=== PATIENT | female | born 1945 | race Caucasian/White ===

== ENCOUNTER → 2016-09-13 | Outpatient (CLI) | payer OTHER ==
[~2016-09-13] MED LIST: AMLO-114 PO; ASCA500 PO; BENZ100C7 PO; CALC1TAB9 PO; CHOL100027 PO; CLC100 PO; CPR500 PO; GLC5 PO; GLC500 PO; HYDR25TA4 PO; ONDA4TAB46 PO; POLY1DRO2 OP; PTDOPS OPR; SIMV20TA2 PO; SITA1TAB27 PO; TYLOTC500 PO
== END | disposition home or self-care (01) ==
LOC: C.LABSPEC 15:59
PROVIDERS: ATTEND Podiatrist
DX: L60.0 Ingrowing nail (principal); E11.51 Type 2 diabetes mellitus with diabetic peripheral angiopathy without gangrene

== ENCOUNTER → 2017-06-04 | Outpatient (CLI) | payer OTHER ==
--- NOTE | 2017-06-05 13:40 | MAMMOGRAPHY REPORT ---
BILATERAL DIGITAL SCREENING MAMMOGRAM TOMOSYNTHESIS WITH CAD: 06/04/2017 CLINICAL HISTORY: Routine screening. TECHNIQUE: Breast tomosynthesis in addition to standard 2D mammography was performed. Current study was also evaluated with a Computer Aided Detection (CAD) system. COMPARISON: Comparison is made to exams dated: 03/13/2016 mammogram, 05/31/2015 mammogram, 05/28/2014 mammogram, 05/26/2013 mammogram, 05/23/2012 mammogram, and 05/22/2011 mammogram - [facility]. BREAST COMPOSITION: There are scattered areas of fibroglandular density in both breasts. FINDINGS: There are scattered benign calcifications in both breasts. Minimal vascular calcification. No suspicious mass, architectural distortion or cluster of suspicious microcalcifications is seen. IMPRESSION: ACR BI-RADS CATEGORY 1: NEGATIVE There is no mammographic evidence of malignancy. A 1 year screening mammogram is recommended. The pa tient will receive written notification of the results. Approximately 10% of breast cancers are not detected with mammography. A negative mammographic report should not delay biopsy if a clinically suggestive mass is present. Ivory Jamison M.D. ay/:06/04/2017 16:23:20 Lab Animal Technician: Dinah GALVEZ(Hui)(M), [facility] letter sent: Normal 1/2 BI-RADS Code: ACR BI-RADS Category 1: Negative
== END | disposition home or self-care (01) ==
LOC: C.MAMM 12:41
PROVIDERS: ATTEND Family Medicine
DX: Z12.31 Encounter for screening mammogram for malignant neoplasm of breast (principal)

== ENCOUNTER → 2017-09-10 | Day surgery (SDC) | payer OTHER ==
[2017-09-03 13:46] VITALS: Ht 162.6 cm; Wt 81.8 kg
[~2017-09-10] VITALS: Ht 162.6 cm; Wt 81.8 kg
[~2017-09-10] MED LIST changes: +ALBINS/ INH; -ASCA500 PO; +ATROPINE SULFATE 0.1 MG/ML 5ML SYR IV PRN; +BUPIVACAINE 0.5 % 5 MG/1 ML MPF 30ML VIAL ONE; -CPR500 PO; +EpHEDrine SULFATE INJ 50 MG/ML AMP IV PRN; +FENTANYL CITRATE INJ 50 MCG/1 ML 2 ML VIAL IV PRN; +FENTANYL CITRATE INJ 50 MCG/1 ML 2 ML VIAL ONE; +FLUMAZENIL 0.1 MG/1 ML 10 ML VIAL IV PRN; -GLC5 PO; +GLIP10TA10 PO; +HYDR-4313 PO; +HYDROmorphone INJ 2 MG/ML SYR/VIAL IV PRN; +LABETALOL HCL IV 5 MG/ML 20ML IV PRN; +LACTATED RINGER'S 1000ML 1,000 ML IV SCH; +LIDOCAINE HCL 2% 2 ML VIAL (20MG/ML) ONE; +MEPERIDINE HCL 25 MG/ML CARP IV PRN; +MIDAZOLAM HCL 1 MG/ML 2ML VIAL ONE; +MULT1CHW42 PO; +MULT1PAK42 PO; +NALOXONE HCL 0.4 MG/1 ML VIAL/CARP IV PRN; +ONDA8TAB62 SL; +ONDANSETRON INJ 2 MG/ML 2 ML VIAL IV PRN; +ONDANSETRON INJ 2 MG/ML 2 ML VIAL ONE; +OXYCODONE/ACETAMINOPHEN 5-325 TAB PO PRN; +PHENYLEPHRINE 100MCG/ML 5ML SYR IV PRN; +PROPOFOL IV EMULSION 10 MG/ML 20 ML VIAL IV ONE; +SODIUM CHLORIDE 0.9% 1000ML 1,000 ML IV SCH; +[UNRECOGNIZED DRUG - CODE] PO
--- NOTE | 2017-09-10 07:15 | History & Physical Bridge - [place] ---
H&P Re-Evaluation Bridge Note: I have examined the patient, reviewed the History & Physical and in the interval since the performance of the History & Physical I have noted the following changes of clinical significance: No changes noted
--- NOTE | 2017-09-10 08:08 | [facility] Post Operative Brief Note ---
Immediate Operative Summary Operative Date Sep 10, 2017. Pre-Operative Diagnosis Left Foot 4th Digit Ingrown Toenail Post-Operative Diagnosis Same Procedure(s) Performed Left Foot 4th Digit Surgical Suppan Matrixectomy Surgeon Dr. Guillaume Photographic Equipment Technician Surgeon(s) none Estimated Blood Loss 3 ml Findings Consistent with Post-Op Diagnosis Specimens None Anesthesia Type MAC Complication(s) none Disposition Accompanied Pt To Recovery: no
--- NOTE | 2017-09-10 08:13 | Discharge Instructions-SurgCtr ---
Discharge Instructions Date of Service Sep 10, 2017. Visit Reason for Visit: Left Foot 4TH Digit Ingrown Toenail Discharge Discharge Diagnosis / Problem: Matrixectomy Discharge Goals Goal(s): Decrease discomfort, Improve function Medications Stopped Medications Name(s): metforamin last dose 09-07-17 Activity Recommendations Activity Limitations: per Instructions/Follow-up section May Resume Sexual Activity: when tolerated Shower/Bathe: keep incision dry Driving or Machine Use: no limitations May weight bear as tolerated. Anesthesia . Post Anesthesia Instructions: If you have had General Anesthesia or IV Sedation: * Do not drive today. * Resume driving when surgeon permits. * Do not make important decisions or sign legal documents today. * Call surgeon for: 1. Temperature elevations greater than 101 degrees F. 2. Uncontrollable pain. 3. Excessive bleeding. 4. Persistent nausea and vomiting. 5. Medication intolerance (nausea, vomiting or rash). * For nausea and vomiting use only clear liquids such as: tea, soda, bouillon until nausea subsides, then gradually increase diet as tolerated. * If you have any concerns or questions, call your surgeon's office. If physician is unavailable and it is an emergency, call 911 or go to the nearest emergency room. . Diet Recommendations Home Diet: resume previous diet Procedures Procedures Performed: Left Foot 4th Digit Surgical Suppan Matrixectomy Pending Studies Studies pending at discharge: no Medical Emergencies . Who to Call and When: Medical Emergencies: If at any time you feel your situation is an emergency, please call 911 immediately. . Non-Emergent Contact Non-Emergency issues call your: Primary Care Provider, Specialist Call Non-Emergent contact if: you have a fever, your pain is not controlled, wound has increased drainage, wound has increased redness, wound has increased pain . . "Provider Documentation" section prepared by Caterina Guillaume. . [place] Drug Monitoring Program Search Results: no issues identified
[2017-09-10 08:14] VITALS: TEMP 36.5
--- NOTE | 2017-09-10 08:36 | Anesthesia Progress Nt - [facility] ---
Anesthesia Post Op Note Date & Time Sep 10, 2017 at 08:36 Vital Signs Pain Intensity: 0 Vital Signs Past 12 Hours Date Time Temp Pulse Resp B/P (MAP) Pulse Ox O2 Delivery O2 Flow Rate FiO2 09/10/17 08:14 36.5 88 16 150/80 (103) 95 Room Air 09/10/17 07:20 36.4 95 20 153/91 (111) 96 Room Air Notes Mental Status: alert / awake / arousable, participated in evaluation Pt Amnestic to Procedure: Yes Nausea / Vomiting: adequately controlled Pain: adequately controlled Airway Patency, RR, SpO2: stable & adequate BP & HR: stable & adequate Hydration State: stable & adequate Anesthetic Complications: no major complications apparent
[2017-09-10 08:59] VITALS: BP 137/72; PULSE 83; O2SAT 97
--- NOTE | 2017-09-10 09:11 | [facility] Operative Report ---
Operative Report Operative Date Sep 10, 2017. Pre-Operative Diagnosis Left Foot 4th Digit Ingrown Toenail Post-Operative Diagnosis Same Procedure(s) Performed Left Foot 4th Digit Surgical Supan Matrixectomy Surgeon Dr. Guillaume Stringer Machine Tender Surgeon(s) none Estimated Blood Loss 3 ml Specimens None Anesthesia Type MAC Complication(s) none Disposition no Indications This 72 year old female presented to the office with complaint of thickened, ingrown painful 4th toenail left foot. Patient has attempted conservative treatment consisting of debridements, and previous phenol matrixectomy. She is in agreement and wishes to proceed with Supan matrixectomy left 4th toenail. Patient was educated on the details of the procedures as well as medically reasonable risks, benefits, alternatives and prognosis. Patient was also educated on perioperative management including preoperative medical clearance, postoperative care and rehabilitation, anticipated time to full weightbearing, return to shoes and maximum medical improvement. Lastly patient was educated to their apparent understanding on potential complications including but not limited to infection, recurrence, overcorrection or undercorrection, persistent pain, swelling or disability, nerve injury or entrapment, bone and soft tissue healing complications, complications with anesthesia and deep vein thrombosis or pulmonary embolism. All questions were answered to the patients apparent satisfaction. No guarantees were given as to the outcome of the surgery. Medical clearance has been obtained by the patients primary care physician. All consents have been signed and obtained. Description of Procedure Under mild sedation, patient was brought to the operating room and placed on the table in the supine position. Final verification of the patient, surger, and limb designation was performed via the time-out procedure. Mac anesthesia was then initiated by the anesthesia team. The preoperative injection consisting of 5cc of 0.5% marcaine plain were administered to the operative sites. The surgical extremity was then prepped and draped in the usual aseptic manner and surgery began as follows: A [place] drain was use for hemostasis around the 4th digit at this time. Attention was first directed to the left 4th digit, where using a freer elevator , the nail plate was freed of all soft tissue attachments along the proximal, medial and lateral aspects. Next, an [place] anvil was then utilized to split the nail plate from distal to proximal down to the level of the nail matrix. A curved hemostat was then employed and thenail plate was avulsed in a proximal to distal fashion in its entirety. Any remaining extraneous tissue was removed with a curette & tissue nippers. The nail matrix was then identified and was carefully resected free using a #15 blade and a rongeur. No remaining nail matrix was appreciated. The site was then flushed with copious amounts of normal sterile saline. At this time, post-operative dressing consisting of adaptik, 4x4 gauze and coban were applied to the operative site. The [place] draine was removed. Patient tolerated the procedure and anesthesia well. She was transferred to recovery with vital signs stable and vascular status intact to the left foot. I attest to the content of the Intraoperative Record and any orders documented therein. Any exceptions are noted below.
== END | disposition home or self-care (01) ==
LOC: X.SURG 06:59
PROVIDERS: ATTEND Podiatrist Foot & Ankle Surgery
DX: L60.0 Ingrowing nail (principal); R60.9 Edema, unspecified; G60.3 Idiopathic progressive neuropathy; E78.5 Hyperlipidemia, unspecified; I10 Essential (primary) hypertension; E11.51 Type 2 diabetes mellitus with diabetic peripheral angiopathy without gangrene; G51.0 Bell's palsy; Z79.84 Long term (current) use of oral hypoglycemic drugs; Z85.820 Personal history of malignant melanoma of skin; Z98.42 Cataract extraction status, left eye; Z98.41 Cataract extraction status, right eye; Z90.710 Acquired absence of both cervix and uterus; Z88.1 Allergy status to other antibiotic agents; Z91.040 Latex allergy status; Z88.5 Allergy status to narcotic agent; Z88.0 Allergy status to penicillin; Z88.8 Allergy status to other drugs, medicaments and biological substances; Z79.899 Other long term (current) drug therapy

== ENCOUNTER 2018-09-25 21:51 | Inpatient (IN) ==
[2018-09-25] MEDS ORDERED: KETAMINE HCL INJ 50 MG/ML 10 ML VIAL ONE (21:55)
[2018-09-25] MEDS ORDERED: ALBUT/IPRATROP 3MG/0.5MG NEB 3 ML VIAL ONE (22:04)
[2018-09-25] MEDS ORDERED: ALBUT/IPRATROP 3MG/0.5MG NEB 3 ML VIAL NEB ONE (22:05)
[2018-09-25] MEDS ORDERED: FUROSEMIDE 20 MG in SYRINGE 0 ML IV STA (22:11)
[2018-09-25 22:14] LABS: Hematocrit (blood only) 42.9 % (37-47); Hemoglobin 14.4 g/dL (12.0-16.0); Mean Corpuscular Hgb Conc 33.6 g/dL (32-36); Mean Corpuscular Volume 95.3 fL (80-100); Mean Platelet Volume 10.2 fL (7.4-10.4); Platelet Count 294 K/uL (130-400); RDW Coefficient of Variation 14.5 % (11.5-14.5); White Blood Count 16.27 K/uL (4.8-10.8)
[2018-09-25 22:14] LABS: Base Excess VBG -4.5 mEq/L; Oxygen Saturation VBG 84.6 %; pH VBG 7.27 (7.36-7.41)
[2018-09-25 22:19] LABS: iSTAT Ionized Calcium 1.37 mmol/l (1.12-1.32); iSTAT Potassium 4.7 mEq/L (3.3-5.0)
[2018-09-25 22:25] LABS: INR 1.1 (0.9-1.1); Partial Thromboplastin Time 25.9 Seconds (21.0-31.0); Prothrombin Time 11.4 Seconds (9.0-12.0)
[2018-09-25] MEDS ORDERED: FUROSEMIDE 40 MG/4 ML VIAL IV ONE (22:26)
[2018-09-25 22:29] LABS: Appearance Urine Clear (Clear); Bilirubin Urine Negative (Negative); Blood Urine Negative (Negative); Color Urine Yellow; Glucose Urine UA Negative (Negative); Ketones Urine Negative (Negative); Leukocyte Esterase Urine Negative (Negative); Nitrite Urine Negative (Negative); Protein Urine Negative (Negative); Specific Gravity Urine 1.018 (1.000-1.030); Urobilinogen Urine Negative (Negative)
--- NOTE | 2018-09-25 22:29 | XRay Report ---
XR chest 1V portable CLINICAL HISTORY: Atypical chest pain COMPARISON STUDY: 09/21/2018 FINDINGS: The heart is enlarged. There is progressive diffuse elevation of the interstitium. The find ings likely represent progressive pulmonary edema. An interstitial inflammatory process could appear similar. There is persistent hilar prominence. Small effusions are suspected. There is left basilar a telectasis/consolidation.[ IMPRESSION: Worsening pulmonary edema pattern. Electronically signed by: Perfecto Means M.D. 09/25/2018 10:28 PM
[2018-09-25 22:35] LABS: Basophils # (auto) 0.03 K/uL (0-0.2); Basophils % (auto) 0.2 %; Echinocytes 1+; Eosinophils # (auto) 0.32 K/uL (0-0.5); Immature Granulocytes % (auto) 0.6 %; Monocytes # (auto) 0.97 K/uL (0.11-0.59); Neutrophils # (auto) 9.15 K/uL (1.4-6.5); Neutrophils % (auto) 56.2 %
[2018-09-25 22:42] LABS: Albumin Level 3.6 gm/dl (3.4-5.0); BUN Creatinine Ratio 14.9 (10-20); Bilirubin Direct 0.2 mg/dl (0-0.2); Bilirubin,Total 0.6 mg/dl (0.2-1); Calcium 9.9 mg/dl (8.5-10.1); Creatinine Clr Calc Pharmacy 49.2 ml/min; Est GFR (African American) 52.8; Est GFR (Non-African American) 45.6; Globulin 3.5 gm/dl (2.5-4.0); Magnesium 2.4 mg/dl (1.8-2.4); Phosphorus 6.6 mg/dl (2.5-4.9); Total Protein 7.1 gm/dl (6.4-8.2); Troponin I 0.015 ng/ml (0-0.045)
[2018-09-25 22:43] LABS: Potassium 4.7 mmol/L (3.5-5.1)
[2018-09-25 22:52] LABS: Beta-Hydroxybutyrate 2.27 mg/dl (0.2-2.81)
[2018-09-25] MEDS ORDERED: LANTUS PER UNIT CHARGE SQ STA (23:32)
[2018-09-25 23:54] LABS: HCO3 ABG 21 mmol/L (19-24); Oxygen Saturation ABG 99.3 % (90-95); PCO2 ABG 37 mmHg (35-46); PO2 ABG 164 mm/Hg (80-95); pH ABG 7.38 (7.35-7.45)
[2018-09-25 23:55] LABS: Allen Test 50% (Pos)
--- NOTE | 2018-09-26 00:58 | Emergency Department Note ---
Entered by Shun Lew acting as a scribe for Jerel Martínez MD History of Present Illness General Chief complaint: Shortness of Breath/Dyspnea Stated complaint: BREATHING PROBLEMS Source: patient and EMS Limitations: clinical acuity History of Present Illness Provider complaint: SOB Onset (ago): minute(s) 45 Location: chest Severity: severe Quality: + constant Relieved By: + none Associated symptoms: + chest pain and + shortness of breath Treatments prior to arrival: other (NG, morphine) The patient is a 73 year old female who presents to the Emergency Room with complaints of shortness of breath beginning 40 minutes ago. The patient's HPI is limited due to clinical acuity. Per EMS, the patient presents to the ED from home. EMS states she experienced a rapid onset of chest pain and shortness of breath. They add that she is full of fluid and would not tolerate the CPAP for them due t her being so agitated. They state they gave her 5 doses if NG and 4 doses of morphine. EMS adds that the patient was discharged 1 day ago from the hospital and that she underwent cardiac catheterization a couple days ago. The patient states that she has tightness all over her chest and the tightness is making it hard for her to breath. Per the patient's who was bedside, the patient weighed herself this morning and had lost 5 lbs since she left the hospital. He adds that she was taking her prescribed medications and she was fine this morning several hours ago. The also notes that the patient was in the recliner, reclining backwards when the episode of chest pain/shortness of breath prior to EMS arrival. Home Medications Home Medications Medication Instructions Recorded Confirmed Type Centrum Silver 1 tab PO DAILY 06/19/18 09/25/18 History Emergen-C 1 dose PO QPM 06/19/18 09/25/18 History I'Cat 1 cap PO DAILY 06/19/18 09/25/18 History Januvia 100 mg PO QAM 06/19/18 09/25/18 History Systane Gel 1 drp OPB HS 06/19/18 09/25/18 History albuterol sulfate 2.5 mg INHALATION QID PRN 06/19/18 09/25/18 History benzonatate [Tessalon Perles] 100 mg PO TID PRN 06/19/18 09/25/18 History calcium citrate-vitamin D3 2 tab PO QAM 06/19/18 09/25/18 History [Citracal + D Petites] cholecalciferol (vitamin D3) 1,000 unit PO BID 06/19/18 09/25/18 History [Vitamin D3] glipizide 10 mg PO QAM 06/19/18 09/25/18 History metformin 2 tab PO BID 06/19/18 09/25/18 History olopatadine [Pataday] 1 drp OPR QAM 06/19/18 09/25/18 History ondansetron 4 mg PO UNKNOWN PRN 06/19/18 09/25/18 History simvastatin 20 mg PO HS 06/19/18 09/25/18 History amiodarone 200 mg PO Q6 30 Days #120 tab 09/24/18 09/25/18 Rx apixaban [Eliquis] 5 mg PO BID17 30 Days #30 tab 09/24/18 09/25/18 Rx furosemide 20 mg PO QAM 30 Days #30 tab 09/24/18 09/25/18 Rx losartan 25 mg PO QAM 30 Days #30 tab 09/24/18 09/25/18 Rx metoprolol succinate 25 mg PO BID17 30 Days #30 tab 09/24/18 09/25/18 Rx potassium chloride [Klor-Con M20] 20 meq PO QAM 30 Days #30 tab 09/24/18 09/25/18 Rx spironolactone 12.5 mg PO DAILY 30 Days #15 tab 09/24/18 09/25/18 Rx amlodipine 0 mg PO UNKNOWN 09/25/18 09/25/18 History hydrochlorothiazide 0 mg PO UNKNOWN 09/25/18 09/25/18 History Allergies Allergy/AdvReac Type Severity Reaction Status Date / Time propoxyphene Allergy Intermediate Edema Verified 09/25/18 22:54 airway - DARVON salicylates Allergy Mild Hives/nause Verified 09/25/18 22:54 a erythromycin base Allergy Nausea Unverified 09/25/18 23:08 Penicillins AdvReac Intermediate Nausea and Verified 09/25/18 22:54 dizziness amitriptyline AdvReac Mild Dizziness Verified 09/25/18 23:08 azithromycin AdvReac Mild STOMACH Verified 09/25/18 22:54 PAINS/ACHES ALL OVER Bactrim AdvReac Mild GI upset, Verified 09/10/17 07:13 nausea, vomiting Corticosteroids AdvReac Mild Prednisone, Verified 09/25/18 23:08 (Glucocorticoids) rapid weight gain hydrocodone AdvReac Mild Nausea, Verified 09/25/18 22:54 vomiting latex AdvReac Mild Rash Verified 09/25/18 22:54 lisinopril AdvReac Mild COUGH Verified 09/25/18 22:54 mivacurium AdvReac Mild Nausea, Verified 09/19/18 23:55 vomiting and diarrhea morphine AdvReac Mild Nausea Verified 09/25/18 22:54 pseudoephedrine AdvReac Mild Dizziness Verified 09/25/18 22:54 sulfamethoxazole AdvReac Mild GI upset, Verified 08/18/18 10:59 nausea, vomiting thiopental AdvReac Mild Nausea, Verified 09/25/18 22:54 vomiting trimethoprim AdvReac Mild GI upset, Verified 08/18/18 10:59 nausea, vomiting SODIUM PENTHANOL Allergy Intermediate Nausea Uncoded 08/18/18 10:59 Past Med/Surg History Medical History Fibromyalgia (Chronic) Diabetes (Chronic) Dyslipidemia (Chronic) HTN (hypertension) (Chronic) Endometriosis (Chronic) Bronchitis Cancer SKIN CANCER Diabetes mellitus, type 2 Endometriosis Fibromyalgia Hepatitis C A CHILD Hot flashes Hyperlipidemia Hypertension Migraine Sheehan's neuroma Osteoarthritis Sciatica Temporomandibular joint disorder Surgical History H/O: hysterectomy (Chronic) S/P BSO (status post bilateral salpingo-oophorectomy) (Chronic) History of cataract surgery RT/LEFT History of tonsillectomy History of tooth extraction History of total hysterectomy with bilateral salpingo-oophorectomy (BSO) Family History Father Family history of diabetes mellitus Other Breast cancer Hemochromatosis Social History Preferred Language: Guatemalan Communication Ability: Effective Chair Finisher Required: No Beliefs That Will Affect Care: None marital status: Current Living Situation: Spouse current occupation: Homemaker Other Information That Helps Us Care for You: No Feels Safe at Home: Yes Safety Concerns: Feels Safe At This Time Smoking Status: Never smoker Second Hand Exposure: Yes (HX OF EXPOSURE) Hx Alcohol Use: No Hx Substance Use: No Review of Systems See HPI for pertinent positives & negatives. and A total of 10 systems reviewed and were otherwise negative Physical Exam Vital Signs Vital Signs - 24 hr 09/25/18 21:55 09/25/18 21:57 09/25/18 22:00 Temperature Temperature Source Sepsis Recent Fever Within 48 Hours No Sepsis New/Unexplained Change in Mental Status No Sepsis Action Taken by Nursing No Action Required Pulse Rate 102 H 113 H 109 H Pulse Rate [Right Finger] Pulse Rate from SpO2 Sensor 114 H 109 H Pulse Rhythm [Right Finger] Pulse Strength [Right Finger] Respiratory Rate 32 H 28 H 29 H Respiratory Effort / Characteristics Labored Respiratory Depth Shallow Respiratory Pattern Rapid/Shallow Blood Pressure 154/78 H 154/78 H 133/75 Blood Pressure [Right Arm] Blood Pressure Mean 103 103 94 Blood Pressure Mean [Right Arm] Blood Pressure Position Lying Blood Pressure Position [Right Arm] Pulse Oximetry 91 95 97 Oxygen Delivery Method Non-rebreather BiPAP BiPAP Oxygen Flow Rate 15 Fraction of Inspired Oxygen 50 50 09/25/18 22:10 09/25/18 22:18 09/25/18 22:20 Temperature Temperature Source Sepsis Recent Fever Within 48 Hours Sepsis New/Unexplained Change in Mental Status Sepsis Action Taken by Nursing Pulse Rate 105 H 108 H 103 H Pulse Rate [Right Finger] 103 H Pulse Rate from SpO2 Sensor 105 H 103 H Pulse Rhythm [Right Finger] Pulse Strength [Right Finger] Respiratory Rate 28 H 25 H 21 Respiratory Effort / Characteristics Non-Labored Spontaneous Respiratory Depth Normal Respiratory Pattern Regular Blood Pressure 117/73 125/70 Blood Pressure [Right Arm] 117/73 Blood Pressure Mean 87 88 Blood Pressure Mean [Right Arm] 87 Blood Pressure Position Blood Pressure Position [Right Arm] Lying Pulse Oximetry 96 97 93 Oxygen Delivery Method BiPAP BiPAP Oxygen Flow Rate Fraction of Inspired Oxygen 50 50 50 09/25/18 22:22 09/25/18 22:23 09/25/18 22:30 Temperature Temperature Source Sepsis Recent Fever Within 48 Hours Sepsis New/Unexplained Change in Mental Status Sepsis Action Taken by Nursing Pulse Rate 101 H 97 H Pulse Rate [Right Finger] Pulse Rate from SpO2 Sensor 98 H Pulse Rhythm [Right Finger] Pulse Strength [Right Finger] Respiratory Rate 19 30 H Respiratory Effort / Characteristics Respiratory Depth Respiratory Pattern Blood Pressure 119/62 Blood Pressure [Right Arm] Blood Pressure Mean 81 Blood Pressure Mean [Right Arm] Blood Pressure Position Blood Pressure Position [Right Arm] Pulse Oximetry 94 95 Oxygen Delivery Method BiPAP BiPAP BiPAP Oxygen Flow Rate Fraction of Inspired Oxygen 50 09/25/18 22:52 09/25/18 23:08 09/25/18 23:30 Temperature Temperature Source Sepsis Recent Fever Within 48 Hours Sepsis New/Unexplained Change in Mental Status Sepsis Action Taken by Nursing Pulse Rate 89 Pulse Rate [Right Finger] 100 H 91 H Pulse Rate from SpO2 Sensor Pulse Rhythm [Right Finger] Pulse Strength [Right Finger] Respiratory Rate 25 H 27 H 22 Respiratory Effort / Characteristics Spontaneous Non-Labored Spontaneous Respiratory Depth Normal Respiratory Pattern Regular Blood Pressure Blood Pressure [Right Arm] 115/70 Blood Pressure Mean Blood Pressure Mean [Right Arm] 85 Blood Pressure Position Blood Pressure Position [Right Arm] Pulse Oximetry 97 96 96 Oxygen Delivery Method BiPAP BiPAP Oxygen Flow Rate Fraction of Inspired Oxygen 50 50 09/25/18 23:47 09/26/18 00:53 09/26/18 01:35 Temperature Temperature Source Sepsis Recent Fever Within 48 Hours Sepsis New/Unexplained Change in Mental Status Sepsis Action Taken by Nursing Pulse Rate 120 H Pulse Rate [Right Finger] 91 H 112 H Pulse Rate from SpO2 Sensor Pulse Rhythm [Right Finger] Pulse Strength [Right Finger] Respiratory Rate 19 17 19 Respiratory Effort / Characteristics Spontaneous Respiratory Depth Normal Respiratory Pattern Regular Blood Pressure Blood Pressure [Right Arm] 137/61 128/64 Blood Pressure Mean Blood Pressure Mean [Right Arm] 86 85 Blood Pressure Position Blood Pressure Position [Right Arm] Pulse Oximetry 96 96 95 Oxygen Delivery Method BiPAP BiPAP Oxygen Flow Rate Fraction of Inspired Oxygen 50 09/26/18 02:00 09/26/18 03:32 Temperature 36.4 C L Temperature Source Oral Sepsis Recent Fever Within 48 Hours Sepsis New/Unexplained Change in Mental Status Sepsis Action Taken by Nursing Pulse Rate Pulse Rate [Right Finger] 124 H 121 H Pulse Rate from SpO2 Sensor Pulse Rhythm [Right Finger] Irregular Pulse Strength [Right Finger] Normal Respiratory Rate 18 22 Respiratory Effort / Characteristics Non-Labored Spontaneous Respiratory Depth Normal Respiratory Pattern Regular Blood Pressure Blood Pressure [Right Arm] 128/68 133/83 Blood Pressure Mean Blood Pressure Mean [Right Arm] 88 99 Blood Pressure Position Blood Pressure Position [Right Arm] Lying Pulse Oximetry 96 97 Oxygen Delivery Method BiPAP Nasal Cannula Oxygen Flow Rate 2 Fraction of Inspired Oxygen GENERAL: Awake, alert, in severe respiratory distress HENT: Normocephalic, atraumatic. Oropharynx unremarkable. EYES: Normal conjunctiva. Sclera non-icteric. NECK: Supple. No nuchal rigidity. FROM. Mild JVD. RESPIRATORY: Diminished breath sounds throughout with labored breathing, scattered intermittent wheezes bilaterally. CARDIAC: Regular rate, normal rhythm. Extremities warm and well perfused. Pulses equal. ABDOMEN: Soft, non-distended. No tenderness to palpation. No rebound or guarding. No masses. RECTAL: Deferred. MUSCULOSKELETAL: Chest examination reveals no tenderness. The back is symmetrical on inspection without obvious abnormality. There is no CVA ten derness to palpation. No joint edema. LOWER EXTREMITIES: Calves are equal size bilaterally and non-tender. No edema. No discoloration. NEURO: Normal sensorium. No sensory or motor deficits noted. SKIN: No rash or jaundice noted. Course 2151: The patient was evaluated in room A01. A complete history and physical exam was performed. Administered Medications Insulin Aspart (Novolog Flexpen) 0 units SC ACHS BLAYNE Stop: 10/26/18 04:26 Last Admin: 09/26/18 05:21 Dose: 7 units Documented by: [id number] Cosigned by: [id number] Discontinued Medications Albuterol (Duoneb) Confirm Administered Dose 12 ml .ROUTE .STK-MED ONE Stop: 09/25/18 22:05 Last Admin: 09/25/18 23:00 Dose: Not Given Documented by: [id number] Albuterol (Duoneb) 12 ml NEB ONE ONE Stop: 09/25/18 22:06 Last Admin: 09/25/18 22:53 Dose: 12 ml Documented by: [id number] Furosemide (Lasix) Confirm Administered Dose 40 mg IV .STK-MED ONE Stop: 09/25/18 22:27 Last Admin: 09/25/18 23:00 Dose: Not Given Documented by: [id number] Furosemide (Lasix) Confirm Administered Dose 40 mg IV .STK-MED ONE Stop: 09/26/18 03:04 Last Admin: 09/26/18 03:04 Dose: Not Given Documented by: [id number] Furosemide 20 mg/ Syringe 2 mls @ 4 mls/min IV NOW STA Stop: 09/25/18 22:12 Last Admin: 09/25/18 22:28 Dose: 2 mls/min Documented by: [id number] Furosemide 20 mg/ Syringe 2 mls @ 4 mls/min IV ONE ONE Stop: 09/26/18 02:40 Last Admin: 09/26/18 03:03 Dose: 2 mls/min Documented by: [id number] Insulin Glargine (Lantus Per Unit) 20 units SQ NOW STA Stop: 09/25/18 23:33 Last Admin: 09/25/18 23:48 Dose: 20 units Documented by: [id number] Cosigned by: [id number] Ketamine HCl (Ketalar Steri-Vial) Confirm Administered Dose 500 mg .ROUTE .STK- MED ONE Stop: 09/25/18 21:56 Last Increment: 09/25/18 22:27 Dose: 100 mg Documented by: [id number] Medical Decision Making Differential Diagnosis Differential diagnosis: Etiologies such as infections, reactive airway disease, pneumonia, pneumothorax, COPD, CHF, cardiac ischemia, pulmonary embolism, musculoskeletal, gastrointestinal, as well as others were entertained. Medical Records Attestation: I reviewed the patient's medical records. Home Medications Current Medication List: was personally reviewed by me Laboratory Data Attestation: I reviewed the patient's lab results. Result diagrams: 09/25/18 22:00 09/25/18 22:00 Lab Results 09/25/18 09/25/18 09/25/18 Range/Units 22:00 22:00 22:00 WBC 16.27 H (4.8-10.8) K/uL RBC 4.50 (4.2-5.4) M/uL Hgb 14.4 (12.0-16.0) g/dL POC Hgb (12.0-16.0) g/dl Hct 42.9 (37-47) % POC Hct (37-47) % MCV 95.3 (80-100) fL MCH 32.0 (25-34) pg MCHC 33.6 (32-36) g/dL RDW Std Deviation 50.0 H (36.4-46.3) fL RDW Coeff of Hilda 14.5 (11.5-14.5) % Plt Count 294 (130-400) K/uL MPV 10.2 (7.4-10.4) fL Immature Gran % (Auto) 0.6 % Neut % (Auto) 56.2 % Lymph % (Auto) 35.0 % Dodge % (Auto) 6.0 % Eos % (Auto) 2.0 % Baso % (Auto) 0.2 % Immature Gran # (Auto) 0.10 H (0.00-0.02) K/uL Neut # (Auto) 9.15 H (1.4-6.5) K/uL Lymph # (Auto) 5.70 H (1.2-3.4) K/uL Dodge # (Auto) 0.97 H (0.11-0.59) K/uL Eos # (Auto) 0.32 (0-0.5) K/uL Baso # (Auto) 0.03 (0-0.2) K/uL Echinocytes 1+ PT 11.4 (9.0-12.0) Seconds INR 1.1 (0.9-1.1) APTT 25.9 (21.0-31.0) Seconds PTT Ratio 1.0 ABG pH (7.35-7.45) ABG pCO2 (35-46) mmHg ABG pO2 (80-95) mm/Hg ABG HCO3 (19-24) mmol/L ABG O2 Saturation (90-95) % ABG Base Excess (-9-1.8) mEq/L Willis Test (Pos) VBG pH (7.36-7.41) VBG pCO2 (38-50) mmHg VBG pO2 mmHg VBG HCO3 mmol/L VBG O2 Saturation % VBG Base Excess mEq/L Barometric Pressure mm/Hg Oxygen Given POC Sodium (135-144) mEq/L Sodium 136 (136-145) mmol/L POC Potassium (3.3-5.0) mEq/L Potassium 4.7 D (3.5-5.1) mmol/L POC Chloride (101-112) mEq/L Chloride 104 (98-107) mmol/L Carbon Dioxide 22 (21-32) mmol/L POC Total CO2 (24-31) mEq/l Anion Gap 10.0 (3-11) POC Anion Gap (16-25) mmol/L POC BUN (7-18) mg/dl BUN 18 (7-18) mg/dl Creatinine 1.19 D (0.6-1.2) mg/dl POC Creatinine (0.6-1.3) mg/dl Est Cr Clr Drug Dosing 49.2 ml/min Est GFR ( Amer) 52.8 Est GFR (Non-Af Amer) 45.6 BUN/Creatinine Ratio 14.9 (10-20) Glucose 354 H* (70-99) mg/dl POC Glucose (70-99) POC Glucose (other) (70-99) mg/dl Calcium 9.9 (8.5-10.1) mg/dl POC Ioniz Calcium Amber (1.12-1.32) mmol/l Phosphorus 6.6 H (2.5-4.9) mg/dl Magnesium 2.4 (1.8-2.4) mg/dl Total Bilirubin 0.6 (0.2-1) mg/dl Direct Bilirubin 0.2 (0-0.2) mg/dl AST 32 (15-37) U/L ALT 42 (12-78) U/L Alkaline Phosphatase 92 (45-117) U/L Troponin I 0.015 (0-0.045) ng/ml NT-Pro-B Natriuret Pep 1859 H (0-900) pg/ml Total Protein 7.1 (6.4-8.2) gm/dl Albumin 3.6 (3.4-5.0) gm/dl Globulin 3.5 (2.5-4.0) gm/dl Albumin/Globulin Ratio 1.0 (0.9-2) Lipase 204 (73-393) U/L Beta-Hydroxybutyric Acd 2.27 (0.2-2.81) mg/dl Procalcitonin (0-0.5) ng/ml Urine Color Urine Appearance (Clear) Urine pH (4.5-7.5) Ur Specific Points (1.000-1.030) Urine Protein (Negative) Urine Glucose (UA) (Negative) Urine Ketones (Negative) Urine Blood (Negative) Urine Nitrite (Negative) Urine Bilirubin (Negative) Urine Urobilinogen (Negative) Ur Leukocyte Esterase (Negative) 09/25/18 09/25/18 09/25/18 Range/Units 22:00 22:02 22:05 WBC (4.8-10.8) K/uL RBC (4.2-5.4) M/uL Hgb (12.0-16.0) g/dL POC Hgb 15.0 (12.0-16.0) g/dl Hct (37-47) % POC Hct 44 (37-47) % MCV (80-100) fL MCH (25-34) pg MCHC (32-36) g/dL RDW Std Deviation (36.4-46.3) fL RDW Coeff of Hilda (11.5-14.5) % Plt Count (130-400) K/uL MPV (7.4-10.4) fL Immature Gran % (Auto) % Neut % (Auto) % Lymph % (Auto) % Dodge % (Auto) % Eos % (Auto) % Baso % (Auto) % Immature Gran # (Auto) (0.00-0.02) K/uL Neut # (Auto) (1.4-6.5) K/uL Lymph # (Auto) (1.2-3.4) K/uL Dodge # (Auto) (0.11-0.59) K/uL Eos # (Auto) (0-0.5) K/uL Baso # (Auto) (0-0.2) K/uL Echinocytes PT (9.0-12.0) Seconds INR (0.9-1.1) APTT (21.0-31.0) Seconds PTT Ratio ABG pH (7.35-7.45) ABG pCO2 (35-46) mmHg ABG pO2 (80-95) mm/Hg ABG HCO3 (19-24) mmol/L ABG O2 Saturation (90-95) % ABG Base Excess (-9-1.8) mEq/L Willis Test (Pos) VBG pH 7.27 L (7.36-7.41) VBG pCO2 51 H (38-50) mmHg VBG pO2 57 mmHg VBG HCO3 23 mmol/L VBG O2 Saturation 84.6 % VBG Base Excess -4.5 mEq/L Barometric Pressure 725.5 mm/Hg Oxygen Given POC Sodium 136 (135-144) mEq/L Sodium (136-145) mmol/L POC Potassium 4.7 (3.3-5.0) mEq/L Potassium (3.5-5.1) mmol/L POC Chloride 102 (101-112) mEq/L Chloride (98-107) mmol/L Carbon Dioxide (21-32) mmol/L POC Total CO2 21 L (24-31) mEq/l Anion Gap (3-11) POC Anion Gap 18.0 (16-25) mmol/L POC BUN 17 (7-18) mg/dl BUN (7-18) mg/dl Creatinine (0.6-1.2) mg/dl POC Creatinine 1.0 (0.6-1.3) mg/dl Est Cr Clr Drug Dosing ml/min Est GFR ( Amer) Est GFR (Non-Af Amer) BUN/Creatinine Ratio (10-20) Glucose (70-99) mg/dl POC Glucose (70-99) POC Glucose (other) 376 H* (70-99) mg/dl Calcium (8.5-10.1) mg/dl POC Ioniz Calcium Amber 1.37 H (1.12-1.32) mmol/l Phosphorus (2.5-4.9) mg/dl Magnesium (1.8-2.4) mg/dl Total Bilirubin (0.2-1) mg/dl Direct Bilirubin (0-0.2) mg/dl AST (15-37) U/L ALT (12-78) U/L Alkaline Phosphatase (45-117) U/L Troponin I (0-0.045) ng/ml NT-Pro-B Natriuret Pep (0-900) pg/ml Total Protein (6.4-8.2) gm/dl Albumin (3.4-5.0) gm/dl Globulin (2.5-4.0) gm/dl Albumin/Globulin Ratio (0.9-2) Lipase (73-393) U/L Beta-Hydroxybutyric Acd (0.2-2.81) mg/dl Procalcitonin < 0.05 (0-0.5) ng/ml Urine Color Urine Appearance (Clear) Urine pH (4.5-7.5) Ur Specific Points (1.000-1.030) Urine Protein (Negative) Urine Glucose (UA) (Negative) Urine Ketones (Negative) Urine Blood (Negative) Urine Nitrite (Negative) Urine Bilirubin (Negative) Urine Urobilinogen (Negative) Ur Leukocyte Esterase (Negative) 04/18/19 04/18/19 04/19/19 Range/Units 22:20 23:45 04:37 WBC (4.8-10.8) K/uL RBC (4.2-5.4) M/uL Hgb (12.0-16.0) g/dL POC Hgb (12.0-16.0) g/dl Hct (37-47) % POC Hct (37-47) % MCV (80-100) fL MCH (25-34) pg MCHC (32-36) g/dL RDW Std Deviation (36.4-46.3) fL RDW Coeff of Hilda (11.5-14.5) % Plt Count (130-400) K/uL MPV (7.4-10.4) fL Immature Gran % (Auto) % Neut % (Auto) % Lymph % (Auto) % Dodge % (Auto) % Eos % (Auto) % Baso % (Auto) % Immature Gran # (Auto) (0.00-0.02) K/uL Neut # (Auto) (1.4-6.5) K/uL Lymph # (Auto) (1.2-3.4) K/uL Dodge # (Auto) (0.11-0.59) K/uL Eos # (Auto) (0-0.5) K/uL Baso # (Auto) (0-0.2) K/uL Echinocytes PT (9.0-12.0) Seconds INR (0.9-1.1) APTT (21.0-31.0) Seconds PTT Ratio ABG pH 7.38 (7.35-7.45) ABG pCO2 37 (35-46) mmHg ABG pO2 164 H (80-95) mm/Hg ABG HCO3 21 (19-24) mmol/L ABG O2 Saturation 99.3 H (90-95) % ABG Base Excess -3.1 (-9-1.8) mEq/L Willis Test 50% (Pos) VBG pH (7.36-7.41) VBG pCO2 (38-50) mmHg VBG pO2 mmHg VBG HCO3 mmol/L VBG O2 Saturation % VBG Base Excess mEq/L Barometric Pressure 724.4 mm/Hg Oxygen Given POS POC Sodium (135-144) mEq/L Sodium (136-145) mmol/L POC Potassium (3.3-5.0) mEq/L Potassium (3.5-5.1) mmol/L POC Chloride (101-112) mEq/L Chloride (98-107) mmol/L Carbon Dioxide (21-32) mmol/L POC Total CO2 (24-31) mEq/l Anion Gap (3-11) POC Anion Gap (16-25) mmol/L POC BUN (7-18) mg/dl BUN (7-18) mg/dl Creatinine (0.6-1.2) mg/dl POC Creatinine (0.6-1.3) mg/dl Est Cr Clr Drug Dosing ml/min Est GFR ( Amer) Est GFR (Non-Af Amer) BUN/Creatinine Ratio (10-20) Glucose (70-99) mg/dl POC Glucose 341 H* (70-99) POC Glucose (other) (70-99) mg/dl Calcium (8.5-10.1) mg/dl POC Ioniz Calcium Amber (1.12-1.32) mmol/l Phosphorus (2.5-4.9) mg/dl Magnesium (1.8-2.4) mg/dl Total Bilirubin (0.2-1) mg/dl Direct Bilirubin (0-0.2) mg/dl AST (15-37) U/L ALT (12-78) U/L Alkaline Phosphatase (45-117) U/L Troponin I (0-0.045) ng/ml NT-Pro-B Natriuret Pep (0-900) pg/ml Total Protein (6.4-8.2) gm/dl Albumin (3.4-5.0) gm/dl Globulin (2.5-4.0) gm/dl Albumin/Globulin Ratio (0.9-2) Lipase (73-393) U/L Beta-Hydroxybutyric Acd (0.2-2.81) mg/dl Procalcitonin (0-0.5) ng/ml Urine Color Yellow Urine Appearance Clear (Clear) Urine pH 6.0 (4.5-7.5) Ur Specific Points 1.018 (1.000-1.030) Urine Protein Negative (Negative) Urine Glucose (UA) Negative (Negative) Urine Ketones Negative (Negative) Urine Blood Negative (Negative) Urine Nitrite Negative (Negative) Urine Bilirubin Negative (Negative) Urine Urobilinogen Negative (Negative) Ur Leukocyte Esterase Negative (Negative) Imaging Data Radiologist's Impression: Radiology results as stated below per my review and the radiologist's interpretation: XR chest 1V portable CLINICAL HISTORY: Atypical chest pain COMPARISON STUDY: 09/21/2018 FINDINGS: The heart is enlarged. There is progressive diffuse elevation of the interstitium. The findings likely represent progressive pulmonary edema. An interstitial inflammatory process could appear similar. There is persistent hilar prominence. Small effusions are suspected. There is left basilar atelectasis/consolidation.[ IMPRESSION: Worsening pulmonary edema pattern. Electronically signed by: Perfecto Means M.D. 09/25/2018 10:28 PM ECG Data Attestation: I personally reviewed and interpreted this ECG as follows: Indication: SOB/dyspnea Rate (beats per minute): 105 Rhythm: sinus tachycardia Findings: + LBBB; no acute ischemic change Change: no significant change Blood Pressure Blood Pressure Findings: Normal blood pressure MDM Narrative The patient is a 71-year-old woman with a past medical history of nonischemic cardiomyopathy with EF of 20-25%, A. fib on [facility], [facility] who presents emergency department with severe respiratory distress which it happened abruptly today when, per the patient's , patient was lying flat in her recliner and suddenly reported that she could not breathe and complained of severe chest pain/tightness per hpi. She was discharged yesterday after admission during which she had a heart catheterization that demonstrated no obstructive coronary disease. Therefore, it was believed that the patient's cardiomyopathy is nonischemic per discharge summary. Today, EMS was called and found the patient in severe respiratory distress with hypertension systolic in the 200s. Patient was given nitroglycerin and morphine but was unable to tolerate BiPAP with inline continuous duoneb. On arrival the patient was in severe respiratory distress/respiratory failure with diminished breath sounds throughout hypertensive 150s/70s heart rate 100s after EMS medications. In the patient's respiratory failure preparations were made for possible intubation however, the patient was given ketamine for sedation which subsequently allowed the patient to tolerate BiPAP and respiratory status rapidly improved, therefore intubation was deferred. Limited bedside ultrasound on arrival demonstrated diffuse B- lines on a lung ultrasound consistent with the patient's flash pulmonary edema. Limited bedside echo is grossly consistent with the patient's recent formal echo showing EF 20-25%. There is no overt pericardial effusion. CXR demonstrates worsening pulmonary edema from last admission. EKG demonstrates the patient's baseline left bundle branch block without overt acute ischemia/no Sgarbossa criteria. WBC 16.2, nonspecific. H/H and platelets wnl. VBG with pH 7.27 and pCO2 51. Troponin negative. BNP 1859 slightly increased from prior 1200. UA negative. Patient given IV lasix. Patient reevaluated and clinically improved on Bipap, she is alert and oriented following commands and reports she is breathing better. Case was discussed with Dr. Lehman, [facility] hospitalist, who will evaluate the patient for admission. Impression & Plan Acute respiratory failure with hypoxia and hypercapnia, Flash pulmonary edema Critical Care Time I have personally spent greater than 75 minutes of critical care time in the direct management of this patient. This includes bedside care, interpretation of diagnostic studies, and testing, discussion with consultants, patient, and family members, and other required patient management activities. This 75 minutes is in excess of all separately billable procedures. Critical Care Time: Yes Total Critical Care Time: 75 Discharge Plan Visit Data *Final* Discharge Date/Time: 09/26/18 03:14 Chief Complaint: Shortness of Breath/Dyspnea Stated Complaint: BREATHING PROBLEMS ED Provider: Jerel Martínez Discharge Problem: Acute respiratory failure with hypoxia and hypercapnia, Flash pulmonary edema Patient Disposition: Home - Self-Care Discharge Instructions Interventions: ED Discharge Assessment Last Done: 09/26/18 03:14 The scribe's documentation has been prepared under my direction and personally reviewed by me in its entirety. I confirm that the note above accurately reflects all work, treatment, procedures, and medical decision making performed by me.
--- NOTE | 2018-09-26 02:28 | History & Physical Report ---
Date of Service September 26, 2018 Assessment & Plan (1) Acute respiratory failure with hypoxia and hypercapnia: Secondary to decompensated heart failure History chronic systolic heart failure secondary to idiopathic cardiomyopathy Probable incomplete diuresis following patient's requests for early discharge yesterday. PACarlos colon, NSR on Eliquis hypertension, stable fibromyalgia as per records DM 2 on oral medications, suboptimal control as of recent inpatient hemoglobin A1c of 8.1 this month DUSTIN (CPAP intolerance) PCU Supplemental O2, wean off BiPAP Diuretic regimen Strict I/Os, daily weights, CHF education Cardiology consult RE decompensated heart failure Basal insulin, ISS BG goal 1 40-180, carb count coverage DVT prophylaxis. Eliquis Full code History of Present Illness Chief Complaint: S OB Primary Care Provider: Ayesha Ovalle, History obtained from patient and records. Medical history significant for chronic systolic heart failure secondary to idiopathic cardiomyopathy (EF 20-25%), A. fib on Eliquis, hypertension, hyperlipidemia, fibromyalgia, DM 2 on oral medications, DUSTIN (CPAP intolerance), skin cancer status post surgery. Recent confinement this week for new onset A. fib, CHF. No significant CAD on cardiac catheterization. Patient requested to be discharged as soon as possible yesterday. She had been home for some hours hours when she noted sudden onset substernal discomfort, and shortness of breath. Pringle like she was filling up with fluid. Claims to be compliant with new home medications, fluid restriction. Denies dietary indiscretion. Usual cough symptoms as per patient. At the ER, Lasix administered and BiPAP initiated for CHF. Patient currently feeling better. Allergies Allergy/AdvReac Type Severity Reaction Status Date / Time propoxyphene Allergy Intermediate Edema Verified 09/25/18 22:54 airway - DARVON salicylates Allergy Mild Hives/nause Verified 09/25/18 22:54 a erythromycin base Allergy Nausea Unverified 09/25/18 23:08 Penicillins AdvReac Intermediate Nausea and Verified 09/25/18 22:54 dizziness amitriptyline AdvReac Mild Dizziness Verified 09/25/18 23:08 azithromycin AdvReac Mild STOMACH Verified 09/25/18 22:54 PAINS/ACHES ALL OVER Bactrim AdvReac Mild GI upset, Verified 09/10/17 07:13 nausea, vomiting Corticosteroids AdvReac Mild Prednisone, Verified 09/25/18 23:08 (Glucocorticoids) rapid weight gain hydrocodone AdvReac Mild Nausea, Verified 09/25/18 22:54 vomiting latex AdvReac Mild Rash Verified 09/25/18 22:54 lisinopril AdvReac Mild COUGH Verified 09/25/18 22:54 mivacurium AdvReac Mild Nausea, Verified 09/19/18 23:55 vomiting and diarrhea morphine AdvReac Mild Nausea Verified 09/25/18 22:54 pseudoephedrine AdvReac Mild Dizziness Verified 09/25/18 22:54 sulfamethoxazole AdvReac Mild GI upset, Verified 08/18/18 10:59 nausea, vomiting thiopental AdvReac Mild Nausea, Verified 09/25/18 22:54 vomiting trimethoprim AdvReac Mild GI upset, Verified 08/18/18 10:59 nausea, vomiting SODIUM PENTHANOL Allergy Intermediate Nausea Uncoded 08/18/18 10:59 Home Medications Home Medications Medication Instructions Recorded Confirmed Type Centrum Silver 1 tab PO DAILY 06/19/18 09/25/18 History Emergen-C 1 dose PO QPM 06/19/18 09/25/18 History I'Cat 1 cap PO DAILY 06/19/18 09/25/18 History Januvia 100 mg PO QAM 06/19/18 09/25/18 History Systane Gel 1 drp OPB HS 06/19/18 09/25/18 History albuterol sulfate 2.5 mg INHALATION QID PRN 06/19/18 09/25/18 History benzonatate [Tessalon Perles] 100 mg PO TID PRN 06/19/18 09/25/18 History calcium citrate-vitamin D3 2 tab PO QAM 06/19/18 09/25/18 History [Citracal + D Petites] cholecalciferol (vitamin D3) 1,000 unit PO BID 06/19/18 09/25/18 History [Vitamin D3] glipizide 10 mg PO QAM 06/19/18 09/25/18 History metformin 2 tab PO BID 06/19/18 09/25/18 History olopatadine [Pataday] 1 drp OPR QAM 06/19/18 09/25/18 History ondansetron 4 mg PO UNKNOWN PRN 06/19/18 09/25/18 History simvastatin 20 mg PO HS 06/19/18 09/25/18 History amiodarone 200 mg PO Q6 30 Days #120 tab 09/24/18 09/25/18 Rx apixaban [Eliquis] 5 mg PO BID17 30 Days #30 tab 09/24/18 09/25/18 Rx furosemide 20 mg PO QAM 30 Days #30 tab 09/24/18 09/25/18 Rx losartan 25 mg PO QAM 30 Days #30 tab 09/24/18 09/25/18 Rx metoprolol succinate 25 mg PO BID17 30 Days #30 tab 09/24/18 09/25/18 Rx potassium chloride [Klor-Con M20] 20 meq PO QAM 30 Days #30 tab 09/24/18 09/25/18 Rx spironolactone 12.5 mg PO DAILY 30 Days #15 tab 09/24/18 09/25/18 Rx amlodipine 0 mg PO UNKNOWN 09/25/18 09/25/18 History hydrochlorothiazide 0 mg PO UNKNOWN 09/25/18 09/25/18 History Past Med/Surg History Medical History Fibromyalgia (Chronic) Diabetes (Chronic) Dyslipidemia (Chronic) HTN (hypertension) (Chronic) Endometriosis (Chronic) Bronchitis Cancer SKIN CANCER Diabetes mellitus, type 2 Endometriosis Fibromyalgia Hepatitis C A CHILD Hot flashes Hyperlipidemia Hypertension Migraine Sheehan's neuroma Osteoarthritis Sciatica Temporomandibular joint disorder Surgical History H/O: hysterectomy (Chronic) S/P BSO (status post bilateral salpingo-oophorectomy) (Chronic) History of cataract surgery RT/LEFT History of tonsillectomy History of tooth extraction History of total hysterectomy with bilateral salpingo-oophorectomy (BSO) Family History Father Family history of diabetes mellitus Other Breast cancer Hemochromatosis Social History Preferred Language: Marshallese Communication Ability: Effective Associate Of Science In Nursing Required: No Beliefs That Will Affect Care: None marital status: Current Living Situation: Spouse current occupation: Homemaker Other Information That Helps Us Care for You: No Feels Safe at Home: Yes Safety Concerns: Feels Safe At This Time Smoking Status: Never smoker Second Hand Exposure: Yes (HX OF EXPOSURE) Hx Alcohol Use: No Hx Substance Use: No Review of Systems Review of Systems: As per HPI, all 10 systems reviewed, all other ROS negative Physical Exam Physical Exam: GENERAL: Obese, uncomfortable, anxious, minimal respiratory distress SKIN: Normal color, warm HEENT: [place] palpebral conjunctivae, no ptosis, dry buccal mucosa, BiPAP in place NECK : Supple, short, no tenderness CHEST : Decreased breath sounds , no tenderness HEART : Tachycardic, diminished S1, S2, systolic murmur ABDOMEN: distention, nontender EXTREMITIES : mita LE swelling, no LE tenderness, no other conspicuous deformities noted NEUROLOGIC : Coherent, no facial asymmetry, no other gross focality Results & Data Vital Signs (Past 12 Hours) Vital Signs Pulse Pulse Resp BP BP Pulse Ox 09/26/18 02:00 124 H 18 128/68 96 09/26/18 00:53 112 H 17 128/64 96 09/25/18 23:47 91 H 19 137/61 96 09/25/18 23:30 89 22 96 09/25/18 23:08 91 H 27 H 115/70 96 09/25/18 22:52 100 H 25 H 97 09/25/18 22:30 97 H 30 H 119/62 95 09/25/18 22:23 101 H 19 94 09/25/18 22:20 103 H 103 H 21 125/70 117/73 93 09/25/18 22:18 108 H 25 H 97 09/25/18 22:10 105 H 28 H 117/73 96 09/25/18 22:00 109 H 29 H 133/75 97 09/25/18 21:57 113 H 28 H 154/78 H 95 09/25/18 21:55 102 H 32 H 154/78 H 91 Laboratory Results Laboratory Results WBC 16.27 K/uL (4.8-10.8) H 09/25/18 22:00 RBC 4.50 M/uL (4.2-5.4) 09/25/18 22:00 Hgb 14.4 g/dL (12.0-16.0) 09/25/18 22:00 POC Hgb 15.0 g/dl (12.0-16.0) 09/25/18 22:05 Hct 42.9 % (37-47) 09/25/18 22:00 POC Hct 44 % (37-47) 09/25/18 22:05 MCV 95.3 fL (80-100) 09/25/18 22:00 MCH 32.0 pg (25-34) 09/25/18 22:00 MCHC 33.6 g/dL (32-36) 09/25/18 22:00 RDW Std Deviation 50.0 fL (36.4-46.3) H 09/25/18 22:00 RDW Coeff of Hilda 14.5 % (11.5-14.5) 09/25/18 22:00 Plt Count 294 K/uL (130-400) 09/25/18 22:00 MPV 10.2 fL (7.4-10.4) 09/25/18 22:00 Immature Gran % (Auto) 0.6 % 09/25/18 22:00 Neut % (Auto) 56.2 % 09/25/18 22:00 Lymph % (Auto) 35.0 % 09/25/18 22:00 [place] % (Auto) 6.0 % 09/25/18 22:00 Eos % (Auto) 2.0 % 09/25/18 22:00 Baso % (Auto) 0.2 % 09/25/18 22:00 Immature Gran # (Auto) 0.10 K/uL (0.00-0.02) H 09/25/18 22:00 Neut # (Auto) 9.15 K/uL (1.4-6.5) H 09/25/18 22:00 Lymph # (Auto) 5.70 K/uL (1.2-3.4) H 09/25/18 22:00 [place] # (Auto) 0.97 K/uL (0.11-0.59) H 09/25/18 22:00 Eos # (Auto) 0.32 K/uL (0-0.5) 09/25/18 22:00 Baso # (Auto) 0.03 K/uL (0-0.2) 09/25/18 22:00 Echinocytes 1+ 09/25/18 22:00 PT 11.4 Seconds (9.0-12.0) 09/25/18 22:00 INR 1.1 (0.9-1.1) 09/25/18 22:00 APTT 25.9 Seconds (21.0-31.0) 09/25/18 22:00 PTT Ratio 1.0 09/25/18 22:00 ABG pH 7.38 (7.35-7.45) 09/25/18 23:45 ABG pCO2 37 mmHg (35-46) 09/25/18 23:45 ABG pO2 164 mm/Hg (80-95) H 09/25/18 23:45 ABG HCO3 21 mmol/L (19-24) 09/25/18 23:45 ABG O2 Saturation 99.3 % (90-95) H 09/25/18 23:45 ABG Base Excess -3.1 mEq/L (-9-1.8) 09/25/18 23:45 Willis Test 50% (Pos) 09/25/18 23:45 VBG pH 7.27 (7.36-7.41) L 09/25/18 22:02 VBG pCO2 51 mmHg (38-50) H 09/25/18 22:02 VBG pO2 57 mmHg 09/25/18 22:02 VBG HCO3 23 mmol/L 09/25/18 22:02 VBG O2 Saturation 84.6 % 09/25/18 22:02 VBG Base Excess -4.5 mEq/L 09/25/18 22:02 Barometric Pressure 724.4 mm/Hg 09/25/18 23:45 Oxygen Given POS 09/25/18 23:45 POC Sodium 136 mEq/L (135-144) 09/25/18 22:05 Sodium 136 mmol/L (136-145) 09/25/18 22:00 POC Potassium 4.7 mEq/L (3.3-5.0) 09/25/18 22:05 Potassium 4.7 mmol/L (3.5-5.1) D 09/25/18 22:00 POC Chloride 102 mEq/L (101-112) 09/25/18 22:05 Chloride 104 mmol/L (98-107) 09/25/18 22:00 Carbon Dioxide 22 mmol/L (21-32) 09/25/18 22:00 POC Total CO2 21 mEq/l (24-31) L 09/25/18 22:05 Anion Gap 10.0 (3-11) 09/25/18 22:00 POC Anion Gap 18.0 mmol/L (16-25) 09/25/18 22:05 POC BUN 17 mg/dl (7-18) 09/25/18 22:05 BUN 18 mg/dl (7-18) 09/25/18 22:00 Creatinine 1.19 mg/dl (0.6-1.2) D 09/25/18 22:00 POC Creatinine 1.0 mg/dl (0.6-1.3) 09/25/18 22:05 Est Cr Clr Drug Dosing 49.2 ml/min 09/25/18 22:00 Est GFR ( Amer) 52.8 09/25/18 22:00 Est GFR (Non-Af Amer) 45.6 09/25/18 22:00 BUN/Creatinine Ratio 14.9 (10-20) 09/25/18 22:00 Glucose 354 mg/dl (70-99) H* 09/25/18 22:00 POC Glucose (other) 376 mg/dl (70-99) H* 09/25/18 22:05 Calcium 9.9 mg/dl (8.5-10.1) 09/25/18 22:00 POC Ioniz Calcium Amber 1.37 mmol/l (1.12-1.32) H 09/25/18 22:05 Phosphorus 6.6 mg/dl (2.5-4.9) H 09/25/18 22:00 Magnesium 2.4 mg/dl (1.8-2.4) 09/25/18 22:00 Total Bilirubin 0.6 mg/dl (0.2-1) 09/25/18 22:00 Direct Bilirubin 0.2 mg/dl (0-0.2) 09/25/18 22:00 AST 32 U/L (15-37) 09/25/18 22:00 ALT 42 U/L (12-78) 09/25/18 22:00 Alkaline Phosphatase 92 U/L (45-117) 09/25/18 22:00 Troponin I 0.015 ng/ml (0-0.045) 09/25/18 22:00 NT-Pro-B Natriuret Pep 1859 pg/ml (0-900) H 09/25/18 22:00 Total Protein 7.1 gm/dl (6.4-8.2) 09/25/18 22:00 Albumin 3.6 gm/dl (3.4-5.0) 09/25/18 22:00 Globulin 3.5 gm/dl (2.5-4.0) 09/25/18 22:00 Albumin/Globulin Ratio 1.0 (0.9-2) 09/25/18 22:00 Lipase 204 U/L (73-393) 09/25/18 22:00 Beta-Hydroxybutyric Acd 2.27 mg/dl (0.2-2.81) 09/25/18 22:00 Urine Color Yellow 09/25/18 22:20 Urine Appearance Clear (Clear) 09/25/18 22:20 Urine pH 6.0 (4.5-7.5) 09/25/18 22:20 Ur Specific [place] 1.018 (1.000-1.030) 09/25/18 22:20 Urine Protein Negative (Negative) 09/25/18 22:20 Urine Glucose (UA) Negative (Negative) 09/25/18 22:20 Urine Ketones Negative (Negative) 09/25/18 22:20 Urine Blood Negative (Negative) 09/25/18 22:20 Urine Nitrite Negative (Negative) 09/25/18 22:20 Urine Bilirubin Negative (Negative) 09/25/18 22:20 Urine Urobilinogen Negative (Negative) 09/25/18 22:20 Ur Leukocyte Esterase Negative (Negative) 09/25/18 22:20 Diagnostic Findings Chest x-ray showed worsening pulmonary edema EKG as per my interpretation : Rate 115, sinus tachycardia, left bundle branch block
[2018-09-26] MEDS ORDERED: FUROSEMIDE 20 MG in SYRINGE 0 ML IV ONE (02:39)
[2018-09-26] MEDS ORDERED: FUROSEMIDE 40 MG/4 ML VIAL IV ONE (03:03)
[2018-09-26] MEDS ORDERED: GLUCOSE 10 TABS/TUBE PO PRN (04:27)
[2018-09-26] MEDS ORDERED: NITROGLYCERIN SL 0.4 MG/TAB TAB SL PRN (04:27)
[2018-09-26] MEDS ORDERED: DEXTROSE 50% 50 ML SYRINGE IV PRN (04:27)
[2018-09-26] MEDS ORDERED: PROMETHAZINE HCL 12.5 MG in SODIUM CHLORIDE 0.9% 50 ML IV PRN (04:27)
[2018-09-26] MEDS ORDERED: GLUCOSE 40% GEL 15 GM TUBE PO PRN (04:27)
[2018-09-26] MEDS ORDERED: TRAMADOL HCL 50 MG TABLET PO PRN (04:27)
[2018-09-26] MEDS ORDERED: ACETAMINOPHEN 325 MG TAB PO PRN (04:27)
[2018-09-26] MEDS ORDERED: LEVALBUTEROL 1.25MG/0.5ML NEB INH PRN (04:27)
[2018-09-26] MEDS ORDERED: XOPENEX/ATROVENT 1.25mg/0.5MG NEB COMBO NEB PRN (04:27)
[2018-09-26] MEDS ORDERED: GLUCAGON FOR INJ 1 MG VIAL SQ PRN (04:27)
[2018-09-26] MEDS ORDERED: CARBOHYDRATES FOR HYPOGLYCEMIA PO PRN (04:27)
[2018-09-26] MEDS ORDERED: IPRATROPIUM BROMIDE NEB SOLN 0.02% 2.5 ML VIAL INH PRN (04:27)
[2018-09-26] MEDS: INSULIN ASPART 100 UNITS/ML 3 ML PEN SC SCH ×5 (05:21→20:39)
[2018-09-26 06:07] LABS: Basophils # (auto) 0.02 K/uL (0-0.2); Basophils % (auto) 0.2 %; Eosinophils # (auto) 0.03 K/uL (0-0.5); Eosinophils % (auto) 0.3 %; Hematocrit (blood only) 39.4 % (37-47); Hemoglobin 12.8 g/dL (12.0-16.0); Immature Granulocytes # (auto) 0.04 K/uL (0.00-0.02); Immature Granulocytes % (auto) 0.4 %; Lymphocytes % (auto) 19.9 %; Mean Corpuscular Hgb Conc 32.5 g/dL (32-36); Mean Corpuscular Volume 94.9 fL (80-100); Mean Platelet Volume 10.1 fL (7.4-10.4); Monocytes # (auto) 0.39 K/uL (0.11-0.59); Monocytes % (auto) 4.1 %; Neutrophils # (auto) 7.16 K/uL (1.4-6.5); Neutrophils % (auto) 75.1 %; Platelet Count 185 K/uL (130-400); RDW Coefficient of Variation 14.5 % (11.5-14.5); RDW Standard Deviation 49.6 fL (36.4-46.3); Red Blood Count 4.15 M/uL (4.2-5.4); White Blood Count 9.54 K/uL (4.8-10.8)
[2018-09-26] MEDS: AMIODARONE 200 MG TAB PO SCH ×4 (06:12→23:54)
[2018-09-26 06:51] LABS: BUN Creatinine Ratio 15.9 (10-20); Calcium 9.7 mg/dl (8.5-10.1); Creatinine Clr Calc Pharmacy 49.3 ml/min; Est GFR (Non-African American) 47.5; Potassium 4.9 mmol/L (3.5-5.1); Troponin I 0.043 ng/ml (0-0.045)
[2018-09-26 07:03] LABS: Beta-Hydroxybutyrate 1.44 mg/dl (0.2-2.81)
[2018-09-26] MEDS: POTASSIUM CHLORIDE 20 MEQ TABCR PO SCH (07:53)
[2018-09-26] MEDS: METOPROLOL SUCC 25MG EXT REL TAB PO SCH ×2 (07:53→17:41)
[2018-09-26] MEDS: APIXABAN 5 MG TABLET PO SCH ×2 (07:54→17:42)
[2018-09-26] MEDS: FUROSEMIDE 40 MG TAB PO SCH ×2 (07:54→17:41)
[2018-09-26] MEDS: SPIRONOLACTONE 25 MG TAB PO SCH (07:54)
[2018-09-26] MEDS: LOSARTAN POTASSIUM 25 MG TAB PO SCH (07:54)
[2018-09-26] MEDS: INSULIN GLARGINE SOLOSTAR 100 UNITS/ML 3 ML PEN SQ SCH ×2 (07:55→20:39)
[2018-09-26] MEDS ORDERED: PNEUMOCOCCAL POLYSACCHARIDES 25 MCG/0.5 ML VIAL/SYR IM ONE (09:00)
[2018-09-26] MEDS ORDERED: METOPROLOL SUCC 25MG EXT REL TAB PO SCH (09:00)
[2018-09-26] MEDS ORDERED: PNEUMOCOCCAL ADMINISTRATION CHARGE ONE (09:00)
[2018-09-26] MEDS: PATADAY~ORDER AWAITING ACTION SCH ×3 (10:45→23:28)
[2018-09-26] MEDS: ALUMINUM/MAGNESIUM/SIMETH (MAALOX MAX) 30 ML UDC PO PRN (13:17)
--- NOTE | 2018-09-26 16:24 | Hospitalist Progress Note ---
Date of Service September 26, 2018 Assessment & Plan (1) Acute systolic (congestive) heart failure: Present on admission with worsening SOB CXR showed worsening pulmonary edema pattern. Recent ECHO showed severe global hypokinesis of LV with EF 20-25% Cardiology on board Cardiac catheterization done on 09/23 showed no major significant vessels blockage Continue medical management Continue IV lasix and spirinolactone Monitor I/O 2)Acute Pulmonary edema CXR showed pulmonary edema Need to r/o amiodarone toxicity Case discussed with cardiology recommeded to repeat CXR If CXR worsening, will consider possible to d/c amiodarone Will repeat CXR in am 3)Paroxysmal atrial fibrillation: Has been in and out Afib and normal sinus rhythm HR controlled today ECHO showed evere global hypokinesis of LV with EF 20-25% Telemetry still demonstrated occasional paroxysmal atrial fibrillation and changed to normal sinus rhythm Continue eliquis cardiology on board case discussed with cardiology recommende to continue Metoprolol succinate to 25mg BID, Continue Amiodarone 200mg QID (4) Abdominal pain: CTA abdomen/pelvis showed 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 Currently denies any abdominal pain Tolerated diet well CTA abd/pelvis finding discussed with vascular surgery (No official consult placed) and no surgical intervention needed at this time (5) Diabetes: Recent Hba1c 8.1 on 09/20/18 Metformin and glipizide on hold On Insulin sliding scale Continue Lantus (6) HTN (hypertension): BP stable Continue Losartan 25mg daily Monitor BP 7)DVT px on Heparin drip 8)CODE STATUS FULL CODE 9) Disposition Continue monitor in Tele Subjective Pt was seen and examined Lying in bed with no distress with at bedside Pt said she feels much better now She said that her breathing is much better She is very anxious as baseline She has been in/out afib Denies any chest pain, palpitation and SOB Physical Exam Physical Exam: General- No acute distress Head- atraumatic Eyes- PERRL, EOMI, ENT- oropharynx clear Neck- supple, no JVD Lungs- clear to auscultation Heart- irregular rhythm; +systolic murmur Abdomen- normal bowel sounds, soft, nontender Extremities- no calf tenderness Neuro- alert, oriented x 3; PERRL, EOMI; no facial palsy; no dysarthria Skin- warm & dry Results & Data Vital Signs (Past 12 Hours) Vital Signs Temp Pulse Pulse Resp BP Pulse Ox 09/26/18 14:57 36.8 C 115 H 20 115/71 97 09/26/18 11:25 36.6 C 107 H 19 98/69 L 97 09/26/18 08:00 120 H 09/26/18 07:27 36.9 C 88 18 110/69 97
--- NOTE | 2018-09-26 17:18 | Cardiology Consultation ---
Date of Consultation September 26, 2018 Assessment & Plan (1) Pulmonary edema: Patient appears to be improving after initiation of IV diuretics we will continue. Repeat echocardiogram to exclude acute worsening LV function or mitral insufficiency both of concern Patient will remain on amiodarone orally with metoprolol for control of atrial fibrillation If chest x-ray worsens with diuresis would raise concern of acute amiodarone toxicity Discussed findings in detail with patient has been (2) Acute systolic (congestive) heart failure: (3) Nonischemic cardiomyopathy: As above as (4) Paroxysmal atrial fibrillation: (5) Left bundle branch block: Long-term therapies given duration of QRS would consider bi V pacer defibrillator History of Present Illness Reason for Consultation: Pulmonary edema, paroxysmal atrial fibrillation Requesting Physician: Dr Robles Attending Physician: Mariana Robles MD History of Present Illness Patient is a 73-year-old female recently discharged. Her underlying history is notable for 1. Nonischemic cardiomyopathy with recent diagnosis last admission less than 1 week ago EF 20 to 25% 2. Left bundle branch block 3. Paroxysmal atrial fibrillation with difficult to control rhythm 4. Acute systolic heart failure 5. Moderate or greater mitral insufficiency 6. Obstructive sleep apnea Patient's readmitted after recent discharge having left hospital on her insistence. Proximately 24 hours after discharge with worsening dyspnea and "filling up with fluid" Chest x-ray on presentation demonstrates increased interstitial markings consis tent with acute pulmonary edema. Patient is responding to IV diuretics Rhythm on presentation was notable for recurrence of atrial fibrillation atrial fibrillation with elevated ventricular response rate. Allergies Allergy/AdvReac Type Severity Reaction Status Date / Time propoxyphene Allergy Intermediate Edema Verified 09/25/18 22:54 airway - DARVON salicylates Allergy Mild Hives/nause Verified 09/25/18 22:54 a erythromycin base Allergy Nausea Unverified 09/25/18 23:08 Penicillins AdvReac Intermediate Nausea and Verified 09/25/18 22:54 dizziness amitriptyline AdvReac Mild Dizziness Verified 09/25/18 23:08 azithromycin AdvReac Mild STOMACH Verified 09/25/18 22:54 PAINS/ACHES ALL OVER Bactrim AdvReac Mild GI upset, Verified 09/10/17 07:13 nausea, vomiting Corticosteroids AdvReac Mild Prednisone, Verified 09/25/18 23:08 (Glucocorticoids) rapid weight gain hydrocodone AdvReac Mild Nausea, Verified 09/25/18 22:54 vomiting latex AdvReac Mild Rash Verified 09/25/18 22:54 lisinopril AdvReac Mild COUGH Verified 09/25/18 22:54 mivacurium AdvReac Mild Nausea, Verified 09/19/18 23:55 vomiting and diarrhea morphine AdvReac Mild Nausea Verified 09/25/18 22:54 pseudoephedrine AdvReac Mild Dizziness Verified 09/25/18 22:54 sulfamethoxazole AdvReac Mild GI upset, Verified 08/18/18 10:59 nausea, vomiting thiopental AdvReac Mild Nausea, Verified 09/25/18 22:54 vomiting trimethoprim AdvReac Mild GI upset, Verified 08/18/18 10:59 nausea, vomiting SODIUM PENTHANOL Allergy Intermediate Nausea Uncoded 08/18/18 10:59 Home Medications Home Medications Medication Instructions Recorded Confirmed Type Centrum Silver 1 tab PO DAILY 06/19/18 09/25/18 History Emergen-C 1 dose PO QPM 06/19/18 09/25/18 History I'Cat 1 cap PO DAILY 06/19/18 09/25/18 History Januvia 100 mg PO QAM 06/19/18 09/25/18 History Systane Gel 1 drp OPB HS 06/19/18 09/25/18 History albuterol sulfate 2.5 mg INHALATION QID PRN 06/19/18 09/25/18 History benzonatate [Tessalon Perles] 100 mg PO TID PRN 06/19/18 09/25/18 History calcium citrate-vitamin D3 2 tab PO QAM 06/19/18 09/25/18 History [Citracal + D Petites] cholecalciferol (vitamin D3) 1,000 unit PO BID 06/19/18 09/25/18 History [Vitamin D3] glipizide 10 mg PO QAM 06/19/18 09/25/18 History metformin 2 tab PO BID 06/19/18 09/25/18 History olopatadine [Pataday] 1 drp OPR QAM 06/19/18 09/25/18 History ondansetron 4 mg PO UNKNOWN PRN 06/19/18 09/25/18 History simvastatin 20 mg PO HS 06/19/18 09/25/18 History amiodarone 200 mg PO Q6 30 Days #120 tab 09/24/18 09/25/18 Rx apixaban [Eliquis] 5 mg PO BID17 30 Days #30 tab 09/24/18 09/25/18 Rx furosemide 20 mg PO QAM 30 Days #30 tab 09/24/18 09/25/18 Rx losartan 25 mg PO QAM 30 Days #30 tab 09/24/18 09/25/18 Rx metoprolol succinate 25 mg PO BID17 30 Days #30 tab 09/24/18 09/25/18 Rx potassium chloride [Klor-Con M20] 20 meq PO QAM 30 Days #30 tab 09/24/18 09/25/18 Rx spironolactone 12.5 mg PO DAILY 30 Days #15 tab 09/24/18 09/25/18 Rx amlodipine 0 mg PO UNKNOWN 09/25/18 09/25/18 History hydrochlorothiazide 0 mg PO UNKNOWN 09/25/18 09/25/18 History Patient History Medical History Fibromyalgia (Chronic) Diabetes (Chronic) Dyslipidemia (Chronic) HTN (hypertension) (Chronic) Endometriosis (Chronic) Bronchitis Cancer SKIN CANCER Diabetes mellitus, type 2 Endometriosis Fibromyalgia Hepatitis C A CHILD Hot flashes Hyperlipidemia Hypertension Migraine Sheehan's neuroma Osteoarthritis Sciatica Temporomandibular joint disorder Surgical History H/O: hysterectomy (Chronic) S/P BSO (status post bilateral salpingo-oophorectomy) (Chronic) History of cataract surgery RT/LEFT History of tonsillectomy History of tooth extraction History of total hysterectomy with bilateral salpingo-oophorectomy (BSO) Family History Father Family history of diabetes mellitus Other Breast cancer Hemochromatosis Social History Preferred Language: Mongolian Communication Ability: Effective Director Of Manufacturing Operations Required: No Beliefs That Will Affect Care: None marital status: Current Living Situation: Spouse current occupation: Homemaker Other Information That Helps Us Care for You: No Feels Safe at Home: Yes Safety Concerns: Feels Safe At This Time Smoking Status: Never smoker Second Hand Exposure: Yes (HX OF EXPOSURE) Hx Alcohol Use: No Hx Substance Use: No Physical Exam Constitutional: + ill appearing; no acute distress Eyes: PERRL, conjunctivae normal, anicteric sclerae ENMT: external ear and nose normal, oropharynx normal Neck: trachea midline, no thyromegaly Respiratory: Fine rales bibasilar, lower one third lung field Cardiovascular: Rate/Rhythm: + tachycardic and + irregularly irregular Heart Sounds: + murmur (Grade 1/6 systolic murmur at apex); no gallop Gastrointestinal (Abdomen): Percussion/Palpation: abdomen soft; no hepatosplenomegaly Musculoskeletal: no cyanosis or clubbing, extremities motor strength 5/5 Results & Data Vital Signs (Past 12 Hours) Vital Signs Temp Pulse Pulse Resp BP Pulse Ox 09/26/18 14:57 36.8 C 115 H 20 115/71 97 09/26/18 11:25 36.6 C 107 H 19 98/69 L 97 09/26/18 08:00 120 H 09/26/18 07:27 36.9 C 88 18 110/69 97 Laboratory Results Laboratory Results - last 24 hr 09/25/18 09/25/18 09/25/18 22:00 22:00 22:00 WBC 16.27 H RBC 4.50 Hgb 14.4 POC Hgb Hct 42.9 POC Hct MCV 95.3 MCH 32.0 MCHC 33.6 RDW Std Deviation 50.0 H RDW Coeff of Hilda 14.5 Plt Count 294 MPV 10.2 Immature Gran % (Auto) 0.6 Neut % (Auto) 56.2 Lymph % (Auto) 35.0 Lamb % (Auto) 6.0 Eos % (Auto) 2.0 Baso % (Auto) 0.2 Immature Gran # (Auto) 0.10 H Neut # (Auto) 9.15 H Lymph # (Auto) 5.70 H Lamb # (Auto) 0.97 H Eos # (Auto) 0.32 Baso # (Auto) 0.03 Blood Smear Review Echinocytes 1+ PT 11.4 INR 1.1 APTT 25.9 PTT Ratio 1.0 ABG pH ABG pCO2 ABG pO2 ABG HCO3 ABG O2 Saturation ABG Base Excess Willis Test VBG pH VBG pCO2 VBG pO2 VBG HCO3 VBG O2 Saturation VBG Base Excess Barometric Pressure Oxygen Given POC Sodium Sodium 136 POC Potassium Potassium 4.7 D POC Chloride Chloride 104 Carbon Dioxide 22 POC Total CO2 Anion Gap 10.0 POC Anion Gap POC BUN BUN 18 Creatinine 1.19 D POC Creatinine Est Cr Clr Drug Dosing 49.2 Est GFR ( Amer) 52.8 Est GFR (Non-Af Amer) 45.6 BUN/Creatinine Ratio 14.9 Glucose 354 H* POC Glucose POC Glucose (other) Calcium 9.9 POC Ioniz Calcium Amber Phosphorus 6.6 H Magnesium 2.4 Total Bilirubin 0.6 Direct Bilirubin 0.2 AST 32 ALT 42 Alkaline Phosphatase 92 Troponin I 0.015 NT-Pro-B Natriuret Pep 1859 H Total Protein 7.1 Albumin 3.6 Globulin 3.5 Albumin/Globulin Ratio 1.0 Lipase 204 Beta-Hydroxybutyric Acd 2.27 Procalcitonin Urine Color Urine Appearance Urine pH Ur Specific [place] Urine Protein Urine Glucose (UA) Urine Ketones Urine Blood Urine Nitrite Urine Bilirubin Urine Urobilinogen Ur Leukocyte Esterase 09/25/18 09/25/18 09/25/18 22:00 22:02 22:05 WBC RBC Hgb POC Hgb 15.0 Hct POC Hct 44 MCV MCH MCHC RDW Std Deviation RDW Coeff of Hilda Plt Count MPV Immature Gran % (Auto) Neut % (Auto) Lymph % (Auto) Lamb % (Auto) Eos % (Auto) Baso % (Auto) Immature Gran # (Auto) Neut # (Auto) Lymph # (Auto) Lamb # (Auto) Eos # (Auto) Baso # (Auto) Blood Smear Review Echinocytes PT INR APTT PTT Ratio ABG pH ABG pCO2 ABG pO2 ABG HCO3 ABG O2 Saturation ABG Base Excess Willis Test VBG pH 7.27 L VBG pCO2 51 H VBG pO2 57 VBG HCO3 23 VBG O2 Saturation 84.6 VBG Base Excess -4.5 Barometric Pressure 725.5 Oxygen Given POC Sodium 136 Sodium POC Potassium 4.7 Potassium POC Chloride 102 Chloride Carbon Dioxide POC Total CO2 21 L Anion Gap POC Anion Gap 18.0 POC BUN 17 BUN Creatinine POC Creatinine 1.0 Est Cr Clr Drug Dosing Est GFR ( Amer) Est GFR (Non-Af Amer) BUN/Creatinine Ratio Glucose POC Glucose POC Glucose (other) 376 H* Calcium POC Ioniz Calcium Amber 1.37 H Phosphorus Magnesium Total Bilirubin Direct Bilirubin AST ALT Alkaline Phosphatase Troponin I NT-Pro-B Natriuret Pep Total Protein Albumin Globulin Albumin/Globulin Ratio Lipase Beta-Hydroxybutyric Acd Procalcitonin < 0.05 Urine Color Urine Appearance Urine pH Ur Specific [place] Urine Protein Urine Glucose (UA) Urine Ketones Urine Blood Urine Nitrite Urine Bilirubin Urine Urobilinogen Ur Leukocyte Esterase 09/25/18 09/25/18 09/26/18 22:20 23:45 04:37 WBC RBC Hgb POC Hgb Hct POC Hct MCV MCH MCHC RDW Std Deviation RDW Coeff of Hilda Plt Count MPV Immature Gran % (Auto) Neut % (Auto) Lymph % (Auto) Lamb % (Auto) Eos % (Auto) Baso % (Auto) Immature Gran # (Auto) Neut # (Auto) Lymph # (Auto) Lamb # (Auto) Eos # (Auto) Baso # (Auto) Blood Smear Review Echinocytes PT INR APTT PTT Ratio ABG pH 7.38 ABG pCO2 37 ABG pO2 164 H ABG HCO3 21 ABG O2 Saturation 99.3 H ABG Base Excess -3.1 Willis Test 50% VBG pH VBG pCO2 VBG pO2 VBG HCO3 VBG O2 Saturation VBG Base Excess Barometric Pressure 724.4 Oxygen Given POS POC Sodium Sodium POC Potassium Potassium POC Chloride Chloride Carbon Dioxide POC Total CO2 Anion Gap POC Anion Gap POC BUN BUN Creatinine POC Creatinine Est Cr Clr Drug Dosing Est GFR ( Amer) Est GFR (Non-Af Amer) BUN/Creatinine Ratio Glucose POC Glucose 341 H* POC Glucose (other) Calcium POC Ioniz Calcium Amber Phosphorus Magnesium Total Bilirubin Direct Bilirubin AST ALT Alkaline Phosphatase Troponin I NT-Pro-B Natriuret Pep Total Protein Albumin Globulin Albumin/Globulin Ratio Lipase Beta-Hydroxybutyric Acd Procalcitonin Urine Color Yellow Urine Appearance Clear Urine pH 6.0 Ur Specific [place] 1.018 Urine Protein Negative Urine Glucose (UA) Negative Urine Ketones Negative Urine Blood Negative Urine Nitrite Negative Urine Bilirubin Negative Urine Urobilinogen Negative Ur Leukocyte Esterase Negative 09/26/18 09/26/18 09/26/18 05:22 05:22 07:26 WBC 9.54 RBC 4.15 L Hgb 12.8 POC Hgb Hct 39.4 POC Hct MCV 94.9 MCH 30.8 MCHC 32.5 RDW Std Deviation 49.6 H RDW Coeff of Hilda 14.5 Plt Count 185 MPV 10.1 Immature Gran % (Auto) 0.4 Neut % (Auto) 75.1 Lymph % (Auto) 19.9 Lamb % (Auto) 4.1 Eos % (Auto) 0.3 Baso % (Auto) 0.2 Immature Gran # (Auto) 0.04 H Neut # (Auto) 7.16 H Lymph # (Auto) 1.90 Lamb # (Auto) 0.39 Eos # (Auto) 0.03 Baso # (Auto) 0.02 Blood Smear Review Echinocytes PT INR APTT PTT Ratio ABG pH ABG pCO2 ABG pO2 ABG HCO3 ABG O2 Saturation ABG Base Excess Willis Test VBG pH VBG pCO2 VBG pO2 VBG HCO3 VBG O2 Saturation VBG Base Excess Barometric Pressure Oxygen Given POC Sodium Sodium 134 L POC Potassium Potassium 4.9 POC Chloride Chloride 102 Carbon Dioxide 24 POC Total CO2 Anion Gap 8.0 POC Anion Gap POC BUN BUN 18 Creatinine 1.15 POC Creatinine Est Cr Clr Drug Dosing 49.3 Est GFR ( Amer) 55.0 Est GFR (Non-Af Amer) 47.5 BUN/Creatinine Ratio 15.9 Glucose 313 H* POC Glucose 269 H POC Glucose (other) Calcium 9.7 POC Ioniz Calcium Amber Phosphorus Magnesium Total Bilirubin Direct Bilirubin AST ALT Alkaline Phosphatase Troponin I 0.043 NT-Pro-B Natriuret Pep Total Protein Albumin Globulin Albumin/Globulin Ratio Lipase Beta-Hydroxybutyric Acd 1.44 Procalcitonin Urine Color Urine Appearance Urine pH Ur Specific [place] Urine Protein Urine Glucose (UA) Urine Ketones Urine Blood Urine Nitrite Urine Bilirubin Urine Urobilinogen Ur Leukocyte Esterase 09/26/18 09/26/18 11:23 16:33 WBC RBC Hgb POC Hgb Hct POC Hct MCV MCH MCHC RDW Std Deviation RDW Coeff of Hilda Plt Count MPV Immature Gran % (Auto) Neut % (Auto) Lymph % (Auto) Lamb % (Auto) Eos % (Auto) Baso % (Auto) Immature Gran # (Auto) Neut # (Auto) Lymph # (Auto) Lamb # (Auto) Eos # (Auto) Baso # (Auto) Blood Smear Review Echinocytes PT INR APTT PTT Ratio ABG pH ABG pCO2 ABG pO2 ABG HCO3 ABG O2 Saturation ABG Base Excess Willis Test VBG pH VBG pCO2 VBG pO2 VBG HCO3 VBG O2 Saturation VBG Base Excess Barometric Pressure Oxygen Given POC Sodium Sodium POC Potassium Potassium POC Chloride Chloride Carbon Dioxide POC Total CO2 Anion Gap POC Anion Gap POC BUN BUN Creatinine POC Creatinine Est Cr Clr Drug Dosing Est GFR ( Amer) Est GFR (Non-Af Amer) BUN/Creatinine Ratio Glucose POC Glucose 197 H 188 H POC Glucose (other) Calcium POC Ioniz Calcium Amber Phosphorus Magnesium Total Bilirubin Direct Bilirubin AST ALT Alkaline Phosphatase Troponin I NT-Pro-B Natriuret Pep Total Protein Albumin Globulin Albumin/Globulin Ratio Lipase Beta-Hydroxybutyric Acd Procalcitonin Urine Color Urine Appearance Urine pH Ur Specific [place] Urine Protein Urine Glucose (UA) Urine Ketones Urine Blood Urine Nitrite Urine Bilirubin Urine Urobilinogen Ur Leukocyte Esterase ECG Additional Comments: 26-SEP-2018 12:02:36 [facility] Atrial fibrillation with rapid ventricular response Left axis deviation Left bundle branch block Abnormal ECG When compared with ECG of 25-SEP-2018 22:05, Atrial fibrillation has replaced Sinus rhythm Confirmed by RICHA LEES ([id number]) on 09/26/2018 12:43:04 PM
[2018-09-26] MEDS: ARTIFICIAL TEARS OP SCH (19:52)
[2018-09-26] MEDS: SIMVASTATIN 20 MG TAB PO SCH (19:52)
[2018-09-27] MEDS: AMIODARONE 200 MG TAB PO SCH ×4 (05:58→23:34)
[2018-09-27] MEDS: POTASSIUM CHLORIDE 20 MEQ TABCR PO SCH (08:25)
[2018-09-27] MEDS: DOCUSATE SODIUM 100 MG CAP PO SCH ×2 (08:25→20:28)
[2018-09-27] MEDS: METOPROLOL SUCC 25MG EXT REL TAB PO SCH ×2 (08:25→17:54)
[2018-09-27] MEDS: APIXABAN 5 MG TABLET PO SCH ×2 (08:25→17:54)
[2018-09-27] MEDS: LOSARTAN POTASSIUM 25 MG TAB PO SCH (08:25)
[2018-09-27] MEDS: SPIRONOLACTONE 25 MG TAB PO SCH (08:25)
[2018-09-27] MEDS: INSULIN GLARGINE SOLOSTAR 100 UNITS/ML 3 ML PEN SQ SCH ×2 (08:26→22:02)
[2018-09-27] MEDS: INSULIN ASPART 100 UNITS/ML 3 ML PEN SC SCH ×4 (08:26→22:02)
[2018-09-27] MEDS: PATADAY~ORDER AWAITING ACTION SCH ×3 (08:27→23:32)
--- NOTE | 2018-09-27 09:46 | XRay Report ---
XR chest 2V routine CLINICAL HISTORY: pulmonary edema COMPARISON STUDY: 09/25/2018 FINDINGS: The heart is mildly enlarged. There is significant interval improvement in the previously i dentified pulmonary edema. There are bilateral pleural effusions with associated basilar atelectasis/ consolidation.[ IMPRESSION: 1. Significant improvement in the pulmonary edema pattern 2. Bilateral pleural effusions with associated basilar atelectasis/consolidation Electronically signed by: Perfecto Means M.D. 09/27/2018 9:45 AM
--- NOTE | 2018-09-27 12:48 | Cardiology Progress Note ---
Date of Service September 27, 2018 Assessment & Plan (1) Pulmonary edema: greatly improved clinically chest xray significantly improved will cont with IV diuresis tolerating beta breonna discussed Entresto, will initiate after arb held cont spironolactone and metoprolol succinate (2) Acute systolic (congestive) heart failure: (3) Nonischemic cardiomyopathy: As above as (4) Paroxysmal atrial fibrillation: sinus cont eliquis and amio (5) Left bundle branch block: Long-term therapies given duration of QRS would consider bi V pacer defibrillator Subjective Pt seen and examined, oob in chair, states that she feels well. Breathing better than it has been in quite awhile. Denies cp, sob, palpitations, lightheadedness or dizziness. tele reviewed: sinus rhythm without arrhythmia or significant ectopy. Review of Systems Review of Systems: All systems reviewed & are unremarkable except as noted in HPI & below Physical Exam Physical Exam: General: Awake, alert and oriented x 3. No acute distress. HEENT: Normocephalic, atraumatic. Pupils equal, round and reactive to light and accommodation. Extraocular muscles are intact. Anicteric sclera. Moist mucous membranes. Neck: No JVD. No bruit. Cardiovascular: Regular. Positive S-4. Normal S-1 and S-2. No S-3. No murmurs or rubs. Pulmonary: Clear to auscultation B/L. No rales, rhonchi or wheezing Abdomen: Bowel sounds x 4, soft. No rebound, guarding or tenderness. No organomegaly. Extremities: No clubbing, cyanosis or edema. +2 pedal pulses bilaterally. Skin: Warm and dry. Results & Data Vital Signs (Past 12 Hours) Vital Signs Temp Pulse Pulse Resp BP BP Pulse Ox 09/27/18 11:23 37.0 C 81 18 139/80 95 09/27/18 07:30 36.5 C 80 18 107/69 95 09/27/18 04:00 36.8 C 74 19 105/67 93 09/27/18 02:25 100 H
[2018-09-27 14:29] LABS: BUN Creatinine Ratio 19.9 (10-20); Calcium 9.8 mg/dl (8.5-10.1); Creatinine Clr Calc Pharmacy 45.9 ml/min; Est GFR (African American) 51.3; Est GFR (Non-African American) 44.2; Potassium 4.1 mmol/L (3.5-5.1)
--- NOTE | 2018-09-27 15:14 | Hospitalist Progress Note ---
Date of Service September 27, 2018 Assessment & Plan (1) Acute systolic (congestive) heart failure: New onset left ventricular systolic heart failure attributed to nonischemic cardiomyopathy. Echocardiogram demonstrated LVEF 20-25% with moderate to severe mitral regurgitation. Cardiac cath performed on 09/24/18 did not show any significant coronary artery disease. Cardiology consulted. Symptoms, exam, chest x-ray improved with IV furosemide. Currently receiving metoprolol succinate and losartan. Titration of cardiac meds per Cardiology. (2) Paroxysmal atrial fibrillation: Continue amiodarone and apixaban. (3) HTN (hypertension): Receiving metoprolol succinate and losartan. (4) Diabetes mellitus type 2, controlled: Hold metformin during hospital stay. Fasting blood sugar this morning 255. Lantus/insulin per protocol. (5) DVT prophylaxis: Continue apixaban. Ambulate. (6) Discharge planning issues: Anticipated discharge to home. Family Medicine follow-up with Dr. Ayesha Ovalle. Cardiology follow-up with [facility]. Subjective Recheck for CHF and other problems. Patient was seen in her room around 1500. Feels significantly better. Less short of breath. Occasional nonproductive cough. Improve lower extremity edema. No chest pain. Telemetry data reviewed-intermittent atrial fibrillation. No fever. No nausea or vomiting. Constipated. No urinary symptoms. Review of Systems Review of Systems: As noted above. Physical Exam Constitutional: no acute distress Respiratory: no respiratory distress Auscultation: + rales Cardiovascular: Rate/Rhythm: + irregularly irregular Heart Sounds: + gallop (S3 at apex) Vessels: + JVD Extremities: + edema (trace pretibial); no calf tenderness Gastrointestinal (Abdomen): normal bowel sounds, soft, nontender, no hepatosplenomegaly Skin: no rashes, warm and dry Psychiatric: Orientation: alert and oriented x 3 Results & Data Vital Signs (Past 12 Hours) Vital Signs Temp Pulse Pulse Resp BP BP Pulse Ox 09/27/18 15:06 36.4 C L 103 H 18 113/67 95 09/27/18 11:23 37.0 C 81 18 139/80 95 09/27/18 08:00 78 09/27/18 07:30 36.5 C 80 18 107/69 95 09/27/18 04:00 36.8 C 74 19 105/67 93 Laboratory Results Laboratory Results - last 24 hr 09/27/18 09/27/18 09/27/18 07:11 11:06 14:00 Sodium 137 Potassium 4.1 D Chloride 103 Carbon Dioxide 26 Anion Gap 8.0 BUN 24 H Creatinine 1.22 H Est Cr Clr Drug Dosing 45.9 Est GFR ( Amer) 51.3 Est GFR (Non-Af Amer) 44.2 BUN/Creatinine Ratio 19.9 Glucose 260 H POC Glucose 255 H 236 H Calcium 9.8 09/27/18 09/27/18 16:12 20:52 Sodium Potassium Chloride Carbon Dioxide Anion Gap BUN Creatinine Est Cr Clr Drug Dosing Est GFR ( Amer) Est GFR (Non-Af Amer) BUN/Creatinine Ratio Glucose POC Glucose 159 H 236 H Calcium
[2018-09-27] MEDS ORDERED: BISACODYL 5 MG TABEC PO PRN (15:15)
[2018-09-27] MEDS: POLYETHYLENE (MIRALAX) 17 GM PACK PO PRN (17:51)
[2018-09-27] MEDS: FUROSEMIDE 40 MG in SYRINGE 0 ML IV SCH (17:53)
[2018-09-27] MEDS: SIMVASTATIN 20 MG TAB PO SCH (20:28)
[2018-09-27] MEDS: ARTIFICIAL TEARS OP SCH (20:28)
[2018-09-28] MEDS: AMIODARONE 200 MG TAB PO SCH ×4 (06:25→23:33)
[2018-09-28] MEDS: POLYETHYLENE (MIRALAX) 17 GM PACK PO PRN (07:48)
[2018-09-28 08:34] LABS: BUN Creatinine Ratio 20.2 (10-20); Calcium 9.6 mg/dl (8.5-10.1); Creatinine Clr Calc Pharmacy 49.7 ml/min; Est GFR (African American) 56.2; Est GFR (Non-African American) 48.5; Potassium 4.1 mmol/L (3.5-5.1)
[2018-09-28] MEDS: SPIRONOLACTONE 25 MG TAB PO SCH (09:27)
[2018-09-28] MEDS: APIXABAN 5 MG TABLET PO SCH ×2 (09:27→17:29)
[2018-09-28] MEDS: DOCUSATE SODIUM 100 MG CAP PO SCH ×2 (09:27→20:26)
[2018-09-28] MEDS: METOPROLOL SUCC 25MG EXT REL TAB PO SCH ×2 (09:27→17:29)
[2018-09-28] MEDS: FUROSEMIDE 40 MG in SYRINGE 0 ML IV SCH ×2 (09:27→17:29)
[2018-09-28] MEDS: PATADAY~ORDER AWAITING ACTION SCH ×3 (09:27→23:23)
[2018-09-28] MEDS: INSULIN GLARGINE SOLOSTAR 100 UNITS/ML 3 ML PEN SQ SCH ×2 (09:30→21:17)
[2018-09-28] MEDS: INSULIN ASPART 100 UNITS/ML 3 ML PEN SC SCH ×4 (09:30→21:16)
[2018-09-28] MEDS ORDERED: Nursing to Pharmacy Communication ONE (10:41)
--- NOTE | 2018-09-28 11:11 | Cardiology Progress Note ---
Date of Service September 28, 2018 Assessment & Plan (1) Pulmonary edema: continues to improve clinically but still with dyspnea will cont IV diuresis and follow volume status will start Entresto in AM cont spironolactone and metoprolol succinate repeat echo in approx 3 months (2) Acute systolic (congestive) heart failure: (3) Nonischemic cardiomyopathy: As above as (4) Paroxysmal atrial fibrillation: sinus cont eliquis and amio (5) Left bundle branch block: Long-term therapies given duration of QRS would consider bi V pacer defibrillator Subjective Pt seen and examined, oob in chair, states that she feels well. Now able to move her bowels but somewhat dyspnic ambulating to bathroom. Denies sob at rest. De nies chest pain, palpitations, lightheadedness or dizziness. Tele reviewed: sinus rhythm with occasional episodes of sustained atrial fibrillation. Review of Systems Review of Systems: All systems reviewed & are unremarkable except as noted in HPI & below Physical Exam Physical Exam: General: Awake, alert and oriented x 3. No acute distress. HEENT: Normocephalic, atraumatic. Pupils equal, round and reactive to light and accommodation. Extraocular muscles are intact. Anicteric sclera. Moist mucous membranes. Neck: No JVD. No bruit. Cardiovascular: Regular. Positive S-4. Normal S-1 and S-2. No S-3. No murmurs or rubs. Pulmonary: Clear to auscultation B/L. No rales, rhonchi or wheezing Abdomen: Bowel sounds x 4, soft. No rebound, guarding or tenderness. No organomegaly. Extremities: No clubbing, cyanosis or edema. +2 pedal pulses bilaterally. Skin: Warm and dry. Results & Data Vital Signs (Past 12 Hours) Vital Signs Temp Pulse Pulse Resp BP Pulse Ox 09/28/18 10:28 36.5 C 84 19 124/78 95 09/28/18 07:04 36.7 C 101 H 16 129/70 98 09/28/18 03:26 36.5 C 73 19 109/72 97 09/27/18 23:54 36.6 C 83 18 109/65 95 09/27/18 23:11 83
[2018-09-28] MEDS: POTASSIUM CHLORIDE 10 MEQ TABCR PO SCH (11:54)
[2018-09-28] MEDS: ALUMINUM/MAGNESIUM/SIMETH (MAALOX MAX) 30 ML UDC PO PRN (15:17)
[2018-09-28] MEDS: POTASSIUM CHLORIDE 20 MEQ TABCR PO SCH (16:39)
[2018-09-28] MEDS: ARTIFICIAL TEARS OP SCH (20:27)
[2018-09-28] MEDS: SIMVASTATIN 20 MG TAB PO SCH (20:27)
--- NOTE | 2018-09-28 20:34 | Hospitalist Progress Note ---
Date of Service September 28, 2018 Assessment & Plan (1) Acute systolic (congestive) heart failure: New onset left ventricular systolic heart failure attributed to nonischemic cardiomyopathy. Echocardiogram demonstrated LVEF 20-25% with moderate to severe mitral regurgitation. Cardiac cath performed on 09/24/18 did not show any significant coronary artery disease. Cardiology consulted. Symptoms, exam, chest x-ray improved with IV furosemide. Receiving metoprolol succinate. Lorsartan held in order to transition to sacubitril / valsartan. Further titration of cardiac meds per Cardiology. (2) Paroxysmal atrial fibrillation: Continue amiodarone and apixaban. (3) HTN (hypertension): Receiving metoprolol succinate and valsartan. (4) Diabetes mellitus type 2, controlled: Hold metformin, glipizide, and sitagliptin during hospital stay. Fasting blood sugar this morning 222. Lantus/insulin per protocol. (5) DVT prophylaxis: Continue apixaban. Ambulate. (6) Discharge planning issues: Anticipated discharge to home. Family Medicine follow-up with Dr. Ayesha Ovalle. Cardiology follow-up with [facility]. Subjective Recheck for CHF and other problems. Patient was seen in her room around 1600. visiting. Feels better. Less short of breath. Cough resolved. Improved lower extremity edema. No chest pain. Telemetry data reviewed- still has intermittent atrial fibrillation. No fever. No nausea or vomiting. Constipation resolved after receiving laxatives. No urinary symptoms. Review of systems as noted above. Physical Exam Constitutional: no acute distress Respiratory: no respiratory distress Auscultation: + rales (few bibasilar) Cardiovascular: Rate/Rhythm: + irregularly irregular Heart Sounds: + gallop (S3 at apex) Vessels: + JVD Extremities: + edema (trace pretibial); no calf tenderness Gastrointestinal (Abdomen): normal bowel sounds, soft, nontender, no hepatosplenomegaly Skin: no rashes, warm and dry Psychiatric: Orientation: alert and oriented x 3 Results & Data Vital Signs (Past 12 Hours) Vital Signs Temp Pulse Pulse Resp BP Pulse Ox 09/28/18 19:16 36.5 C 94 H 16 131/74 96 09/28/18 16:45 73 09/28/18 15:02 36.6 C 78 16 109/72 96 09/28/18 10:28 36.5 C 84 19 124/78 95 Laboratory Results Laboratory Results - last 24 hr 09/27/18 09/28/18 09/28/18 20:52 07:17 07:52 Sodium 138 Potassium 4.1 Chloride 105 Carbon Dioxide 25 Anion Gap 8.0 BUN 23 H Creatinine 1.13 Est Cr Clr Drug Dosing 49.7 Est GFR ( Amer) 56.2 Est GFR (Non-Af Amer) 48.5 BUN/Creatinine Ratio 20.2 H Glucose 245 H POC Glucose 236 H 222 H Calcium 9.6 09/28/18 09/28/18 09/28/18 11:05 11:06 11:08 Sodium Potassium Chloride Carbon Dioxide Anion Gap BUN Creatinine Est Cr Clr Drug Dosing Est GFR ( Amer) Est GFR (Non-Af Amer) BUN/Creatinine Ratio Glucose POC Glucose 338 H* 373 H* 393 H* Calcium 09/28/18 16:14 Sodium Potassium Chloride Carbon Dioxide Anion Gap BUN Creatinine Est Cr Clr Drug Dosing Est GFR ( Amer) Est GFR (Non-Af Amer) BUN/Creatinine Ratio Glucose POC Glucose 92 Calcium
[2018-09-29] MEDS: AMIODARONE 200 MG TAB PO SCH ×4 (05:20→23:28)
[2018-09-29 06:52] LABS: BUN Creatinine Ratio 17.9 (10-20); Est GFR (African American) 63.6; Est GFR (Non-African American) 54.9; Potassium 3.9 mmol/L (3.5-5.1)
[2018-09-29] MEDS: POTASSIUM CHLORIDE 10 MEQ TABCR PO SCH (08:48)
[2018-09-29] MEDS: DOCUSATE SODIUM 100 MG CAP PO SCH ×2 (08:48→21:00)
[2018-09-29] MEDS: METOPROLOL SUCC 25MG EXT REL TAB PO SCH ×2 (08:48→17:43)
[2018-09-29] MEDS: INSULIN GLARGINE SOLOSTAR 100 UNITS/ML 3 ML PEN SQ SCH ×2 (08:48→21:01)
[2018-09-29] MEDS: FUROSEMIDE 40 MG in SYRINGE 0 ML IV SCH (08:48)
[2018-09-29] MEDS: APIXABAN 5 MG TABLET PO SCH ×2 (08:48→17:42)
[2018-09-29] MEDS: SACUBITRIL-VALSARTAN 24-26 MG TAB PO SCH ×2 (08:49→21:00)
[2018-09-29] MEDS: SPIRONOLACTONE 25 MG TAB PO SCH (08:49)
[2018-09-29] MEDS: INSULIN ASPART 100 UNITS/ML 3 ML PEN SC SCH ×4 (08:50→21:03)
[2018-09-29] MEDS: PATADAY~ORDER AWAITING ACTION SCH ×3 (09:15→23:29)
--- NOTE | 2018-09-29 14:40 | Cardiology Progress Note ---
Date of Service September 29, 2018 Assessment & Plan (1) Pulmonary edema: continues to improve clinically will change lasix to po bid for now Entresto started this AM cont spironolactone and metoprolol succinate repeat echo in approx 3 months likely d/c in AM from cardiac standpoint. (2) Acute systolic (congestive) heart failure: (3) Nonischemic cardiomyopathy: As above as (4) Paroxysmal atrial fibrillation: sinus cont eliquis and amio can change amio to 200mg po bid upon discharge (5) Left bundle branch block: Long-term therapies given duration of QRS would consider bi V pacer defibrillator Subjective Pt seen and examined, still with only complaint of constipation. Denies cp, sob, palpitations, lightheadedness or dizziness. tele reviewed: bursts of afib, currently sinus rhythm Review of Systems Review of Systems: All systems reviewed & are unremarkable except as noted in HPI & below Physical Exam Physical Exam: General: Awake, alert and oriented x 3. No acute distress. HEENT: Normocephalic, atraumatic. Pupils equal, round and reactive to light and accommodation. Extraocular muscles are intact. Anicteric sclera. Moist mucous membranes. Neck: No JVD. No bruit. Cardiovascular: Regular. Positive S-4. Normal S-1 and S-2. No S-3. No murmurs or rubs. Pulmonary: Clear to auscultation B/L. No rales, rhonchi or wheezing Abdomen: Bowel sounds x 4, soft. No rebound, guarding or tenderness. No organomegaly. Extremities: No clubbing, cyanosis or edema. +2 pedal pulses bilaterally. Skin: Warm and dry. Results & Data Vital Signs (Past 12 Hours) Vital Signs Temp Pulse Resp BP Pulse Ox 09/29/18 10:53 36.4 C L 72 20 114/72 96 09/29/18 07:05 36.8 C 102 H 18 122/75 97 09/29/18 03:22 36.5 C 74 17 108/72 97
[2018-09-29] MEDS: FUROSEMIDE 40 MG TAB PO SCH (17:42)
[2018-09-29] MEDS: PSYLLIUM 58.6% POWDER PACKET PO SCH (17:48)
[2018-09-29] MEDS: SIMVASTATIN 20 MG TAB PO SCH (21:00)
[2018-09-29] MEDS: ARTIFICIAL TEARS OP SCH (21:08)
--- NOTE | 2018-09-29 21:40 | Hospitalist Progress Note ---
Date of Service September 29, 2018 Assessment & Plan (1) Acute systolic (congestive) heart failure: New onset left ventricular systolic heart failure attributed to nonischemic cardiomyopathy. Echocardiogram demonstrated LVEF 20-25% with moderate to severe mitral regurgitation. Cardiac cath performed on 09/24/18 did not show any significant coronary artery disease. Cardiology consulted. Symptoms, exam, chest x-ray improved with IV furosemide. Receiving metoprolol succinate. Lorsartan held in order to transition to sacubitril / valsartan. Further titration of cardiac meds per Cardiology. (2) Paroxysmal atrial fibrillation: Continue amiodarone and apixaban. (3) HTN (hypertension): Receiving metoprolol succinate and valsartan. (4) Diabetes mellitus type 2, controlled: Holding metformin, glipizide, and sitagliptin. Hgb A 1 C 8.4 09/20/18. Fasting blood sugar this morning 182. Receiving Lantus/insulin per protocol. Best to avoid metformin and sitagliptin with CHF. Resume glipizide. Patient willing to learn to use insulin at home. Consult Diabetes Education Team. (5) DVT prophylaxis: Continue apixaban. Ambulate. (6) Discharge planning issues: Anticipated discharge to home. Family Medicine follow-up with Dr. Ayesha Ovalle. Cardiology follow-up with [facility]. Subjective Recheck for CHF and other problems. Patient was seen in her room around 1350. Better. Less short of breath, but still has dyspnea on exertion when ambulating in hallway. Cough resolved. Improved lower extremity edema. No chest pain. Telemetry data reviewed- intermittent atrial fibrillation. No fever. No nausea or vomiting. Had several bowel movements yesterday, none today. No urinary symptoms. Review of systems as noted above. Physical Exam Constitutional: no acute distress Respiratory: no respiratory distress Auscultation: + rales (few bibasilar) Cardiovascular: Rate/Rhythm: + irregularly irregular Heart Sounds: + gallop (S3 at apex) Vessels: + JVD Extremities: + edema (trace pretibial); no calf tenderness Gastrointestinal (Abdomen): normal bowel sounds, soft, nontender, no hepatosplenomegaly Skin: no rashes, warm and dry Psychiatric: Orientation: alert and oriented x 3 Results & Data Vital Signs (Past 12 Hours) Vital Signs Temp Pulse Pulse Resp BP Pulse Ox 09/29/18 20:02 36.3 C L 70 20 112/72 98 09/29/18 17:03 75 09/29/18 15:15 36.3 C L 105 H 20 135/79 96 09/29/18 10:53 36.4 C L 72 20 114/72 96 Laboratory Results Laboratory Results - last 24 hr 09/29/18 09/29/18 09/29/18 06:01 07:13 11:16 Sodium 137 Potassium 3.9 Chloride 105 Carbon Dioxide 27 Anion Gap 5.0 BUN 18 Creatinine 1.02 Est Cr Clr Drug Dosing 55.0 Est GFR ( Amer) 63.6 Est GFR (Non-Af Amer) 54.9 BUN/Creatinine Ratio 17.9 Glucose 172 H POC Glucose 182 H 196 H Calcium 9.0 09/29/18 09/29/18 16:13 20:07 Sodium Potassium Chloride Carbon Dioxide Anion Gap BUN Creatinine Est Cr Clr Drug Dosing Est GFR ( Amer) Est GFR (Non-Af Amer) BUN/Creatinine Ratio Glucose POC Glucose 139 H 144 H Calcium
[2018-09-30 03:59] VITALS: TEMP 97.3
[2018-09-30] MEDS: ALUMINUM/MAGNESIUM/SIMETH (MAALOX MAX) 30 ML UDC PO PRN (06:32)
[2018-09-30] MEDS: AMIODARONE 200 MG TAB PO SCH ×2 (06:33→11:55)
[2018-09-30 07:14] VITALS: BP 105/67; O2SAT 95
[2018-09-30] MEDS ORDERED: glipiZIDE 5 MG TAB PO SCH (07:30)
[2018-09-30 07:44] LABS: BUN Creatinine Ratio 17.8 (10-20); Calcium 9.5 mg/dl (8.5-10.1); Creatinine Clr Calc Pharmacy 54.1 ml/min; Est GFR (African American) 63.6; Est GFR (Non-African American) 54.9; Potassium 3.5 mmol/L (3.5-5.1)
[2018-09-30] MEDS: INSULIN ASPART 100 UNITS/ML 3 ML PEN SC SCH ×2 (08:36→11:55)
[2018-09-30] MEDS: PATADAY~ORDER AWAITING ACTION SCH (08:37)
[2018-09-30] MEDS: SPIRONOLACTONE 25 MG TAB PO SCH (08:37)
[2018-09-30] MEDS: DOCUSATE SODIUM 100 MG CAP PO SCH (08:37)
[2018-09-30] MEDS: SACUBITRIL-VALSARTAN 24-26 MG TAB PO SCH (08:38)
[2018-09-30] MEDS: METOPROLOL SUCC 25MG EXT REL TAB PO SCH (08:38)
[2018-09-30] MEDS: FUROSEMIDE 40 MG TAB PO SCH (08:39)
[2018-09-30] MEDS: INSULIN GLARGINE SOLOSTAR 100 UNITS/ML 3 ML PEN SQ SCH (08:40)
[2018-09-30] MEDS: APIXABAN 5 MG TABLET PO SCH (08:42)
[2018-09-30] MEDS: PSYLLIUM 58.6% POWDER PACKET PO SCH (08:43)
[2018-09-30] MEDS: POTASSIUM CHLORIDE 10 MEQ TABCR PO SCH (08:43)
[2018-09-30] MEDS ORDERED: POTASSIUM CHLORIDE 20 MEQ TABCR PO STA (09:30)
--- NOTE | 2018-09-30 11:08 | Cardiology Progress Note ---
Date of Service September 30, 2018 Assessment & Plan (1) Pulmonary edema: continues to improve clinically will change lasix to po bid for now, likely change to daily with afternoon prn upon f/u my office will call to arrange f/u in CHF clinic in 1 week cont Entresto cont spironolactone and metoprolol succinate repeat echo in approx 3 months pt having difficulty swallowing potassium supplements, states she'd prefer powder would d/c with KCl 40meq daily bmp with follow up in 1 week ok to d/c from cardiac standpoint (2) Acute systolic (congestive) heart failure: (3) Nonischemic cardiomyopathy: As above as (4) Paroxysmal atrial fibrillation: sinus cont eliquis and amio can change amio to 200mg po bid upon discharge (5) Left bundle branch block: Long-term therapies given duration of QRS would consider bi V pacer defibrillator Subjective Pt seen and examined, at bedside. States that she feels well. Denies cp, sob, palpitations, lightheadedness or dizziness. tele reviewed: sinus rhythm Review of Systems Review of Systems: All systems reviewed & are unremarkable except as noted in HPI & below Physical Exam Physical Exam: General: Awake, alert and oriented x 3. No acute distress. HEENT: Normocephalic, atraumatic. Pupils equal, round and reactive to light and accommodation. Extraocular muscles are intact. Anicteric sclera. Moist mucous membranes. Neck: No JVD. No bruit. Cardiovascular: Regular. Positive S-4. Normal S-1 and S-2. No S-3. No murmurs or rubs. Pulmonary: Clear to auscultation B/L. No rales, rhonchi or wheezing Abdomen: Bowel sounds x 4, soft. No rebound, guarding or tenderness. No organomegaly. Extremities: No clubbing, cyanosis or edema. +2 pedal pulses bilaterally. Skin: Warm and dry. Results & Data Vital Signs (Past 12 Hours) Vital Signs Temp Pulse Pulse Resp BP Pulse Ox 09/30/18 09:04 67 09/30/18 07:12 36.3 C L 71 18 105/67 95 09/30/18 03:56 36.3 C L 85 18 96/64 L 97 09/29/18 23:26 36.5 C 68 112/66 95
[2018-09-30 12:37] VITALS: PULSE 71
--- NOTE | 2018-09-30 12:44 | Hospitalist Progress Note ---
Date of Service September 30, 2018 Assessment & Plan (1) Acute systolic (congestive) heart failure: Present on admission with worsening SOB CXR showed worsening pulmonary edema pattern. Recent ECHO showed severe global hypokinesis of LV with EF 20-25% Cardiac catheterization done on 09/23 showed no major significant vessels blockage Continue medical management Cardiology on board Recommended recommended lasix 40mg BID and entresto Continue metoprolol succinate and spironolactone Will need to repeat ECHO in 3 months Follow up with cardiology in 1 week at the CHF clinic Check BMP in week to monitor electrolytes and renal function Clinically stable OK from cardiology standpoint to discharge 2)Acute Pulmonary edema CXR showed pulmonary edema on admission Repeat CXR showed significant improvement in the pulmonary edema pattern Clinically improves 3)Paroxysmal atrial fibrillation: Has been in and out Afib and normal sinus rhythm HR controlled today ECHO showed evere global hypokinesis of LV with EF 20-25% Telemetry still demonstrated occasional paroxysmal atrial fibrillation and changed to normal sinus rhythm cardiology on board recommended to discharge on Amiodarone 200mg BID continue Metoprolol succinate to 25mg BID and eliquis (4) Abdominal pain: CTA abdomen/pelvis showed 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 Currently denies any abdominal pain Tolerated diet well CTA abd/pelvis finding discussed with vascular surgery (No official consult placed) and no surgical intervention needed at this time Resolved (5) Diabetes: Recent Hba1c 8.1 on 09/20/18 On Insulin sliding scale Case discussed with pharmacy and recommended the simple insulin regimen will be insulin 70/30 with 30 units BID Discontinued Glipizide and Januvia Continue Metformin Continue monitor BS closely (6) HTN (hypertension): BP stable Losartan 25mg and amlodipine and HCTZ discontinued On Entresto, metoprolol and spironolactone Monitor BP 7)DVT px on Eliquis 8)CODE STATUS FULL CODE 9) Disposition Discharge home today with home health services Follow up with primary care provider Dr. Murray on 10/02 @ 10:15 AM Follow up with cardiology with Gulshan JACOBS on 10/08 @ 10:45 AM Follow up a low salt diet Monitor blood sugar and bring your blood sugar log at your next appointment with your PCP Subjective Pt was seen and examined Lying in bed with no distress with at bedside Pt said that she feels much better She said that she feels good today Denies any chest pain, palpitation, dizziness and SOB Physical Exam Physical Exam: General- No acute distress Head- atraumatic Eyes- PERRL, EOMI, ENT- oropharynx clear Neck- supple, no JVD Lungs- clear to auscultation Heart- regular rhythm; Abdomen- normal bowel sounds, soft, nontender Extremities- no calf tenderness Neuro- alert, oriented x 3; PERRL, EOMI; no facial palsy; no dysarthria Skin- warm & dry Results & Data Vital Signs (Past 12 Hours) Vital Signs Temp Pulse Pulse Resp BP BP Pulse Ox 09/30/18 12:31 36.3 C L 71 18 105/67 105/67 95 09/30/18 09:04 67 09/30/18 07:12 36.3 C L 71 18 105/67 95 09/30/18 03:56 36.3 C L 85 18 96/64 L 97
--- NOTE | 2018-10-03 09:01 | Discharge Summary ---
Date of Service September 30, 2018 Admission HPI Per Admitting Provider History obtained from patient and records. Medical history significant for chronic systolic heart failure secondary to idiopathic cardiomyopathy (EF 20-25%), A. fib on Eliquis, hypertension, hyperlipidemia, fibromyalgia, DM 2 on oral medications, DUSTIN (CPAP intolerance), skin cancer status post surgery. Recent confinement this week for new onset A. fib, CHF. No significant CAD on cardiac catheterization. Patient requested to be discharged as soon as possible yesterday. She had been home for some hours hours when she noted sudden onset substernal discomfort, and shortness of breath. [place] like she was filling up with fluid. Claims to be compliant with new home medications, fluid restriction. Denies dietary indiscretion. Usual cough symptoms as per patient. At the ER, Lasix administered and BiPAP initiated for CHF. Patient currently feeling better. Admission Exam Per Admitting Provider GENERAL: Obese, uncomfortable, anxious, minimal respiratory distress SKIN: Normal color, warm HEENT: [place] palpebral conjunctivae, no ptosis, dry buccal mucosa, BiPAP in place NECK : Supple, short, no tenderness CHEST : Decreased breath sounds , no tenderness HEART : Tachycardic, diminished S1, S2, systolic murmur ABDOMEN: distention, nontender EXTREMITIES : mita LE swelling, no LE tenderness, no other conspicuous deformities noted NEUROLOGIC : Coherent, no facial asymmetry, no other gross focality Principal Diagnosis Acute systolic (congestive) heart failure Acute pulmonary edema Paroxysmal atrial fibrillation Type 2 Diabetes HTN (hypertension) Discharge Exam General- No acute distress Head- atraumatic Eyes- PERRL, EOMI, ENT- oropharynx clear Neck- supple, no JVD Lungs- clear to auscultation Heart- regular rhythm; Abdomen- normal bowel sounds, soft, nontender Extremities- no calf tenderness Neuro- alert, oriented x 3; PERRL, EOMI; no facial palsy; no dysarthria Skin- warm & dry Discharge Data Allergies Allergy/AdvReac Type Severity Reaction Status Date / Time propoxyphene Allergy Intermediate Edema Verified 09/25/18 22:54 airway - DARVON salicylates Allergy Mild Hives/nause Verified 09/25/18 22:54 a erythromycin base Allergy Nausea Unverified 09/25/18 23:08 Penicillins AdvReac Intermediate Nausea and Verified 09/25/18 22:54 dizziness amitriptyline AdvReac Mild Dizziness Verified 09/25/18 23:08 azithromycin AdvReac Mild STOMACH Verified 09/25/18 22:54 PAINS/ACHES ALL OVER Bactrim AdvReac Mild GI upset, Verified 09/10/17 07:13 nausea, vomiting Corticosteroids AdvReac Mild Prednisone, Verified 09/25/18 23:08 (Glucocorticoids) rapid weight gain hydrocodone AdvReac Mild Nausea, Verified 09/25/18 22:54 vomiting latex AdvReac Mild Rash Verified 09/25/18 22:54 lisinopril AdvReac Mild COUGH Verified 09/25/18 22:54 mivacurium AdvReac Mild Nausea, Verified 09/19/18 23:55 vomiting and diarrhea morphine AdvReac Mild Nausea Verified 09/25/18 22:54 pseudoephedrine AdvReac Mild Dizziness Verified 09/25/18 22:54 sulfamethoxazole AdvReac Mild GI upset, Verified 08/18/18 10:59 nausea, vomiting thiopental AdvReac Mild Nausea, Verified 09/25/18 22:54 vomiting trimethoprim AdvReac Mild GI upset, Verified 08/18/18 10:59 nausea, vomiting Consultations 09/25/18 22:52 ED Decision to Admit Stat 09/26/18 04:27 Consult Cardiology Routine Consult Case Management - Discharge Planning Routine Ordered Studies XR chest 2V routine CLINICAL HISTORY: pulmonary edema COMPARISON STUDY: 09/25/2018 FINDINGS: The heart is mildly enlarged. There is significant interval improvement in the previously identified pulmonary edema. There are bilateral pleural effusions with associated basilar atelectasis/consolidation.[ IMPRESSION: 1. Significant improvement in the pulmonary edema pattern 2. Bilateral pleural effusions with associated basilar atelectasis/consolidation Electronically signed by: Perfecto Means M.D. 09/27/2018 9:45 AM Dictated: 09/27/18 0944 Transcribed: 09/27/18 0944 XR chest 1V portable CLINICAL HISTORY: Atypical chest pain COMPARISON STUDY: 09/21/2018 FINDINGS: The heart is enlarged. There is progressive diffuse elevation of the interstitium. The findings likely represent progressive pulmonary edema. An interstitial inflammatory process could appear similar. There is persistent hilar prominence. Small effusions are suspected. There is left basilar atelectasis/consolidation.[ IMPRESSION: Worsening pulmonary edema pattern. Electronically signed by: Perfecto Means M.D. 09/25/2018 10:28 PM Dictated: 09/25/182225 Transcribed: 09/25/182225 Hospital Course (1) Acute systolic (congestive) heart failure: Present on admission with worsening SOB CXR showed worsening pulmonary edema pattern. Recent ECHO showed severe global hypokinesis of LV with EF 20-25% Cardiac catheterization done on 09/23 showed no major significant vessels blockage Continue medical management Cardiology on board Recommended recommended lasix 40mg BID and entresto Continue metoprolol succinate and spironolactone Will need to repeat ECHO in 3 months Follow up with cardiology in 1 week at the CHF clinic Check BMP in week to monitor electrolytes and renal function Clinically stable OK from cardiology standpoint to discharge 2)Acute Pulmonary edema CXR showed pulmonary edema on admission Repeat CXR showed significant improvement in the pulmonary edema pattern Clinically improves 3)Paroxysmal atrial fibrillation: Has been in and out Afib and normal sinus rhythm HR controlled today ECHO showed evere global hypokinesis of LV with EF 20-25% Telemetry still demonstrated occasional paroxysmal atrial fibrillation and changed to normal sinus rhythm cardiology on board recommended to discharge on Amiodarone 200mg BID continue Metoprolol succinate to 25mg BID and eliquis (4) Abdominal pain: CTA abdomen/pelvis showed 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 Currently denies any abdominal pain Tolerated diet well CTA abd/pelvis finding discussed with vascular surgery (No official consult placed) and no surgical intervention needed at this time Resolved (5) Diabetes: Recent Hba1c 8.1 on 09/20/18 On Insulin sliding scale Case discussed with pharmacy and recommended the simple insulin regimen will be insulin 70/30 with 30 units BID Discontinued Glipizide and Januvia Continue Metformin Continue monitor BS closely (6) HTN (hypertension): BP stable Losartan 25mg and amlodipine and HCTZ discontinued On Entresto, metoprolol and spironolactone Monitor BP 7)DVT px on Eliquis 8)CODE STATUS FULL CODE 9) Disposition Discharge home today with home health services Follow up with primary care provider Dr. Murray on 10/02 @ 10:15 AM Follow up with cardiology with Gulshan JACOBS on 10/08 @ 10:45 AM Follow up a low salt diet Monitor blood sugar and bring your blood sugar log at your next appointment with your PCP Total Time Total Time Spent Total Time Spent (In Minutes): 35 minutes Total Time Includes: Examination of the Patient, Discharge Planning, Medication Reconciliation, Communication With Other Providers and Other Discharge Plan Discharge Items Patient Disposition: Home - Home Health Services Reason For Visit: RESP FAILURE Discharge Diagnosis: Acute systolic (congestive) heart failure Acute pulmonary edema Paroxysmal atrial fibrillation Type 2 Diabetes HTN (hypertension) Discharge Goals: Decrease discomfort, Improve disease control, Improve function and Increase independence Activity: Resume your previous activity Activity Comment: As tolerated Non-emergency contact: Primary Care Provider and Supervisor [employer] Call non-emergency contact if: you have any medication questions Follow-up/Referrals: Ayesha Ovalle, [Primary Care Provider] - Diet: Carb Consistent or DM2 and Low Sodium (2gm) Addtl Provider Instructions: Discharge home today with home health services Follow up with primary care provider Dr. Murray on 10/02 @ 10:15 AM Follow up with cardiology with Gulshan JACOBS on 10/08 @ 10:45 AM Monitor blood sugar and bring your blood sugar log at your next appointment with your PCP Monitor for any abnormal bleeding since you are on a blood thinner medication (blood in your stool and urine) It is very important to weight yourself daily. if there is any weight gain for more than 3 lbs, please notify your physician Fluid restriction with 1.5L daily. Follow a low salt diet Fall precaution Check BMP in 1 week to monitor electrolytes and kidney function Prescriptions: New furosemide 40 mg Tablet 40 mg PO BID17 30 Days Qty: 30 RF: 0 Entresto 24-26 mg Tablet 1 tab PO BID 30 Days Qty: 60 RF: 0 Humulin 70/30 U-100 KwikPen 100 unit/mL (70-30) insulin pen 30 units SQ BID 30 Days Qty: 18 RF: 0 potassium chloride 20 mEq packet 40 meq PO DAILY Qty: 60 RF: 0 Continued metformin 500 mg Tablet 2 tab PO BID RF: 0 benzonatate [Tessalon Perles] 100 mg Capsule 100 mg PO TID PRN (Reason: Cough) RF: 0 simvastatin 20 mg Tablet 20 mg PO HS RF: 0 ondansetron 4 mg Tablet,Disintegrating 4 mg PO UNKNOWN PRN (Reason: Nausea) RF: 0 cholecalciferol (vitamin D3) [Vitamin D3] 1,000 unit Capsule 1,000 unit PO BID RF: 0 Systane Gel 0.3 % Gel 1 drp OPB HS RF: 0 olopatadine [Pataday] 0.2 % Drops 1 drp OPR QAM RF: 0 calcium citrate-vitamin D3 [Citracal + D Petites] 200 mg calcium -250 unit Tablet 2 tab PO QAM RF: 0 Emergen-C 1,000 mg Powder Effervescent In Packet 1 dose PO QPM RF: 0 Centrum Silver 400-250 mcg Tablet,Chewable 1 tab PO DAILY RF: 0 I'Cat 1 cap PO DAILY RF: 0 albuterol sulfate 2.5 mg/0.5 mL Solution For Nebulization 2.5 mg INHALATION QID PRN (Reason: SHORT OF BREATH) RF: 0 spironolactone 25 mg Tablet 12.5 mg PO DAILY 30 Days Qty: 15 RF: 0 metoprolol succinate 25 mg Tablet Extended Release 24 Hr 25 mg PO BID17 30 Days Qty: 30 RF: 0 Eliquis 5 mg Tablet 5 mg PO BID17 30 Days Qty: 30 RF: 0 Changed amiodarone 200 mg Tablet 200 mg PO BID 30 Days Qty: 120 RF: 0 Discontinued glipizide 10 mg Tablet 10 mg PO QAM RF: 0 Januvia 100 mg Tablet 100 mg PO QAM RF: 0 hydrochlorothiazide 25 mg tablet PO UNKNOWN RF: 0 amlodipine 10 mg tablet PO UNKNOWN RF: 0 potassium chloride [Klor-Con M20] 20 mEq Tablet,Er Particles/Crystals 20 meq PO QAM 30 Days Qty: 30 RF: 0 losartan 25 mg Tablet 25 mg PO QAM 30 Days Qty: 30 RF: 0 furosemide 20 mg Tablet 20 mg PO QAM 30 Days Qty: 30 RF: 0 Stand-Alone Forms: [facility] Discharge Orders: Discharge Order (Routine); Ordered 09/30/18 Ordered By: Mariana Robles Admission Data Admit Date/Time: 09/26/18 02:34 Attending Provider: Mariana Robles Admit Provider: Yaya Lehman Primary Care Provider: Ayesha Ovalle Other Providers: Yaya Lehman ; Jesse Gomez ; Marco Viera ; Petr Chong ; Jewel Gómez ; Fuad Whitney ; Rj Gaffney ; Sommer Washington ; Sylvia Zambrano ; Mariana Robles ; Aguust Peralta Service: Telemetry Other Interventions: Discharge Summary Assessment (RN) Last Done: 09/30/18 12:31 DC Date/Time DO NOT enter until pt leaves facility: 09/30/18 14:28
== END 2018-09-30 14:28 | disposition home health service (06) | DRG 286 ==
LOC: ED 21:51 → SUATTDRO 09-26 02:34 → 2S 09-26 02:34

== ENCOUNTER 2022-06-07 17:24 | Observation (INO) ==
[2022-06-07 17:48] LABS: Basophils # (auto) 0.03 K/uL (0-0.2); Basophils % (auto) 0.3 %; Eosinophils # (auto) 0.12 K/uL (0-0.50); Eosinophils % (auto) 1.3 %; Hematocrit (blood only) 36.1 % (34.1-44.9); Hemoglobin 12.6 g/dl (12.0-16.0); Immature Granulocytes # (auto) 0.06 K/uL (0.00-0.02); Immature Granulocytes % (auto) 0.7 %; Lymphocytes # (auto) 1.64 K/uL (1.2-3.4); Lymphocytes % (auto) 18.1 %; Mean Corpuscular Hemoglobin 30.4 pg (25.0-34.0); Mean Corpuscular Hgb Conc 34.9 g/dL (32.0-36.0); Mean Corpuscular Volume 87.2 fL (80.0-100.0); Mean Platelet Volume 9.4 fL (9.4-12.3); Monocytes % (auto) 6.6 %; Neutrophils # (auto) 6.61 K/uL (1.4-6.5); Platelet Count 304 K/uL (130-400); RDW Coefficient of Variation 13.3 % (11.5-14.5); RDW Standard Deviation 42.7 fL (36.4-46.3); Red Blood Count 4.14 M/uL (3.93-5.22); White Blood Count 9.06 K/ul (4.8-10.8)
[2022-06-07] MEDS ORDERED: SODIUM CHLORIDE 0.9% 1000ML 1,000 ML IV ONE (18:29)
[2022-06-07 18:30] LABS: Influenza A virus by PCR Negative (Neg); Influenza B virus by PCR Negative (Neg); RSV by PCR Negative (Neg); SARS CoV2 RNA(COVID-19) Ceph NEGATIVE (Negative)
--- NOTE | 2022-06-07 18:49 | XRay Report ---
SINGLE VIEW CHEST CLINICAL HISTORY: Cough FINDINGS: 2 AP, portable, upright chest radiographs are compared to study dated 09/27/2018 and correla jackeline with chest CT dated 03/19/2019. A 3-lead cardiac AICD partially obscures the left lower chest. Th e cardiomediastinal silhouette is unremarkable noting atherosclerotic calcification of the thoracic u reter. The pulmonary vasculature is noncontrast. The lungs and pleural spaces are clear noting mild b ibasilar atelectasis. No pneumothorax is seen. The skeletal structures are osteopenic. The bony thora x is grossly intact. IMPRESSION: No acute cardiopulmonary abnormality. ACT 112: Negative or not required by law. Electronically signed by: Shun Scott M.D. 06/07/2022 6:46 PM
--- NOTE | 2022-06-07 18:55 | Emergency Department Note ---
Impression & Plan Hyperglycemia, ANA (acute kidney injury) ED Provider Note HISTORY OF PRESENT ILLNESS: Patient is a 77-year-old female presenting with general malaise for the past 2 months. She reports that she has a history of diabetes and in the last 3 weeks has been having sugars ranging in the 300s and 400s. She was called by her doctor today after getting outpatient laboratory work-up and reportedly was told that her A1c was "over 700." Patient reports having any persistent cough for t he last month, diarrhea and generalized fatigue. Denies any recent changes in medications. Denies any recent antibiotic use. Denies any measured fevers at home. Denies any recent exposure to sick contacts. Denies any chest pain or significant shortness of breath. She is on injectable insulin but denies any recent changes in her insulin dosing. ROS: Constitutional: No fever, chills, or weakness +general malaise Skin: No rash or diaphoresis HENT: No headaches or congestion Eyes: No vision changes Cardio: No chest pain, palpitations or leg swelling Respiratory: No wheezing or shortness of breath +cough GI: No nausea, vomiting, constipation +diarrhea : No dysuria, polyuria MSK: No joint or back pain Neuro: No loss of sensation, confusion, focal deficits, numbness, tingling Psychiatric: No mood changes PHYSICAL EXAM: Constitutional: Patient appears in no acute distress. HENT: Head: Normocephalic and atraumatic. Eyes: EOMI, PERRL Mouth/Throat: Mucous membranes moist. Neck: Trachea midline. Neck supple. Cardiovascular: RRR, No murmurs, rubs or gallops. Intact distal pulses. Pulmonary/Chest: No respiratory distress. Breath sounds clear and equal bilaterally. No wheezes or rales. Abdominal: BS +. Abdomen soft, no tenderness, rebound or guarding. Back: No midline spinal tenderness, no paraspinal tenderness, no CVA tenderness. Musculoskeletal: No edema, tenderness or deformity noted. Skin: Warm and dry. No rash, erythema, pallor or cyanosis Psychiatric: Appropriate mood and affect for situation. Neurological: Alert and keenly responsive. CN II-XII grossly intact, moving all extremities equally and fully. MDM: - Vitals signs showed hypertension. - Laboratory workup showed normal WBC; stable hemoglobin; hyponatremia (Na 130); slightly elevated anion gap (12); ANA (Cr 1.45 - baseline around 1.0); hyperglycemia (glucose 500); normal magnesium; normal phosphorous; - ABG shows alkalosis. No evidence of DKA. - A1C in process. - COVID/flu/RSV negative - CXR negative for acute cardiopulmonary pathology. - Patient given 1L NS in ER. - Hospitalist, Dr. Horowitz, consulted for admission. - Patient admitted to [facility] service for further evaluation and management. ASSESSMENT AND PLAN: Diagnosis: acute kidney injury; hyperglycemia Plan: admit Past Med/Surg History Medical History (Updated 06/07/22 @ 20:51 by Enedelia Reis MD) Bronchitis Cancer SKIN CANCER Diabetes Diabetes mellitus type 2, controlled Diabetes mellitus, type 2 Dyslipidemia Endometriosis Endometriosis Fibromyalgia Fibromyalgia Hepatitis C A CHILD Hot flashes HTN (hypertension) Hyperlipidemia Hypertension Left bundle branch block Migraine Sheehan's neuroma Nonischemic cardiomyopathy Osteoarthritis Paroxysmal atrial fibrillation Sciatica Temporomandibular joint disorder Surgical History H/O: hysterectomy History of cataract surgery RT/LEFT History of tonsillectomy History of tooth extraction History of total hysterectomy with bilateral salpingo-oophorectomy (BSO) S/P BSO (status post bilateral salpingo-oophorectomy) Family History Father Family history of diabetes mellitus Other Breast cancer Hemochromatosis Social History Smoking Status: Never smoker Second Hand Exposure: Yes (HX OF EXPOSURE); Hx Alcohol Use: No Hx Substance Use: No Preferred Language: Portuguese Communication Ability: Effective [employer]el[employer] Required: No Beliefs That Will Affect Care: None marital status: Current Living Situation: Spouse current occupation: Homemaker Feels Safe at Home: Yes Assistive Devices: Glasses Allergies Allergies Allergy/AdvReac Type Severity Reaction Status Date / Time propoxyphene Allergy Intermediate Edema Verified 06/07/22 19:29 airway - DARVON erythromycin base Allergy Mild Nausea Verified 06/07/22 19:29 salicylates Allergy Mild Hives/nause Verified 06/07/22 19:29 a Penicillins AdvReac Intermediate Nausea and Verified 06/07/22 19:29 dizziness amitriptyline AdvReac Mild Dizziness Verified 06/07/22 19:29 azithromycin AdvReac Mild STOMACH Verified 06/07/22 19:29 PAINS/ACHES ALL OVER Bactrim AdvReac Mild GI upset, Verified 09/10/17 07:13 nausea, vomiting Corticosteroids AdvReac Mild Prednisone, Verified 06/07/22 19:29 (Glucocorticoids) rapid weight gain hydrocodone AdvReac Mild Nausea, Verified 06/07/22 19:29 vomiting latex AdvReac Mild Rash Verified 06/07/22 19:29 lisinopril AdvReac Mild COUGH Verified 06/07/22 19:29 morphine AdvReac Mild Nausea Verified 06/07/22 19:29 pseudoephedrine AdvReac Mild Dizziness Verified 06/07/22 19:29 sulfamethoxazole AdvReac Mild GI upset, Verified 06/07/22 19:29 nausea, vomiting thiopental AdvReac Mild Nausea, Verified 06/07/22 19:29 vomiting trimethoprim AdvReac Mild GI upset, Verified 06/07/22 19:29 nausea, vomiting Home Meds Home Medications Medication Instructions Recorded Confirmed artificial tears(hypromellose) 0.3 1 drp OPB HS 06/19/18 03/20/19 % eye gel (Systane Gel) calcium citrate 200 mg 2 tab PO QAM 06/19/18 06/07/22 calcium-vitamin D3 6.25 mcg (250 unit) tablet (Citracal-D3 Petites) cholecalciferol (vitamin D3) 25 1,000 unit PO BID 06/19/18 06/07/22 mcg (1,000 unit) capsule (Vitamin D3) ondansetron 4 mg disintegrating 4 mg PO DIRECTED PRN Nausea 06/19/18 03/20/19 tablet apixaban 5 mg tablet (Eliquis) 5 mg PO BID 03/20/19 06/07/22 furosemide 40 mg tablet (Lasix) 40 mg PO QAM 03/20/19 06/07/22 rosuvastatin 5 mg tablet (Crestor) 5 mg PO HS 03/20/19 06/07/22 sacubitril 24 mg-valsartan 26 mg 1 tab PO BIDM 03/20/19 06/07/22 tablet (Entresto) spironolactone 25 mg tablet 12.5 mg PO 3XWK 03/20/19 06/07/22 benzonatate 100 mg capsule 100 mg PO TID PRN Cough 06/07/22 06/07/22 dulaglutide 0.75 mg/0.5 mL 0.75 mg subcut WK 06/07/22 06/07/22 subcutaneous pen injector (Trulicity) fluticasone furoate 100 1 inh inhalation QAM 06/07/22 06/07/22 mcg-vilanterol 25 mcg/dose inhalation powder (Breo Ellipta) insulin glargine 100 unit/mL (3 40 unit subcut QAM 06/07/22 06/07/22 mL) subcutaneous pen (Basaglar KwikPen U-100 Insulin) meclizine 12.5 mg tablet 12.5 mg PO TID PRN Dizziness Or 06/07/22 06/07/22 Vertigo methylcellulose (laxative) 2 g PO DAILY 06/07/22 06/07/22 metoprolol succinate 100 mg 200 mg PO BID 06/07/22 06/07/22 tablet,extended release 24 hr olopatadine 0.2 % eye drops 1 drp OPR QAM 06/07/22 06/07/22 (Pataday Once Daily Relief) omeprazole 20 mg capsule,delayed 20 mg PO DAILY 06/07/22 06/07/22 release Results & Data (ED) Vital Signs Vital Signs - 24 hr 06/07/22 17:26 06/07/22 18:48 06/07/22 19:00 Temperature 36.3 C L Temperature Source Temporal Artery Scan Pulse Rate 115 H 90 Pulse Rate [Right Finger] 95 H Pulse Rate from SpO2 Sensor 90 Respiratory Rate 20 22 Respiratory Effort / Characteristics Non-Labored Respiratory Depth Normal Blood Pressure 128/67 Blood Pressure [Right Arm] 146/76 H Blood Pressure Mean 87 Blood Pressure Mean [Right Arm] 99 Pulse Oximetry 97 100 100 Oxygen Delivery Method Room Air Room Air Sepsis Recent Fever Within 48 Hours No Sepsis New/Unexplained Change in Mental Status No Sepsis Action Taken by Nursing No Action Required 06/07/22 19:27 06/07/22 20:00 06/07/22 20:30 Temperature Temperature Source Pulse Rate 89 107 H 88 Pulse Rate [Right Finger] Pulse Rate from SpO2 Sensor 87 79 90 Respiratory Rate 23 20 18 Respiratory Effort / Characteristics Respiratory Depth Blood Pressure 150/66 H Blood Pressure [Right Arm] Blood Pressure Mean 94 Blood Pressure Mean [Right Arm] Pulse Oximetry 99 100 100 Oxygen Delivery Method Sepsis Recent Fever Within 48 Hours Sepsis New/Unexplained Change in Mental Status Sepsis Action Taken by Nursing Laboratory Data Result diagrams: 06/07/22 17:33 06/07/22 17:33 Lab Results 06/07/22 06/07/22 06/07/22 Range/Units 17:29 17:33 17:33 WBC 9.06 (4.8-10.8) K/ul RBC 4.14 (3.93-5.22) M/uL Hgb 12.6 (12.0-16.0) g/dl Hct 36.1 (34.1-44.9) % MCV 87.2 (80.0-100.0) fL MCH 30.4 (25.0-34.0) pg MCHC 34.9 (32.0-36.0) g/dL RDW Std Deviation 42.7 (36.4-46.3) fL RDW Coeff of Hilda 13.3 (11.5-14.5) % Plt Count 304 (130-400) K/uL MPV 9.4 (9.4-12.3) fL Immature Gran % (Auto) 0.7 % Neut % (Auto) 73.0 % Lymph % (Auto) 18.1 % [place] % (Auto) 6.6 % Eos % (Auto) 1.3 % Baso % (Auto) 0.3 % Neut # (Auto) 6.61 H (1.4-6.5) K/uL Lymph # (Auto) 1.64 (1.2-3.4) K/uL [place] # (Auto) 0.60 (0.24-0.82) K/uL Eos # (Auto) 0.12 (0-0.50) K/uL Baso # (Auto) 0.03 (0-0.2) K/uL Immature Gran # (Auto) 0.06 H (0.00-0.02) K/uL ABG pH (7.35-7.45) ABG pCO2 (35-46) mmHg ABG pO2 (80-95) mmHg ABG HCO3 (19-24) mmol/L ABG O2 Saturation (90-95) % ABG Base Excess (-9-1.8) mEq/L Willis Test (Pos) Oxygen Given Sodium 130 L (136-145) mmol/L Potassium 4.1 (3.5-5.1) mmol/L Chloride 96 L (98-107) mmol/L Carbon Dioxide 22 (21-32) mmol/L Anion Gap 12 H (3-11) BUN 39 H (6-23) mg/dl Creatinine 1.45 H (0.6-1.2) mg/dl Est Cr Clr Drug Dosing 35.8 ml/min Est GFR ( Amer) 40.4 ml/min Est GFR (Non-Af Amer) 34.9 ml/min BUN/Creatinine Ratio 26.9 H (10-20) Glucose 500 H* (70-99(Fasting)) mg/dl POC Glucose 448 H* (70-99) mg/dl Calcium 9.3 (8.5-10.1) mg/dl Phosphorus (2.5-4.9) mg/dl Magnesium (1.7-2.4) mg/dl Total Bilirubin 0.8 (0.2-1.0) mg/dl AST 14 (13-39) U/L ALT 13 (7-52) U/L Alkaline Phosphatase 97 (34-104) U/L Total Protein 7.2 (6.0-8.3) gm/dl Albumin 3.8 (3.4-5.0) gm/dl Globulin 3.4 (2.5-4.0) gm/dl Albumin/Globulin Ratio 1.1 (0.9-2) SARS-CoV-2 (PCR) (Negative) Influenza Type A (PCR) (Neg) Influenza Type B (PCR) (Neg) RSV (RT-PCR) (Neg) 06/07/22 06/07/22 06/07/22 Range/Units 17:33 17:38 19:35 WBC (4.8-10.8) K/ul RBC (3.93-5.22) M/uL Hgb (12.0-16.0) g/dl Hct (34.1-44.9) % MCV (80.0-100.0) fL MCH (25.0-34.0) pg MCHC (32.0-36.0) g/dL RDW Std Deviation (36.4-46.3) fL RDW Coeff of Hilda (11.5-14.5) % Plt Count (130-400) K/uL MPV (9.4-12.3) fL Immature Gran % (Auto) % Neut % (Auto) % Lymph % (Auto) % [place] % (Auto) % Eos % (Auto) % Baso % (Auto) % Neut # (Auto) (1.4-6.5) K/uL Lymph # (Auto) (1.2-3.4) K/uL [place] # (Auto) (0.24-0.82) K/uL Eos # (Auto) (0-0.50) K/uL Baso # (Auto) (0-0.2) K/uL Immature Gran # (Auto) (0.00-0.02) K/uL ABG pH (7.35-7.45) ABG pCO2 (35-46) mmHg ABG pO2 (80-95) mmHg ABG HCO3 (19-24) mmol/L ABG O2 Saturation (90-95) % ABG Base Excess (-9-1.8) mEq/L Willis Test (Pos) Oxygen Given Sodium (136-145) mmol/L Potassium (3.5-5.1) mmol/L Chloride (98-107) mmol/L Carbon Dioxide (21-32) mmol/L Anion Gap (3-11) BUN (6-23) mg/dl Creatinine (0.6-1.2) mg/dl Est Cr Clr Drug Dosing ml/min Est GFR ( Amer) ml/min Est GFR (Non-Af Amer) ml/min BUN/Creatinine Ratio (10-20) Glucose (70-99(Fasting)) mg/dl POC Glucose 504 H* (70-99) mg/dl Calcium (8.5-10.1) mg/dl Phosphorus 3.0 (2.5-4.9) mg/dl Magnesium 2.2 (1.7-2.4) mg/dl Total Bilirubin (0.2-1.0) mg/dl AST (13-39) U/L ALT (7-52) U/L Alkaline Phosphatase (34-104) U/L Total Protein (6.0-8.3) gm/dl Albumin (3.4-5.0) gm/dl Globulin (2.5-4.0) gm/dl Albumin/Globulin Ratio (0.9-2) SARS-CoV-2 (PCR) NEGATIVE (Negative) Influenza Type A (PCR) Negative (Neg) Influenza Type B (PCR) Negative (Neg) RSV (RT-PCR) Negative (Neg) 06/07/22 Range/Units 20:05 WBC (4.8-10.8) K/ul RBC (3.93-5.22) M/uL Hgb (12.0-16.0) g/dl Hct (34.1-44.9) % MCV (80.0-100.0) fL MCH (25.0-34.0) pg MCHC (32.0-36.0) g/dL RDW Std Deviation (36.4-46.3) fL RDW Coeff of Hidla (11.5-14.5) % Plt Count (130-400) K/uL MPV (9.4-12.3) fL Immature Gran % (Auto) % Neut % (Auto) % Lymph % (Auto) % [place] % (Auto) % Eos % (Auto) % Baso % (Auto) % Neut # (Auto) (1.4-6.5) K/uL Lymph # (Auto) (1.2-3.4) K/uL [place] # (Auto) (0.24-0.82) K/uL Eos # (Auto) (0-0.50) K/uL Baso # (Auto) (0-0.2) K/uL Immature Gran # (Auto) (0.00-0.02) K/uL ABG pH 7.50 H (7.35-7.45) ABG pCO2 26 L (35-46) mmHg ABG pO2 119 H (80-95) mmHg ABG HCO3 20 (19-24) mmol/L ABG O2 Saturation > 100.0 H (90-95) % ABG Base Excess -1.4 (-9-1.8) mEq/L Willis Test Pos (Pos) Oxygen Given ROOM AIR Sodium (136-145) mmol/L Potassium (3.5-5.1) mmol/L Chloride (98-107) mmol/L Carbon Dioxide (21-32) mmol/L Anion Gap (3-11) BUN (6-23) mg/dl Creatinine (0.6-1.2) mg/dl Est Cr Clr Drug Dosing ml/min Est GFR ( Amer) ml/min Est GFR (Non-Af Amer) ml/min BUN/Creatinine Ratio (10-20) Glucose (70-99(Fasting)) mg/dl POC Glucose (70-99) mg/dl Calcium (8.5-10.1) mg/dl Phosphorus (2.5-4.9) mg/dl Magnesium (1.7-2.4) mg/dl Total Bilirubin (0.2-1.0) mg/dl AST (13-39) U/L ALT (7-52) U/L Alkaline Phosphatase (34-104) U/L Total Protein (6.0-8.3) gm/dl Albumin (3.4-5.0) gm/dl Globulin (2.5-4.0) gm/dl Albumin/Globulin Ratio (0.9-2) SARS-CoV-2 (PCR) (Negative) Influenza Type A (PCR) (Neg) Influenza Type B (PCR) (Neg) RSV (RT-PCR) (Neg) Administered Medications Discontinued Medications Sodium Chloride (Nss 1000ml) 1,000 mls @ 999 mls/hr IV .[id number] ONE Stop: 06/07/22 19:29 Last Infusion: 06/07/22 20:43 Dose: 0 mls/hr Documented By: Admin: 06/07/22 18:47 Dose: 999 mls/hr Documented By: [facility] – [place] Imaging Data Radiologist's Impression: Chest X-Ray 06/07/22 17:33 SINGLE VIEW CHEST CLINICAL HISTORY: Cough FINDINGS: 2 AP, portable, upright chest radiographs are compared to study dated 09/27/2018 and correlated with chest CT dated 03/19/2019. A 3-lead cardiac AICD partially obscures the left lower chest. The cardiomediastinal silhouette is unremarkable noting atherosclerotic calcification of the thoracic ureter. The pulmonary vasculature is noncontrast. The lungs and pleural spaces are clear noting mild bibasilar atelectasis. No pneumothorax is seen. The skeletal structures are osteopenic. The bony thorax is grossly intact. IMPRESSION: No acute cardiopulmonary abnormality. ACT 112: Negative or not required by law. Electronically signed by: Shun Scott M.D. 06/07/2022 6:46 PM Discharge Plan Visit Data Chief Complaint: Hyperglycemia Stated Complaint: REFERRED BY DOCTOR, HIGH BLOOD SUGAR ED Provider: Enedelia Reis Discharge Problem: Hyperglycemia, ANA (acute kidney injury) Forms Stand Alone Forms: My [facility] Prescriptions Prescriptions: No Action cholecalciferol (vitamin D3) [Vitamin D3] 1,000 unit Capsule 1,000 unit PO BID Systane Gel 0.3 % Gel 1 drp OPB HS calcium citrate-vitamin D3 [Citracal-D3 Petites] 200 mg calcium -250 unit Tablet 2 tab PO QAM furosemide [Lasix] 40 mg Tablet 40 mg PO QAM spironolactone 25 mg Tablet 12.5 mg PO 3XWK Rx Instructions: TAKE THIS MED ON SATURDAY/SATURDAY/SATURDAY rosuvastatin [Crestor] 5 mg Tablet 5 mg PO HS Eliquis 5 mg Tablet 5 mg PO BID Entresto 24-26 mg Tablet 1 tab PO BIDM benzonatate 100 mg capsule 100 mg PO TID PRN (Reason: Cough) meclizine 12.5 mg tablet 12.5 mg PO TID PRN (Reason: Dizziness Or Vertigo) methylcellulose (laxative) Powder 2 g PO DAILY Trulicity 0.75 mg/0.5 mL pen injector 0.75 mg SUBCUT WK Rx Instructions: TAKE THIS MED EVERY SATURDAY metoprolol succinate 100 mg tablet extended release 24 hr 200 mg PO BID Rx Instructions: TAKE THIS MED WITH BREAKFAST AND EVENING MEAL. fluticasone furoate-vilanterol [Breo Ellipta] 100-25 mcg/dose blister with device 1 inh inhalation QAM insulin glargine [Basaglar KwikPen U-100 Insulin] 100 unit/mL (3 mL) insulin pen 40 unit SUBCUT QAM olopatadine [Pataday Once Daily Relief] 0.2 % Drops 1 drp OPR QAM Referrals Referrals: Ema Ta, [Primary Care Provider] -
[2022-06-07 18:59] LABS: Albumin Globulin Ratio 1.1 (0.9-2); Albumin Level 3.8 gm/dl (3.4-5.0); BUN Creatinine Ratio 26.9 (10-20); Bilirubin,Total 0.8 mg/dl (0.2-1.0); Calcium 9.3 mg/dl (8.5-10.1); Creatinine Clr Calc Pharmacy 35.8 ml/min; Est GFR (African American) 40.4 ml/min; Est GFR (Non-African American) 34.9 ml/min; Globulin 3.4 gm/dl (2.5-4.0); Potassium 4.1 mmol/L (3.5-5.1); Total Protein 7.2 gm/dl (6.0-8.3)
[2022-06-07 19:44] LABS: Magnesium 2.2 mg/dl (1.7-2.4)
[2022-06-07 20:15] LABS: Base Excess ABG -1.4 mEq/L (-9-1.8); HCO3 ABG 20 mmol/L (19-24); Oxygen Saturation ABG > 100.0 % (90-95); PCO2 ABG 26 mmHg (35-46); PO2 ABG 119 mmHg (80-95)
[2022-06-07 20:16] LABS: Allen Test Pos (Pos)
[2022-06-07] MEDS ORDERED: ONDANSETRON INJ 2 MG/ML 2 ML VIAL IV PRN (21:32)
[2022-06-07] MEDS ORDERED: ACETAMINOPHEN 325 MG TAB PO PRN (21:32)
[2022-06-07] MEDS ORDERED: CARBOHYDRATES FOR HYPOGLYCEMIA PO PRN (21:43)
[2022-06-07] MEDS ORDERED: GLUCAGON FOR INJ 1 MG VIAL SQ PRN (21:43)
[2022-06-07] MEDS ORDERED: GLUCOSE 10 TAB/TUBE PO PRN (21:43)
[2022-06-07] MEDS ORDERED: DEXTROSE 50% 50 ML SYRINGE IV PRN (21:43)
[2022-06-07] MEDS ORDERED: GLUCOSE 40% GEL 15 GM TUBE PO PRN (21:43)
[2022-06-07] MEDS ORDERED: LANTUS PER UNIT CHARGE SQ SCH (21:45)
[2022-06-07 21:52] LABS: Appearance Urine Turbid (Clear); Bacteria Urine Automated 3+ (Negative); Bilirubin Urine Negative (Negative); Blood Urine Trace (Negative); Color Urine Yellow; Epithelial Cell Urine Auto >30 /lpf (0-5); Glucose Urine UA 3+ (Negative); Ketones Urine Trace (Negative); Leukocyte Esterase Urine 2+ (Negative); Nitrite Urine Negative (Negative); Protein Urine 1+ (Negative); Specific Gravity Urine 1.021 (1.000-1.030); Urobilinogen Urine Negative (Negative); WBC Urine Automated >30 /hpf (0-5)
[2022-06-07] MEDS ORDERED: PHARMACY GLYCEMIC MGMT CONSULT PRN (22:05)
--- NOTE | 2022-06-07 22:06 | History & Physical Report ---
Date of Service June 07, 2022 Assessment & Plan (1) Hyperglycemia: (2) ANA (acute kidney injury): Plan Uncontrolled diabetes Hyperglycemia, pseudohyponatremia Patient sent from PCP office due to high blood glucose level at 719, admitting blood glucose of 500 Patient does not seem to have epigastric pain, patient does have up to 4 loose stools per day since last 1 to 2 weeks per patient. Admitting ABG with bicarb of 20, anion gap of 12. Outpatient A1c on the day of arrival 8.7 an outpatient creatinine of 1.4 Admitting CXR w/ no acute process. IV fluids, sliding scale insulin, close monitoring of fingerstick blood glucose, adult educator and glycemic pharmacy consult. Sodium level of 130 at presentation, expect to improve with improvement of blood glucose level. corrected Na is 136. Repeat BMP around 11 pm. then in AM. ANA over CKD stage III: Admitting creatinine of 1.45, baseline creatinine around 1, likely prerenal secondary to ongoing diarrhea and dehydration due to hyperglycemia. IV fluids, BMP in AM. Hold nephrotoxic's including Lasix and Aldactone. Loose stools: Patient reports runny diarrhea without blood up to 4 times a day since last 1 to 2 weeks, reports having formed stool in the morning of the day of arrival then again started having loose stool in the ED as per patient. We will obtain stool PCR, continue to monitor. Viral panel at admission's were negative. Patient denies any medication changes or antibiotics or hospitalization in the recent past. Other chronic medical conditions: Resume home meds as able. Upon outpatient review, 09/26/2018 echo with EF of 20 to 25% and severe global hypokinesis of left ventricle. 07/07/2019 echo with EF of 52%. Patient will be on IV fluid, closely monitor for volume status. DVT prophylaxis: Heparin subcu Full code History of Present Illness Chief Complaint: Abnormal outpatient labs Primary Care Provider: Ema Ta DO 77-year-old lady with PMH of T2DM/uncontrolled, diabetic peripheral angiopathy, sleep apnea, nonischemic cardiomyopathy, HTN, paroxysmal A. fib on Eliquis, heart failure, hypertensive heart and kidney disease, CKD stage III, cardiac pacemaker in situ, fibromyalgia, alopecia presented to our ED 06/07 upon recommendation from PCP office due to abnormal lab obtained on the day of arrival. Patient was not very clear regarding her outpatient labs. Upon outpatient chart review, her sodium level is 129 and glucose level was 719. Her creatinine was 1.4. Patient reports feeling generally unwell since last 1 month, patient had flu 1 and half months ago and has been having persistent dry cough which is slowly improving per patient. Patient also reports having loose stools up to 4 times a day since 1 to 2 weeks but had 1 formed stool in the morning and reports having decreased appetite since mid April. Patient was asking for diet at bedside exam as she feels very hungry. Patient denies any blood in the stool. Patient does not appear to have epigastric pain. Patient reports some musculoskeletal pain in b/l lower chest exacerbated w/ coughing, patient denies any fever or any pain or burning while passing urine. ROS could not be very much streamlined as obtaining "straight" history with the patient was on the difficult side. Patient does have insulin sensor on her left arm and reports that it has been reading " high" since last couple of weeks. Patient denies any use of tobacco/smoking/alcohol/recreational drugs. 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 Family history positive for diabetes in father, CHF in father, breast cancer in mother per patient. Medications were reviewed with the patient. Patient not sure on her dose of metoprolol, confirmed with outpatient chart review. Allergies Allergy/AdvReac Type Severity Reaction Status Date / Time propoxyphene Allergy Intermediate Edema Verified 06/07/22 19:29 airway - DARVON erythromycin base Allergy Mild Nausea Verified 06/07/22 19:29 salicylates Allergy Mild Hives/nause Verified 06/07/22 19:29 a Penicillins AdvReac Intermediate Nausea and Verified 06/07/22 19:29 dizziness amitriptyline AdvReac Mild Dizziness Verified 06/07/22 19:29 azithromycin AdvReac Mild STOMACH Verified 06/07/22 19:29 PAINS/ACHES ALL OVER Bactrim AdvReac Mild GI upset, Verified 09/10/17 07:13 nausea, vomiting Corticosteroids AdvReac Mild Prednisone, Verified 06/07/22 19:29 (Glucocorticoids) rapid weight gain hydrocodone AdvReac Mild Nausea, Verified 06/07/22 19:29 vomiting latex AdvReac Mild Rash Verified 06/07/22 19:29 lisinopril AdvReac Mild COUGH Verified 06/07/22 19:29 morphine AdvReac Mild Nausea Verified 06/07/22 19:29 pseudoephedrine AdvReac Mild Dizziness Verified 06/07/22 19:29 sulfamethoxazole AdvReac Mild GI upset, Verified 06/07/22 19:29 nausea, vomiting thiopental AdvReac Mild Nausea, Verified 06/07/22 19:29 vomiting trimethoprim AdvReac Mild GI upset, Verified 06/07/22 19:29 nausea, vomiting Home Medications Medication Instructions Recorded Confirmed Type artificial tears(hypromellose) 0.3 1 drp OPB HS 06/19/18 06/07/22 History % eye gel (Systane Gel) calcium citrate 200 mg 2 tab PO QAM 06/19/18 06/07/22 History calcium-vitamin D3 6.25 mcg (250 unit) tablet (Citracal-D3 Petites) cholecalciferol (vitamin D3) 25 1,000 unit PO BID 06/19/18 06/07/22 History mcg (1,000 unit) capsule (Vitamin D3) apixaban 5 mg tablet (Eliquis) 5 mg PO BID 03/20/19 06/07/22 History furosemide 40 mg tablet (Lasix) 40 mg PO QAM 03/20/19 06/07/22 History rosuvastatin 5 mg tablet (Crestor) 5 mg PO HS 03/20/19 06/07/22 History sacubitril 24 mg-valsartan 26 mg 1 tab PO BIDM 03/20/19 06/07/22 History tablet (Entresto) spironolactone 25 mg tablet 12.5 mg PO 3XWK 03/20/19 06/07/22 History benzonatate 100 mg capsule 100 mg PO TID PRN Cough 06/07/22 06/07/22 History dulaglutide 0.75 mg/0.5 mL 0.75 mg subcut WK 06/07/22 06/07/22 History subcutaneous pen injector (Trulicity) fluticasone furoate 100 1 inh inhalation QAM 06/07/22 06/07/22 History mcg-vilanterol 25 mcg/dose inhalation powder (Breo Ellipta) insulin glargine 100 unit/mL (3 40 unit subcut QAM 06/07/22 06/07/22 History mL) subcutaneous pen (Basaglar KwikPen U-100 Insulin) meclizine 12.5 mg tablet 12.5 mg PO TID PRN Dizziness Or 06/07/22 06/07/22 History Vertigo methylcellulose (laxative) 2 g PO DAILY 06/07/22 06/07/22 History metoprolol succinate 100 mg 100 mg PO BID 06/07/22 06/07/22 History tablet,extended release 24 hr multivitamin 1 tab PO DAILY 06/07/22 06/07/22 History olopatadine 0.2 % eye drops 1 drp OPR QAM 06/07/22 06/07/22 History (Pataday Once Daily Relief) Past Med/Surg History Medical History (Updated 06/07/22 @ 20:51 by Enedelia Reis MD) Bronchitis Cancer SKIN CANCER Diabetes Diabetes mellitus type 2, controlled Diabetes mellitus, type 2 Dyslipidemia Endometriosis Endometriosis Fibromyalgia Fibromyalgia Hepatitis C A CHILD Hot flashes HTN (hypertension) Hyperlipidemia Hypertension Left bundle branch block Migraine Sheehan's neuroma Nonischemic cardiomyopathy Osteoarthritis Paroxysmal atrial fibrillation Sciatica Temporomandibular joint disorder Surgical History H/O: hysterectomy History of cataract surgery RT/LEFT History of tonsillectomy History of tooth extraction History of total hysterectomy with bilateral salpingo-oophorectomy (BSO) S/P BSO (status post bilateral salpingo-oophorectomy) Family History Father Family history of diabetes mellitus Other Breast cancer Hemochromatosis Social History Smoking Status: Never smoker Second Hand Exposure: Yes (HX OF EXPOSURE); Hx Alcohol Use: No Hx Substance Use: No Preferred Language: Persian Communication Ability: Effective Medical Billing And Coding Specialist Required: No Beliefs That Will Affect Care: None marital status: Current Living Situation: Spouse current occupation: Homemaker Feels Safe at Home: Yes Assistive Devices: Glasses Review of Systems Review of Systems: Negative otherwise mentioned in HPI Physical Exam Physical Exam: GENERAL: Alert and oriented x3. NAD, on RA. HEENT: No pallor, no icterus. Pupils equal, round and reactive to light. Oral mucosa moist. NECK: No JVD, no neck masses. HEART: S1 and S2 heard. Regular rate and rhythm. No murmur, no gallop. RESPIRATORY SYSTEM: Normal AP diameter. No accessory muscle use. No wheezing, no crackles. ABDOMEN: Soft, bowel sounds present, nontender, no distention. CENTRAL NERVOUS SYSTEM: No facial droop. Speech is clear. Obeys simple commands. Moves extremities. EXTREMITIES: No edema, no erythema seen. left arm w/ insulin sensor. Results & Data Results & Data ([facility]) Vital Signs (Past 12 Hours) Vital Signs Temp Pulse Pulse Resp BP BP Pulse Ox 06/07/22 21:20 86 19 100 06/07/22 21:00 87 16 100 06/07/22 20:30 88 18 100 06/07/22 20:00 107 H 20 100 06/07/22 19:27 89 23 150/66 H 99 06/07/22 19:00 90 22 100 06/07/22 18:48 95 H 146/76 H 100 06/07/22 17:26 36.3 C L 115 H 20 128/67 97 O2 Del Method 06/07/22 21:20 06/07/22 21:00 06/07/22 20:30 06/07/22 20:00 06/07/22 19:27 06/07/22 19:00 06/07/22 18:48 Room Air 06/07/22 17:26 Room Air
[2022-06-07] MEDS: INSULIN ASPART PER UNIT SC SCH (22:18)
[2022-06-07 22:34] LABS: Cast Urine Automated >30 /lpf (0-5)
[2022-06-07 22:40] LABS: RBC Urine Automated 0-4 /hpf (0-4)
[2022-06-07] MEDS: SODIUM CHLORIDE 0.9% 1000ML 1,000 ML IV SCH (22:43)
[2022-06-08] MEDS ORDERED: INSULIN ASPART PER UNIT SC SCH
[2022-06-08 00:13] LABS: BUN Creatinine Ratio 30.6 (10-20); Calcium 8.4 mg/dl (8.5-10.1); Creatinine Clr Calc Pharmacy 42.8 ml/min; Est GFR (African American) 50.3 ml/min; Est GFR (Non-African American) 43.4 ml/min; Potassium 3.5 mmol/L (3.5-5.1)
[2022-06-08] MEDS ORDERED: MECLIZINE 12.5 MG TAB PO PRN (01:20)
[2022-06-08] MEDS: APIXABAN 5 MG TABLET PO SCH ×3 (02:28→20:36)
[2022-06-08] MEDS: VALSARTAN/SACUBITRIL 26/24MG TAB PO SCH ×2 (02:29→09:06)
[2022-06-08] MEDS: METOPROLOL SUCC 50MG EXT REL TAB PO SCH ×3 (02:29→20:36)
[2022-06-08] MEDS ORDERED: METOPROLOL TARTRATE 1 MG/ML VIAL IV STA ×2 (04:08)
[2022-06-08] MEDS ORDERED: METOPROLOL TARTRATE 1 MG/ML VIAL IV PRN (04:47)
[2022-06-08 06:00] LABS: Hematocrit (blood only) 31.4 % (34.1-44.9); Hemoglobin 10.9 g/dl (12.0-16.0); Mean Corpuscular Hemoglobin 30.5 pg (25.0-34.0); Mean Corpuscular Hgb Conc 34.7 g/dL (32.0-36.0); Mean Platelet Volume 9.2 fL (9.4-12.3); Platelet Count 220 K/uL (130-400); RDW Coefficient of Variation 13.2 % (11.5-14.5); RDW Standard Deviation 42.7 fL (36.4-46.3); Red Blood Count 3.57 M/uL (3.93-5.22); White Blood Count 6.91 K/ul (4.8-10.8)
[2022-06-08 06:22] LABS: BUN Creatinine Ratio 32.3 (10-20); Calcium 8.5 mg/dl (8.5-10.1); Creatinine Clr Calc Pharmacy 58.2 ml/min; Est GFR (African American) 69.2 ml/min; Est GFR (Non-African American) 59.7 ml/min; Magnesium 2.2 mg/dl (1.7-2.4); Phosphorus 2.8 mg/dl (2.5-4.9); Potassium 3.2 mmol/L (3.5-5.1)
[2022-06-08 07:08] LABS: Estimated Average Glucose 189 mg/dl; Hemoglobin A1C 8.2 % (4.5-5.6)
[2022-06-08] MEDS: SODIUM CHLORIDE 0.9% 1000ML 1,000 ML IV SCH (07:33)
--- NOTE | 2022-06-08 07:47 | Pharmacy Report ---
Pharmacy Glycemic Short Note 2 - Date of Service June 08, 2022 - Glycemic Short BSG Results (Last 24 hours): 06/07/22 06/07/22 06/07/22 17:29 17:33 19:35 Glucose 500 H* POC Glucose 448 H* 504 H* 06/07/22 06/07/22 06/07/22 22:03 23:12 23:35 Glucose 333 H* POC Glucose 405 H* 376 H* 06/08/22 06/08/22 06/08/22 00:11 01:58 03:42 Glucose POC Glucose 315 H* 159 H 86 06/08/22 06/08/22 06/08/22 04:26 05:27 05:41 Glucose 181 H POC Glucose 150 H 201 H 06/08/22 06:19 Glucose POC Glucose 163 H OUTPATIENT ANTIDIABETIC REGIMEN: * Basaglar 40 units SC qAM * Trulicity 0.75 mg SC weekly on Sundays (last dose 06/03/22) HbA1c: 8.2% (06/07/22) ASSESSMENT: * DS is a 77 year old female who presented to ED upon request from outpatient provider based on review of abnormal outpatient labs * BSG reportedly > 700 mg/dL * Patient also reports general malaise over past 2 months * Pertinent PMH includes CKD, CHF, HTN, T2DM, and atrial fibrillation * Presents with ANA likely due to ongoing diarrhea/dehydration in context of hyperglycemia * SCr of 1.45 mg/dL on presentation, now 0.93 mg/dL after fluid resuscitation overnight * BSGs improved significantly overnight, 448 mg/dL -> 163 mg/dL * Will give ~50% of home basal insulin this morning, and reassess today for evening dosing * ~weight-based/stress of 2 Novolog parameters for now PLAN FOR INPATIENT GLYCEMIC CONTROL: * Basal insulin * Lantus 20 units SQ daily * Lantus 0-10 units SC HS (see protocol text) * Bolus insulin * NovoLog per scale ACHS or Q6hrs while NPO * Goal Range: Low 110 mg/dL - High 140 mg/dL * Correction Factor: 25 mg/dL/unit * Nutritional / Prandial insulin per carb ratio of 1 unit per 8 grams CHO consumed
[2022-06-08] MEDS: POTASSIUM CHLORIDE CRTAB 20 MEQ TABCR PO SCH ×2 (08:49→11:59)
[2022-06-08] MEDS: INSULIN ASPART PER UNIT SC SCH ×4 (08:50→20:38)
[2022-06-08] MEDS ORDERED: FLUTICASONE/VILANTEROL 100/25MCG 14 PUFFS/INHALER INH SCH (09:00)
[2022-06-08] MEDS ORDERED: BENZONATATE 100 MG CAPSULE PO SCH (09:00)
[2022-06-08] MEDS ORDERED: LANTUS PER UNIT CHARGE SQ SCH ×3 (09:00→21:00)
[2022-06-08] MEDS ORDERED: HEPARIN SOD 5,000 UNIT/0.5 ML VIAL SQ SCH (09:00)
[2022-06-08] MEDS: AMIODARONE 200 MG TAB PO SCH (09:05)
[2022-06-08] MEDS: [UNRECOGNIZED DRUG - OTHER] SCH ×2 (09:06→16:25)
[2022-06-08] MEDS: FLUTICASONE/VILANTEROL 100/25MCG 14 PUFFS/INHALER INH SCH (09:07)
[2022-06-08] MEDS ORDERED: BENZONATATE 100 MG CAPSULE PO PRN (10:25)
--- NOTE | 2022-06-08 15:30 | Hospitalist Progress Note ---
Date of Service June 08, 2022 Assessment & Plan (1) Hyperglycemia: (2) ANA (acute kidney injury): Plan Uncontrolled diabetes Hyperglycemia, pseudohyponatremia Patient sent from PCP office due to high blood glucose level at 719, admitting blood glucose of 500 Patient does not seem to have epigastric pain, patient does have up to 4 loose stools per day since last 1 to 2 weeks per patient. Admitting ABG with bicarb of 20, anion gap of 12. Outpatient A1c on the day of arrival 8.7 an outpatient creatinine of 1.4 Admitting CXR w/ no acute process, although urine is slightly suspicious. After IVF and insulin, glucose is normalized and gap is closed. She is still reporting low appetite but is able to eat. She is fatigued and reports generalized malaise. Cont basal/bolus insulin and work with certified adapted physical educator and outpatient provider regarding her optimal regimen as it appears trulicity has been giving her side effects . Glycemic pharmacist consulted. Possible UTI: UA appears contaminated and patient doesn't report dysuria per se, but does report increased urination, which mmay also simply be related to hyperglycemia. Will give Rocephin pending urine culture. ANA over CKD stage III: resolved, Admitting creatinine of 1.45, baseline creatinine around 1, likely prerenal secondary to ongoing diarrhea and dehydration due to hyperglycemia. Cont to hold including Lasix and Aldactone. Loose stools: Patient reports runny diarrhea without blood up to 4 times a day since last 1 to 2 weeks, reports having formed stool in the morning of the day of arrival then again started having loose stool in the ED as per patient. She has no recent abx use. She has not reported a BM since admission. Stool Culture is pending. Anemia: Likely related to dilution. Cont to trend CBC Other chronic medical conditions: Resume home meds as able. Upon outpatient review, 09/26/2018 echo with EF of 20 to 25% and severe global hypokinesis of left ventricle. 07/07/2019 echo with EF of 52%. She is not hypervolemic. IVF were stopped once labs were improved and she was eating earlier today. DVT prophylaxis: Heparin subcu Full code Dispo-uncertain at this time. Maryann Galo [facility]ticipated Discharge Date Admission Date: June 07, 2022 Subjective Reports coughing and low appetite and she presented to the ER on the advice of her PCP. Taking Trulicity, Basaglar at home for blood glucose but has been noticing higher readings in the last few weeks. Today reports fatigue, low appetite Still with some cough no fevers stomach not feeling well denies abdominal pain +diarrhea prior to admission but has not had a BM since admission. feels the diarrhea is a result of the Trulicity, which was recently decreased in dose in Nov She is uncertain how long the diarrhea has been ongoing. 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 Review of Systems Review of Systems: All systems were reviewed and negative except as indicated on subjective below. Physical Exam Physical Exam: CONSTITUTIONAL: WNWD, vitals as above, generally well- appearing, NAD EYES: normal conjunctivae, no scleral icterus ENT: external ear and nose normal, oropharynx clear NECK: trachea midline RESPIRATORY: clear to auscultation bilaterally, no crackles, rales or wheezes, normal respiratory effort CARDIOVASCULAR: regular rate and rhythm, S1 and 2 heard without murmurs, gallops or rubs, no JVD, no peripheral edema CHEST: inspection of chest was normal GASTROINTESTINAL: soft, nontender, ND, no guarding MUSCULOSKELETAL: strength 5/5 throughout, head is normocephalic and atraumatic SKIN: warm and dry NEUROLOGIC: CN 2-12 grossly intact, no sensory deficit, normal cognition, normal speech, no tremor PSYCHIATRIC: alert cooperative and oriented to person, place and time. Euthymic mood, makes good eye contact, language grossly intact, recent and remote memory grossly intact. Results & Data Results & Data ([facility]) Vital Signs (Past 12 Hours) Vital Signs Pulse Pulse Resp BP BP Pulse Ox O2 Del Method 06/08/22 10:06 82 14 98 Room Air 06/08/22 09:00 90 15 100 Room Air 06/08/22 08:20 85 24 100 Room Air 06/08/22 07:28 90 21 113/57 L 98 Room Air 06/08/22 07:35 87 17 113/87 98 Room Air 06/08/22 05:30 116 H 24 118/65 98 06/08/22 05:10 132 H 25 H 96 06/08/22 05:00 117 H 23 98 06/08/22 04:30 120 H 22 99 06/08/22 04:05 145 H 23 145/79 H 06/08/22 03:43 132 H 21 126/79 99 06/08/22 03:30 131 H 20 98 06/08/22 05:29 109 H 20 118/65 98 Room Air 06/08/22 05:22 128 H 118/65 06/08/22 04:18 142 H 145/79 H Laboratory Results Short CBC 06/07/22 06/08/22 Range/Units 17:33 05:41 WBC 9.06 6.91 (4.8-10.8) K/ul Hgb 12.6 10.9 L (12.0-16.0) g/dl Hct 36.1 31.4 L (34.1-44.9) % Plt Count 304 220 (130-400) K/uL BMP 06/07/22 06/07/22 06/08/22 17:33 23:35 05:41 Sodium 130 L 132 L 138 Potassium 4.1 3.5 3.2 L Chloride 96 L 101 106 Carbon Dioxide 22 24 23 BUN 39 H 37 H 30 H Creatinine 1.45 H 1.21 H 0.93 Glucose 500 H* 333 H* 181 H Calcium 9.3 8.4 L 8.5 Liver Function 06/07/22 Range/Units 17:33 Total Bilirubin 0.8 (0.2-1.0) mg/dl AST 14 (13-39) U/L ALT 13 (7-52) U/L Alkaline Phosphatase 97 (34-104) U/L Albumin 3.8 (3.4-5.0) gm/dl Urine 06/07/22 Range/Units 20:45 Urine Color Yellow Urine Appearance Turbid A (Clear) Urine pH 5.0 (4.5-7.5) Ur Specific [place] 1.021 (1.000-1.030) Urine Protein 1+ H (Negative) Urine Glucose (UA) 3+ H (Negative) Medications Administered Current Inpatient Medications Acetaminophen (Acetaminophen 325 Mg Tab) 650 mg PO Q4H PRN PRN Reason: Pain or Fever Stop: 07/07/22 21:31 Amiodarone HCl (Amiodarone 200 Mg Tab) 200 mg PO DAILY [facility] Stop: 07/08/22 08:59 Last Admin: 06/08/22 09:05 Dose: 200 mg Apixaban (Apixaban 5 Mg Tablet) 5 mg PO BID [facility]LAYNE Stop: 07/08/22 20:59 Artificial Tears (Artificial Tears) 1 drops OP HS [facility] Stop: 07/08/22 20:59 Benzonatate (Benzonatate 100 Mg Capsule) 100 mg PO TID PRN PRN Reason: cough Stop: 07/08/22 08:59 Dextrose (Dextrose 50% 50 Ml Syringe) 25 - 50 ml IV UD PRN; Protocol PRN Reason: Hypoglycemia Protocol Stop: 07/07/22 21:42 Fluticasone/Vilanterol (Fluticasone/Vilanterol 100/25mcg 14 Puffs/Inhaler) 1 puffs INH DAILY [facility] Stop: 07/08/22 08:59 Last Admin: 06/08/22 09:07 Dose: 1 puffs Glucagon (Glucagon For Inj 1 Mg Vial) 1 mg SQ UD PRN; Protocol PRN Reason: Hypoglycemia Protocol Stop: 07/07/22 21:42 Glucose (Glucose 40% Gel 15 Gm Tube) 15 - 30 gm PO UD PRN; Protocol PRN Reason: Hypoglycemia Protocol Stop: 07/07/22 21:42 Glucose (Glucose 10 Tab/Tube) 4 - 8 tab PO UD PRN; Protocol PRN Reason: Hypoglycemia Treatment Stop: 07/07/22 21:42 Insulin Aspart (Insulin Aspart Per Unit) 0 units SC ACHS [facility] Stop: 07/07/22 21:59 Last Admin: 06/08/22 13:55 Dose: 10 units Insulin Aspart (Insulin Aspart Per Unit) 0 units SC 0200 [facility] Stop: 06/09/22 02:01 Insulin Glargine (Lantus Per Unit Charge) 20 units SQ DAILY [facility] Stop: 07/08/22 08:59 Last Admin: 06/08/22 09:10 Dose: 20 units Insulin Glargine (Lantus Per Unit Charge) 0 units SQ HS [facility]; Protocol Stop: 07/08/22 20:59 Meclizine HCl (Meclizine 12.5 Mg Tab) 12.5 mg PO TID PRN PRN Reason: Dizziness Or Vertigo Stop: 07/08/22 01:19 Metoprolol Succinate (Metoprolol Succ 50mg Ext Rel Tab) 100 mg PO BIDM [facility] Stop: 07/08/22 20:59 Miscellaneous (Carbohydrates For Hypoglycemia ) 15 - 30 gm PO UD PRN PRN Reason: Hypoglycemia Protocol Stop: 07/07/22 21:42 Miscellaneous (Order Awaiting Action: Olopatadine [Pataday Once Daily Relief] 0.2 % Drops) 1 each N/A QS [facility] Stop: 07/08/22 07:59 Last Admin: 06/08/22 09:06 Dose: Not Given Miscellaneous Information (Pharmacy Glycemic Mgmt Consult) 1 each N/A UD PRN; Protocol PRN Reason: Consult Stop: 07/07/22 22:04 Ondansetron HCl (Ondansetron Inj 2 Mg/Ml 2 Ml Vial) 4 mg IV Q6H PRN PRN Reason: Nausea Stop: 07/07/22 21:31 Rosuvastatin Calcium (Rosuvastatin Calcium 5 Mg Tab) 5 mg PO HS [facility] Stop: 07/08/22 20:59 Sacubitril/Valsartan (Valsartan/Sacubitril 26/24mg Tab) 1 tab PO BIDM [facility] Stop: 07/09/22 08:59
[2022-06-08] MEDS: cefTRIAXone SODIUM 2,000 MG in DEXTROSE 5% 50 ML IV SCH (19:51)
[2022-06-08] MEDS: ROSUVASTATIN CALCIUM 5 MG TAB PO SCH (20:38)
[2022-06-08] MEDS: ARTIFICIAL TEARS OP SCH (20:39)
[2022-06-09] MEDS: [UNRECOGNIZED DRUG - OTHER] SCH ×3 (01:07→15:30)
[2022-06-09] MEDS ORDERED: INSULIN ASPART PER UNIT SC SCH (02:00)
[2022-06-09] MEDS: VALSARTAN/SACUBITRIL 26/24MG TAB PO SCH ×2 (08:19→17:25)
[2022-06-09] MEDS: METOPROLOL SUCC 50MG EXT REL TAB PO SCH ×2 (08:19→17:25)
[2022-06-09] MEDS: AMIODARONE 200 MG TAB PO SCH ×2 (08:19→17:25)
[2022-06-09] MEDS: APIXABAN 5 MG TABLET PO SCH ×2 (08:20→20:49)
[2022-06-09] MEDS: FLUTICASONE/VILANTEROL 100/25MCG 14 PUFFS/INHALER INH SCH (08:20)
[2022-06-09] MEDS: INSULIN ASPART PER UNIT SC SCH ×4 (08:28→20:51)
[2022-06-09] MEDS ORDERED: LANTUS PER UNIT CHARGE SQ SCH (09:00)
[2022-06-09 09:34] LABS: Hematocrit (blood only) 34.4 % (34.1-44.9); Hemoglobin 11.6 g/dl (12.0-16.0); Mean Corpuscular Hemoglobin 30.4 pg (25.0-34.0); Mean Corpuscular Hgb Conc 33.7 g/dL (32.0-36.0); Mean Corpuscular Volume 90.1 fL (80.0-100.0); Mean Platelet Volume 9.2 fL (9.4-12.3); Platelet Count 262 K/uL (130-400); RDW Coefficient of Variation 13.6 % (11.5-14.5); RDW Standard Deviation 44.6 fL (36.4-46.3); Red Blood Count 3.82 M/uL (3.93-5.22); White Blood Count 6.55 K/ul (4.8-10.8)
[2022-06-09 10:07] LABS: BUN Creatinine Ratio 24.5 (10-20); Calcium 8.9 mg/dl (8.5-10.1); Est GFR (African American) 61.9 ml/min; Est GFR (Non-African American) 53.4 ml/min; Magnesium 1.9 mg/dl (1.7-2.4); Phosphorus 2.8 mg/dl (2.5-4.9); Potassium 3.9 mmol/L (3.5-5.1)
[2022-06-09] MEDS ORDERED: INSULIN HUMAN REGULAR PER UNIT 5 UNITS in SYRINGE 0 ML IV STA (10:31)
[2022-06-09] MEDS ORDERED: POLYETHYLENE (MIRALAX) 17 GM PACK PO PRN (11:17)
[2022-06-09] MEDS ORDERED: POLYETHYLENE (MIRALAX) 17 GM PACK PO ONE (11:17)
--- NOTE | 2022-06-09 12:42 | Hospitalist Progress Note ---
Date of Service June 09, 2022 Assessment & Plan (1) Uncontrolled diabetes mellitus with hyperglycemia: Plan: Patient sent from PCP office due to high blood glucose level at 719, admitting blood glucose of 500 Patient does not seem to have epigastric pain, patient does have up to 4 loose stools per day since last 1 to 2 weeks per patient. Admitting ABG with bicarb of 20, anion gap of 12. Outpatient A1c on the day of arrival 8.7 an outpatient creatinine of 1.4 Admitting CXR w/ no acute process, although urine is slightly suspicious. After IVF and insulin, glucose is normalized and gap is closed. She is still reporting low appetite but is able to eat. She is fatigued and reports generalized malaise. Cont basal/bolus insulin and work with tufting supervisor and outpatient provider regarding her optimal regimen as it appears trdejaity has been giving her side effects . (2) Noncompliance with medication regimen: Plan: missed doses of her trulicity 2/2 injection sites causing her pain. May need to consider alternatives. For now will have nurse to teach her proper technique. (3) Acute kidney injury superimposed on chronic kidney disease: Plan: resolved, Admitting creatinine of 1.45, baseline creatinine around 1, likely prerenal secondary to ongoing diarrhea and dehydration due to hyperglycemia. Cont to hold including Lasix and Aldactone. (4) Arrhythmia: Plan: New wide complex tachycaria seen on telemetry this morning. Patient was a symptomatic at that time. HR went into the 130s. Historically, she has a history of atrial fibrillation diagnosed in 2019 and was later found to have systolic CHF with mod MR. She underwent cardiac catheterization in September 2018 revealing minimal nonobstructive coronary artery disease therefore this was felt to be a nonischemic cardiomyopathy. Amiodarone was initiated for rhythm control strategy and she continues on guideline directed medical therapy for congestive heart failure. She subsequently had a repeat TTE in December 2018 revealing ongoing left ventricular systolic dysfunction prompting insertion of a biventricular pacemaker ICD on March 2019. 3 months after the initiation of cardiac resynchronization therapy in June 2019 she had a left ventricular ejection fraction that was normalized at 52%. There was also improvement in the MR regurgitation. She continues on amiodarone, Eliquis, Entresto, furosemide, metoprolol, spironolactone, rosuvastatin at this time. On telemetry she had a run of wide- complex tachycardia with a heart rate in the 130s and was asymptomatic. Consulting cardiology for assistance and will interrogate pacemaker now. (5) UTI (urinary tract infection): Plan: Cont with short course of antibiotics. (6) Anemia: Plan: Anemia: Likely related to dilution. resolving. (7) Nonischemic cardiomyopathy: (8) Paroxysmal atrial fibrillation: (9) Obesity (BMI 30-39.9): (10) Left bundle branch block: Plan: DVT proph: apixaban Full code Dispo-to home in next 1-2 days once glucose is improved and more stable and she is feeling better. Maryann Galo DO [facility] Hospitalist Admission and Anticipated Discharge Date Admission Date: June 07, 2022 Subjective 77 yo F admitted for hyperglycemia in setting of insulin dependent DMII Today she had hyperglycemia, however, only received 5 units of Lantus last evening and is starting to eat more Feels slightly improved today Denies any symptoms of pain or SOB She is with her who is at bedside. During the conversation, she told me that she actually didn't take her trulicity for the last two weeks because of pain wtih injection, and difficulty in finding an injection site. She reports injecting herself in the thighs, and I requested that the nurse watch her technique. She reports being black and blue, however, no bruising is seen on exam. Denies any UTI symptoms today Reports constipation-NOTE: reported diarrhea (possibly related to Truclicity?) [employer] and hasn't had a BM since admission. Miralax ordered. Review of Systems Review of Systems: All systems were reviewed and negative except as indicated on subjective below. Physical Exam Physical Exam: CONSTITUTIONAL: obese, vitals as above, generally well- appearing, NAD EYES: normal conjunctivae, no scleral icterus ENT: external ear and nose normal, oropharynx clear NECK: trachea midline RESPIRATORY: clear to auscultation bilaterally, no crackles, rales or wheezes, normal respiratory effort CARDIOVASCULAR: regular rate and rhythm, S1 and 2 heard without murmurs, gallops or rubs, no JVD, no peripheral edema CHEST: inspection of chest was normal GASTROINTESTINAL: soft, nontender, ND, no guarding MUSCULOSKELETAL: strength 5/5 throughout, head is normocephalic and atraumatic SKIN: warm and dry NEUROLOGIC: CN 2-12 grossly intact, no sensory deficit, normal cognition, normal speech, no tremor PSYCHIATRIC: alert cooperative and oriented to person, place and time. Euthymi c mood, makes good eye contact, language grossly intact, recent and remote memory grossly intact. Results & Data Results & Data ([facility]) Vital Signs (Past 12 Hours) Vital Signs Temp Pulse Pulse Resp BP Pulse Ox O2 Del Method 06/09/22 11:37 36.8 C 95 H 18 111/73 98 Room Air 06/09/22 08:02 36.7 C 81 18 115/72 98 Room Air 06/09/22 07:23 82 06/09/22 04:26 36.3 C L 79 20 124/78 99 Room Air Laboratory Results Short CBC 06/09/22 Range/Units 09:18 WBC 6.55 (4.8-10.8) K/ul Hgb 11.6 L (12.0-16.0) g/dl Hct 34.4 (34.1-44.9) % Plt Count 262 (130-400) K/uL [facility] 06/09/22 09:18 Sodium 138 Potassium 3.9 D Chloride 107 Carbon Dioxide 23 BUN 25 H Creatinine 1.02 Glucose 323 H* Calcium 8.9 Medications Administered Current Inpatient Medications Acetaminophen (Acetaminophen 325 Mg Tab) 650 mg PO Q4H PRN PRN Reason: Pain or Fever Stop: 07/07/22 21:31 Amiodarone HCl (Amiodarone 200 Mg Tab) 200 mg PO DAILY [facility]LAYNE Stop: 07/08/22 08:59 Last Admin: 06/09/22 08:19 Dose: 200 mg Apixaban (Apixaban 5 Mg Tablet) 5 mg PO BID [facility]NE Stop: 07/08/22 20:59 Last Admin: 06/09/22 08:20 Dose: 5 mg Artificial Tears (Artificial Tears) 1 drops OP HS [facility] Stop: 07/08/22 20:59 Last Admin: 06/08/22 20:39 Dose: 1 drops Benzonatate (Benzonatate 100 Mg Capsule) 100 mg PO TID PRN PRN Reason: cough Stop: 07/08/22 08:59 Dextrose (Dextrose 50% 50 Ml Syringe) 25 - 50 ml IV UD PRN; Protocol PRN Reason: Hypoglycemia Protocol Stop: 07/07/22 21:42 Fluticasone/Vilanterol (Fluticasone/Vilanterol 100/25mcg 14 Puffs/Inhaler) 1 puffs INH DAILY [facility] Stop: 07/08/22 08:59 Last Admin: 06/09/22 08:20 Dose: 1 puffs Glucagon (Glucagon For Inj 1 Mg Vial) 1 mg SQ UD PRN; Protocol PRN Reason: Hypoglycemia Protocol Stop: 07/07/22 21:42 Glucose (Glucose 40% Gel 15 Gm Tube) 15 - 30 gm PO UD PRN; Protocol PRN Reason: Hypoglycemia Protocol Stop: 07/07/22 21:42 Glucose (Glucose 10 Tab/Tube) 4 - 8 tab PO UD PRN; Protocol PRN Reason: Hypoglycemia Treatment Stop: 07/07/22 21:42 Ceftriaxone Sodium 2,000 mg/ (Dextrose) 70 mls @ 100 mls/hr IV Q24H [facility]; Protocol Stop: 06/13/22 18:29 Last Infusion: 06/08/22 20:49 Dose: Infused Insulin Aspart (Insulin Aspart Per Unit) 0 units SC ACHS [facility] Stop: 07/07/22 21:59 Last Admin: 06/09/22 08:28 Dose: 8 units Insulin Glargine (Lantus Per Unit Charge) 20 units SQ BID [facility] Stop: 07/09/22 20:59 Meclizine HCl (Meclizine 12.5 Mg Tab) 12.5 mg PO TID PRN PRN Reason: Dizziness Or Vertigo Stop: 07/08/22 01:19 Metoprolol Succinate (Metoprolol Succ 50mg Ext Rel Tab) 100 mg PO BIDM [facility] Stop: 07/08/22 20:59 Last Admin: 06/09/22 08:19 Dose: 100 mg Miscellaneous (Carbohydrates For Hypoglycemia ) 15 - 30 gm PO UD PRN PRN Reason: Hypoglycemia Protocol Stop: 07/07/22 21:42 Miscellaneous (Order Awaiting Action: Olopatadine [Pataday Once Daily Relief] 0.2 % Drops) 1 each N/A QS [facility] Stop: 07/08/22 07:59 Last Admin: 06/09/22 08:33 Dose: Not Given Ondansetron HCl (Ondansetron Inj 2 Mg/Ml 2 Ml Vial) 4 mg IV Q6H PRN PRN Reason: Nausea Stop: 07/07/22 21:31 Polyethylene Glycol (Polyethylene (Miralax) 17 Gm Pack) 17 gm PO DAILY PRN PRN Reason: Constipation Stop: 07/09/22 11:16 Rosuvastatin Calcium (Rosuvastatin Calcium 5 Mg Tab) 5 mg PO [facility] Stop: 07/08/22 20:59 Last Admin: 06/08/22 20:38 Dose: 5 mg Sacubitril/Valsartan (Valsartan/Sacubitril 26/24mg Tab) 1 tab PO BIDM [facility] Stop: 07/09/22 08:59 Last Admin: 06/09/22 08:19 Dose: 1 tab
[2022-06-09] MEDS ORDERED: MAGNESIUM SULFATE / D5W 1 GM/100 ML BAG IV ONE (14:25)
[2022-06-09] MEDS ORDERED: POTASSIUM CHLORIDE CRTAB 20 MEQ TABCR PO STA (14:37)
--- NOTE | 2022-06-09 14:37 | Cardiology Consultation ---
Date of Consultation June 09, 2022 Assessment & Plan (1) Paroxysmal atrial fibrillation with RVR: (2) NSVT (nonsustained ventricular tachycardia): (3) NICM (nonischemic cardiomyopathy): (4) Uncontrolled diabetes mellitus with hyperglycemia: (5) Hypomagnesemia: (6) Diabetes mellitus type 2, controlled: Plan 77-year-old female admitted with hyperglycemia secondary to noncompliance with medical therapies, upper respiratory tract infection, and urinary tract infection. Converted to atrial fibrillation earlier today with elevated heart rates. Remains asymptomatic. There is also a 40 beat isreal of wide-complex tachycardia without associated symptoms. I suspect recurrent dysrhythmia related to electrolyte derangement and noncompliance with medical therapies. Recommend titration of amiodarone to 200 mg twice daily. Continue metoprolol succinate 100 mg twice daily. Replace magnesium, maintain greater than 2.0. Administer 20 mEq of oral potassium today to maintain level greater than 4.0. Monitor telemetry. Cardioversion may be considered if patient remains in atrial fibrillation despite correction of underlying electrolyte abnormalities and infectious process. History of Present Illness Reason for Consultation: Wide-complex tachycardia Requesting Physician: Dr. Galo Attending Physician: Maryann Galo, DO History of Present Illness 77-year-old female presented to the hospital with hyperglycemia and electrolyte derangement. Carries history of nonischemic cardiomyopathy status post biventricular ICD implantation, paroxysmal atrial fibrillation, nonobstructive coronary disease per cardiac catheterization 2018. Has been maintained on amiodarone and metoprolol for a rhythm control strategy. Earlier today, patient converted to atrial fibrillation with rapid ventricular response. She is asymptomatic. There is also a 40 beat isreal of wide-complex tachycardia at a rate of 133 bpm. Currently resting comfortably. Notes cough without sputum production. Recently diagnosed with an upper respiratory tract infection. No orthopnea, PND, or lower extremity edema. Denies palpitations, lightheadedness, dizziness, syncope, or near syncope. Denies any previous ICD shocks. present at bedside. Offers no additional concerns/complaints. Allergies Allergy/AdvReac Type Severity Reaction Status Date / Time propoxyphene Allergy Intermediate Edema Verified 06/07/22 19:29 airway - DARVON erythromycin base Allergy Mild Nausea Verified 06/07/22 19:29 salicylates Allergy Mild Hives/nause Verified 06/07/22 19:29 a Penicillins AdvReac Intermediate Nausea and Verified 06/07/22 19:29 dizziness amitriptyline AdvReac Mild Dizziness Verified 06/07/22 19:29 azithromycin AdvReac Mild STOMACH Verified 06/07/22 19:29 PAINS/ACHES ALL OVER Bactrim AdvReac Mild GI upset, Verified 09/10/17 07:13 nausea, vomiting Corticosteroids AdvReac Mild Prednisone, Verified 06/07/22 19:29 (Glucocorticoids) rapid weight gain hydrocodone AdvReac Mild Nausea, Verified 06/07/22 19:29 vomiting latex AdvReac Mild Rash Verified 06/07/22 19:29 lisinopril AdvReac Mild COUGH Verified 06/07/22 19:29 morphine AdvReac Mild Nausea Verified 06/07/22 19:29 pseudoephedrine AdvReac Mild Dizziness Verified 06/07/22 19:29 sulfamethoxazole AdvReac Mild GI upset, Verified 06/07/22 19:29 nausea, vomiting thiopental AdvReac Mild Nausea, Verified 06/07/22 19:29 vomiting trimethoprim AdvReac Mild GI upset, Verified 06/07/22 19:29 nausea, vomiting Home Medications Medication Instructions Recorded Confirmed Type artificial tears(hypromellose) 0.3 1 drp OPB HS 06/19/18 06/07/22 History % eye gel (Systane Gel) calcium citrate 200 mg 2 tab PO QAM 06/19/18 06/07/22 History calcium-vitamin D3 6.25 mcg (250 unit) tablet (Citracal-D3 Petites) cholecalciferol (vitamin D3) 25 1,000 unit PO BID 06/19/18 06/07/22 History mcg (1,000 unit) capsule (Vitamin D3) apixaban 5 mg tablet (Eliquis) 5 mg PO BID 03/20/19 06/07/22 History furosemide 40 mg tablet (Lasix) 40 mg PO QAM 03/20/19 06/07/22 History rosuvastatin 5 mg tablet (Crestor) 5 mg PO HS 03/20/19 06/07/22 History sacubitril 24 mg-valsartan 26 mg 1 tab PO BIDM 03/20/19 06/07/22 History tablet (Entresto) spironolactone 25 mg tablet 12.5 mg PO 3XWK 03/20/19 06/07/22 History benzonatate 100 mg capsule 100 mg PO TID PRN Cough 06/07/22 06/07/22 History dulaglutide 0.75 mg/0.5 mL 0.75 mg subcut WK 06/07/22 06/07/22 History subcutaneous pen injector (Trulicity) fluticasone furoate 100 1 inh inhalation QAM 06/07/22 06/07/22 History mcg-vilanterol 25 mcg/dose inhalation powder (Breo Ellipta) insulin glargine 100 unit/mL (3 40 unit subcut QAM 06/07/22 06/07/22 History mL) subcutaneous pen (Basaglar KwikPen U-100 Insulin) meclizine 12.5 mg tablet 12.5 mg PO TID PRN Dizziness Or 06/07/22 06/07/22 History Vertigo methylcellulose (laxative) 2 g PO DAILY 06/07/22 06/07/22 History metoprolol succinate 100 mg 100 mg PO BID 06/07/22 06/07/22 History tablet,extended release 24 hr multivitamin 1 tab PO DAILY 06/07/22 06/07/22 History olopatadine 0.2 % eye drops 1 drp OPR QAM 06/07/22 06/07/22 History (Pataday Once Daily Relief) amiodarone 1 tab PO DAILY 06/08/22 06/08/22 History Patient History Medical History (Updated 06/09/22 @ 14:35 by Jewel Gómez DO) Bronchitis Cancer SKIN CANCER Diabetes Diabetes mellitus type 2, controlled Diabetes mellitus, type 2 Dyslipidemia Endometriosis Endometriosis Fibromyalgia Fibromyalgia Hepatitis C A CHILD Hot flashes HTN (hypertension) Hyperlipidemia Hypertension Left bundle branch block Migraine Sheehan's neuroma Nonischemic cardiomyopathy Osteoarthritis Paroxysmal atrial fibrillation Sciatica Temporomandibular joint disorder Surgical History H/O: hysterectomy History of cataract surgery RT/LEFT History of tonsillectomy History of tooth extraction History of total hysterectomy with bilateral salpingo-oophorectomy (BSO) S/P BSO (status post bilateral salpingo-oophorectomy) Family History Father Family history of diabetes mellitus Other Breast cancer Hemochromatosis Social History Smoking Status: Never smoker Second Hand Exposure: Yes (HX OF EXPOSURE); Hx Alcohol Use: No Hx Substance Use: No Preferred Language: Turkish Communication Ability: Effective Senior Computer Specialist Required: No Beliefs That Will Affect Care: Mu-Ism marital status: Current Living Situation: Spouse current occupation: Homemaker Feels Safe at Home: Yes Assistive Devices: Walker Review of Systems Review of Systems: All systems reviewed & are unremarkable except as noted in Subjective Physical Exam Constitutional: well nourished; no acute distress Respiratory: normal respiratory effort; no respiratory distress and no labored breathing Auscultation: no crackles, no rales, no rhonchi and no wheezes Cardiovascular: Rate/Rhythm: + tachycardic and + irregularly irregular Heart Sounds: normal S1 and normal S2; no murmur Vessels: femoral pulses present and radial pulses present; no JVD and no carotid bruit Extremities: no edema Gastrointestinal (Abdomen): Inspection/Auscultation: abdomen normal to inspection and normal bowel sounds; abdomen not distended Percussion/Palpation: abdomen soft; abdomen nontender, no guarding and abdomen not rigid Neurologic: CN's II-XI intact bilaterally and moves all extremities; no focal motor deficits Psychiatric: A+Ox3, euthymic affect Results & Data ([facility]) Vital Signs (Past 12 Hours) Vital Signs Temp Pulse Pulse Resp BP Pulse Ox O2 Del Method 06/09/22 11:37 36.8 C 95 H 18 111/73 98 Room Air 06/09/22 08:02 36.7 C 81 18 115/72 98 Room Air 06/09/22 07:23 82 06/09/22 04:26 36.3 C L 79 20 124/78 99 Room Air
--- NOTE | 2022-06-09 14:41 | Electrocardiogram Report ---
Test Reason : Blood Pressure : / mmHG Vent. Rate : 133 BPM Atrial Rate : 129 BPM P-R Int : 000 ms QRS Dur : 132 ms QT Int : 378 ms P-R-T Axes : 000 -61 113 degrees QTc Int : 562 ms Ventricular-paced rhythm Abnormal ECG When compared with ECG of 19-MAR-2019 22:14, Vent. rate has increased BY 63 BPM Confirmed by Zan Aleman ([id number]) on 06/09/2022 2:40:56 PM Referred By: Ema Ta Confirmed By:Zan Aleman
[2022-06-09] MEDS: cefTRIAXone SODIUM 2,000 MG in DEXTROSE 5% 50 ML IV SCH (18:31)
[2022-06-09] MEDS: ROSUVASTATIN CALCIUM 5 MG TAB PO SCH (20:49)
[2022-06-09] MEDS: ARTIFICIAL TEARS OP SCH (20:50)
[2022-06-09] MEDS: LANTUS PER UNIT CHARGE SQ SCH (20:51)
[2022-06-10] MEDS: [UNRECOGNIZED DRUG - OTHER] SCH ×3 (01:02→15:32)
[2022-06-10 07:02] LABS: Hematocrit (blood only) 33.9 % (34.1-44.9); Hemoglobin 11.3 g/dl (12.0-16.0); Mean Corpuscular Hemoglobin 30.1 pg (25.0-34.0); Mean Corpuscular Hgb Conc 33.3 g/dL (32.0-36.0); Mean Corpuscular Volume 90.4 fL (80.0-100.0); Mean Platelet Volume 9.5 fL (9.4-12.3); Platelet Count 264 K/uL (130-400); RDW Coefficient of Variation 13.6 % (11.5-14.5); RDW Standard Deviation 45.1 fL (36.4-46.3); Red Blood Count 3.75 M/uL (3.93-5.22); White Blood Count 6.85 K/ul (4.8-10.8)
[2022-06-10] MEDS: INSULIN ASPART PER UNIT SC SCH ×2 (08:26→12:35)
[2022-06-10] MEDS: LANTUS PER UNIT CHARGE SQ SCH (08:28)
[2022-06-10] MEDS: APIXABAN 5 MG TABLET PO SCH (08:33)
[2022-06-10] MEDS: METOPROLOL SUCC 50MG EXT REL TAB PO SCH (08:33)
[2022-06-10] MEDS: VALSARTAN/SACUBITRIL 26/24MG TAB PO SCH (08:33)
[2022-06-10] MEDS: AMIODARONE 200 MG TAB PO SCH (08:33)
[2022-06-10] MEDS: FLUTICASONE/VILANTEROL 100/25MCG 14 PUFFS/INHALER INH SCH (08:33)
[2022-06-10] MEDS ORDERED: NITROFURANTOIN MONOHYDRATE 100 MG CAP PO SCH (09:00)
--- NOTE | 2022-06-10 13:21 | Cardiology Progress Note ---
Date of Service June 10, 2022 Assessment & Plan (1) Paroxysmal atrial fibrillation with RVR: (2) NSVT (nonsustained ventricular tachycardia): (3) NICM (nonischemic cardiomyopathy): (4) Uncontrolled diabetes mellitus with hyperglycemia: (5) Hypomagnesemia: (6) Diabetes mellitus type 2, controlled: Plan No recurrent dysrhythmias overnight. Continue amiodarone 200 mg twice daily for 7 days then reduce dose back to 200 mg once daily. Continue Eliquis for anticoagulation in addition to other cardiovascular medications including metoprolol succinate, furosemide, Entresto, rosuvastatin, and spironolactone. Electrolytes replaced yesterday, recommend repeat BMP and serum magnesium level. Admission and Anticipated Discharge Date Admission Date: June 07, 2022 Subjective Patient seen examined the bedside. Converted to sinus rhythm at 330 06/09/2022. Remains in sinus rhythm in the 70-80s overnight. Amiodarone titrated to 200 mg twice daily. Feeling well today. Denies palpitations, chest discomfort, or heaviness. Cough and dyspnea with activity unchanged. Review of Systems Review of Systems: All systems reviewed & are unremarkable except as noted in Subjective Physical Exam Constitutional: well nourished; no acute distress Respiratory: normal respiratory effort; no respiratory distress and no labored breathing Auscultation: no crackles, no rales, no rhonchi and no wheezes Cardiovascular: Rate/Rhythm: + tachycardic and + irregularly irregular Heart Sounds: normal S1 and normal S2; no murmur Vessels: femoral pulses present and radial pulses present; no JVD and no carotid bruit Extremities: no edema Gastrointestinal (Abdomen): Inspection/Auscultation: abdomen normal to inspection and normal bowel sounds; abdomen not distended Percussion/Palpation: abdomen soft; abdomen nontender, no guarding and abdomen not rigid Neurologic: CN's II-XI intact bilaterally and moves all extremities; no focal motor deficits Psychiatric: A+Ox3, euthymic affect Results & Data ([facility]) Vital Signs (Past 12 Hours) Vital Signs Temp Pulse Pulse Resp BP Pulse Ox O2 Del Method 06/10/22 11:49 36.8 C 76 18 111/75 98 Room Air 06/10/22 07:36 36.4 C L 78 18 107/66 100 Room Air 06/10/22 07:05 76 06/10/22 04:09 36.5 C 76 20 114/78 99 Room Air
--- NOTE | 2022-06-10 13:38 | Hospitalist Progress Note ---
Date of Service June 10, 2022 Assessment & Plan (1) Uncontrolled diabetes mellitus with hyperglycemia: Plan: Patient sent from PCP office due to high blood glucose level at 719, admitting blood glucose of 500 Patient does not seem to have epigastric pain, patient does have up to 4 loose stools per day since last 1 to 2 weeks per patient. Admitting ABG with bicarb of 20, anion gap of 12. Outpatient A1c on the day of arrival 8.7 an outpatient creatinine of 1.4 Admitting CXR w/ no acute process, although urine is slightly suspicious. After IVF and insulin, glucose is normalized and gap is closed. She is still reporting low appetite but is able to eat. She is fatigued and reports generalized malaise. Cont basal/bolus insulin and work with road freight firer and outpatient provider regarding her optimal regimen as it appears trdejaity has been giving her side effects . (2) Noncompliance with medication regimen: Plan: missed doses of her trulicity 2/2 injection sites causing her pain. May need to consider alternatives. For now will have nurse to teach her proper technique. (3) Acute kidney injury superimposed on chronic kidney disease: Plan: resolved, Admitting creatinine of 1.45, baseline creatinine around 1, likely prerenal secondary to ongoing diarrhea and dehydration due to hyperglycemia. Cont to hold including Lasix and Aldactone. (4) Arrhythmia: Plan: New wide complex tachycaria seen on telemetry this morning. Patient was asy mptomatic at that time. HR went into the 130s. Historically, she has a history of atrial fibrillation diagnosed in 2019 and was later found to have systolic CHF with mod MR. She underwent cardiac catheterization in September 2018 revealing minimal nonobstructive coronary artery disease therefore this was felt to be a nonischemic cardiomyopathy. Amiodarone was initiated for rhythm control strategy and she continues on guideline directed medical therapy for congestive heart failure. She subsequently had a repeat TTE in December 2018 revealing ongoing left ventricular systolic dysfunction prompting insertion of a biventricular pacemaker ICD on March 2019. 3 months after the initiation of cardiac resynchronization therapy in June 2019 she had a left ventricular ejection fraction that was normalized at 52%. There was also improvement in the MR regurgitation. She continues on amiodarone, Eliquis, Entresto, furosemide, metoprolol, spironolactone, rosuvastatin at this time. On telemetry she had a run of wide- complex tachycardia with a heart rate in the 130s and was asymptomatic. Consulting cardiology for assistance and will interrogate pacemaker now. (5) UTI (urinary tract infection): Plan: Cont with short course of antibiotics. (6) Anemia: Plan: Anemia: Likely related to dilution. resolving. (7) Nonischemic cardiomyopathy: (8) Paroxysmal atrial fibrillation: (9) Obesity (BMI 30-39.9): (10) Left bundle branch block: Plan: DVT proph: apixaban Full code Dispo-to home in next 1-2 days once glucose is improved and more stable and she is feeling better. Maryann Galo DO [facility] Hospitalist Admission and Anticipated Discharge Date Admission Date: June 07, 2022 Subjective Patient seen examined the bedside. Converted to sinus rhythm at 330 06/09/2022. Remains in sinus rhythm in the 70-80s overnight. Amiodarone titrated to 200 mg twice daily. Feeling well today. Denies palpitations, chest discomfort, or heaviness. Cough and dyspnea with activity unchanged. Review of Systems Review of Systems: All systems were reviewed and negative except as indicated on subjective below. Physical Exam Physical Exam: CONSTITUTIONAL: obese, vitals as above, generally well- appearing, NAD EYES: normal conjunctivae, no scleral icterus ENT: external ear and nose normal, oropharynx clear NECK: trachea midline RESPIRATORY: clear to auscultation bilaterally, no crackles, rales or wheezes, normal respiratory effort CARDIOVASCULAR: regular rate and rhythm, S1 and 2 heard without murmurs, gallops or rubs, no JVD, no peripheral edema CHEST: inspection of chest was normal GASTROINTESTINAL: soft, nontender, ND, no guarding MUSCULOSKELETAL: strength 5/5 throughout, head is normocephalic and atraumatic SKIN: warm and dry NEUROLOGIC: CN 2-12 grossly intact, no sensory deficit, normal cognition, normal speech, no tremor PSYCHIATRIC: alert cooperative and oriented to person, place and time. Euthymic mood, makes good eye contact, language grossly intact, recent and remote memory grossly intact. Results & Data Results & Data ([facility]) Vital Signs (Past 12 Hours) Vital Signs Temp Pulse Pulse Resp BP Pulse Ox O2 Del Method 06/10/22 11:49 36.8 C 76 18 111/75 98 Room Air 06/10/22 07:36 36.4 C L 78 18 107/66 100 Room Air 06/10/22 07:05 76 06/10/22 04:09 36.5 C 76 20 114/78 99 Room Air
[2022-06-10 14:37] LABS: BUN Creatinine Ratio 19.8 (10-20); Calcium 9.6 mg/dl (8.5-10.1); Creatinine Clr Calc Pharmacy 50.9 ml/min; Est GFR (African American) 59.1 ml/min; Magnesium 2.2 mg/dl (1.7-2.4); Potassium 4.5 mmol/L (3.5-5.1)
--- NOTE | 2022-06-11 18:39 | Discharge Summary ---
Discharge Summary Date of Service June 11, 2022 Notes For Next Care Provider see discharge notes Medication Changes From Visit see discharge medication list for changes Admission HPI Per Admitting Provider 77-year-old lady with PMH of T2DM/uncontrolled, diabetic peripheral angiopathy, sleep apnea, nonischemic cardiomyopathy, HTN, paroxysmal A. fib on Eliquis, heart failure, hypertensive heart and kidney disease, CKD stage III, cardiac pacemaker in situ, fibromyalgia, alopecia presented to our ED 06/07 upon recommendation from PCP office due to abnormal lab obtained on the day of arrival. Patient was not very clear regarding her outpatient labs. Upon outpatient chart review, her sodium level is 129 and glucose level was 719. Her creatinine was 1.4. Patient reports feeling generally unwell since last 1 month, patient had flu 1 and half months ago and has been having persistent dry cough which is slowly improving per patient. Patient also reports having loose stools up to 4 times a day since 1 to 2 weeks but had 1 formed stool in the morning and reports having decreased appetite since mid April. Patient was asking for diet at bedside exam as she feels very hungry. Patient denies any blood in the stool. Patient does not appear to have epigastric pain. Patient reports some musculoskeletal pain in b/l lower chest exacerbated w/ coughing, patient denies any fever or any pain or burning while passing urine. ROS could not be very much streamlined as obtaining "straight" history with the patient was on the difficult side. Patient does have insulin sensor on her left arm and reports that it has been reading " high" since last couple of weeks. Patient denies any use of tobacco/smoking/alcohol/recreational drugs. 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 Family history positive for diabetes in father, CHF in father, breast cancer in mother per patient. Medications were reviewed with the patient. Patient not sure on her dose of metoprolol, confirmed with outpatient chart review. Principal Dx & Hospital Course #1 = Principal Diagnosis (1) Uncontrolled diabetes mellitus with hyperglycemia: (2) Noncompliance with medication regimen: (3) Acute kidney injury superimposed on chronic kidney disease: (4) Arrhythmia: (5) UTI (urinary tract infection): (6) Anemia: (7) Nonischemic cardiomyopathy: (8) Paroxysmal atrial fibrillation: (9) Obesity (BMI 30-39.9): (10) Left bundle branch block: Plan 77-year-old diabetic female sent in from PCP office for a high blood glucose level at 719. She was having some loose stools over the last week. Anion gap was 12 and a bicarb was 20. She was started on insulin and IV fluids. ANA was present with an admission creatinine of 1.45 and a baseline around 1 likely secondary to ongoing diarrhea and dehydration from hyperglycemia. She notably missed 1 or 2 Trulicity doses as this had been causing diarrhea in the past. Glucose was more under control and nursing staff went over injection sites with her. She was able to discuss plan of care with art educator and glycemic pharmacist also followed her during this admission. At time of discharge she was mentating and ambulating at baseline and tolerating p.o. Glucose was in a good level. Overall her diabetes was not well controlled with a hemoglobin A1c of 8.2. Continued close follow-up with primary care or [facility] clinic was recommended. Consideration for an endocrinology referral if needed was also discussed. She was instructed to stay on her Trulicity at the same dose and continue Lantus as directed. 1 caveat during her stay was that she converted to atrial fibrillation with elevated heart rates. She also had a 40 beat isreal of wide-complex tachycardia without associated symptoms. This was suspected to be a recurrent dysrhythmia related to electrolyte derangement and noncompliance with medical therapies. Her amiodarone was titrated to 200 mg twice daily and she was continued on metoprolol succinate 100 mg twice daily. Magnesium was replaced and potassium was replaced. She converted to sinus rhythm overnight and was continued on higher dose of amiodarone for 7 days with reduction back to her dose of 200 mg once daily. Eliquis was continued for anticoagulation as w ell as her other cardiac medications including metoprolol succinate, furosemide, Entresto, rosuvastatin, spironolactone without changes. She was discharged in stable condition with close primary care follow-up recommended Discharge Exam CONSTITUTIONAL: obese, vitals as above, generally well-appearing, NAD EYES: normal conjunctivae, no scleral icterus ENT: external ear and nose normal, oropharynx clear NECK: trachea midline RESPIRATORY: clear to auscultation bilaterally, no crackles, rales or wheezes, normal respiratory effort CARDIOVASCULAR: regular rate and rhythm, S1 and 2 heard without murmurs, gallops or rubs, no JVD, no peripheral edema CHEST: inspection of chest was normal GASTROINTESTINAL: soft, nontender, ND, no guarding MUSCULOSKELETAL: strength 5/5 throughout, head is normocephalic and atraumatic SKIN: warm and dry NEUROLOGIC: CN 2-12 grossly intact, no sensory deficit, normal cognition, normal speech, no tremor PSYCHIATRIC: alert cooperative and oriented to person, place and time. Euthymic mood, makes good eye contact, language grossly intact, recent and remote memory grossly intact. Updated Medication List Medication Instructions Recorded Confirmed Type artificial tears(hypromellose) 0.3 1 drp OPB HS 06/19/18 06/16/22 History % eye gel (Systane Gel) calcium citrate 200 mg 2 tab PO QAM 06/19/18 06/16/22 History calcium-vitamin D3 6.25 mcg (250 unit) tablet (Citracal-D3 Petites) cholecalciferol (vitamin D3) 25 1,000 unit PO BID 06/19/18 06/16/22 History mcg (1,000 unit) capsule (Vitamin D3) apixaban 5 mg tablet (Eliquis) 5 mg PO BID 03/20/19 06/16/22 History furosemide 40 mg tablet (Lasix) 40 mg PO QAM 03/20/19 06/16/22 History rosuvastatin 5 mg tablet (Crestor) 5 mg PO HS 03/20/19 06/16/22 History sacubitril 24 mg-valsartan 26 mg 1 tab PO BIDM 03/20/19 06/16/22 History tablet (Entresto) spironolactone 25 mg tablet 12.5 mg PO 3XWK 03/20/19 06/16/22 History benzonatate 100 mg capsule 100 mg PO TID PRN Cough 06/07/22 06/16/22 History dulaglutide 0.75 mg/0.5 mL 0.75 mg subcut WK 06/07/22 06/16/22 History subcutaneous pen injector (Trulicity) fluticasone furoate 100 1 inh inhalation QAM 06/07/22 06/16/22 History mcg-vilanterol 25 mcg/dose inhalation powder (Breo Ellipta) insulin glargine 100 unit/mL (3 40 unit subcut QAM 06/07/22 06/16/22 History mL) subcutaneous pen (Basaglar KwikPen U-100 Insulin) meclizine 12.5 mg tablet 12.5 mg PO TID PRN Dizziness Or 06/07/22 06/16/22 History Vertigo methylcellulose (laxative) 2 g PO DAILY 06/07/22 06/16/22 History metoprolol succinate 100 mg 100 mg PO BID 06/07/22 06/16/22 History tablet,extended release 24 hr multivitamin 1 tab PO DAILY 06/07/22 06/16/22 History olopatadine 0.2 % eye drops 1 drp OPR QAM 06/07/22 06/16/22 History (Pataday Once Daily Relief) amiodarone 200 mg tablet 200 mg PO UD 06/16/22 06/16/22 History fluticasone propionate 230 2 puff inhalation DAILY 06/16/22 06/16/22 History mcg-salmeterol 21 mcg/actuation HFA inhaler (Advair HFA) Hospital Stay Data Consultations 06/07/22 20:49 ED Decision to Admit Stat 06/09/22 12:35 Consult Cardiology Routine Pending Results Patient Have Any Pending Studies at Discharge: No Discharge Instructions Given to Patient (Per Discharging Provider) You were admitted to the hospital for hyperglycemia and you diabetes is not well controlled with a HBA1c 8.2 (goal <7). Take Lantus 30 Units tonight, then resume taking the Lantus 40 Units every afternoon starting 06/11/22 Stay on the Trulicity at the same dose, restart tomorrow, 06/11/22 Increase the amiodarone 200mg twice daily x 7 days, then go back to amiodarone 200mg daily. Continue other medications as listed below on the discharge medication list. Please follow-up with your primary care provider to discuss your diabetic medication regimen and options with the ongoing side effects from the Trulicity. Consider an Endocrinology referral if needed. It was a pleasure taking care of you! Please call if you have any questions or problems. You can reach a [facility] hospitalist on duty at [facility] 24 hours a day by calling [phone]. Take care of yourself. Maryann Galo, [facility] Permanente Medical Centerist Total Time Total Time Spent Total Time Spent (In Minutes): 60
== END 2022-06-10 16:01 | disposition home or self-care (01) ==
LOC: ED 17:24 → INTOOBSV 21:32 → EDINP 21:32 → SUATTDRO 21:32 → 2N 06-08 01:21

== ENCOUNTER 2022-06-16 14:53 | Inpatient (IN) ==
[2022-06-16] MEDS ORDERED: 0.2 MICRON FILTER SET 1 EACH IV ONE (15:02)
[2022-06-16] MEDS ORDERED: AMIODARONE / D5W 360 MG/200 ML BAG IV ONE (15:02)
--- NOTE | 2022-06-16 15:12 | Emergency Department Note ---
Impression & Plan Atrial fibrillation with rapid ventricular response, ANA (acute kidney injury), Hypomagnesemia, Syncope, Acute hyperglycemia, Wide-complex tachycardia ED Provider Note NAME: CARLA LUNA AGE: 77 SEX: F : 1945 ARRIVES VIA: Ambulance INFORMANT: Patient, EMS personnel ED PROVIDER(S): Zan Ordoñez DO CHIEF COMPLAINT: Syncope HPI: The patient is a 77-year-old female who presented to the emergency department for syncope and weakness. The patient was evaluated by the prehospital personnel. I did receive a prehospital notification about the patient. She was found to have a wide-complex tachycardia. She does have a history of ventricular tachycardia as well as nonischemic cardiomyopathy. The patient herself does have a defibrillator as well as a history of atrial fibrillation. She does have a cardiac defibrillator which seems to have gone off prior to arrival when the prehospital personnel were evaluating her. She fell to the ground. She is in a cervical collar at this time. She does complain of neck pain as well as headache as well as low back pain. She also complains of right hip pain right ankle pain and right foot pain. The patient states that she is been compliant with her outpatient medications. She does state that she has been feeling weak recently especially over the last 48 hours. She does have a history of diabetes. She states otherwise she is been compliant with her outpatient medication. She was treated with a small fluid bolus as well as IV Cardizem prior to arrival. She had some improvement of her underlying rate. ROS: See above HPI for pertinent positives & negatives. A total of 10 systems reviewed and were otherwise negative. PAST MEDICAL HISTORY: See Below PAST SURGICAL HISTORY: See Below FAMILY HISTORY: See Below SOCIAL HISTORY: See Below HOME MEDICATIONS: See Below ALLERGIES: See Below VITALS: See Below PHYSICAL EXAMINATION: GENERAL: Patient is awake and alert. She is somewhat anxious appearing. EYES: The conjunctivae are clear. The pupils are round and reactive. EARS, NOSE, MOUTH AND THROAT: The nose is without any evidence of any deformity. NECK: Rigid cervical collar was applied prior to arrival. RESPIRATORY: Normal respiratory effort is noted there is no evidence of wheezing rhonchi or rales CARDIOVASCULAR: Tachycardic and regular heart sounds were noted to auscultation. There is no definite murmur. GASTROINTESTINAL: The abdomen is soft. Abdomen is nontender. BACK: Lower lumbar tenderness present to palpation. There is no step-off. MUSCULOSKELETAL/EXTREMITIES: There is no evidence of gross deformity full range of motion is noted in the shoulders. There is tenderness to palpation of the lateral right ankle as well as the lateral foot. Range of motion testing of the right hip did appear to elicit some pain but no deformity was noted. SKIN: Skin was warm and dry. There was no significant pedal edema. NEUROLOGIC: Patient is awake alert and oriented x3 strength is symmetric patellar reflexes are 2+ bilaterally MEDICAL DECISION MAKING: The patient is a 77-year-old female who presented to the emergency department by ambulance. The patient had multiple syncopal episodes over the last 48 hours. The patient was in wide-complex tachycardia which appeared to be consistent with atrial fibrillation with aberrant conduction. She initially was treated with Cardizem prior to arrival by the prehospital personnel. She was placed on an amiodarone drip after my evaluation. She did convert to a sinus rhythm. Her pacemaker was interrogated and her defibrillator fired 3 times. Given the patient's presentation she also had further laboratory and radiographic studies obtained. She did have a fall with the syncope and was complaining of headache as well as neck pain. She also had low back pain. The patient was reevaluated multiple times. Given her findings I do feel the patient will require inpatient management. I discussed her condition with the on-call [facility] hospitalist group. They have agreed to evaluate the patient in the emergency department for further management and disposition. The patient was treated with IV fluids as well as IV amiodarone. Triage Nursing notes reviewed. Prior medical records reviewed Vital Signs: reviewed and remarkable for tachycardia tachypnea and intermittent episodes of hypotension. Differential diagnosis: Vasovagal event, dehydration, infection, hypoglycemia, electrolyte abnormalities, cardiac sources, intracerebral event, pulmonary embolism, seizure, toxicologic, neurologic, as well as other pathologies. ER treatment provided: See below Diagnostics interpreted by me: ECG: EKG was obtained in the emergency department. My interpretation is atrial fibrillation at 163 bpm. Left bundle branch block pattern was noted. Nonspecific ST segment depressions were noted as well. This was compared to a tracing from June 08, 2022. No significant changes were noted. Cardiac Monitoring: An order was placed for continuous cardiac monitoring. The monitor shows a rate of 110 bpm with sinus tachycardia. Laboratory studies: As stated above and show below. Imaging studies: See below. I did independently review the patient's radiographic studies Radiographic imaging was reviewed by myself Consultation(s): I discussed this case with Dr. Huynh who is on-call for the [facility] hospitalist group. ED COURSE: Procedures: none Critical Care: I have personally spent greater than 45 minutes of critical care time in the direct management of this patient. This includes bedside care, interpretation of diagnostic studies, and testing, discussion with consultants, patient, and family members, and other required patient management activities. This 45 minutes is in excess of all separately billable procedures. Past Med/Surg History Medical History (Updated 06/16/22 @ 17:22 by Zan Ordoñez DO) Bronchitis Cancer SKIN CANCER Diabetes Diabetes mellitus type 2, controlled Diabetes mellitus, type 2 Dyslipidemia Endometriosis Endometriosis Fibromyalgia Fibromyalgia Hepatitis C A CHILD Hot flashes HTN (hypertension) Hyperlipidemia Hypertension Left bundle branch block Migraine Sheehan's neuroma Nonischemic cardiomyopathy Osteoarthritis Paroxysmal atrial fibrillation Sciatica Temporomandibular joint disorder Surgical History H/O: hysterectomy History of cataract surgery RT/LEFT History of tonsillectomy History of tooth extraction History of total hysterectomy with bilateral salpingo-oophorectomy (BSO) S/P BSO (status post bilateral salpingo-oophorectomy) Family History Father Family history of diabetes mellitus Other Breast cancer Hemochromatosis Social History Smoking Status: Never smoker Second Hand Exposure: Yes (HX OF EXPOSURE); Hx Alcohol Use: No Hx Substance Use: No Preferred Language: Salvadorean Communication Ability: Effective Manager Management Required: No Beliefs That Will Affect Care: L[employer] Day marital status: Current Living Situation: Spouse current occupation: Homemaker Feels Safe at Home: Yes Assistive Devices: Walker Allergies Allergies Allergy/AdvReac Type Severity Reaction Status Date / Time propoxyphene Allergy Intermediate Edema Verified 06/07/22 19:29 airway - DARVON erythromycin base Allergy Mild Nausea Verified 06/07/22 19:29 salicylates Allergy Mild Hives/nause Verified 06/07/22 19:29 a Penicillins AdvReac Intermediate Nausea and Verified 06/07/22 19:29 dizziness amitriptyline AdvReac Mild Dizziness Verified 06/07/22 19:29 azithromycin AdvReac Mild STOMACH Verified 06/07/22 19:29 PAINS/ACHES ALL OVER Bactrim AdvReac Mild GI upset, Verified 09/10/17 07:13 nausea, vomiting Corticosteroids AdvReac Mild Prednisone, Verified 06/07/22 19:29 (Glucocorticoids) rapid weight gain hydrocodone AdvReac Mild Nausea, Verified 06/07/22 19:29 vomiting latex AdvReac Mild Rash Verified 06/07/22 19:29 lisinopril AdvReac Mild COUGH Verified 06/07/22 19:29 morphine AdvReac Mild Nausea Verified 06/07/22 19:29 pseudoephedrine AdvReac Mild Dizziness Verified 06/07/22 19:29 sulfamethoxazole AdvReac Mild GI upset, Verified 06/07/22 19:29 nausea, vomiting thiopental AdvReac Mild Nausea, Verified 06/07/22 19:29 vomiting trimethoprim AdvReac Mild GI upset, Verified 06/07/22 19:29 nausea, vomiting Home Meds Home Medications Medication Instructions Recorded Confirmed artificial tears(hypromellose) 0.3 1 drp OPB HS 06/19/18 06/07/22 % eye gel (Systane Gel) calcium citrate 200 mg 2 tab PO QAM 06/19/18 06/07/22 calcium-vitamin D3 6.25 mcg (250 unit) tablet (Citracal-D3 Petites) cholecalciferol (vitamin D3) 25 1,000 unit PO BID 06/19/18 06/07/22 mcg (1,000 unit) capsule (Vitamin D3) apixaban 5 mg tablet (Eliquis) 5 mg PO BID 03/20/19 06/07/22 furosemide 40 mg tablet (Lasix) 40 mg PO QAM 03/20/19 06/07/22 rosuvastatin 5 mg tablet (Crestor) 5 mg PO HS 03/20/19 06/07/22 sacubitril 24 mg-valsartan 26 mg 1 tab PO BIDM 03/20/19 06/07/22 tablet (Entresto) spironolactone 25 mg tablet 12.5 mg PO 3XWK 03/20/19 06/07/22 benzonatate 100 mg capsule 100 mg PO TID PRN Cough 06/07/22 06/07/22 dulaglutide 0.75 mg/0.5 mL 0.75 mg subcut WK 06/07/22 06/07/22 subcutaneous pen injector (Trulicity) fluticasone furoate 100 1 inh inhalation QAM 06/07/22 06/07/22 mcg-vilanterol 25 mcg/dose inhalation powder (Breo Ellipta) insulin glargine 100 unit/mL (3 40 unit subcut QAM 06/07/22 06/07/22 mL) subcutaneous pen (Basaglar KwikPen U-100 Insulin) meclizine 12.5 mg tablet 12.5 mg PO TID PRN Dizziness Or 06/07/22 06/07/22 Vertigo methylcellulose (laxative) 2 g PO DAILY 06/07/22 06/07/22 metoprolol succinate 100 mg 100 mg PO BID 06/07/22 06/07/22 tablet,extended release 24 hr multivitamin 1 tab PO DAILY 06/07/22 06/07/22 olopatadine 0.2 % eye drops 1 drp OPR QAM 06/07/22 06/07/22 (Pataday Once Daily Relief) Previous Rx's Medication Instructions Recorded amiodarone 1 tab PO UD #30 mg 06/10/22 nitrofurantoin 100 mg PO BID #10 caps 06/10/22 monohydrate/macrocrystals 100 mg capsule Results & Data (ED) Vital Signs Vital Signs - 24 hr 06/16/22 15:02 06/16/22 15:12 Temperature 36.4 C L Temperature Source Oral Pulse Rate 146 H Pulse Rhythm Regular Pulse Strength Normal Respiratory Rate 39 H Respiratory Effort / Characteristics Non-Labored Spontaneous Respiratory Depth Normal Respiratory Pattern Regular Blood Pressure 108/58 L Blood Pressure Mean 74 Blood Pressure Position Lying Pulse Oximetry 97 98 Oxygen Delivery Method Room Air Oxygen Flow Rate 0 Sepsis Recent Fever Within 48 Hours No Sepsis New/Unexplained Change in Mental Status N/A Sepsis Action Taken by Nursing No Action Required Home Medications Current Medication List: was personally reviewed by me Laboratory Data Attestation: I reviewed the patient's lab results. 06/16/22 15:05 06/16/22 15:05 Lab Results 06/16/22 06/16/22 06/16/22 Range/Units 15:05 15:05 15:05 WBC 20.42 H (4.8-10.8) K/ul RBC 3.49 L (3.93-5.22) M/uL Hgb 10.6 L (12.0-16.0) g/dl Hct 30.9 L (34.1-44.9) % MCV 88.5 (80.0-100.0) fL MCH 30.4 (25.0-34.0) pg MCHC 34.3 (32.0-36.0) g/dL RDW Std Deviation 45.1 (36.4-46.3) fL RDW Coeff of Hilda 14.0 (11.5-14.5) % Plt Count 252 (130-400) K/uL MPV 9.7 (9.4-12.3) fL Immature Gran % (Auto) 3.6 % Neut % (Auto) 91.9 % Lymph % (Auto) 3.3 % Lenoir % (Auto) 1.1 % Eos % (Auto) 0.0 % Baso % (Auto) 0.1 % Neut # (Auto) 18.73 H (1.4-6.5) K/uL Lymph # (Auto) 0.68 L (1.2-3.4) K/uL [place] # (Auto) 0.23 L (0.24-0.82) K/uL Eos # (Auto) 0.01 (0-0.50) K/uL Baso # (Auto) 0.03 (0-0.2) K/uL Immature Gran # (Auto) 0.74 H (0.00-0.02) K/uL PT 13.1 H (9.0-12.0) Seconds INR 1.2 H (0.9-1.1) APTT 30.6 (21.0-31.0) Seconds PTT Ratio 1.1 Sodium 128 L (136-145) mmol/L Potassium 4.0 (3.5-5.1) mmol/L Chloride 95 L (98-107) mmol/L Carbon Dioxide 19 L (21-32) mmol/L Anion Gap 14 H (3-11) BUN 28 H (6-23) mg/dl Creatinine 1.54 H (0.6-1.2) mg/dl Est Cr Clr Drug Dosing 34.3 ml/min Est GFR ( Amer) 37.6 ml/min Est GFR (Non-Af Amer) 32.4 ml/min BUN/Creatinine Ratio 18.2 (10-20) Glucose 435 H* (70-99(Fasting)) mg/dl Lactate (0.4-2.0) mmol/L Calcium 8.4 L (8.5-10.1) mg/dl Magnesium 1.6 L (1.7-2.4) mg/dl Total Bilirubin 1.4 H (0.2-1.0) mg/dl AST 16 (13-39) U/L ALT 19 (7-52) U/L Alkaline Phosphatase 118 H (34-104) U/L Total Creatine Kinase 174 (26-192) U/L Troponin I High Sens 17.1 H (0-14) pg/ml Total Protein 5.9 L (6.0-8.3) gm/dl Albumin 3.0 L (3.4-5.0) gm/dl Globulin 2.9 (2.5-4.0) gm/dl Albumin/Globulin Ratio 1.0 (0.9-2) TSH (0.300-4.500) uIu/ml SARS-CoV-2, RNA, NAAT (NEGATIVE) 06/16/22 06/16/22 06/16/22 Range/Units 15:05 15:28 16:16 WBC (4.8-10.8) K/ul RBC (3.93-5.22) M/uL Hgb (12.0-16.0) g/dl Hct (34.1-44.9) % MCV (80.0-100.0) fL MCH (25.0-34.0) pg MCHC (32.0-36.0) g/dL RDW Std Deviation (36.4-46.3) fL RDW Coeff of Hilda (11.5-14.5) % Plt Count (130-400) K/uL MPV (9.4-12.3) fL Immature Gran % (Auto) % Neut % (Auto) % Lymph % (Auto) % Lenoir % (Auto) % Eos % (Auto) % Baso % (Auto) % Neut # (Auto) (1.4-6.5) K/uL Lymph # (Auto) (1.2-3.4) K/uL [place] # (Auto) (0.24-0.82) K/uL Eos # (Auto) (0-0.50) K/uL Baso # (Auto) (0-0.2) K/uL Immature Gran # (Auto) (0.00-0.02) K/uL PT (9.0-12.0) Seconds INR (0.9-1.1) APTT (21.0-31.0) Seconds PTT Ratio Sodium (136-145) mmol/L Potassium (3.5-5.1) mmol/L Chloride (98-107) mmol/L Carbon Dioxide (21-32) mmol/L Anion Gap (3-11) BUN (6-23) mg/dl Creatinine (0.6-1.2) mg/dl Est Cr Clr Drug Dosing ml/min Est GFR ( Amer) ml/min Est GFR (Non-Af Amer) ml/min BUN/Creatinine Ratio (10-20) Glucose (70-99(Fasting)) mg/dl Lactate 2.9 H* (0.4-2.0) mmol/L Calcium (8.5-10.1) mg/dl Magnesium (1.7-2.4) mg/dl Total Bilirubin (0.2-1.0) mg/dl AST (13-39) U/L ALT (7-52) U/L Alkaline Phosphatase (34-104) U/L Total Creatine Kinase (26-192) U/L Troponin I High Sens (0-14) pg/ml Total Protein (6.0-8.3) gm/dl Albumin (3.4-5.0) gm/dl Globulin (2.5-4.0) gm/dl Albumin/Globulin Ratio (0.9-2) TSH 0.763 (0.300-4.500) uIu/ml SARS-CoV-2, RNA, NAAT NEGATIVE (NEGATIVE) Administered Medications Amiodarone HCl/Dextrose (Nexterone / D5w) 360 mg in 200 mls @ 33.333 mls/hr IV ONE ONE; Protocol Stop: 06/16/22 21:01 Last Admin: 06/16/22 15:19 Dose: 1 mg/min, 33.3 mls/hr Documented By: AM Co-signed By: SLJohanna Discontinued Medications Sodium Chloride (Nss) 500 mls @ 999 mls/hr IV .Q31M BLAYNE Stop: 06/16/22 15:45 Last Admin: 06/16/22 15:22 Dose: 999 mls/hr Documented By: AM Imaging Data Radiologist's Impression: Cervical Spine CT 06/16/22 15:02 CT cervical spine wo con CT DOSE: 2324.66 mGy.cm CLINICAL HISTORY: 77 years-old Female with fall. Acute neck injury status post fall COMPARISON: Head CT of same day. TECHNIQUE: Multiple axial CT images of the cervical spine were obtained without contrast. A dose lowering technique was utilized adhering to the principles of ALARA. FINDINGS: Multilevel degenerative changes. Demineralized appearance of the bones. 3 mm anterolisthesis C7 on T1, likely secondary to associated severe facet arthrosis at this level. Multilevel neural foraminal narrowing. The cervical soft tissues appear unremarkable. Subcentimeter hypodense right-sided thyroid nodule. Subcentimeter neck and supraclavicular lymph node. Calcifications of the carotid bulbs. Intralobular septal thickening of the lung apices. No pneumothorax. IMPRESSION: No acute cervical spine fracture or subluxation identified. ACT 112: Negative or not required by law. The above report was generated using voice recognition software. It may contain grammatical, syntax or spelling errors. Electronically signed by: Camilo Mcmahan M.D. 06/16/2022 4:[address] 06/16/22 15:02 CT head/brain wo con CLINICAL HISTORY: 77 years-old Female with fall. Acute head and neck injury status post fall TECHNIQUE: Multiple axial CT images of the head were obtained without contrast. A dose lowering technique was utilized adhering to the principles of ALARA. COMPARISON: CT cervical spine of same day FINDINGS: No acute intracranial hemorrhage, midline shift, intracranial mass, hydrocephalus, territorial ischemia or abnormal extra-axial collection. Age- related involutional changes with chronic microvascular ischemic disease. Senescent basal ganglia and cerebral vascular calcifications. The calvarium is intact. Prior bilateral lens repair. The paranasal sinuses, mastoid air cells, and middle ear cavities are clear. IMPRESSION: No acute intracranial abnormality or calvarial fracture. ACT 112: Negative or not required by law. The above report was generated using voice recognition software. It may contain grammatical, syntax or spelling errors. Electronically signed by: Camilo Mcmahan M.D. 06/16/2022 4:[address] 06/16/22 15:02 CT lumbar spine wo con HISTORY: 77 years-old Female fall . Acute low back pain status post fall COMPARISON: Chest CT 03/19/2019 TECHNIQUE: Multiple axial CT images of the lumbar spine were obtained without the use of IV contrast. A dose lowering technique was used consistent with the principals of ALARA. FINDINGS: Demineralized appearance the bones. Straightening of the normal lumbar lordosis. Transitional lumbosacral anatomy. Severe intervertebral disc space narrowing with vacuum disc phenomenon, moderate spondylitic spurring and posterior disc osteophytic complex at L5-S1. Vacuum disc phenomenon also noted at L3-L4. Moderate to severe multilevel facet arthrosis. No acute fracture or subluxation identified. Moderate degeneration of the sciatic joints. No acute fracture or subluxation. Thickening of the adrenal glands suggestive of hyperplasia. Mild nonspecific bilateral perinephric stranding. The spleen appears prominent in size. Central canal and neuroforamina are suboptimally evaluated by CT technique. Posterior annular disc bulge L3-L4 along with ligament flavum thickening and moderate facet arthrosis causes moderate central canal stenosis with AP dimension of the thecal sac measuring 6 mm. Mild to moderate bilateral foraminal narrowing. Additionally, there is at least moderate central canal stenosis with moderate bilateral foraminal narrowing at L4-L5. IMPRESSION: 1. No acute fracture or subluxation. 2. Degenerative changes as above. ACT 112: Negative or not required by law. The above report was generated using voice recognition software. It may contain grammatical, syntax or spelling errors. Electronically signed by: Camilo Mcmahan M.D. 06/16/2022 4:42 PM Discharge Plan Visit Data Chief Complaint: Cardiac Assessment Stated Complaint: FALL ED Provider: Zan Ordoñez Discharge Problem: Atrial fibrillation with rapid ventricular response, ANA (acute kidney injury), Hypomagnesemia, Syncope, Acute hyperglycemia, Wide-complex tachycardia Patient Disposition: Being Evaluated by Hospitalist Forms Stand Alone Forms: [employer] Prescriptions Prescriptions: No Action cholecalciferol (vitamin D3) [Vitamin D3] 1,000 unit Capsule 1,000 unit PO BID Systane Gel 0.3 % Gel 1 drp OPB HS calcium citrate-vitamin D3 [Citracal-D3 Petites] 200 mg calcium -250 unit Tablet 2 tab PO QAM furosemide [Lasix] 40 mg Tablet 40 mg PO QAM spironolactone 25 mg Tablet 12.5 mg PO 3XWK Rx Instructions: TAKE THIS MED ON SATURDAY/SATURDAY/SATURDAY rosuvastatin [Crestor] 5 mg Tablet 5 mg PO HS Eliquis 5 mg Tablet 5 mg PO BID Entresto 24-26 mg Tablet 1 tab PO BIDM benzonatate 100 mg capsule 100 mg PO TID PRN (Reason: Cough) meclizine 12.5 mg tablet 12.5 mg PO TID PRN (Reason: Dizziness Or Vertigo) methylcellulose (laxative) Powder 2 g PO DAILY Trulicity 0.75 mg/0.5 mL pen injector 0.75 mg SUBCUT WK Rx Instructions: TAKE THIS MED EVERY SATURDAY metoprolol succinate 100 mg tablet extended release 24 hr 100 mg PO BID Rx Instructions: TAKE THIS MED WITH BREAKFAST AND EVENING MEAL. fluticasone furoate-vilanterol [Breo Ellipta] 100-25 mcg/dose blister with device 1 inh inhalation QAM insulin glargine [Basaglar KwikPen U-100 Insulin] 100 unit/mL (3 mL) insulin pen 40 unit SUBCUT QAM olopatadine [Pataday Once Daily Relief] 0.2 % Drops 1 drp OPR QAM multivitamin Tablet 1 tab PO DAILY nitrofurantoin monohyd/m-cryst 100 mg Capsule 100 mg PO BID Qty: 10 0RF amiodarone 200 mg tablet 1 tab PO UD Qty: 30 0RF Rx Instructions: Take BID x 7 days, then once daily Referrals Referrals: Ema Ta, [Primary Care Provider] -
[2022-06-16] MEDS ORDERED: SODIUM CHLORIDE 0.9% 500 ML IV SCH (15:15)
[2022-06-16 15:23] LABS: Hematocrit (blood only) 30.9 % (34.1-44.9); Hemoglobin 10.6 g/dl (12.0-16.0); Mean Corpuscular Hemoglobin 30.4 pg (25.0-34.0); Mean Corpuscular Hgb Conc 34.3 g/dL (32.0-36.0); Mean Corpuscular Volume 88.5 fL (80.0-100.0); Mean Platelet Volume 9.7 fL (9.4-12.3); Platelet Count 252 K/uL (130-400); RDW Standard Deviation 45.1 fL (36.4-46.3); Red Blood Count 3.49 M/uL (3.93-5.22); White Blood Count 20.42 K/ul (4.8-10.8)
[2022-06-16 15:43] LABS: INR 1.2 (0.9-1.1); Partial Thromboplastin Ratio 1.1; Partial Thromboplastin Time 30.6 Seconds (21.0-31.0); Prothrombin Time 13.1 Seconds (9.0-12.0)
[2022-06-16 15:45] LABS: Basophils # (auto) 0.03 K/uL (0-0.2); Basophils % (auto) 0.1 %; Eosinophils # (auto) 0.01 K/uL (0-0.50); Immature Granulocytes # (auto) 0.74 K/uL (0.00-0.02); Immature Granulocytes % (auto) 3.6 %; Lymphocytes # (auto) 0.68 K/uL (1.2-3.4); Lymphocytes % (auto) 3.3 %; Monocytes # (auto) 0.23 K/uL (0.24-0.82); Monocytes % (auto) 1.1 %; Neutrophils # (auto) 18.73 K/uL (1.4-6.5); Neutrophils % (auto) 91.9 %
[2022-06-16 15:56] LABS: BUN Creatinine Ratio 18.2 (10-20); Bilirubin,Total 1.4 mg/dl (0.2-1.0); Calcium 8.4 mg/dl (8.5-10.1); Creatinine Clr Calc Pharmacy 34.3 ml/min; Est GFR (African American) 37.6 ml/min; Est GFR (Non-African American) 32.4 ml/min; Globulin 2.9 gm/dl (2.5-4.0); Magnesium 1.6 mg/dl (1.7-2.4); Total Protein 5.9 gm/dl (6.0-8.3); Troponin I High Sensitivity 17.1 pg/ml (0-14)
[2022-06-16] MEDS ORDERED: NovoLIN-R INSULIN PER UNIT CHARGE IV STA ×2 (16:06→21:02)
--- NOTE | 2022-06-16 16:26 | CT Scan Report ---
CT head/brain wo con CLINICAL HISTORY: 77 years-old Female with fall. Acute head and neck injury status post fall TECHNIQUE: Multiple axial CT images of the head were obtained without contrast. A dose lowering tech nique was utilized adhering to the principles of ALARA. COMPARISON: CT cervical spine of same day FINDINGS: No acute intracranial hemorrhage, midline shift, intracranial mass, hydrocephalus, territorial ischem ia or abnormal extra-axial collection. Age-related involutional changes with chronic microvascular is chemic disease. Senescent basal ganglia and cerebral vascular calcifications. The calvarium is intact. Prior bilateral lens repair. The paranasal sinuses, mastoid air cells, and m iddle ear cavities are clear. IMPRESSION: No acute intracranial abnormality or calvarial fracture. ACT 112: Negative or not required by law. The above report was generated using voice recognition software. It may contain grammatical, syntax o r spelling errors. Electronically signed by: Camilo Mcmahan M.D. 06/16/2022 4:23 PM
[2022-06-16] MEDS ORDERED: SODIUM CHLORIDE 0.9% 500 ML IV ONE (16:36)
--- NOTE | 2022-06-16 16:40 | CT Scan Report ---
CT cervical spine wo con CT DOSE: 2324.66 mGy.cm CLINICAL HISTORY: 77 years-old Female with fall. Acute neck injury status post fall COMPARISON: Head CT of same day. TECHNIQUE: Multiple axial CT images of the cervical spine were obtained without contrast. A dose low ering technique was utilized adhering to the principles of ALARA. FINDINGS: Multilevel degenerative changes. Demineralized appearance of the bones. 3 mm anterolisthesi s C7 on T1, likely secondary to associated severe facet arthrosis at this level. Multilevel neural fo raminal narrowing. The cervical soft tissues appear unremarkable. Subcentimeter hypodense right-sided thyroid nodule. Subcentimeter neck and supraclavicular lymph node. Calcifications of the carotid bul bs. Intralobular septal thickening of the lung apices. No pneumothorax. IMPRESSION: No acute cervical spine fracture or subluxation identified. ACT 112: Negative or not required by law. The above report was generated using voice recognition software. It may contain grammatical, syntax o r spelling errors. Electronically signed by: Camilo Mcmahan M.D. 06/16/2022 4:38 PM
--- NOTE | 2022-06-16 16:43 | CT Scan Report ---
CT lumbar spine wo con HISTORY: 77 years-old Female fall . Acute low back pain status post fall COMPARISON: Chest CT 03/19/2019 TECHNIQUE: Multiple axial CT images of the lumbar spine were obtained without the use of IV contrast. A dose lowering technique was used consistent with the principals of ALARA. FINDINGS: Demineralized appearance the bones. Straightening of the normal lumbar lordosis. Transitional lumbosa cral anatomy. Severe intervertebral disc space narrowing with vacuum disc phenomenon, moderate spondy litic spurring and posterior disc osteophytic complex at L5-S1. Vacuum disc phenomenon also noted at L3-L4. Moderate to severe multilevel facet arthrosis. No acute fracture or subluxation identified. Mo derate degeneration of the sciatic joints. No acute fracture or subluxation. Thickening of the adrenal glands suggestive of hyperplasia. Mild nonspecific bilateral perinephric st randing. The spleen appears prominent in size. Central canal and neuroforamina are suboptimally evalu ated by CT technique. Posterior annular disc bulge L3-L4 along with ligament flavum thickening and mo derate facet arthrosis causes moderate central canal stenosis with AP dimension of the thecal sac galileo suring 6 mm. Mild to moderate bilateral foraminal narrowing. Additionally, there is at least moderate central canal stenosis with moderate bilateral foraminal narrowing at L4-L5. IMPRESSION: 1. No acute fracture or subluxation. 2. Degenerative changes as above. ACT 112: Negative or not required by law. The above report was generated using voice recognition software. It may contain grammatical, syntax o r spelling errors. Electronically signed by: Camilo Mcmahan M.D. 06/16/2022 4:42 PM
[2022-06-16] MEDS ORDERED: cefTRIAXone SODIUM 2,000 MG/70 ML BAG IV STA (17:18)
--- NOTE | 2022-06-16 17:36 | History & Physical Report ---
Date of Service June 16, 2022 Assessment & Plan (1) Atrial fibrillation with rapid ventricular response: (2) ANA (acute kidney injury): (3) Hypomagnesemia: (4) Syncope: (5) Acute hyperglycemia: Plan A fib with RVR Wide complex tachycardia -continue with amiodarone drip. Hold Eliquis pending RUQ u/s. Start heparin drip -Check TTE -Consult Cardiology Leukocytosis -Concern for sepsis -No clear source currently. CXR negative. UA pending. Elevated transaminitis raises potential for biliary infection--> will obtain RUQ u/s -s/p ceftriaxone in ER. Will continue on Zosyn pending blood culture and RUQ u/s ANA -Cr 1.5 from baseline of 1 -s/p 1L NSS in ER. Will repeat BMP tomorrow Hypomagnesemia -Mg 1.6, s/p 1 gm IV repletion. Repeat tomorrow Poorly controlled DM with Hyperglycemia -AG 14, s/p 6 units IV insulin -Home regimen: lantus 40 units daily and trulicity -Lantus 20 units BID while here. Carb coverage scale -Pharmacy consult Hyponatremia -mild. May be related to hyperglycemia vs poor oral intake -repeat BMP tomorrow DVT ppx -already on Eliquis Admitted as inpatient, I anticipate she will need at least 2 midnight stay for further management. 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 fib on Eliquis, heart failure, hypertensive heart and kidney disease, CKD stage III, cardiac defibrillator, fibromyalgia, alopecia presents today with 2 episodes of syncope. Patient was recently admitted here from 06/07-06/11/2022 for hyperglycemia due to medication non compliance with ANA in the setting of recent illness with the flu. During that hospitalization, she was noted to have episode of non sustained V tach believed to be due to her metabolic derangements and her amiodarone was increased to 200mg BID. She returns today after two episodes of syncope. She is a poor historian but reports on Saturday she noted her ICD firing then she passed out. Her called 911 and eventually she came to, she was not taken to the hospital at that time. Today, again her ICD fired and she syncopized. This time she was brought to the hospital. In the field, EMS noted her to have a wide complex tachycardia. In the ER, her ICD was reportedly interrogated and confirmed that 2 shocks were recently delivered. She was started on an amiodarone drip. Upon further questioning, she reports feeling weak, tired and low energy since last saturday. With abdominal pain (RUQ) and nausea. No fever/chills, chest pain, shortness of breath. Reports loose stools Upon arrival here, labwork was notable for WBC of 20, Cr 1.5 (baseline 1), Na 128, Cl 95, HCO3- 95, ALP 118, T bili 1.4, High sensitivity trop 17. CXR negative for acute disease CT head neg for acute findings CT cervical spine neg for fracture Lumbar CT negative for fracture Pelvis X ray negative for fracture Foot and ankle X ray pending Allergies Allergy/AdvReac Type Severity Reaction Status Date / Time propoxyphene Allergy Intermediate Edema Verified 06/07/22 19:29 airway - DARVON erythromycin base Allergy Mild Nausea Verified 06/07/22 19:29 salicylates Allergy Mild Hives/nause Verified 06/07/22 19:29 a Penicillins AdvReac Intermediate Nausea and Verified 06/07/22 19:29 dizziness amitriptyline AdvReac Mild Dizziness Verified 06/07/22 19:29 azithromycin AdvReac Mild STOMACH Verified 06/07/22 19:29 PAINS/ACHES ALL OVER Bactrim AdvReac Mild GI upset, Verified 09/10/17 07:13 nausea, vomiting Corticosteroids AdvReac Mild Prednisone, Verified 06/07/22 19:29 (Glucocorticoids) rapid weight gain hydrocodone AdvReac Mild Nausea, Verified 06/07/22 19:29 vomiting latex AdvReac Mild Rash Verified 06/07/22 19:29 lisinopril AdvReac Mild COUGH Verified 06/07/22 19:29 morphine AdvReac Mild Nausea Verified 06/07/22 19:29 pseudoephedrine AdvReac Mild Dizziness Verified 06/07/22 19:29 sulfamethoxazole AdvReac Mild GI upset, Verified 06/07/22 19:29 nausea, vomiting thiopental AdvReac Mild Nausea, Verified 06/07/22 19:29 vomiting trimethoprim AdvReac Mild GI upset, Verified 06/07/22 19:29 nausea, vomiting Home Medications Medication Instructions Recorded Confirmed Type artificial tears(hypromellose) 0.3 1 drp OPB HS 06/19/18 06/07/22 History % eye gel (Systane Gel) calcium citrate 200 mg 2 tab PO QAM 06/19/18 06/07/22 History calcium-vitamin D3 6.25 mcg (250 unit) tablet (Citracal-D3 Petites) cholecalciferol (vitamin D3) 25 1,000 unit PO BID 06/19/18 06/07/22 History mcg (1,000 unit) capsule (Vitamin D3) apixaban 5 mg tablet (Eliquis) 5 mg PO BID 03/20/19 06/07/22 History furosemide 40 mg tablet (Lasix) 40 mg PO QAM 03/20/19 06/07/22 History rosuvastatin 5 mg tablet (Crestor) 5 mg PO HS 03/20/19 06/07/22 History sacubitril 24 mg-valsartan 26 mg 1 tab PO BIDM 03/20/19 06/07/22 History tablet (Entresto) spironolactone 25 mg tablet 12.5 mg PO 3XWK 03/20/19 06/07/22 History benzonatate 100 mg capsule 100 mg PO TID PRN Cough 06/07/22 06/07/22 History dulaglutide 0.75 mg/0.5 mL 0.75 mg subcut WK 06/07/22 06/07/22 History subcutaneous pen injector (Trulicity) fluticasone furoate 100 1 inh inhalation QAM 06/07/22 06/07/22 History mcg-vilanterol 25 mcg/dose inhalation powder (Breo Ellipta) insulin glargine 100 unit/mL (3 40 unit subcut QAM 06/07/22 06/07/22 History mL) subcutaneous pen (Basaglar Rosangela U-100 Insulin) meclizine 12.5 mg tablet 12.5 mg PO TID PRN Dizziness Or 06/07/22 06/07/22 History Vertigo methylcellulose (laxative) 2 g PO DAILY 06/07/22 06/07/22 History metoprolol succinate 100 mg 100 mg PO BID 06/07/22 06/07/22 History tablet,extended release 24 hr multivitamin 1 tab PO DAILY 06/07/22 06/07/22 History olopatadine 0.2 % eye drops 1 drp OPR QAM 06/07/22 06/07/22 History (Pataday Once Daily Relief) amiodarone 1 tab PO UD #30 mg 06/10/22 06/08/22 Rx nitrofurantoin 100 mg PO BID #10 caps 06/10/22 Rx monohydrate/macrocrystals 100 mg capsule Past Med/Surg History Medical History (Updated 06/16/22 @ 17:22 by Zan Ordoñez DO) Bronchitis Cancer SKIN CANCER Diabetes Diabetes mellitus type 2, controlled Diabetes mellitus, type 2 Dyslipidemia Endometriosis Endometriosis Fibromyalgia Fibromyalgia Hepatitis C A CHILD Hot flashes HTN (hypertension) Hyperlipidemia Hypertension Left bundle branch block Migraine Sheehan's neuroma Nonischemic cardiomyopathy Osteoarthritis Paroxysmal atrial fibrillation Sciatica Temporomandibular joint disorder Surgical History H/O: hysterectomy History of cataract surgery RT/LEFT History of tonsillectomy History of tooth extraction History of total hysterectomy with bilateral salpingo-oophorectomy (BSO) S/P BSO (status post bilateral salpingo-oophorectomy) Family History Father Family history of diabetes mellitus Other Breast cancer Hemochromatosis Social History Smoking Status: Never smoker Second Hand Exposure: Yes (HX OF EXPOSURE); Hx Alcohol Use: No Hx Substance Use: No Preferred Language: Japanese Communication Ability: Effective Financial Assistance Advisor Required: No Beliefs That Will Affect Care: Lutheran marital status: Current Living Situation: Spouse current occupation: Homemaker Feels Safe at Home: Yes Assistive Devices: Walker Review of Systems Review of Systems: As above in HPI, remaining ROS otherwise negative Physical Exam Physical Exam: Appears tired, non toxic, no acute distress ENMT: Normocephalic, atraumatic, mucous membrane dry Respiratory: breathing comfortably on room air, no wheezing/rhonchi/rales Cardiovascular: tachycardic (HR on monitor 100-110) currently, no murmurs/rubs/gallops Gastrointestinal (Abdomen): +RUQ tenderness, hypoactive BS, no rebound or guarding Musculoskeletal: No edema, no cyanosis or clubbing Skin: Pale, no rash, no ulcer noted on exposed skin Neurologic: awake, alert, spontaneously moving extremities Psychiatric: normal affect, speech linear, somewhat poor historian, speech is not pressured Results & Data Results & Data ([facility]) Vital Signs (Past 12 Hours) Vital Signs Temp Pulse Resp BP Pulse Ox O2 Del Method O2 Flow Rate 06/16/22 15:12 98 Room Air 0 06/16/22 15:02 36.4 C L 146 H 39 H 108/58 L 97 (1) Syncope Syncope type: unspecified Qualified Code(s): R55 - Syncope and collapse
--- NOTE | 2022-06-16 17:40 | XRay Report ---
XR chest 1V portable HISTORY: 77 years-old Female weakness acute chest trauma status post fall COMPARISON: 06/07/2022 TECHNIQUE: AP view of the chest FINDINGS: Cardiac silhouette is enlarged. Left subclavian pacer/AICD. Pulmonary vascular congestion. No pneumot horax, large pleural effusion or lobar airspace consolidation. Degenerative changes of the shoulders and spine. No acute displaced rib fracture identified. IMPRESSION: Cardiomegaly without acute process. ACT 112: Negative or not required by law. The above report was generated using voice recognition software. It may contain grammatical, syntax o r spelling errors. Electronically signed by: Camilo Mcmahan M.D. 06/16/2022 5:39 PM
--- NOTE | 2022-06-16 17:40 | XRay Report ---
XR hip RT 2V w pelvis HISTORY: 77 years-old Female fall acute pelvic pain status post fall COMPARISON: None TECHNIQUE: AP view of the pelvis with 2 views of the right hip FINDINGS: Moderate degeneration of the SI joints. Mild to moderate osteoarthritis of the hips. No acute fractur e, dislocation or avascular necrosis. IMPRESSION: No acute fracture or dislocation. ACT 112: Negative or not required by law. The above report was generated using voice recognition software. It may contain grammatical, syntax o r spelling errors. Electronically signed by: Camilo Mcmahan M.D. 06/16/2022 5:38 PM
--- NOTE | 2022-06-16 17:44 | XRay Report ---
XR ankle RT min 3V routine, XR foot RT min 3V routine HISTORY: 77 years-old Female fall acute pain of the right foot and ankle status post fall COMPARISON: None TECHNIQUE: 3 views the right foot with 3 views of the right ankle FINDINGS: ANKLE: Mild circumferential soft tissue swelling. No acute fracture, dislocation or osteochondral defect. Mi ld to moderate osteoarthritis with spurring of the calcaneus. Mild anterior ankle soft tissue swellin g. Arterial calcifications. FOOT: Hallux valgus with first metatarsal bunion. Demineralized appearance the bones with mild to moderate osteoarthritis. No acute fracture, dislocation or osseous erosion. Cortical thickening of the fourth metatarsal appears chronic. Mild dorsal forefoot soft tissue swelling. IMPRESSION: 1. Mild soft tissue swelling without acute fracture or dislocation. 2. Degenerative changes as above with hallux valgus and first metatarsal bunion. ACT 112: Negative or not required by law. The above report was generated using voice recognition software. It may contain grammatical, syntax o r spelling errors. Electronically signed by: Camilo Mcmahan M.D. 06/16/2022 5:41 PM
[2022-06-16] MEDS ORDERED: GLUCAGON FOR INJ 1 MG VIAL SQ PRN (18:27)
[2022-06-16] MEDS ORDERED: DEXTROSE 50% 50 ML SYRINGE IV PRN (18:27)
[2022-06-16] MEDS ORDERED: GLUCOSE 40% GEL 15 GM TUBE PO PRN (18:27)
[2022-06-16] MEDS ORDERED: CARBOHYDRATES FOR HYPOGLYCEMIA PO PRN (18:27)
[2022-06-16] MEDS ORDERED: PHARMACY GLYCEMIC MGMT CONSULT PRN (18:27)
[2022-06-16] MEDS ORDERED: GLUCOSE 10 TAB/TUBE PO PRN (18:27)
[2022-06-16] MEDS: MAGNESIUM SULFATE / D5W 1 GM/100 ML BAG IV SCH ×2 (18:39→19:43)
[2022-06-16] MEDS: HEPARIN 25000 UNIT/500 ML D5W IV ONE ×2 (19:37→19:40)
[2022-06-16] MEDS: HEPARIN SODIUM/DEXTROSE 25,000 UNITS/500 ML BAG IV SCH (19:40)
[2022-06-16] MEDS ORDERED: ACETAMINOPHEN 325 MG TAB PO PRN (20:46)
[2022-06-16] MEDS ORDERED: POLYETHYLENE (MIRALAX) 17 GM PACK PO PRN (20:46)
[2022-06-16] MEDS ORDERED: SODIUM CHLORIDE 0.9% 1000ML 1,000 ML IV SCH (20:46)
[2022-06-16] MEDS ORDERED: MAGNESIUM HYDROXIDE SUSP 30 ML UDC PO PRN (20:46)
[2022-06-16] MEDS ORDERED: ALUMINUM/MAGNESIUM SUSP 30 ML UDC PO PRN (20:46)
[2022-06-16] MEDS ORDERED: NITROGLYCERIN SL 0.4 MG/TAB TAB SL PRN (20:46)
[2022-06-16] MEDS: INSULIN ASPART PER UNIT SC SCH (20:53)
[2022-06-16] MEDS ORDERED: NON-FORMULARY MEDICATION (Insulin Glargine [Basaglar Kwikpen U-100 Insulin] 100 unit/mL (3 SQ SCH (21:00)
[2022-06-16] MEDS ORDERED: METOPROLOL SUCC 50MG EXT REL TAB PO SCH (21:00)
[2022-06-16] MEDS ORDERED: LANTUS PER UNIT CHARGE SQ ONE (21:15)
[2022-06-16] MEDS ORDERED: PIPERACILLIN/TAZOBACTAM 4.5 GM in DEXTROSE 5% 100 ML IV ONE (21:30)
[2022-06-16] MEDS: ROSUVASTATIN CALCIUM 5 MG TAB PO SCH (21:35)
[2022-06-17] MEDS: INSULIN ASPART PER UNIT SC SCH ×6 (00:55→21:05)
[2022-06-17 02:09] LABS: Partial Thromboplastin Ratio 1.6; Partial Thromboplastin Time 44.4 Seconds (21.0-31.0)
[2022-06-17] MEDS: SODIUM CHLORIDE 0.9% 1000ML 250 ML IV SCH ×2 (03:00→03:30)
[2022-06-17] MEDS ORDERED: AMIODARONE 360MG / 200ML D5W IV ONE (03:10)
[2022-06-17] MEDS ORDERED: STAT IV Infusion **Titration per Protocol STA ×3 (03:12→12:17)
[2022-06-17] MEDS ORDERED: AMIODARONE IV BOLUS & DRIP IV STA (03:12)
[2022-06-17] MEDS ORDERED: AMIODARONE / D5W 150 MG/100 ML BAG IV STA (03:12)
[2022-06-17] MEDS ORDERED: 0.2 MICRON FILTER SET 1 EACH IV STA (03:12)
[2022-06-17] MEDS ORDERED: 0.2 MICRON FILTER SET 1 EACH IV ONE (03:12)
[2022-06-17] MEDS ORDERED: AMIODARONE / D5W 360 MG/200 ML BAG IV SCH (03:15)
[2022-06-17] MEDS ORDERED: AMIODARONE / D5W 360 MG/200 ML BAG IV ONE (03:22)
[2022-06-17] MEDS: PIPERACILLIN/TAZOBACTAM 3.375 GM in DEXTROSE 5% 100 ML IV SCH ×3 (05:05→20:41)
[2022-06-17] MEDS ORDERED: SODIUM CHLORIDE 0.9% 1000ML 500 ML IV SCH (06:15)
[2022-06-17 06:37] LABS: Basophils # (auto) 0.05 K/uL (0-0.2); Basophils % (auto) 0.3 %; Eosinophils # (auto) 0.14 K/uL (0-0.50); Eosinophils % (auto) 0.8 %; Hematocrit (blood only) 26.9 % (34.1-44.9); Hemoglobin 9.4 g/dl (12.0-16.0); Immature Granulocytes % (auto) 1.7 %; Lymphocytes # (auto) 1.46 K/uL (1.2-3.4); Lymphocytes % (auto) 8.1 %; Mean Corpuscular Hemoglobin 30.6 pg (25.0-34.0); Mean Corpuscular Hgb Conc 34.9 g/dL (32.0-36.0); Mean Corpuscular Volume 87.6 fL (80.0-100.0); Mean Platelet Volume 9.7 fL (9.4-12.3); Monocytes # (auto) 0.14 K/uL (0.24-0.82); Monocytes % (auto) 0.8 %; Neutrophils # (auto) 15.95 K/uL (1.4-6.5); Neutrophils % (auto) 88.3 %; Platelet Count 210 K/uL (130-400); RDW Coefficient of Variation 13.9 % (11.5-14.5); RDW Standard Deviation 44.1 fL (36.4-46.3); Red Blood Count 3.07 M/uL (3.93-5.22); White Blood Count 18.04 K/ul (4.8-10.8)
--- NOTE | 2022-06-17 06:54 | Communication Note ---
Date of Service: June 17, 2022 Patient admitted 06/16/22 for afib with RVR, syncope following 2 discharges of her AICD, and concern for sepsis. Patient transferred to ICU for hypotension and tachycardia. Patient arrives alert and oriented, NSR on the monitor remains with SBP in the 90s Maps 65. She does have a Flores catheter in and is making adequate urine. Patient states that about for past 2 weeks she has been feeling weand tired as well as having LLQ abdominal pain associated with diarrhea and fevers and chills. Patient states that this all started at the same time. Consider She was just recently discharged earlier this month for Afib with RVR admission. She was started on amiodarone and Eliquis at that time. Last dose of Eliquis was on Saturday. This was stopped by admitting service in favor of heparin infusion for concerns of elevated LFTS and elevated bilirubin. BLood cultures are pending- UA is pending. She is on Zosyn will send MRSA swab and check co rtisol and TSH and procalcitonin. Patient states that she has been compliant with her medications at home. Support blood pressure if needed with norsynephrine, evaluate volume status, replete magnesium to at least 2.0. [address] CT abd/pelvis for evaluation of colitis- current IV abx therapy appropriate for this coverage as well. Full consultation to follow. Keep NPO for possible cardioversion if required. Thomas [place] ([facility]-) Coding Level of Care Code None
[2022-06-17] MEDS: MAGNESIUM SULFATE / D5W 1 GM/100 ML BAG IV SCH ×2 (06:57→10:22)
[2022-06-17 06:58] LABS: Appearance Urine Turbid (Clear); Bilirubin Urine Negative (Negative); Blood Urine Negative (Negative); Color Urine Dark Yellow; Epithelial Cell Urine Auto >30 /lpf (0-5); Glucose Urine UA 2+ (Negative); Ketones Urine Trace (Negative); Leukocyte Esterase Urine 2+ (Negative); Nitrite Urine Negative (Negative); Protein Urine 1+ (Negative); Specific Gravity Urine 1.023 (1.000-1.030); Urobilinogen Urine Negative (Negative); WBC Urine Automated >30 /hpf (0-5)
[2022-06-17 07:13] LABS: Bacteria Urine Automated 1+ (Negative); RBC Urine Automated 0-4 /hpf (0-4)
[2022-06-17 07:21] LABS: Albumin Level 2.4 gm/dl (3.4-5.0); BUN Creatinine Ratio 21.5 (10-20); Bilirubin,Total 0.6 mg/dl (0.2-1.0); Calcium 7.7 mg/dl (8.5-10.1); Creatinine Clr Calc Pharmacy 32.3 ml/min; Est GFR (African American) 35.1 ml/min; Est GFR (Non-African American) 30.3 ml/min; Globulin 2.5 gm/dl (2.5-4.0); Potassium 2.8 mmol/L (3.5-5.1); Total Protein 4.9 gm/dl (6.0-8.3)
[2022-06-17] MEDS: PHENYLEPHRINE HCL 20 MG in DEXTROSE 5% 500 ML IV SCH ×2 (07:23→11:36)
[2022-06-17] MEDS ORDERED: LACTATED RINGER'S 1,000 ML IV SCH (07:30)
[2022-06-17] MEDS ORDERED: POTASSIUM CHLORIDE CRTAB 20 MEQ TABCR PO STA (07:34)
--- NOTE | 2022-06-17 07:35 | Critical Care Consultation ---
Date of Consultation June 17, 2022 Assessment & Plan (1) Atrial fibrillation with rapid ventricular response: (2) ANA (acute kidney injury): (3) Syncope: (4) Wide-complex tachycardia: (5) Fibromyalgia: (6) Diabetes: (7) Cardiomyopathy: (8) Obesity (BMI 30-39.9): (9) Anemia: (10) Shock circulatory: (11) Nausea & vomiting: Plan Reason Critically Ill: 77-year-old female past medical history of A. fib on Eliquis and amiodarone, sleep apnea, diabetes type 2, CKD, nonischemic cardiomyopathy presented to hospital with presyncope. Was found to be hypotensive and tachycardic and transferred to the ICU for further management Neuro - [facility] ICU: Negative Cardiac - -- Shock Likely septic Continue vasopressor support to keep MAP greater than 65 AM cortisol 24.83 TSH 1.08 --Nonischemic cardiomyopathy Last echo was in 2019 with a EF 20-25% Repeat 2D echo Respiratory - --Patient is on Advair at home for possible asthma Would continue with Breo while in the hospital Covid-19 NAAT negative GI - -- Epigastric abdominal pain Continue with pantoprazole -- Nausea/vomiting 2 places might be playing a role Continue with antiemetic RENAL/LYTES - -- ANA Follow-up urine lites Monitor BUN/creatinine Avoid nephrotoxic medications Strict ins and outs - -- Continue with Flores catheter ENDO - -- ICU hypoglycemia protocol HEME - -- Normocytic anemia Continue to monitor H&H ID - -- Leukocytosis with dirty urine Follow-up urine and blood culture Procalcitonin 9.41 Continue with antibiotics --Prophylaxis VTE: IPC's, apixaban on hold GI: Pantoprazole Lines: Right IJ, right radial, positive Flores Diet: N.p.o. Plan: Continue with vasopressor support to keep MAP greater than 65 We will give her gentle fluid given the chest x-ray is normal and patient is saturating 100% on room air. Repeat 2D echo Hypokalemia and magnesium being replaced Follow-up urine lites Continue with amiodarone drip I have personally spent 62 minutes of critical care time in the direct management of this patient. This is a life/limb threatening event. This includes time spent evaluating patient, direct bedside care, chart review, placing orde rs, interpretation of diagnostic studies, discussion with consultants, patient, and family members, as well as other required patient management activities. This time is exclusive of all separately billable procedures, and teaching time and separate from and in addition to any other critical care service time. History of Present Illness Attending Physician: Caro Huynh MD History of Present Illness 77-year-old female present to the hospital with presyncopal episode and firing of her AICD Past medical history: Diabetes type 2, sleep apnea, nonischemic cardiomyopathy, hypertension, A. fib on apixaban, CKD Patient was admitted to the floor evening of 06/16/2022 Patient was recently admitted here from 06/07-06/11/2022 for hyperglycemia due to medication non compliance with ANA in the setting of recent illness with the flu. During that hospitalization, she was noted to have episode of non sustained V tach believed to be due to her metabolic derangements and her amiodarone was increased to 200mg BID. Today in the morning patient was found to be hypotensive and tachycardic. She was already on amiodarone drip. Patient's blood pressure was in the systolic 80s. She was started on phenylephrine drip. Blood pressure was still on the lower side and will be needing increasing amount of phenylephrine. Patient did get 1.5 L since coming to the hospital. Patient denies any chest pain. She did complain of nausea vomiting and mild abdominal pain. No dysuria. Denies any significant episode of diarrhea. No headache, no blurry vision Social history: Lifetime non-smoker Allergies Allergy/AdvReac Type Severity Reaction Status Date / Time propoxyphene Allergy Intermediate Edema Verified 06/16/22 19:09 airway - DARVON erythromycin base Allergy Mild Nausea Verified 06/16/22 19:09 salicylates Allergy Mild Hives/nause Verified 06/16/22 19:09 a Penicillins AdvReac Intermediate Nausea and Verified 06/16/22 19:09 dizziness amitriptyline AdvReac Mild Dizziness Verified 06/16/22 19:09 azithromycin AdvReac Mild STOMACH Verified 06/16/22 19:09 PAINS/ACHES ALL OVER Bactrim AdvReac Mild GI upset, Verified 09/10/17 07:13 nausea, vomiting Corticosteroids AdvReac Mild Prednisone, Verified 06/16/22 19:09 (Glucocorticoids) rapid weight gain hydrocodone AdvReac Mild Nausea, Verified 06/16/22 19:09 vomiting latex AdvReac Mild Rash Verified 06/16/22 19:09 lisinopril AdvReac Mild COUGH Verified 06/16/22 19:09 morphine AdvReac Mild Nausea Verified 06/16/22 19:09 pseudoephedrine AdvReac Mild Dizziness Verified 06/16/22 19:09 sulfamethoxazole AdvReac Mild GI upset, Verified 06/16/22 19:09 nausea, vomiting thiopental AdvReac Mild Nausea, Verified 06/16/22 19:09 vomiting trimethoprim AdvReac Mild GI upset, Verified 06/16/22 19:09 nausea, vomiting Home Medications Medication Instructions Recorded Confirmed Type artificial tears(hypromellose) 0.3 1 drp OPB HS 06/19/18 06/16/22 History % eye gel (Systane Gel) calcium citrate 200 mg 2 tab PO QAM 06/19/18 06/16/22 History calcium-vitamin D3 6.25 mcg (250 unit) tablet (Citracal-D3 Petites) cholecalciferol (vitamin D3) 25 1,000 unit PO BID 06/19/18 06/16/22 History mcg (1,000 unit) capsule (Vitamin D3) apixaban 5 mg tablet (Eliquis) 5 mg PO BID 03/20/19 06/16/22 History furosemide 40 mg tablet (Lasix) 40 mg PO QAM 03/20/19 06/16/22 History rosuvastatin 5 mg tablet (Crestor) 5 mg PO HS 03/20/19 06/16/22 History sacubitril 24 mg-valsartan 26 mg 1 tab PO BIDM 03/20/19 06/16/22 History tablet (Entresto) spironolactone 25 mg tablet 12.5 mg PO 3XWK 03/20/19 06/16/22 History benzonatate 100 mg capsule 100 mg PO TID PRN Cough 06/07/22 06/16/22 History dulaglutide 0.75 mg/0.5 mL 0.75 mg subcut WK 06/07/22 06/16/22 History subcutaneous pen injector (Trulicity) fluticasone furoate 100 1 inh inhalation QAM 06/07/22 06/16/22 History mcg-vilanterol 25 mcg/dose inhalation powder (Breo Ellipta) insulin glargine 100 unit/mL (3 40 unit subcut QAM 06/07/22 06/16/22 History mL) subcutaneous pen (Basaglar KwikPen U-100 Insulin) meclizine 12.5 mg tablet 12.5 mg PO TID PRN Dizziness Or 06/07/22 06/16/22 History Vertigo methylcellulose (laxative) 2 g PO DAILY 06/07/22 06/16/22 History metoprolol succinate 100 mg 100 mg PO BID 06/07/22 06/16/22 History tablet,extended release 24 hr multivitamin 1 tab PO DAILY 06/07/22 06/16/22 History olopatadine 0.2 % eye drops 1 drp OPR QAM 06/07/22 06/16/22 History (Pataday Once Daily Relief) amiodarone 200 mg tablet 200 mg PO UD 06/16/22 06/16/22 History fluticasone propionate 230 2 puff inhalation DAILY 06/16/22 06/16/22 History mcg-salmeterol 21 mcg/actuation HFA inhaler (Advair HFA) Patient History Medical History (Updated 06/17/22 @ 10:19 by Ricardo Potter MD, [facility]) Bronchitis Cancer SKIN CANCER Diabetes Diabetes mellitus type 2, controlled Diabetes mellitus, type 2 Dyslipidemia Endometriosis Endometriosis Fibromyalgia Fibromyalgia Hepatitis C A CHILD Hot flashes HTN (hypertension) Hyperlipidemia Hypertension Left bundle branch block Migraine Sheehan's neuroma Nonischemic cardiomyopathy Osteoarthritis Paroxysmal atrial fibrillation Sciatica Temporomandibular joint disorder Surgical History H/O: hysterectomy History of cataract surgery RT/LEFT History of tonsillectomy History of tooth extraction History of total hysterectomy with bilateral salpingo-oophorectomy (BSO) S/P BSO (status post bilateral salpingo-oophorectomy) Family History Father Family history of diabetes mellitus Other Breast cancer Hemochromatosis Social History Smoking Status: Never smoker Second Hand Exposure: No; Do You Dip or Chew Tobacco: No; Tobacco Cessation Education Requested by Patient: No Hx Alcohol Use: No Hx Substance Use: No Preferred Language: Hebrew Communication Ability: Effective Tennis Player Required: No Beliefs That Will Affect Care: None marital status: Current Living Situation: Spouse current occupation: Homemaker Other Information That Helps Us Care for You: No Feels Safe at Home: Yes Safety Concerns: Feels Safe At This Time Assistive Devices: Glasses and Walker Review of Systems Review of Systems: All systems reviewed & are unremarkable except as noted in HPI & below Physical Exam Physical Exam: Constitutional: No acute distress HEENT: EOMI, PERRLA Respiratory system: Decreased air entry bilaterally, no wheeze, no rhonchi, positive crackles bilateral lower lobe CVS: S1-S2 positive, no murmurs or gallops, distant heart sounds Abdomen: Soft, nondistended, positive bowel sounds x4, obese, mild epigastric tenderness, no rebound Extremities: +2 pulses bilaterally radialis/ dorsalis pedis, no cyanosis, no edema Neuro: Awake alert oriented x3 Psych: Normal mood and affect G/U: Positive Flores Skin: no rashes, warm and dry Lymphatic: no cervical or axillary lymphadenopathy Results & Data Results & Data ([facility]) Vital Signs (Past 12 Hours) Vital Signs Temp Pulse Pulse Resp BP Pulse Ox Pulse Ox 06/17/22 06:46 36.5 C 85 20 80/46 L 96 06/17/22 02:00 06/17/22 04:15 121 H 98/61 L 06/17/22 02:30 131 H 74/49 L 06/17/22 03:00 118 H 107/62 06/17/22 00:44 97 H 06/17/22 01:05 36.4 C L 98 H 18 98/43 L 98 06/16/22 21:06 107 H 16 110/44 L 98 06/16/22 21:06 98 O2 Del Method O2 Del Method 06/17/22 06:46 Room Air 06/17/22 02:00 Room Air 06/17/22 04:15 06/17/22 02:30 06/17/22 03:00 06/17/22 00:44 06/17/22 01:05 Room Air 06/16/22 21:06 Room Air 06/16/22 21:06 Room Air Laboratory Results 06/17/22 06:26 06/17/22 06:26 Coding Level of Care Code Critical Care 1st 30-74 mins Diagnoses Atrial fibrillation with rapid ventricular response I48.91 ANA (acute kidney injury) N17.9 Syncope R55 Syncope type: unspecified Wide-complex tachycardia R00.0 Fibromyalgia M79.7 Diabetes E11.9 Cardiomyopathy I42.9 Obesity (BMI 30-39.9) E66.9 Anemia D64.9 Shock circulatory R57.9 Nausea & vomiting R11.2 Time Spent (min) 62 (1) Syncope Syncope type: unspecified Qualified Code(s): R55 - Syncope and collapse
[2022-06-17] MEDS: POTASSIUM CHLORIDE / WTR 10 MEQ/100 ML PLCT IV SCH ×3 (07:50→11:26)
[2022-06-17] MEDS: NOREPINEPHRINE/D5W 4 MG/250 ML PLCT IV SCH ×2 (08:00→19:12)
[2022-06-17] MEDS ORDERED: MAGNESIUM SULFATE / D5W 1 GM/100 ML BAG IV ONE (08:03)
--- NOTE | 2022-06-17 08:05 | Ultrasound Report ---
US liver HISTORY: 77 years-old Female RUQ pain. Acute right upper quadrant abdominal pain COMPARISON: Chest CT 03/19/2019 TECHNIQUE: Multiple real-time sonographic images of the abdominal right upper quadrant were obtained assessing grayscale appearance and color flow FINDINGS: There is a 1.7 x 1.0 x 1.8 cm hypoechoic structure noted within the sultana hepatis. Visualized pancrea s is unremarkable. The liver measures up to 19.6 cm in length and demonstrates increased echogenicity with questioned subtle marginal nodularity. No hepatic mass identified. Unremarkable gallbladder. No shadowing cholelithiasis, wall thickening or pericholecystic fluid. Negative sonographic Berumen's si gn. Normal common bile duct, 4 mm. Imaged right kidney is unremarkable without hydronephrosis. IMPRESSION: 1. Unremarkable gallbladder. 2. No biliary ductal dilation. 3. Indeterminate 1.8 cm periportal lymph node. 4. Findings suggestive of hepatic steatosis with equivocal cirrhosis. ACT 112: Negative or not required by law. The above report was generated using voice recognition software. It may contain grammatical, syntax o r spelling errors. Electronically signed by: Camilo Mcmahan M.D. 06/17/2022 8:02 AM
[2022-06-17 08:57] LABS: Magnesium 2.5 mg/dl (1.7-2.4); Phosphorus 2.2 mg/dl (2.5-4.9)
[2022-06-17 09:04] LABS: Partial Thromboplastin Ratio 1.8
[2022-06-17] MEDS ORDERED: NOREPINEPHRINE/D5W 4 MG/250 ML IV ONE (09:14)
--- NOTE | 2022-06-17 09:16 | Communication Note ---
Date of Service: June 17, 2022 Last night patient SBP dropped to 70's and HR 120-130. With 250cc fluid bolus BP improved to 90-100 range. Restarted amiodarone drip without bolus. Seems improved but again BP dropping into 70's. Ordered another 500cc bolus and transferred to icu for close monitoring as patnet EF 20-25% and presented with syncope and firing of defibrillator.. Will follow am labs and lactic acid.Notified Am provider. Appreciate critical care help..
[2022-06-17 09:21] LABS: Partial Thromboplastin Time 50.7 Seconds (21.0-31.0)
--- NOTE | 2022-06-17 09:33 | XRay Report ---
XR chest 1V portable HISTORY: Right IJ catheter placement. COMPARISON: Chest 06/16/2022. FINDINGS: The heart remains mildly enlarged. No pneumothorax. No pleural effusions. Left-sided pacema ker/defibrillator is again noted. No evidence for pulmonary edema. No new focal lung consolidations t o suggest a pneumonia. A right jugular central venous catheter terminates in the proximal SVC. IMPRESSION: A right jugular central venous catheter terminates in the proximal SVC. No pneumothorax. ACT 112: Negative or not required by law. Electronically signed by: Linus Pederson M.D. 06/17/2022 9:32 AM
--- NOTE | 2022-06-17 10:02 | Procedure Note ---
Procedure Note Date of Service June 17, 2022 Note Procedure: Inserting ultrasound-guided central online user experience strategist: Dr. Ricardo Potter Indication: Hypotension Consent: Emergent verbal consent by patient and verified with timeout prior to procedure. Anesthesia: 1% lidocaine without epinephrine local. Procedure: Consent was verified and timeout performed. Appropriate imaging studies were reviewed prior to the procedure. Under aseptic and sterile condition, right IJ vein was accessed under direct ultrasound guidance. Guidewire was confirmed to be within the lumen of vein with the help of ultrasound. Catheter was introduced via Seldinger technique. Guide a wire was removed. Good non-pulsatile blood flow was appreciated from all the ports. The catheter was placed at 16 cm and sutured in place. BioPatch was applied to the catheter and a sterile Tegaderm dressing was applied over the catheter with careful attention to sterility. Lung sliding was appreciated post procedure with the help ultrasound. Chest x-ray to follow Patient tolerated the procedure well. Blood loss: Less than 2 cc Complications: None Coding CPT Codes Tubes, Drains, and Vasc Access - Tubes, Drains, and Vasc Access: [id number] Place catheter in vein superior or inferior vena cava ([id number]) Tubes, Drains, and Vasc Access - Tubes, Drains, and Vasc Access: [id number] Ultrasound Guidance For Vascular ([id number]) [facility] [place] Procedure Codes (Charges) Tubes, Drains, and Vasc Access Procedure 1: Tubes, Drains, and Vasc Access: [id number] Place catheter in vein superior or inferior vena cava Procedure 2: Tubes, Drains, and Vasc Access: [id number] Ultrasound Guidance For Vascular
--- NOTE | 2022-06-17 10:04 | Procedure Note ---
Procedure Note Date of Service June 17, 2022 Note ARTERIAL LINE PROCEDURE NOTE: Procedure: Arterial Line Placement Attending: Dr. Ricardo Doran MD Indication: Monitoring on Pressors Anesthesia: Local lidocaine 1% Emergent verbal was obtained prior to the procedure. Indication, risks, and benefits were explained at length. A time-out was completed verifying correct patient, procedure, site, positioning, and implant(s) or special equipment if applicable. Allens test was performed to ensure adequate perfusion. Patients right wrist was prepped and draped in the usual sterile fashion. Ultrasound guidance was used to aid needle placement. A 20g Arrow arterial line was introduced into the right radial artery. Catheter was threaded, and the needle was removed with appropriate pulsatile blood return. Good waveform was observed on the monitor. The patient tolerated the procedure well. Confirmation of placement with ultrasound. Images saved to medical record. Complications: None Blood Loss: Less than 1 cc Coding CPT Codes Tubes, Drains, and Vasc Access - Tubes, Drains, and Vasc Access: [id number] Place Catheter In Artery ([id number]) Tubes, Drains, and Vasc Access - Tubes, Drains, and Vasc Access: [id number] trasound Guidance For Vascular ([id number]) [facility] [place] Procedure Codes (Charges) Tubes, Drains, and Vasc Access Procedure 1: Tubes, Drains, and Vasc Access: [id number] Place Catheter In Artery Procedure 2: Tubes, Drains, and Vasc Access: [id number] Ultrasound Guidance For Vascular
[2022-06-17] MEDS: AMIODARONE / D5W 360 MG/200 ML BAG IV SCH ×2 (10:23→16:51)
[2022-06-17] MEDS: FLUTICASONE/VILANTEROL 100/25MCG 14 PUFFS/INHALER INH SCH (10:25)
[2022-06-17] MEDS ORDERED: NORMOSOL-R 500 ML IV ONE (10:27)
--- NOTE | 2022-06-17 10:27 | Cardiology Consultation ---
Date of Consultation June 17, 2022 Assessment & Plan (1) ICD (implantable cardioverter-defibrillator) discharge: (2) Atrial fibrillation with rapid ventricular response: (3) Nausea & vomiting: (4) ANA (acute kidney injury): (5) Hypomagnesemia: (6) Syncope: (7) Acute hyperglycemia: (8) Hypomagnesemia: (9) NICM (nonischemic cardiomyopathy): (10) Noncompliance with medication regimen: (11) UTI (urinary tract infection): Plan I attempted to personally review her partial device interrogation and it appears as though she received ICD shocks for atrial fibrillation in the 180s. She has now converted to normal sinus rhythm and being reloaded with amiodarone which I agree with. Patient with multiple other medical issues at this time and will defer to primary team and our critical care colleagues for further treatment and evaluation Continue to monitor on telemetry Her Eliquis was held in favor of IV heparin and this should be continued History of Present Illness Reason for Consultation: syncope Attending Physician: Caro Huynh MD History of Present Illness The patient is a very pleasant 77-year-old woman who is well-known to our cardiology practice. She presented to [facility] on 06[facility]16[facility]2019 with recurrent syncope. She states that she is just been feeling very tired and weak for the last day or so. Her provides the majority of the history and notes that his had a mechanical fall this morning but was too weak to get up. EMS was summoned and while they were picking her off the ground her ICD discharged. She reports 2 ICD shocks but device interrogation showed 3 shocks were delivered. Upon arrival to emergency department she was in A. fib with rapid ventricular response along with hyperglycemia, acute kidney injury and significant leukocytosis. She was appropriately started on an amiodarone drip and converted to normal sinus rhythm on her own. Currently she states that she is feeling very tired and washed out but denies any cardiac complaints. PHMHX: 1. NICM s/p BiV ICD, normalized 2. PAF on chronic amiodarone and Eliquis 3. HTN 4. DM2 5. DUSTIN Allergies Allergy/AdvReac Type Severity Reaction Status Date / Time propoxyphene Allergy Intermediate Edema Verified 06/16/22 19:09 airway - DARVON erythromycin base Allergy Mild Nausea Verified 06/16/22 19:09 salicylates Allergy Mild Hives/nause Verified 06/16/22 19:09 a Penicillins AdvReac Intermediate Nausea and Verified 06/16/22 19:09 dizziness amitriptyline AdvReac Mild Dizziness Verified 06/16/22 19:09 azithromycin AdvReac Mild STOMACH Verified 06/16/22 19:09 PAINS/ACHES ALL OVER Bactrim AdvReac Mild GI upset, Verified 09/10/17 07:13 nausea, vomiting Corticosteroids AdvReac Mild Prednisone, Verified 06/16/22 19:09 (Glucocorticoids) rapid weight gain hydrocodone AdvReac Mild Nausea, Verified 06/16/22 19:09 vomiting latex AdvReac Mild Rash Verified 06/16/22 19:09 lisinopril AdvReac Mild COUGH Verified 06/16/22 19:09 morphine AdvReac Mild Nausea Verified 06/16/22 19:09 pseudoephedrine AdvReac Mild Dizziness Verified 06/16/22 19:09 sulfamethoxazole AdvReac Mild GI upset, Verified 06/16/22 19:09 nausea, vomiting thiopental AdvReac Mild Nausea, Verified 06/16/22 19:09 vomiting trimethoprim AdvReac Mild GI upset, Verified 06/16/22 19:09 nausea, vomiting Home Medications Medication Instructions Recorded Confirmed Type artificial tears(hypromellose) 0.3 1 drp OPB HS 06/19/18 06/16/22 History % eye gel (Systane Gel) calcium citrate 200 mg 2 tab PO QAM 06/19/18 06/16/22 History calcium-vitamin D3 6.25 mcg (250 unit) tablet (Citracal-D3 Petites) cholecalciferol (vitamin D3) 25 1,000 unit PO BID 06/19/18 06/16/22 History mcg (1,000 unit) capsule (Vitamin D3) apixaban 5 mg tablet (Eliquis) 5 mg PO BID 03/20/19 06/16/22 History furosemide 40 mg tablet (Lasix) 40 mg PO QAM 03/20/19 06/16/22 History rosuvastatin 5 mg tablet (Crestor) 5 mg PO HS 03/20/19 06/16/22 History sacubitril 24 mg-valsartan 26 mg 1 tab PO BIDM 03/20/19 06/16/22 History tablet (Entresto) spironolactone 25 mg tablet 12.5 mg PO 3XWK 03/20/19 06/16/22 History benzonatate 100 mg capsule 100 mg PO TID PRN Cough 06/07/22 06/16/22 History dulaglutide 0.75 mg/0.5 mL 0.75 mg subcut WK 06/07/22 06/16/22 History subcutaneous pen injector (Trulicity) fluticasone furoate 100 1 inh inhalation QAM 06/07/22 06/16/22 History mcg-vilanterol 25 mcg/dose inhalation powder (Breo Ellipta) insulin glargine 100 unit/mL (3 40 unit subcut QAM 06/07/22 06/16/22 History mL) subcutaneous pen (Basaglar KwikPen U-100 Insulin) meclizine 12.5 mg tablet 12.5 mg PO TID PRN Dizziness Or 06/07/22 06/16/22 History Vertigo methylcellulose (laxative) 2 g PO DAILY 06/07/22 06/16/22 History metoprolol succinate 100 mg 100 mg PO BID 06/07/22 06/16/22 History tablet,extended release 24 hr multivitamin 1 tab PO DAILY 06/07/22 06/16/22 History olopatadine 0.2 % eye drops 1 drp OPR QAM 06/07/22 06/16/22 History (Pataday Once Daily Relief) amiodarone 200 mg tablet 200 mg PO UD 06/16/22 06/16/22 History fluticasone propionate 230 2 puff inhalation DAILY 06/16/22 06/16/22 History mcg-salmeterol 21 mcg/actuation HFA inhaler (Advair HFA) Patient History Medical History (Updated 06/17/22 @ 15:23 by Jesse Gomez DO) Bronchitis Cancer SKIN CANCER Diabetes Diabetes mellitus type 2, controlled Diabetes mellitus, type 2 Dyslipidemia Endometriosis Endometriosis Fibromyalgia Fibromyalgia Hepatitis C A CHILD Hot flashes HTN (hypertension) Hyperlipidemia Hypertension Left bundle branch block Migraine Sheehan's neuroma Nonischemic cardiomyopathy Osteoarthritis Paroxysmal atrial fibrillation Sciatica Temporomandibular joint disorder Surgical History H/O: hysterectomy History of cataract surgery RT/LEFT History of tonsillectomy History of tooth extraction History of total hysterectomy with bilateral salpingo-oophorectomy (BSO) S/P BSO (status post bilateral salpingo-oophorectomy) Family History Father Family history of diabetes mellitus Other Breast cancer Hemochromatosis Social History Smoking Status: Never smoker Second Hand Exposure: No; Do You Dip or Chew Tobacco: No; Tobacco Cessation Education Requested by Patient: No Hx Alcohol Use: No Hx Substance Use: No Preferred Language: Finnish Communication Ability: Effective Painter Ski Edge Required: No Beliefs That Will Affect Care: None marital status: Current Living Situation: Spouse current occupation: Homemaker Other Information That Helps Us Care for You: No Feels Safe at Home: Yes Safety Concerns: Feels Safe At This Time Assistive Devices: Glasses and Walker Review of Systems Review of Systems: All systems reviewed & are unremarkable except as noted in HPI & below Physical Exam Physical Exam: General: Awake, alert and oriented x 3. No acute distress. HEENT: Normocephalic, atraumatic. Pupils equal, round and reactive to light and accommodation. Extraocular muscles are intact. Anicteric sclera. Moist mucous membranes. Neck: No JVD. No bruit. Cardiovascular: Regular. Positive S-4. Normal S-1 and S-2. No S-3. 3/6 holosystolic ejection murmur, left sternal border, mid-clavicular line with radiation to the axilla. No rubs. Pulmonary: Clear to auscultation bilaterally. No rales, rhonchi, or wheezing. Abdomen: Bowel sounds x 4, soft. No rebound, guarding or tenderness. No organomegaly. Extremities: No clubbing, cyanosis or edema. +2 pedal pulses bilaterally. Skin: Warm and dry. Results & Data ([facility]) Vital Signs (Past 12 Hours) Vital Signs Temp Pulse Pulse Resp BP Pulse Ox O2 Del Method 06/17/22 06:46 36.5 C 85 20 80/46 L 96 Room Air 06/17/22 02:00 Room Air 06/17/22 04:15 121 H 98/61 L 06/17/22 02:30 131 H 74/49 L 06/17/22 03:00 118 H 107/62 06/17/22 00:44 97 H 06/17/22 01:05 36.4 C L 98 H 18 98/43 L 98 Room Air (1) Syncope Syncope type: unspecified Qualified Code(s): R55 - Syncope and collapse
[2022-06-17] MEDS: POTASSIUM CHLORIDE / WTR 20 MEQ/100 ML PLCT IV SCH ×2 (10:40→13:52)
[2022-06-17] MEDS: PANTOprazole 40 MG in SYRINGE 0 ML IV SCH (10:40)
[2022-06-17 12:14] LABS: Appearance Urine Turbid (Clear); Bilirubin Urine Negative (Negative); Blood Urine Trace (Negative); Color Urine Yellow; Glucose Urine UA Negative (Negative); Ketones Urine Negative (Negative); Leukocyte Esterase Urine 1+ (Negative); Nitrite Urine Negative (Negative); Protein Urine 1+ (Negative); Specific Gravity Urine 1.019 (1.000-1.030); Urobilinogen Urine Negative (Negative)
[2022-06-17 12:40] LABS: Chloride Random Urine < 15 mmol/L; Creatinine Urine Random 51.7 mg/dl; Sodium Random Urine 15 mmol/L
[2022-06-17 12:45] LABS: Cast Urine Automated 0 /lpf (0-5); Uric Acid Crystals Urine Present (None Prsent)
[2022-06-17 12:46] LABS: RBC Urine Automated 0-4 /hpf (0-4)
[2022-06-17 12:47] LABS: Bacteria Urine Automated 1+ (Negative)
[2022-06-17] MEDS: PHENYLEPHRINE HCL 40 MG in SODIUM CHLORIDE 0.9% 500 ML IV SCH ×3 (12:54→22:28)
[2022-06-17] MEDS: HEPARIN SODIUM/DEXTROSE 25,000 UNITS/500 ML BAG IV SCH (14:44)
[2022-06-17] MEDS ORDERED: INSULIN ASPART PER UNIT SC ONE (15:15)
[2022-06-17] MEDS ORDERED: LANTUS PER UNIT CHARGE SQ ONE (15:15)
--- NOTE | 2022-06-17 15:25 | Pharmacy Report ---
Pharmacy Glycemic Short Note 2 - Date of Service June 17, 2022 - Glycemic Short BSG Results (Last 24 hours): 06/16/22 06/16/22 06/17/22 15:05 20:46 00:33 Glucose 435 H* POC Glucose 471 H* 334 H* POC Glucose (other) 06/17/22 06/17/22 06/17/22 02:48 04:13 06:26 Glucose 161 H POC Glucose 254 H 201 H POC Glucose (other) 06/17/22 06/17/22 06/17/22 07:24 12:04 12:05 Glucose POC Glucose 161 H 361 H* 380 H* POC Glucose (other) 06/17/22 15:06 Glucose POC Glucose POC Glucose (other) 411 H* OUTPATIENT ANTIDIABETIC REGIMEN: * Lantus 40 units daily * Trulicity * HbA1C = pending ASSESSMENT: * Ms Fair is a 77 y/o F with a PMH of T2DM who presents with Afib/ANA. * Patient's BSGs on admission were elevated, > 400 mg/dL. Patient received two IV boluses of insulin yesterday + Lantus 20 units. * BSGs overnight were 334-201 mg/dL. Today's BSGs were 161-380/411. Patient's K is < 3 preventing any insulin insulin. * Patient is currently on the following infusions: Levophed, phenylephrine, and heparin. * There was hesitation to pursue SQ insulin with the above pressors but since IV insulin is not usable, will pursue. Lantus 40 units (full weight-based stress of 3) x 1. Additional 20 units this evening. * After BSG of 380, it was corrected with SQ Novolog. A check two hours later sh owed BSG of 411. This was corrected with a looser CF (since it was only 2 hours after dose of Novolog). Afterwards, Novolog tightened to CF of 10. * BSGs Q4 due to acuity of situation. Initiation IV insulin once potassium safe. PLAN FOR INPATIENT GLYCEMIC CONTROL: * Basal insulin * Lantus 40 units SQ x 1 then 20 units HS * Bolus insulin * NovoLog per scale ACHS or Q6hrs while NPO * Goal Range: Low 110 mg/dL - High 140 mg/dL * Correction Factor: 10 mg/dL/unit * Nutritional / Prandial insulin per carb ratio of 1 unit per -- grams CHO consumed
[2022-06-17] MEDS: BENZONATATE 100 MG CAPSULE PO PRN ×2 (15:48→21:10)
[2022-06-17 16:10] LABS: BUN Creatinine Ratio 23.9 (10-20); Calcium 7.6 mg/dl (8.5-10.1); Creatinine Clr Calc Pharmacy 38.2 ml/min; Est GFR (African American) 42.9 ml/min; Potassium 4.3 mmol/L (3.5-5.1)
[2022-06-17] MEDS ORDERED: SODIUM CHLORIDE 1 GM TABLET PO STA (16:25)
[2022-06-17] MEDS: SODIUM CHLORIDE 0.9% 1000ML 1,000 ML IV SCH (16:47)
[2022-06-17] MEDS: ICU ELECTROLYTE REPLACEMENT PROTOCOL SCH (17:16)
--- NOTE | 2022-06-17 17:53 | Hospitalist Progress Note ---
Date of Service June 17, 2022 Assessment & Plan (1) Atrial fibrillation with rapid ventricular response: (2) ANA (acute kidney injury): (3) Hypomagnesemia: (4) Syncope: (5) Acute hyperglycemia: Plan A fib with RVR Wide complex tachycardia -continue with amiodarone drip. Heparin drip -Check TTE -Appreciate Cardiology input Septic shock -Unclear source. Possibly UTI -continue zosyn pending blood and urine culture -RUQ u/s negative for acute cholecystitis. Transaminitis likely in setting of sepsis ANA -Cr 1.5 from baseline of 1 -Cr improved Hypomagnesemia Hypokalemia -replete PRN Poorly controlled DM with Hyperglycemia -AG 14, s/p 6 units IV insulin -Home regimen: lantus 40 units daily and trulicity -Lantus 20 units BID while here. Carb coverage scale -Pharmacy consult Hyponatremia -mild. May be related to hyperglycemia vs poor oral intake DVT ppx -already on heparin drip Admission and Anticipated Discharge Date Admission Date: June 16, 2022 Subjective Transferred to ICU overnight for hypotension requiring pressors Complains of nausea No diarrhea since being here Physical Exam Physical Exam: Appears ill, nauseous, non toxic Respiratory: breathing comfortably, no wheezing/rhonchi Cardiovascular: regular rate and rhythm, no murmurs Gastrointestinal (Abdomen): soft, no rebound or guarding Musculoskeletal: No edema Neurologic: awake, alert Results & Data Results & Data ([facility]) Vital Signs (Past 12 Hours) Vital Signs Temp Pulse Pulse Resp BP BP Pulse Ox 06/17/22 17:30 70 20 98 06/17/22 17:00 78 21 100 06/17/22 16:30 68 25 H 98 06/17/22 16:00 70 24 100 06/17/22 15:00 62 28 H 99 06/17/22 14:00 70 26 H 99 06/17/22 13:30 67 26 H 99 06/17/22 09:00 06/17/22 13:15 68 21 100 06/17/22 13:00 66 24 100 06/17/22 12:45 66 20 100 06/17/22 12:30 64 20 100 06/17/22 12:15 80 20 100 06/17/22 12:00 67 24 100 06/17/22 11:45 64 33 H 99 06/17/22 11:30 65 19 100 06/17/22 11:15 63 21 100 06/17/22 11:00 67 30 H 100 06/17/22 10:45 67 26 H 100 06/17/22 10:30 76 16 99 06/17/22 10:15 73 30 H 100 06/17/22 10:00 70 22 100 06/17/22 09:45 71 22 100 06/17/22 09:30 93 H 28 H 100 06/17/22 09:15 72 26 H 99 06/17/22 09:00 73 31 H 99 06/17/22 08:45 75 24 100 06/17/22 08:30 90 26 H 100 06/17/22 08:17 77 21 99 06/17/22 08:17 79/46 L 06/17/22 08:15 77 27 H 100 06/17/22 08:01 81 25 H 99 06/17/22 08:01 92/47 L 06/17/22 08:00 82 10 L 100 06/17/22 07:45 74 28 H 98 06/17/22 07:45 86/48 L 06/17/22 07:30 110 H 32 H 99 06/17/22 07:30 78/54 L 06/17/22 07:15 108 H 24 98 06/17/22 07:13 75/46 L 06/17/22 07:13 108 H 28 H 99 06/17/22 07:00 82 28 H 98 06/17/22 07:00 86/42 L 06/17/22 12:00 36.6 C 06/17/22 08:00 36.6 C 06/17/22 06:46 36.5 C 85 20 80/46 L 96 O2 Del Method 06/17/22 17:30 06/17/22 17:00 06/17/22 16:30 06/17/22 16:00 06/17/22 15:00 06/17/22 14:00 06/17/22 13:30 06/17/22 09:00 Room Air 06/17/22 13:15 06/17/22 13:00 06/17/22 12:45 06/17/22 12:30 06/17/22 12:15 06/17/22 12:00 06/17/22 11:45 06/17/22 11:30 06/17/22 11:15 06/17/22 11:00 06/17/22 10:45 06/17/22 10:30 06/17/22 10:15 06/17/22 10:00 06/17/22 09:45 06/17/22 09:30 06/17/22 09:15 06/17/22 09:00 06/17/22 08:45 06/17/22 08:30 06/17/22 08:17 06/17/22 08:17 06/17/22 08:15 06/17/22 08:01 06/17/22 08:01 06/17/22 08:00 06/17/22 07:45 06/17/22 07:45 06/17/22 07:30 06/17/22 07:30 06/17/22 07:15 06/17/22 07:13 06/17/22 07:13 06/17/22 07:00 06/17/22 07:00 06/17/22 12:00 06/17/22 08:00 06/17/22 06:46 Room Air (1) Syncope Syncope type: unspecified Qualified Code(s): R55 - Syncope and collapse
[2022-06-17] MEDS: ROSUVASTATIN CALCIUM 5 MG TAB PO SCH (20:41)
[2022-06-17] MEDS ORDERED: LANTUS PER UNIT CHARGE SQ SCH (21:00)
[2022-06-18] MEDS: INSULIN ASPART PER UNIT SC SCH ×6 (00:05→22:00)
[2022-06-18] MEDS: PIPERACILLIN/TAZOBACTAM 3.375 GM in DEXTROSE 5% 100 ML IV SCH ×3 (04:07→21:44)
[2022-06-18] MEDS: PHENYLEPHRINE HCL 40 MG in SODIUM CHLORIDE 0.9% 500 ML IV SCH ×3 (04:23→11:20)
[2022-06-18 04:33] LABS: Hematocrit (blood only) 29.6 % (34.1-44.9); Hemoglobin 10.6 g/dl (12.0-16.0); Mean Corpuscular Hemoglobin 30.8 pg (25.0-34.0); Mean Corpuscular Hgb Conc 35.8 g/dL (32.0-36.0); Mean Platelet Volume 9.4 fL (9.4-12.3); Platelet Count 369 K/uL (130-400); RDW Standard Deviation 43.7 fL (36.4-46.3); Red Blood Count 3.44 M/uL (3.93-5.22); White Blood Count 26.46 K/ul (4.8-10.8)
[2022-06-18] MEDS: AMIODARONE / D5W 360 MG/200 ML BAG IV SCH (04:54)
[2022-06-18 04:56] LABS: Basophils # (auto) 0.09 K/uL (0-0.2); Basophils % (auto) 0.3 %; Echinocytes 2+; Eosinophils # (auto) 0.47 K/uL (0-0.50); Eosinophils % (auto) 1.8 %; Immature Granulocytes # (auto) 0.44 K/uL (0.00-0.02); Immature Granulocytes % (auto) 1.7 %; Lymphocytes # (auto) 2.28 K/uL (1.2-3.4); Lymphocytes % (auto) 8.6 %; Monocytes # (auto) 0.37 K/uL (0.24-0.82); Monocytes % (auto) 1.4 %; Neutrophils # (auto) 22.81 K/uL (1.4-6.5); Neutrophils % (auto) 86.2 %
[2022-06-18 05:07] LABS: BUN Creatinine Ratio 19.8 (10-20); Calcium 7.6 mg/dl (8.5-10.1); Creatinine Clr Calc Pharmacy 52.2 ml/min; Est GFR (African American) 62.6 ml/min; Magnesium 2.4 mg/dl (1.7-2.4); Potassium 3.5 mmol/L (3.5-5.1)
[2022-06-18] MEDS: ICU ELECTROLYTE REPLACEMENT PROTOCOL SCH ×2 (05:11→18:41)
[2022-06-18] MEDS ORDERED: SODIUM PHOSPHATE 3 MMOL/1 ML INFUSION IV STA (05:13)
[2022-06-18 05:14] LABS: Partial Thromboplastin Ratio 1.8; Partial Thromboplastin Time 48.8 Seconds (21.0-31.0)
[2022-06-18] MEDS: POTASSIUM CHLORIDE / WTR 20 MEQ/100 ML PLCT IV SCH ×2 (05:44→07:51)
[2022-06-18] MEDS ORDERED: SODIUM PHOSPHATE 30 MMOL in SODIUM CHLORIDE 0.9% 500 ML IV ONE (06:00)
--- NOTE | 2022-06-18 06:05 | Electrocardiogram Report ---
Test Reason : Blood Pressure : / mmHG Vent. Rate : 163 BPM Atrial Rate : 166 BPM P-R Int : 000 ms QRS Dur : 136 ms QT Int : 316 ms P-R-T Axes : 000 -55 121 degrees QTc Int : 520 ms Poor data quality, interpretation may be adversely affected Atrial fibrillation with rapid ventricular response Left axis deviation Left bundle branch block Abnormal ECG When compared with ECG of 08-JUN-2022 03:44, No significant change Confirmed by Jaime Lizarraga ([id number]) on 06/18/2022 6:05:24 AM Referred By: REFERRED SELF Confirmed By:Jaime Lizarraga
--- NOTE | 2022-06-18 06:23 | Electrocardiogram Report ---
Test Reason : Blood Pressure : / mmHG Vent. Rate : 121 BPM Atrial Rate : 129 BPM P-R Int : 000 ms QRS Dur : 132 ms QT Int : 410 ms P-R-T Axes : 000 -52 092 degrees QTc Int : 582 ms Atrial fibrillation with rapid ventricular response with occasional ventricular-paced complexes Abnormal ECG When compared with ECG of 16-JUN-2022 15:02, ventricular-paced complexes are now Present Confirmed by Jaime Lizarraga ([id number]) on 06/18/2022 6:23:24 AM Referred By: REFERRED SELF Confirmed By:Jaime Lizarraga
[2022-06-18] MEDS ORDERED: LANTUS PER UNIT CHARGE SQ ONE ×2 (08:15→21:00)
--- NOTE | 2022-06-18 08:19 | Critical Care Progress Note ---
Date of Service June 18, 2022 Assessment & Plan (1) Atrial fibrillation with rapid ventricular response: Plan: Reason Critically Ill: 77-year-old female with a significant past medical history of uncontrolled diabetes, hypertension, hyperlipidemia, nonischemic card iomyopathy, and A. fib presenting with A. fib with significant tachycardia resulting in defibrillation x2. Throughout stay, patient developed hypotension with tachycardia. Concerns for sepsis-like syndrome. Patient requiring vasopressor support as well as amiodarone drip. NEURO - * CAM ICU: NEGATIVE CARDIAC/VASCULAR - * A. fib with RVR: * Appears to be a chronic problem for the patient with acute exacerbation and tachycardia resulting in firing of her AICD x2. * Developed wide complex rhythm on the floor and was started on Amiodarone gtt which remains. * Rates have been greatly improved at this time. * Will defer to cardiology regarding d/c IV amio and reinstitution of PO Rx. * Discussed with nursing to titrate down Martin/Levo gtts as tolerated. * Potassium/Phosphorus being replaced currently. * Will order Solu-Cortef/Florinef dosing. * HTN/HLD: * Hold home antihypertensives while requiring pressors. * Continue Crestor. * ECHO (06/17): EF 50-55% * Monitor on telemetry. RESPIRATORY - * No h/o pulmonary disease. * Saturating well on room air. * Does have a cough today. GI/NUTRITION - * Abdominal Pain: * Initially evaluated with RUQ US. * Patient w/ persistent Leukocytosis today. * Will repeat her PCT. 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 She also is with h/o A. fib so we will recheck a Lactate to assess for less likely finding of ischemia p/t CT abd/pelvis evaluation. * Her abdomen is relatively soft and without significant focal TTP. * NPO w/ sips/chips while requiring 2 pressors. * Prophylaxis: Protonix RENAL/LYTES - * Recurrent UTI: * Urine is poor appearing on admission. * Currently covered with Zosyn - recently completed course of Rocephin. * Urine cultures pending. * IVF: NSS @ 50 mL/hr - * Flores in place - Strict I&Os. ENDO - * DMII - poorly controlled w/ h/o medication noncompliance. * BSGs per unit protocol. ISS --> gtt per unit policy. HEME - * Leukocytosis: * Currently on Zosyn for UTI. * Will evaluate abd/pelvis for other sources given her c/o abdominal pain. ID - * Sepsis: * Likely from urinary source. * Urine cultures pending. * Blood cultures w/o findings. * WBCs continue to climb. * Will recheck PCT. * Stay with Zosyn for now. * Will look for other sources - CT abd/pelvis. LINES/IV ACCESS - * PIVs x2 * RIGHT IJ CVL * RIGHT Radial Arterial Line * Flores DVT PROPHYLAXIS - * Heparin gtt * SCDs I have personally spent 45 minutes of critical care time in the direct management of this patient. This is a life/limb threatening event. This includes time spent evaluating patient, direct bedside care, chart review, placing orders, interpretation of diagnostic studies, discussion with consultants, patient, and family members, as well as other required patient management activities. This time is exclusive of all separately billable procedures, and teaching time and separate from and in addition to any other critical care service time. Thank you for allowing us to participate in the care of this patient. Please refer to my attending physician's documentation for any further recommendations. (2) ICD (implantable cardioverter-defibrillator) discharge: (3) Shock circulatory: (4) ANA (acute kidney injury): (5) Syncope: Admission and Anticipated Discharge Date Admission Date: June 16, 2022 Supervising Physician Co-Signing Physician Notes Patient seen and examined. EMR reviewed. Discussed with off going probation manager as well as overnight critical care FLOYD and daytime critical care FLOYD. Discussed with patient and as well as on multidisciplinary rounds today. The patient continues to complain of abdominal pain which is at her baseline. Her white count remains elevated. She remains pressor dependent. Her cortisol was low. We will start hydrocortisone and Florinef for relative adrenal insufficiency and continue to attempt to wean pressors. Lactate is clearing. Given her persistent abdominal complaints, will obtain CT of the abdomen and pelvis to evaluate for intra-abdominal pathology. Amiodarone per cardiology. Given her tachycardia we will try and wean norepinephrine and manage on Martin-Synephrine. Patient continues to complain of nausea. We will continue supportive care. Subjective Patient was seen and evaluated at bedside this morning. No overnight events were noted. She has been titrated down on both Levophed and phenylephrine drips. Patient complains of her mouth being very dry as well as chronic pain complaints. Otherwise, she reports feeling well. Review of Systems Review of Systems: A complete 10 point review of systems was reviewed with the patient with pertinent positives and negatives as per history of present illness. All else were negative. Physical Exam Physical Exam: VITAL SIGNS - Vital signs and nursing notes were reviewed. GENERAL - 77-year-old female appearing her stated age who is in no acute distress. Communicates well with provider and answers questions appropriately. MOUTH/OROPHARYNX - Without perioral cyanosis. Buccal mucosa pink and dry. NECK - Neck with FROM. Supple to palpation. No nuchal rigidity. LUNGS - Chest wall symmetric without accessory muscle use, intercostals retractions, or central cyanosis. Normal vesicular breath sounds CTA B/L. No wheezes, rales, or rhonchi appreciated. CARDIAC - RRR with S1/S2. No murmur, rubs, or gallops appreciated. ABDOMEN - Abdominal contour obese without pulsations or visible masses. BS normoactive all four quadrants. No tenderness, palpable masses, hepatospleno megaly, or ascites noted. EXTREMITIES - No clubbing or peripheral cyanosis. No pretibial edema present. +3/5 radial and dorsalis pedis pulses palpated throughout. +4/5 strength noted in UE/LE bilaterally. NEUROLOGIC - Cranial nerves II through XII grossly intact. Sensory intact to light touch throughout. PSYCH - A&Ox3 and cooperates fully with examiner. Results & Data Results & Data ([facility]) Vital Signs (Past 12 Hours) Vital Signs Temp Pulse Resp BP BP Pulse Ox 06/18/22 07:48 37.0 C 06/18/22 05:00 98 H 16 98 06/18/22 04:45 107 H 20 97 06/18/22 04:30 77 7 L 97 06/18/22 04:28 81 27 H 97 06/18/22 04:28 128/60 06/18/22 04:15 76 38 H 97 06/18/22 04:00 78 4 L 97 06/18/22 03:45 76 29 H 97 06/18/22 03:30 80 25 H 98 06/18/22 03:15 78 27 H 97 06/18/22 04:00 128/60 06/18/22 03:00 78 33 H 97 06/18/22 02:45 79 22 98 06/18/22 02:30 78 23 97 06/18/22 02:15 78 16 97 06/18/22 02:00 85 32 H 98 06/18/22 01:45 80 26 H 96 06/18/22 01:30 79 31 H 97 06/18/22 01:15 113 H 33 H 98 06/18/22 01:00 107 H 32 H 95 06/18/22 00:45 105 H 27 H 96 06/18/22 00:30 104 H 30 H 95 06/18/22 00:15 98 H 18 97 06/18/22 00:00 97 H 32 H 97 06/17/22 23:45 95 H 22 97 06/17/22 23:30 104 H 31 H 97 06/17/22 23:15 105 H 31 H 98 06/17/22 23:00 93 H 29 H 97 06/17/22 22:45 98 H 30 H 98 06/17/22 22:45 92 H 06/17/22 22:30 94 H 29 H 99 06/17/22 22:15 98 H 30 H 98 06/17/22 22:00 97 H 26 H 99 06/17/22 21:45 90 22 99 06/17/22 21:30 94 H 28 H 98 06/17/22 21:15 99 H 28 H 98 06/17/22 21:00 102 H 32 H 97 06/17/22 20:45 92 H 27 H 97 06/17/22 20:30 101 H 30 H 96 Coding Level of Care Code Critical Care 1st 30-74 mins Diagnoses Atrial fibrillation with rapid ventricular response I48.91 ICD (implantable cardioverter-defibrillator) discharge Z45.02 Shock circulatory R57.9 ANA (acute kidney injury) N17.9 Syncope R55 Syncope type: unspecified Time Spent (min) 45 (1) Syncope Syncope type: unspecified Qualified Code(s): R55 - Syncope and collapse
[2022-06-18] MEDS: FLUTICASONE/VILANTEROL 100/25MCG 14 PUFFS/INHALER INH SCH (08:33)
[2022-06-18] MEDS: HEPARIN SODIUM/DEXTROSE 25,000 UNITS/500 ML BAG IV SCH (08:38)
[2022-06-18] MEDS ORDERED: STAT IV STA (10:20)
[2022-06-18] MEDS ORDERED: CALCIUM GLUCONATE 10% 2,000 MG in DEXTROSE 5% 50 ML IV ONE (10:30)
[2022-06-18] MEDS: FLUDROCORTISONE ACETATE 0.1 MG TAB PO SCH (11:19)
[2022-06-18] MEDS: HYDROCORTISONE SOD 50 MG in SYRINGE 0 ML IV SCH ×3 (11:20→21:55)
[2022-06-18] MEDS: PANTOprazole 40 MG in SYRINGE 0 ML IV SCH (11:22)
[2022-06-18] MEDS: SODIUM CHLORIDE 0.9% 1000ML 1,000 ML IV SCH (11:22)
[2022-06-18 11:25] LABS: Bilirubin Direct 0.2 mg/dl (0-0.2); Bilirubin,Total 0.5 mg/dl (0.2-1.0); Total Protein 4.6 gm/dl (6.0-8.3)
--- NOTE | 2022-06-18 11:34 | Pharmacy Report ---
Pharmacy Glycemic Short Note 2 - Date of Service June 18, 2022 - Glycemic Short BSG Results (Last 24 hours): 06/17/22 06/17/22 06/17/22 12:04 12:05 14:48 Glucose 426 H* POC Glucose 361 H* 380 H* POC Glucose (other) 06/17/22 06/17/22 06/18/22 15:06 21:01 00:01 Glucose POC Glucose POC Glucose (other) 411 H* 297 H 283 H 06/18/22 06/18/22 06/18/22 04:15 04:20 08:33 Glucose 191 H POC Glucose POC Glucose (other) 189 H 181 H OUTPATIENT ANTIDIABETIC REGIMEN: * Lantus 40 units daily * Trulicity * HbA1C = pending ASSESSMENT: * Ms Fair is a 77 y/o F with a PMH of T2DM who presents with weakness, fall, a. fib, hypotension, sepsis from possible urinary vs intrabd source, and ANA. * Patient was initiated on aggressive basal/bolus SQ regimen * Over the last 24 hrs pt has received ~120 units SQ insulin, while NPO and requiring pressor support and while receiving multiple drips mixed in D5W * Continuous infusions have been further concentrated and some sources of dextrose removed. * Will continue with SQ regimen at this time as BSGs have been trending favorably. Will begin to down titrate basal insulin doses given ongoing NPO status and continuation of aggressive Novolog correction (would prefer utilizing more rapid acting insulin more frequently to minimize hypoglycemia risks) PLAN FOR INPATIENT GLYCEMIC CONTROL: * Basal insulin * Lantus 30 units SQ this AM, then dosing per scale this evenin units if BSG less than 140, 10 units if BSG 140-200, 15 units if BSG > 200 * Bolus insulin * NovoLog per scale Q 4 hrs * Goal Range: Low 110 mg/dL - High 140 mg/dL * Correction Factor: 10 mg/dL/unit * Nutritional / Prandial insulin per carb ratio of 1 unit per 6 grams CHO consumed
[2022-06-18] MEDS ORDERED: OPTIRAY 350 100ml IV ONE (12:05)
--- NOTE | 2022-06-18 12:31 | CT Scan Report ---
CT abd pelvis IV con only CLINICAL HISTORY: abd pain, sepsis, uti TECHNIQUE: Helical axial images of the abdomen and pelvis were obtained and displayed. Automated dose lowering techniques and/or adjustment according to patient size were utilized for this exam. This e xam was performed with intravenous contrast. CT DOSE: 1468.49 mGy.cm COMPARISON: Comparison is made to CT abdomen pelvis 09/20/2018 FINDINGS: Lower chest: Small bilateral pleural effusions are seen with associated atelectasis. Liver: Micronodular appearance of the liver surface. Gallbladder and biliary tree: No pericholecystic fluid is. No intra- or extrahepatic biliary ductal d ilation. Pancreas: Unremarkable, no focal lesions. Spleen: Splenule is incidentally noted. Adrenals: Unremarkable. Kidneys and ureters: Unremarkable. Bladder: Limited evaluation due to underdistention. Reproductive organs: Unremarkable. Bowel: Unremarkable appearance of the bowel. The appendix is normal. The pelvic contents are noted in the rectum compatible with tear. A hiatal hernia is seen. Lymph nodes Retroperitoneal: Subcentimeter lymph nodes are noted. Pelvic: Unremarkable. Mesenteric: Unremarkable. Peritoneum: Trace free fluid is seen, mostly in the pelvis. Vessels: Atherosclerotic disease is seen. Redemonstration of calcified splenic artery aneurysm. Abdominal wall: Unremarkable. Bones: Degenerative changes in the visualized spine. Likely chronic fracture in the right transverse process of L4. IMPRESSION: 1. No acute intra-abdominal abnormalities are seen. There is a small amount of intraperitoneal free fluid which is nonspecific. 2. Diarrhea. 3. Bilateral small pleural effusions with associated atelectasis. ACT 112: Negative or not required by law. Electronically signed by: Igor Dooley M.D. 06/18/2022 12:29 PM
--- NOTE | 2022-06-18 13:27 | Cardiology Progress Note ---
Date of Service June 18, 2022 Assessment & Plan (1) ICD (implantable cardioverter-defibrillator) discharge: (2) Atrial fibrillation with rapid ventricular response: (3) Nausea & vomiting: (4) ANA (acute kidney injury): (5) Hypomagnesemia: (6) Syncope: (7) Acute hyperglycemia: (8) NICM (nonischemic cardiomyopathy): (9) Noncompliance with medication regimen: (10) UTI (urinary tract infection): Plan I attempted to personally review her partial device interrogation and it appears as though she received ICD shocks for atrial fibrillation in the 180s. Patient is remained in normal sinus rhythm since admission After receiving amiodarone IV bolus and load for 24 hours I will change her back to oral amiodarone at this time Metoprolol succinate should be continued as well Anticoagulation should be reinstituted once feasible or IV heparin Continue to monitor on telemetry Admission and Anticipated Discharge Date Admission Date: June 16, 2022 Subjective Patient seen and examined. Chart reviewed. Telemetry reviewed. at bedside. States that she continues to feel very weak and tired. Review of Systems Review of Systems: All systems reviewed & are unremarkable except as noted in HPI & below Physical Exam Physical Exam: General: Awake, alert and oriented x 3. No acute distress. HEENT: Normocephalic, atraumatic. Pupils equal, round and reactive to light and accommodation. Extraocular muscles are intact. Anicteric sclera. Moist mucous membranes. Neck: No JVD. No bruit. Cardiovascular: Regular. Positive S-4. Normal S-1 and S-2. No S-3. 3/6 holosystolic ejection murmur, left sternal border, mid-clavicular line with radiation to the axilla. No rubs. Pulmonary: Clear to auscultation bilaterally. No rales, rhonchi, or wheezing. Abdomen: Bowel sounds x 4, soft. No rebound, guarding or tenderness. No organomegaly. Extremities: No clubbing, cyanosis or edema. +2 pedal pulses bilaterally. Skin: Warm and dry. Results & Data ([facility]) Vital Signs (Past 12 Hours) Vital Signs Temp Pulse Resp BP BP Pulse Ox O2 Del Method 06/18/22 11:16 36.3 C L 06/18/22 08:00 Room Air 06/18/22 09:00 73 21 98 06/18/22 08:00 74 26 H 98 06/18/22 07:00 112 H 41 H 97 06/18/22 07:48 37.0 C 06/18/22 05:00 98 H 16 98 06/18/22 04:45 107 H 20 97 06/18/22 04:30 77 7 L 97 06/18/22 04:28 81 27 H 97 06/18/22 04:28 128/60 06/18/22 04:15 76 38 H 97 06/18/22 04:00 78 4 L 97 06/18/22 03:45 76 29 H 97 06/18/22 03:30 80 25 H 98 06/18/22 03:15 78 27 H 97 06/18/22 04:00 128/60 06/18/22 03:00 78 33 H 97 06/18/22 02:45 79 22 98 06/18/22 02:30 78 23 97 06/18/22 02:15 78 16 97 06/18/22 02:00 85 32 H 98 06/18/22 01:45 80 26 H 96 06/18/22 01:30 79 31 H 97 (1) Syncope Syncope type: unspecified Qualified Code(s): R55 - Syncope and collapse
[2022-06-18] MEDS: AMIODARONE 200 MG TAB PO SCH (16:33)
[2022-06-18] MEDS: BENZONATATE 100 MG CAPSULE PO PRN (16:33)
[2022-06-18] MEDS: NOREPINEPHRINE/D5W 4 MG/250 ML PLCT IV SCH (17:15)
[2022-06-18 17:45] LABS: BUN Creatinine Ratio 16.9 (10-20); Calcium 7.8 mg/dl (8.5-10.1); Creatinine Clr Calc Pharmacy 68.4 ml/min; Est GFR (African American) 86.9 ml/min; Potassium 3.8 mmol/L (3.5-5.1)
[2022-06-18] MEDS: POTASSIUM CHLORIDE CRTAB 20 MEQ TABCR PO SCH ×2 (18:49→21:55)
--- NOTE | 2022-06-18 18:53 | Hospitalist Progress Note ---
Date of Service June 18, 2022 Assessment & Plan (1) Atrial fibrillation with rapid ventricular response: (2) ANA (acute kidney injury): (3) Hypomagnesemia: (4) Syncope: (5) Acute hyperglycemia: Plan A fib with RVR Wide complex tachycardia -continue with amiodarone drip. Heparin drip -Management per Cardiology Septic shock -Unclear source. Possibly UTI. Patient reports diarrhea recently but none currently -continue zosyn pending blood and urine culture -RUQ u/s negative for acute cholecystitis. Transaminitis likely in setting of sepsis. CT A/P today unrevealing -Management per ICU ANA -Cr 1.5 from baseline of 1 -Cr improved Hypomagnesemia Hypokalemia -replete PRN Poorly controlled DM with Hyperglycemia -AG 14, s/p 6 units IV insulin -Home regimen: lantus 40 units daily and trulicity -Lantus 20 units BID while here. Carb coverage scale -Pharmacy consult Hyponatremia -mild. May be related to hyperglycemia vs poor oral intake DVT ppx -already on heparin drip Admission and Anticipated Discharge Date Admission Date: June 16, 2022 Subjective Still with abdominal pain, unchanged Remains on pressors in ICU Physical Exam Physical Exam: Non toxic, no acute distress Respiratory: Breathing comfortably on room air, no wheezing/rhonchi Cardiovascular: Tachycardic, no murmurs/rubs Gastrointestinal (Abdomen): hypoactive BS, no rebound or guarding Musculoskeletal: No edema Neurologic: awake, alert, spontaneously moving extremities Results & Data Results & Data ([facility]) Vital Signs (Past 12 Hours) Vital Signs Temp Pulse Resp Pulse Ox O2 Del Method 06/18/22 18:00 123 H 27 H 96 06/18/22 17:00 104 H 25 H 98 06/18/22 16:00 110 H 26 H 96 06/18/22 15:00 117 H 23 97 06/18/22 14:00 105 H 30 H 98 06/18/22 13:00 110 H 19 99 06/18/22 12:05 125 H 32 H 99 06/18/22 11:00 72 21 99 06/18/22 10:00 74 22 99 06/18/22 11:16 36.3 C L 06/18/22 08:00 Room Air 06/18/22 09:00 73 21 98 06/18/22 08:00 74 26 H 98 06/18/22 07:00 112 H 41 H 97 06/18/22 07:48 37.0 C (1) Syncope Syncope type: unspecified Qualified Code(s): R55 - Syncope and collapse
[2022-06-18 19:39] LABS: Phosphorus 2.3 mg/dl (2.5-4.9)
[2022-06-18 20:02] LABS: Magnesium 2.2 mg/dl (1.7-2.4)
[2022-06-18] MEDS: ROSUVASTATIN CALCIUM 5 MG TAB PO SCH (21:54)
[2022-06-19] MEDS: PHENYLEPHRINE HCL 40 MG in SODIUM CHLORIDE 0.9% 500 ML IV SCH ×3 (00:17→19:38)
[2022-06-19] MEDS: INSULIN ASPART PER UNIT SC SCH ×6 (00:28→20:16)
[2022-06-19] MEDS: HEPARIN SODIUM/DEXTROSE 25,000 UNITS/500 ML BAG IV SCH ×2 (03:44→22:17)
[2022-06-19] MEDS: PIPERACILLIN/TAZOBACTAM 3.375 GM in DEXTROSE 5% 100 ML IV SCH ×3 (03:44→20:14)
[2022-06-19] MEDS: HYDROCORTISONE SOD 50 MG in SYRINGE 0 ML IV SCH ×4 (03:45→22:29)
[2022-06-19 05:09] LABS: Basophils # (auto) 0.05 K/uL (0-0.2); Basophils % (auto) 0.2 %; Eosinophils # (auto) 0.03 K/uL (0-0.50); Eosinophils % (auto) 0.1 %; Hematocrit (blood only) 31.2 % (34.1-44.9); Hemoglobin 10.6 g/dl (12.0-16.0); Immature Granulocytes # (auto) 0.61 K/uL (0.00-0.02); Immature Granulocytes % (auto) 2.9 %; Lymphocytes # (auto) 1.87 K/uL (1.2-3.4); Mean Corpuscular Hemoglobin 29.5 pg (25.0-34.0); Mean Corpuscular Volume 86.9 fL (80.0-100.0); Mean Platelet Volume 9.1 fL (9.4-12.3); Monocytes # (auto) 0.31 K/uL (0.24-0.82); Monocytes % (auto) 1.5 %; Neutrophils # (auto) 17.87 K/uL (1.4-6.5); Neutrophils % (auto) 86.3 %; Platelet Count 407 K/uL (130-400); RDW Coefficient of Variation 14.1 % (11.5-14.5); Red Blood Count 3.59 M/uL (3.93-5.22); White Blood Count 20.74 K/ul (4.8-10.8)
[2022-06-19 05:35] LABS: Partial Thromboplastin Ratio 2.1
[2022-06-19 05:39] LABS: BUN Creatinine Ratio 15.9 (10-20); Creatinine Clr Calc Pharmacy 64.3 ml/min; Est GFR (African American) 80.6 ml/min; Est GFR (Non-African American) 69.5 ml/min; Magnesium 2.2 mg/dl (1.7-2.4); Partial Thromboplastin Time 58.5 Seconds (21.0-31.0); Phosphorus 1.9 mg/dl (2.5-4.9); Potassium 3.9 mmol/L (3.5-5.1)
[2022-06-19] MEDS: ICU ELECTROLYTE REPLACEMENT PROTOCOL SCH ×2 (05:58→19:10)
[2022-06-19] MEDS ORDERED: SODIUM PHOSPHATE 3 MMOL/1 ML INFUSION IV STA (06:02)
[2022-06-19] MEDS ORDERED: POTASSIUM PHOS 3 MMOL/1 ML INFUSION IV STA (06:18)
[2022-06-19] MEDS: POTASSIUM CHLORIDE CRTAB 20 MEQ TABCR PO SCH ×2 (06:23→12:09)
[2022-06-19] MEDS ORDERED: SODIUM PHOSPHATE 21 MMOL in SODIUM CHLORIDE 0.9% 500 ML IV ONE (06:30)
[2022-06-19] MEDS ORDERED: POTASSIUM PHOSPHATE 15 MMOL in SODIUM CHLORIDE 0.9% 250 ML IV ONE (07:00)
[2022-06-19] MEDS: FLUTICASONE/VILANTEROL 100/25MCG 14 PUFFS/INHALER INH SCH ×2 (08:19→08:26)
[2022-06-19] MEDS: AMIODARONE 200 MG TAB PO SCH ×2 (08:19→17:49)
--- NOTE | 2022-06-19 09:14 | Critical Care Progress Note ---
Date of Service June 19, 2022 Assessment & Plan (1) Atrial fibrillation with rapid ventricular response: Plan: Reason Critically Ill: 77-year-old female with a significant past medical history of uncontrolled diabetes, hypertension, hyperlipidemia, nonischemic car diomyopathy, and A. fib presenting with A. fib with significant tachycardia resulting in defibrillation x2. Throughout stay, patient developed hypotension with tachycardia. Concerns for sepsis-like syndrome. Patient requiring vasopressor support as well as amiodarone drip. NEURO - * CAM ICU: NEGATIVE CARDIAC/VASCULAR - * A. fib with RVR: * Appears to be a chronic problem for the patient with acute exacerbation and tachycardia resulting in firing of her AICD x2. * Amiodarone gtt --> PO Amiodarone yesterday. * Remains rate controlled. * Potassium/Phosphorus being replaced currently. * Hypotension: * In the setting of A. fib/sepsis. * Solu-CortLukas dickinson added yesterday. * Will add Midodrine 10 mg PO TID today. * Will plan to d/c Arterial line as it does not seem to be correlating well at this point. * Hopefully we can wean down pressors further today. * Remains on Levo/Martin * HTN/HLD: * Hold home antihypertensives while requiring pressors. * Continue Crestor. * ECHO (06/17): EF 50-55% * Monitor on telemetry. RESPIRATORY - * No h/o pulmonary disease. * Saturating well on room air. * Does have a cough today. GI/NUTRITION - * Abdominal Pain: * Initially evaluated with RUQ US/CT Abd/Pelvis yesterday w/o acute findings. * Stool cultures added as she is w/ CT findings and clinical symptoms of diarrhea. * Leukocytosis trending down today. * PCT Yesterday trended down. * Her abdomen remains soft and minimally tender to palpation. * NPO w/ sips/chips while requiring 2 pressor - diet to be advanced when pressor requirement improved. * Prophylaxis: Protonix RENAL/LYTES - * Recurrent UTI: * Urine is poor appearing on admission. * Currently covered with Zosyn - recently completed course of Rocephin. * Urine cultures show "yeast not Ursula albicans/dub" * IVF: NSS @ 50 mL/hr - * Flores in place - Strict I&Os. ENDO - * DMII - poorly controlled w/ h/o medication noncompliance. * BSGs per unit protocol. ISS --> gtt per unit policy. HEME - * Leukocytosis: * Improving ID - * Sepsis: * Likely from urinary source. * Urine cultures with yeast alone. * Blood cultures w/o findings. * WBCs continue to climb. * Repeat PCT trending down. * Stay with Zosyn for now - consider deescalation. * CT Abd/Pelvis w/o likely source. * Stool cultures were added. LINES/IV ACCESS - * PIVs x2 * RIGHT IJ CVL * RIGHT Radial Arterial Line - will d/c today. * Flores DVT PROPHYLAXIS - * Heparin gtt * SCDs I have personally spent 45 minutes of critical care time in the direct management of this patient. This is a life/limb threatening event. This includes time spent evaluating patient, direct bedside care, chart review, placing orders, interpretation of diagnostic studies, discussion with consultants, patient, and family members, as well as other required patient management activities. This time is exclusive of all separately billable procedures, and teaching time and separate from and in addition to any other critical care service time. Thank you for allowing us to participate in the care of this patient. Please refer to my attending physician's documentation for any further recommendations. (2) ICD (implantable cardioverter-defibrillator) discharge: (3) Shock circulatory: (4) ANA (acute kidney injury): (5) Syncope: Admission and Anticipated Discharge Date Admission Date: June 16, 2022 Subjective Patient was seen and evaluated by myself at bedside today. She continues to require vasopressor support. Midodrine 10 mg 3 times daily added. Patient continues to have multiple vague complaints of pain which are not new. She reports that she has been passing flatus but has not had a bowel movement. Otherwise, she reports no new symptoms. She denies complaints of headaches, dizziness, chest pain, palpitations, shortness of breath. Review of Systems Review of Systems: A complete 10 point review of systems was reviewed with the patient with pertinent positives and negatives as per history of present illness. All else were negative. Physical Exam Physical Exam: VITAL SIGNS - Vital signs and nursing notes were reviewed. GENERAL - 77-year-old female appearing her stated age who is in no acute distress. Communicates well with provider and answers questions appropriately. MOUTH/OROPHARYNX - Without perioral cyanosis. Buccal mucosa pink and dry. NECK - Neck with FROM. Supple to palpation. No nuchal rigidity. LUNGS - Chest wall symmetric without accessory muscle use, intercostals retractions, or central cyanosis. Normal vesicular breath sounds CTA B/L. No wheezes, rales, or rhonchi appreciated. CARDIAC - RRR with S1/S2. No murmur, rubs, or gallops appreciated. ABDOMEN - Abdominal contour obese without pulsations or visible masses. BS normoactive all four quadrants. No tenderness, palpable masses, hepatosplenomegaly, or ascites noted. EXTREMITIES - No clubbing or peripheral cyanosis. No pretibial edema present. +3/5 radial and dorsalis pedis pulses palpated throughout. +4/5 strength noted in UE/LE bilaterally. NEUROLOGIC - Cranial nerves II through XII grossly intact. Sensory intact to light touch throughout. PSYCH - A&Ox3 and cooperates fully with examiner. Results & Data Results & Data ([facility]) Vital Signs (Past 12 Hours) Vital Signs Temp Pulse Resp BP Pulse Ox Pulse Ox O2 Del Method 06/19/22 05:00 63 35 H 97 06/19/22 04:00 66 21 78 L 06/19/22 03:00 67 24 96 06/19/22 02:00 107 H 32 H 97 06/19/22 01:00 104 H 23 97 06/19/22 00:00 69 21 97 06/19/22 04:00 36.9 C 06/19/22 04:00 65 82/70 L 06/19/22 00:00 97 06/19/22 00:00 67 81/69 L 06/19/22 00:00 68 06/18/22 22:15 Room Air 06/18/22 23:00 67 23 98 06/18/22 22:00 73 32 H 98 06/18/22 23:33 36.8 C O2 Del Method 06/19/22 05:00 06/19/22 04:00 06/19/22 03:00 06/19/22 02:00 06/19/22 01:00 06/19/22 00:00 06/19/22 04:00 06/19/22 04:00 06/19/22 00:00 Room Air 06/19/22 00:00 06/19/22 00:00 06/18/22 22:15 06/18/22 23:00 06/18/22 22:00 06/18/22 23:33 Coding Level of Care Code Critical Care 1st 30-74 mins Diagnoses Atrial fibrillation with rapid ventricular response I48.91 ICD (implantable cardioverter-defibrillator) discharge Z45.02 Shock circulatory R57.9 ANA (acute kidney injury) N17.9 Syncope R55 Syncope type: unspecified Time Spent (min) 45 (1) Syncope Syncope type: unspecified Qualified Code(s): R55 - Syncope and collapse
[2022-06-19] MEDS: NOREPINEPHRINE/D5W 4 MG/250 ML PLCT IV SCH (09:15)
[2022-06-19] MEDS: MIDODRINE HCL 10 MG TAB PO SCH ×3 (09:26→17:50)
[2022-06-19] MEDS ORDERED: LANTUS PER UNIT CHARGE SQ ONE ×3 (10:30→21:00)
--- NOTE | 2022-06-19 10:31 | Cardiology Progress Note ---
Date of Service June 19, 2022 Assessment & Plan (1) ICD (implantable cardioverter-defibrillator) discharge: (2) Atrial fibrillation with rapid ventricular response: (3) Nausea & vomiting: (4) ANA (acute kidney injury): (5) Hypomagnesemia: (6) Syncope: (7) Acute hyperglycemia: (8) NICM (nonischemic cardiomyopathy): (9) Noncompliance with medication regimen: (10) UTI (urinary tract infection): Plan Patient is remained in normal sinus rhythm since admission After receiving amiodarone IV bolus and load for 24 hours I will change her back to oral amiodarone at this time Metoprolol succinate should be continued as well Anticoagulation should be reinstituted once feasible or IV heparin Continue to monitor on telemetry Admission and Anticipated Discharge Date Admission Date: June 16, 2022 Subjective Pt seen and examined. Chart reviewed. Telemetry reviewed. Discussed with nuring staff. Review of Systems Review of Systems: All systems reviewed & are unremarkable except as noted in HPI & below Physical Exam Physical Exam: General: Awake, alert and oriented x 3. No acute distress. HEENT: Normocephalic, atraumatic. Pupils equal, round and reactive to light and accommodation. Extraocular muscles are intact. Anicteric sclera. Moist mucous membranes. Neck: No JVD. No bruit. Cardiovascular: Regular. Positive S-4. Normal S-1 and S-2. No S-3. 3/6 holosystolic ejection murmur, left sternal border, mid-clavicular line with radiation to the axilla. No rubs. Pulmonary: Clear to auscultation bilaterally. No rales, rhonchi, or wheezing. Abdomen: Bowel sounds x 4, soft. No rebound, guarding or tenderness. No organomegaly. Extremities: No clubbing, cyanosis or edema. +2 pedal pulses bilaterally. Skin: Warm and dry. Results & Data ([facility]) Vital Signs (Past 12 Hours) Vital Signs Temp Pulse Resp BP Pulse Ox Pulse Ox O2 Del Method 06/19/22 08:00 36.9 C 06/19/22 05:00 63 35 H 97 06/19/22 04:00 66 21 78 L 06/19/22 03:00 67 24 96 06/19/22 02:00 107 H 32 H 97 06/19/22 01:00 104 H 23 97 06/19/22 00:00 69 21 97 06/19/22 04:00 36.9 C 06/19/22 04:00 65 82/70 L 06/19/22 00:00 97 Room Air 06/19/22 00:00 67 81/69 L 06/19/22 00:00 68 06/18/22 23:00 67 23 98 06/18/22 23:33 36.8 C (1) Syncope Syncope type: unspecified Qualified Code(s): R55 - Syncope and collapse
[2022-06-19] MEDS: SODIUM CHLORIDE 0.9% 1000ML 1,000 ML IV SCH (12:00)
[2022-06-19] MEDS: PANTOprazole 40 MG in SYRINGE 0 ML IV SCH (12:09)
[2022-06-19] MEDS: FLUDROCORTISONE ACETATE 0.1 MG TAB PO SCH (12:30)
[2022-06-19] MEDS: ONDANSETRON INJ 2 MG/ML 2 ML VIAL IV PRN (14:21)
--- NOTE | 2022-06-19 14:45 | Pharmacy Report ---
Pharmacy Glycemic Short Note 2 - Date of Service June 19, 2022 - Glycemic Short BSG Results (Last 24 hours): 06/18/22 06/18/22 06/19/22 17:00 21:56 00:26 Glucose 226 H POC Glucose (other) 242 H 257 H 06/19/22 06/19/22 06/19/22 03:57 05:01 08:06 Glucose 241 H POC Glucose (other) 227 H 221 H 06/19/22 12:00 Glucose POC Glucose (other) 194 H OUTPATIENT ANTIDIABETIC REGIMEN: * Lantus 40 units daily * Trulicity * HbA1C = pending ASSESSMENT: 06/19: * Patient received a total of 98 units of insulin yesterday, 50 of which were basal. * Despite continued NPO status BSG have remained in the 181-257 mg/dL range over the past 24 hours. This may be in part due to the initiation of hydrocortisone IV. * Discussed plan at ICU rounds. Will continue with basal bolus regimen for now as ancipitate BSGs to start to trend down. IF BSGs remain elevated tomorrow, will consider an insulin infusion. 06/18 * Ms Fair is a 77 y/o F with a PMH of T2DM who presents with weakness, f all, a. fib, hypotension, sepsis from possible urinary vs intrabd source, and ANA. * Patient was initiated on aggressive basal/bolus SQ regimen * Over the last 24 hrs pt has received ~120 units SQ insulin, while NPO and requiring pressor support and while receiving multiple drips mixed in D5W * Continuous infusions have been further concentrated and some sources of dextrose removed. * Will continue with SQ regimen at this time as BSGs have been trending favorably. Will begin to down titrate basal insulin doses given ongoing NPO status and continuation of aggressive Novolog correction (would prefer utilizing more rapid acting insulin more frequently to minimize hypoglycemia risks) PLAN FOR INPATIENT GLYCEMIC CONTROL: * Basal insulin * Lantus 30 units SQ this AM, then dosing per scale this evenin units if BSG less than 140, 15 units if BSG 140-200, 25 units if BSG > 200 * Bolus insulin * NovoLog per scale Q 4 hrs * Goal Range: Low 110 mg/dL - High 140 mg/dL * Correction Factor: 10 mg/dL/unit * Nutritional / Prandial insulin per carb ratio of 1 unit per 6 grams CHO consumed
--- NOTE | 2022-06-19 19:18 | Hospitalist Progress Note ---
Date of Service June 19, 2022 Assessment & Plan (1) Atrial fibrillation with rapid ventricular response: (2) ANA (acute kidney injury): (3) Hypomagnesemia: (4) Syncope: (5) Acute hyperglycemia: Plan A fib with RVR Wide complex tachycardia -continue with amiodarone drip--now on amiodarone 400mg BID. Heparin drip (she was previously on Eliquis but placed on a heparin drip at the time of admission due to unclear source of sepsis, consider switching back to Eliquis if no plans for surgery) -Management per Cardiology Septic shock -Unclear source. Possibly UTI. Patient reports diarrhea recently but none currently. C diff here negative -continue zosyn for now -RUQ u/s negative for acute cholecystitis. Transaminitis likely in setting of sepsis. CT A/P yesterday unrevealing -Management per ICU ANA -Cr 1.5 from baseline of 1 -Cr improved Hypomagnesemia Hypokalemia -replete PRN Poorly controlled DM with Hyperglycemia -AG 14, s/p 6 units IV insulin -Home regimen: lantus 40 units daily and trulicity -Lantus 20 units BID while here. Carb coverage scale -Pharmacy consult Hyponatremia -mild. May be related to hyperglycemia vs poor oral intake DVT ppx -already on heparin drip Admission and Anticipated Discharge Date Admission Date: June 16, 2022 Subjective Weaning pressors Still with nausea, no vomiting C diff negative Physical Exam Physical Exam: Obese, no acute distress, non toxic Respiratory: Breathing comfortably on room air, no wheezing/rhonchi Cardiovascular: Regular rate and rhythm, no murmurs/rubs/gallops Gastrointestinal (Abdomen): soft, no rebound or guarding Musculoskeletal: No edema Neurologic: awake, alert, spontaneously moving extremities Results & Data Results & Data ([facility]) Vital Signs (Past 12 Hours) Vital Signs Temp Pulse Resp BP Pulse Ox O2 Del Method 06/19/22 17:30 66 32 H 97 06/19/22 17:15 69 32 H 97 06/19/22 17:00 69 37 H 98 06/19/22 16:45 68 39 H 99 06/19/22 16:30 66 24 98 06/19/22 16:15 71 36 H 99 06/19/22 16:12 75 28 H 98 06/19/22 16:12 109/54 L 06/19/22 16:00 63 31 H 99 Room Air 06/19/22 15:45 65 31 H 97 06/19/22 15:30 63 30 H 97 06/19/22 15:15 65 30 H 97 06/19/22 15:00 63 32 H 98 06/19/22 14:45 61 29 H 97 06/19/22 14:30 64 39 H 99 06/19/22 14:15 58 L 24 98 06/19/22 14:00 66 23 98 06/19/22 13:45 62 27 H 97 06/19/22 13:30 61 16 99 06/19/22 13:15 68 30 H 97 06/19/22 13:00 72 22 100 06/19/22 12:45 66 21 99 06/19/22 12:30 66 34 H 99 06/19/22 12:15 66 19 99 06/19/22 12:00 66 30 H 98 06/19/22 11:45 63 27 H 98 06/19/22 11:30 67 23 99 06/19/22 11:15 62 23 99 Room Air 06/19/22 11:00 69 25 H 99 06/19/22 10:45 64 29 H 99 06/19/22 10:30 65 24 98 06/19/22 10:15 63 21 98 06/19/22 15:30 36.4 C L 06/19/22 12:00 36.4 C L 06/19/22 10:00 65 23 99 Room Air 06/19/22 09:45 60 18 98 06/19/22 09:30 66 21 98 06/19/22 09:15 68 23 99 06/19/22 09:02 74 22 97 06/19/22 09:02 150/79 H 06/19/22 09:00 71 22 98 06/19/22 08:45 60 20 98 06/19/22 08:30 63 30 H 98 06/19/22 08:15 63 27 H 98 06/19/22 08:09 69 29 H 98 06/19/22 08:09 166/97 H 06/19/22 08:00 63 23 98 06/19/22 07:45 63 19 98 Room Air 06/19/22 07:30 61 21 98 06/19/22 07:45 Room Air 06/19/22 08:00 36.9 C (1) Syncope Syncope type: unspecified Qualified Code(s): R55 - Syncope and collapse
[2022-06-19] MEDS: ROSUVASTATIN CALCIUM 5 MG TAB PO SCH (20:26)
[2022-06-20] MEDS: NOREPINEPHRINE/D5W 4 MG/250 ML PLCT IV SCH (01:19)
[2022-06-20] MEDS: SODIUM CHLORIDE 0.9% 1000ML 1,000 ML IV SCH (01:53)
[2022-06-20] MEDS: INSULIN ASPART PER UNIT SC SCH ×6 (01:59→20:30)
[2022-06-20] MEDS: PIPERACILLIN/TAZOBACTAM 3.375 GM in DEXTROSE 5% 100 ML IV SCH ×3 (04:57→20:30)
[2022-06-20] MEDS: HYDROCORTISONE SOD 50 MG in SYRINGE 0 ML IV SCH ×2 (04:58→12:21)
[2022-06-20 05:21] LABS: Hemoglobin 8.9 g/dl (12.0-16.0); Mean Corpuscular Hemoglobin 30.1 pg (25.0-34.0); Mean Corpuscular Volume 91.2 fL (80.0-100.0); Mean Platelet Volume 9.1 fL (9.4-12.3); Platelet Count 246 K/uL (130-400); RDW Coefficient of Variation 14.6 % (11.5-14.5); RDW Standard Deviation 48.2 fL (36.4-46.3); Red Blood Count 2.96 M/uL (3.93-5.22); White Blood Count 10.76 K/ul (4.8-10.8)
[2022-06-20 05:40] LABS: BUN Creatinine Ratio 16.5 (10-20); Calcium 7.8 mg/dl (8.5-10.1); Creatinine Clr Calc Pharmacy 57.7 ml/min; Est GFR (Non-African American) 61.3 ml/min; Magnesium 2.2 mg/dl (1.7-2.4); Phosphorus 2.9 mg/dl (2.5-4.9); Potassium 4.5 mmol/L (3.5-5.1)
[2022-06-20 06:16] LABS: Basophils # (auto) 0.02 K/uL (0-0.2); Basophils % (auto) 0.2 %; Echinocytes 2+; Eosinophils # (auto) 0.01 K/uL (0-0.50); Eosinophils % (auto) 0.1 %; Immature Granulocytes # (auto) 0.56 K/uL (0.00-0.02); Immature Granulocytes % (auto) 5.2 %; Lymphocytes # (auto) 1.91 K/uL (1.2-3.4); Lymphocytes % (auto) 17.8 %; Monocytes # (auto) 0.34 K/uL (0.24-0.82); Monocytes % (auto) 3.2 %; Neutrophils # (auto) 7.92 K/uL (1.4-6.5); Neutrophils % (auto) 73.5 %
[2022-06-20] MEDS: ICU ELECTROLYTE REPLACEMENT PROTOCOL SCH ×2 (06:43→18:29)
[2022-06-20 07:53] LABS: Partial Thromboplastin Time 83.6 Seconds (21.0-31.0)
--- NOTE | 2022-06-20 08:00 | Critical Care Progress Note ---
Date of Service June 20, 2022 Assessment & Plan (1) Atrial fibrillation with rapid ventricular response: Plan: Reason Critically Ill: 77-year-old female with a significant past medical history of uncontrolled diabetes, hypertension, hyperlipidemia, nonischemic car diomyopathy, and A. fib presenting with A. fib with significant tachycardia resulting in defibrillation x2. Throughout stay, patient developed hypotension with tachycardia. Concerns for sepsis-like syndrome. Patient requiring vasopressor support as well as amiodarone drip. NEURO - * CAM ICU: NEGATIVE CARDIAC/VASCULAR - * A. fib with RVR: * Appears to be a chronic problem for the patient with acute exacerbation and tachycardia resulting in firing of her AICD x2. * Rate controlled on PO Amiodarone * Electrolytes well replaced at this point. * Currently on Heparin gtt as there was initial concerns that the patient may require surgical intervention. Her Eliquis can likely be restarted at this point. * Will defer reinstitution of her home BB to cardiology. * Hypotension: * In the setting of A. fib/sepsis. * Now off pressor support. * Solu-Cortef to finish tomorrow. * Florinef to finish soon. * Tolerating Midodrine 10 mg PO TID well. * HTN/HLD: * Hold home antihypertensives while requiring pressors. * Continue Crestor. * ECHO (06/17): EF 50-55% * Monitor on telemetry. RESPIRATORY - * No h/o pulmonary disease. * Saturating well on room air. * Dry cough - improved. GI/NUTRITION - * Abdominal Pain: * RUQ US/CT Abd/pelvis w/o acute findings. * Stool cultures added as she is w/ CT findings and clinical symptoms of diarrhea - has not had significant diarrheal stools in the last few days. * Leukocytosis continues to downtrend. * Her abdomen remains soft and minimally tender to palpation. * Tolerating a diet today. Progress as tolerated. * Prophylaxis: Protonix RENAL/LYTES - * Recurrent UTI: * Urine is poor appearing on admission. * Currently covered with Zosyn - recently completed course of Rocephin. * Urine cultures show "yeast not Ursula albicans/dub" * IVF: NSS @ 50 mL/hr - can be d/c when her PO intake improves. - * Flores in place - Strict I&Os. ENDO - * DMII - poorly controlled w/ h/o medication noncompliance. * BSGs per unit protocol. ISS --> gtt per unit policy. HEME - * Leukocytosis: * Resolved ID - * Sepsis: * Likely from urinary source. * Urine cultures with yeast alone. * Blood cultures w/o findings. * Leukocytosis - resolved. * To complete Zosyn for a total of 5 days as patient has continued to clinically improve. * CT Abd/Pelvis w/o likely source. * Stool cultures were added. LINES/IV ACCESS - * PIVs x2 * RIGHT IJ CVL - can d/c later this afternoon if she remains off pressors. * Floers DVT PROPHYLAXIS - * Heparin gtt * SCDs Thank you for allowing us to participate in the care of this patient. Patient is stable for downgrade from the ICU at this point. Please refer to my attending physician's documentation for any further recommendations. (2) ICD (implantable cardioverter-defibrillator) discharge: (3) Shock circulatory: (4) ANA (acute kidney injury): (5) Syncope: Admission and Anticipated Discharge Date Admission Date: June 16, 2022 Subjective Patient seen and assessed at bedside today. She is awake, alert, and oriented. She is complaining about her TMJ mouthguard which she is concerned is lost. Otherwise, she reports that her abdominal pain has improved. She complains of ongoing gassiness, but no significant bowel movements. Otherwise, she reports feeling better. Review of Systems Review of Systems: A complete 6 point review of systems was reviewed with the patient with pertinent positives and negatives as per history of present illness. All else were negative. Physical Exam Physical Exam: VITAL SIGNS - Vital signs and nursing notes were reviewed. GENERAL - 77-year-old female appearing her stated age who is in no acute distress. Communicates well with provider and answers questions appropriately. NECK - Neck with FROM. RIGHT IJ CVL in place. Dressing clean, dry, and intact. LUNGS - Chest wall symmetric without accessory muscle use, intercostals retractions, or central cyanosis. Normal vesicular breath sounds CTA B/L. No wheezes, rales, or rhonchi appreciated. CARDIAC - RRR with S1/S2. No murmur, rubs, or gallops appreciated. ABDOMEN - Abdominal contour obese without pulsations or visible masses. BS n ormoactive all four quadrants. No tenderness, palpable masses, hepatosplenomegaly, or ascites noted. EXTREMITIES - No clubbing or peripheral cyanosis. No pretibial edema present. Slight edema to the hands bilaterally. +3/5 radial and dorsalis pedis pulses palpated throughout. +4/5 strength noted in UE/LE bilaterally. NEUROLOGIC - Cranial nerves II through XII grossly intact. Sensory intact to light touch throughout. PSYCH - A&Ox3 and cooperates fully with examiner. Results & Data Results & Data ([facility]) Vital Signs (Past 12 Hours) Vital Signs Pulse Resp BP Pulse Ox Pulse Ox O2 Del Method O2 Del Method 06/20/22 07:21 Room Air 06/20/22 00:00 68 99/43 L 06/20/22 04:00 68 122/55 L 06/20/22 06:00 61 30 H 118/59 L 97 06/20/22 05:00 67 21 121/61 98 06/20/22 00:00 60 06/20/22 04:00 62 21 122/55 L 98 06/20/22 03:00 64 28 H 123/53 L 97 06/20/22 02:00 66 25 H 115/70 97 06/20/22 01:08 64 23 101/47 L 96 06/19/22 20:00 Room Air 06/19/22 20:00 60 114/94 06/20/22 01:00 60 16 96 06/20/22 00:00 70 25 H 98 06/19/22 23:00 63 28 H 97 06/19/22 22:00 61 21 96 06/19/22 21:00 61 32 H 98 06/19/22 20:00 61 22 97 06/20/22 00:00 96 Room Air Coding Level of Care Code 08629 SUB INP/OBS CARE 3/50MIN Diagnoses Atrial fibrillation with rapid ventricular response I48.91 ICD (implantable cardioverter-defibrillator) discharge Z45.02 Shock circulatory R57.9 ANA (acute kidney injury) N17.9 Syncope R55 Syncope type: unspecified Time Spent (min) 32 (1) Syncope Syncope type: unspecified Qualified Code(s): R55 - Syncope and collapse
[2022-06-20] MEDS: FLUDROCORTISONE ACETATE 0.1 MG TAB PO SCH (08:11)
[2022-06-20] MEDS: MIDODRINE HCL 10 MG TAB PO SCH ×3 (08:13→17:08)
[2022-06-20] MEDS: FLUTICASONE/VILANTEROL 100/25MCG 14 PUFFS/INHALER INH SCH (08:13)
[2022-06-20] MEDS: AMIODARONE 200 MG TAB PO SCH ×2 (08:13→17:08)
[2022-06-20] MEDS ORDERED: LANTUS PER UNIT CHARGE SQ SCH (09:00)
--- NOTE | 2022-06-20 10:45 | Cardiology Progress Note ---
Date of Service June 20, 2022 Assessment & Plan (1) ICD (implantable cardioverter-defibrillator) discharge: (2) Atrial fibrillation with rapid ventricular response: (3) Nausea & vomiting: (4) ANA (acute kidney injury): (5) Hypomagnesemia: (6) Syncope: (7) Acute hyperglycemia: (8) NICM (nonischemic cardiomyopathy): (9) Noncompliance with medication regimen: (10) UTI (urinary tract infection): Plan has remained in sinus rhythm since admission bp now improving as well ok to change heparin back to Eliquis from a cardiac standpoint will decrease amio to 200mg po bid start metoprolol succinate at 25mg daily restart Entresto once bp allows and uptitrate metoprolol as well Admission and Anticipated Discharge Date Admission Date: June 16, 2022 Subjective Pt seen and examined. Chart reviewed. Telemetry reviewed. Review of Systems Review of Systems: All systems reviewed & are unremarkable except as noted in HPI & below Physical Exam Physical Exam: General: Awake, alert and oriented x 3. No acute distress. HEENT: Normocephalic, atraumatic. Pupils equal, round and reactive to light and accommodation. Extraocular muscles are intact. Anicteric sclera. Moist mucous membranes. Neck: No JVD. No bruit. Cardiovascular: Regular. Positive S-4. Normal S-1 and S-2. No S-3. 3/6 holosystolic ejection murmur, left sternal border, mid-clavicular line with radiation to the axilla. No rubs. Pulmonary: Clear to auscultation bilaterally. No rales, rhonchi, or wheezing. Abdomen: Bowel sounds x 4, soft. No rebound, guarding or tenderness. No organomegaly. Extremities: No clubbing, cyanosis or edema. +2 pedal pulses bilaterally. Skin: Warm and dry. Results & Data ([facility]) Vital Signs (Past 12 Hours) Vital Signs Temp Pulse Resp BP Pulse Ox Pulse Ox O2 Del Method 06/20/22 07:40 Room Air 06/20/22 08:00 36.3 C L 06/20/22 07:21 06/20/22 00:00 68 99/43 L 06/20/22 04:00 68 122/55 L 06/20/22 06:00 61 30 H 118/59 L 97 06/20/22 05:00 67 21 121/61 98 06/20/22 00:00 60 06/20/22 04:00 62 21 122/55 L 98 06/20/22 03:00 64 28 H 123/53 L 97 06/20/22 02:00 66 25 H 115/70 97 06/20/22 01:08 64 23 101/47 L 96 06/20/22 01:00 60 16 96 06/20/22 00:00 70 25 H 98 06/19/22 23:00 63 28 H 97 06/20/22 00:00 96 O2 Del Method 06/20/22 07:40 06/20/22 08:00 06/20/22 07:21 Room Air 06/20/22 00:00 06/20/22 04:00 06/20/22 06:00 06/20/22 05:00 06/20/22 00:00 06/20/22 04:00 06/20/22 03:00 06/20/22 02:00 06/20/22 01:08 06/20/22 01:00 06/20/22 00:00 06/19/22 23:00 06/20/22 00:00 Room Air (1) Syncope Syncope type: unspecified Qualified Code(s): R55 - Syncope and collapse
--- NOTE | 2022-06-20 10:48 | Pharmacy Report ---
Pharmacy Glycemic Short Note 2 - Date of Service June 20, 2022 - Glycemic Short BSG Results (Last 24 hours): 06/19/22 06/19/22 06/19/22 12:00 16:09 20:11 Glucose POC Glucose 163 H 149 H POC Glucose (other) 194 H 06/20/22 06/20/22 06/20/22 01:58 05:08 05:12 Glucose 131 H POC Glucose 162 H 237 H POC Glucose (other) 06/20/22 07:57 Glucose POC Glucose 121 H POC Glucose (other) OUTPATIENT ANTIDIABETIC REGIMEN: * Lantus 40 units daily * Trulicity * HbA1C = pending ASSESSMENT: 06/20 * 86 units insulin administered over last 24 hrs while NPO * BSGs have been improving as stressors have lessened: vasopressors have been weaned off, steroid dose is being tapered * Diet has been ordered this AM * Will taper down basal component slightly, but will continue Novolog CF/CR as currently ordered given diet is starting today. Additional BSG checks overnight may be beneficial for assessing changing insulin needs given events of last 24 hours. 06/19: * Patient received a total of 98 units of insulin yesterday, 50 of which were basal. * Despite continued NPO status BSG have remained in the 181-257 mg/dL range over the past 24 hours. This may be in part due to the initiation of hydrocortisone IV. * Discussed plan at ICU rounds. Will continue with basal bolus regimen for now as ancipitate BSGs to start to trend down. IF BSGs remain elevated tomorrow, will consider an insulin infusion. 06/18 * Ms Fair is a 77 y/o F with a PMH of T2DM who presents with weakness, fall, a. fib, hypotension, sepsis from possible urinary vs intrabd source, and ANA. * Patient was initiated on aggressive basal/bolus SQ regimen * Over the last 24 hrs pt has received ~120 units SQ insulin, while NPO and requiring pressor support and while receiving multiple drips mixed in D5W * Continuous infusions have been further concentrated and some sources of dextrose removed. * Will continue with SQ regimen at this time as BSGs have been trending favorably. Will begin to down titrate basal insulin doses given ongoing NPO status and continuation of aggressive Novolog correction (would prefer utilizing more rapid acting insulin more frequently to minimize hypoglycemia risks) PLAN FOR INPATIENT GLYCEMIC CONTROL: * Basal insulin * Lantus 30 units SQ this AM, then dosing per scale this evenin units if BSG less than 140, 10 units if BSG 140-200, 15 units if BSG > 200 * Bolus insulin * NovoLog per scale Q 4 hrs * Goal Range: Low 110 mg/dL - High 140 mg/dL * Correction Factor: 10 mg/dL/unit * Nutritional / Prandial insulin per carb ratio of 1 unit per 6 grams CHO consumed
[2022-06-20] MEDS: METOPROLOL SUCC 25MG EXT REL TAB PO SCH (12:16)
[2022-06-20 15:07] LABS: Uric Acid, Random Urine 10 mg/dL
[2022-06-20 15:16] LABS: Partial Thromboplastin Ratio 2.9
[2022-06-20 15:22] LABS: Partial Thromboplastin Time 80.3 Seconds (21.0-31.0)
--- NOTE | 2022-06-20 17:23 | Hospitalist Progress Note ---
Date of Service June 20, 2022 Assessment & Plan (1) Atrial fibrillation with rapid ventricular response: (2) ANA (acute kidney injury): (3) Hypomagnesemia: (4) Syncope: (5) Acute hyperglycemia: Plan A fib with RVR Wide complex tachycardia -continue with amiodarone drip--now on amiodarone 400mg BID. Heparin drip (she was previously on Eliquis but placed on a heparin drip at the time of admission due to unclear source of sepsis, consider switching back to Eliquis if no plans for surgery) -Management per Cardiology -Will discontinue IV heparin drip and transition to Eliquis Septic shock -Unclear source. Possibly UTI. Patient reports diarrhea recently but none currently. C diff here negative -continue zosyn for now -RUQ u/s negative for acute cholecystitis. Transaminitis likely in setting of sepsis. CT A/P yesterday unrevealing -resolved ANA -Cr 1.5 from baseline of 1 -Cr improved Hypomagnesemia Hypokalemia -replete PRN Poorly controlled DM with Hyperglycemia -AG 14, s/p 6 units IV insulin -Home regimen: lantus 40 units daily and trulicity -Lantus 20 units BID while here. Carb coverage scale -Pharmacy consult Hyponatremia Na 136 today Stable DVT ppx -already on heparin drip Disposition will transfer to PCU Admission and Anticipated Discharge Date Admission Date: June 16, 2022 Subjective Pt was seen and examined for follow up Lying in bed with no acute distress Pt said that she feels ok Denies any chest pain, palpitation, dizziness and SOB Review of Systems Review of Systems: All systems reviewed & are unremarkable except as noted in Subjective Physical Exam Physical Exam: General- No acute distress Head- atraumatic Eyes- PERRL, EOMI, ENT- oropharynx clear Neck- supple, no JVD Lungs- clear to auscultation Heart- regular rhythm, +murmur Abdomen- normal bowel sounds, soft, nontender Extremities- no calf tenderness Neuro- alert, oriented x 3; PERRL, EOMI; no facial palsy; no dysarthria Skin- warm & dry Results & Data Results & Data ([facility]) Vital Signs (Past 12 Hours) Vital Signs Temp Pulse Resp BP Pulse Ox O2 Del Method O2 Del Method 06/20/22 17:00 63 23 98 06/20/22 16:01 145/59 H 06/20/22 16:01 60 31 H 97 06/20/22 16:00 60 18 96 06/20/22 15:00 60 23 96 06/20/22 15:00 140/63 06/20/22 14:01 142/67 H 06/20/22 14:01 60 29 H 97 06/20/22 14:00 60 18 98 06/20/22 13:00 60 22 99 06/20/22 13:00 149/68 H 06/20/22 12:02 122/60 06/20/22 12:02 65 25 H 06/20/22 12:00 68 25 H 99 06/20/22 11:01 127/58 L 06/20/22 11:01 64 27 H 98 06/20/22 11:00 62 29 H 98 06/20/22 16:00 36.5 C 06/20/22 11:38 36.5 C 06/20/22 10:01 126/48 L 06/20/22 10:01 61 35 H 97 Room Air 06/20/22 10:00 60 24 99 06/20/22 09:00 59 L 25 H 98 06/20/22 09:00 134/63 06/20/22 08:01 123/77 06/20/22 08:01 72 27 H 99 06/20/22 08:00 69 33 H 99 06/20/22 07:00 69 24 99 06/20/22 07:40 Room Air 06/20/22 08:00 36.3 C L 06/20/22 07:21 Room Air 06/20/22 06:00 61 30 H 118/59 L 97 (1) Syncope Syncope type: unspecified Qualified Code(s): R55 - Syncope and collapse
[2022-06-20] MEDS: HEPARIN SODIUM/DEXTROSE 25,000 UNITS/500 ML BAG IV SCH ×2 (18:33→19:38)
[2022-06-20] MEDS: PHENYLEPHRINE HCL 40 MG in SODIUM CHLORIDE 0.9% 500 ML IV SCH (19:35)
[2022-06-20] MEDS: PANTOprazole 40 MG in SYRINGE 0 ML IV SCH (19:35)
[2022-06-20] MEDS ORDERED: HEPARIN-STOP ORDER ONE (19:45)
[2022-06-20] MEDS: LANTUS PER UNIT CHARGE SQ SCH (20:30)
[2022-06-20] MEDS: APIXABAN 5 MG TABLET PO SCH (20:30)
[2022-06-20] MEDS: ROSUVASTATIN CALCIUM 5 MG TAB PO SCH (20:31)
[2022-06-21] MEDS: INSULIN ASPART PER UNIT SC SCH ×6 (00:47→20:38)
[2022-06-21 05:05] LABS: Hematocrit (blood only) 29.2 % (34.1-44.9); Hemoglobin 10.1 g/dl (12.0-16.0); Mean Corpuscular Hemoglobin 31.7 pg (25.0-34.0); Mean Corpuscular Hgb Conc 34.6 g/dL (32.0-36.0); Mean Corpuscular Volume 91.5 fL (80.0-100.0); Mean Platelet Volume 9.1 fL (9.4-12.3); Nucleated RBC # (auto) 0.02 K/uL (0-0); Nucleated RBC % (auto) 0.1 %; Platelet Count 348 K/uL (130-400); RDW Coefficient of Variation 14.6 % (11.5-14.5); RDW Standard Deviation 47.9 fL (36.4-46.3); Red Blood Count 3.19 M/uL (3.93-5.22); White Blood Count 16.75 K/ul (4.8-10.8)
[2022-06-21] MEDS: PIPERACILLIN/TAZOBACTAM 3.375 GM in DEXTROSE 5% 100 ML IV SCH ×3 (05:16→20:27)
[2022-06-21 05:29] LABS: BUN Creatinine Ratio 19.6 (10-20); Calcium 8.5 mg/dl (8.5-10.1); Creatinine Clr Calc Pharmacy 56.1 ml/min; Est GFR (African American) 65.8 ml/min; Est GFR (Non-African American) 56.7 ml/min; Phosphorus 3.1 mg/dl (2.5-4.9); Potassium 3.8 mmol/L (3.5-5.1)
[2022-06-21] MEDS: MIDODRINE HCL 10 MG TAB PO SCH ×2 (08:04→12:55)
[2022-06-21] MEDS: HYDROCORTISONE SOD 50 MG in SYRINGE 0 ML IV SCH (08:04)
[2022-06-21] MEDS: METOPROLOL SUCC 25MG EXT REL TAB PO SCH (08:05)
[2022-06-21] MEDS: PANTOprazole 40 MG TAB PO SCH (08:05)
[2022-06-21] MEDS: AMIODARONE 200 MG TAB PO SCH ×2 (08:05→17:04)
[2022-06-21] MEDS: APIXABAN 5 MG TABLET PO SCH ×2 (08:05→20:43)
[2022-06-21] MEDS: FLUTICASONE/VILANTEROL 100/25MCG 14 PUFFS/INHALER INH SCH ×2 (09:33→09:34)
[2022-06-21] MEDS ORDERED: FUROSEMIDE 40 MG/4 ML VIAL IV ONE (10:08)
--- NOTE | 2022-06-21 10:08 | Cardiology Progress Note ---
Date of Service June 21, 2022 Assessment & Plan (1) ICD (implantable cardioverter-defibrillator) discharge: (2) Atrial fibrillation with rapid ventricular response: (3) Nausea & vomiting: (4) ANA (acute kidney injury): (5) Hypomagnesemia: (6) Syncope: (7) Acute hyperglycemia: (8) NICM (nonischemic cardiomyopathy): (9) Noncompliance with medication regimen: (10) UTI (urinary tract infection): Plan has remained in sinus rhythm since admission bp now improved now examines as volume overloaded after necessary fluid resuscitation, 13 L positive since admission will give one dose of IV lasix now and restart oral lasix 40mg daily recommend following volume status clinically and adjusting diuretics as necessary will restart Entresto recommend increasing metoprolol succinate to previous dose of 100mg daily as vitals allow, will raise to 50mg now Eliquis restarted resume previous oral spironolactone 12.5 mg on MWF will sign off, please call with questions or concerns Admission and Anticipated Discharge Date Admission Date: June 16, 2022 Subjective Pt seen and examined. Chart reviewed. Telemetry reviewed. Discussed with [facility] staff. Review of Systems Review of Systems: All systems reviewed & are unremarkable except as noted in HPI & below Physical Exam Physical Exam: General: Awake, alert and oriented x 3. No acute distress. HEENT: Normocephalic, atraumatic. Pupils equal, round and reactive to light and accommodation. Extraocular muscles are intact. Anicteric sclera. Moist mucous membranes. Neck: No JVD. No bruit. Cardiovascular: Regular. Positive S-4. Normal S-1 and S-2. No S-3. 3/6 holosystolic ejection murmur, left sternal border, mid-clavicular line with radiation to the axilla. No rubs. Pulmonary: Clear to auscultation bilaterally. No rales, rhonchi, or wheezing. Abdomen: Bowel sounds x 4, soft. No rebound, guarding or tenderness. No organomegaly. Extremities: No clubbing, cyanosis or edema. +2 pedal pulses bilaterally. Skin: Warm and dry. Results & Data ([facility]) Vital Signs (Past 12 Hours) Vital Signs Temp Pulse Pulse Resp BP Pulse Ox O2 Del Method 06/21/22 08:00 64 06/21/22 08:15 67 14 143/50 H 100 Room Air 06/21/22 04:25 64 06/20/22 22:49 36.7 C 61 18 105/57 L 99 Room Air (1) Syncope Syncope type: unspecified Qualified Code(s): R55 - Syncope and collapse
[2022-06-21] MEDS: ONDANSETRON INJ 2 MG/ML 2 ML VIAL IV PRN (10:13)
--- NOTE | 2022-06-21 11:04 | Pharmacy Report ---
Pharmacy Glycemic Short Note 2 - Date of Service June 21, 2022 - Glycemic Short BSG Results (Last 24 hours): 06/20/22 06/20/22 06/20/22 11:19 16:21 20:03 Glucose POC Glucose 120 H 169 H 197 H 06/21/22 06/21/22 06/21/22 00:06 04:33 04:44 Glucose 73 POC Glucose 109 H 80 06/21/22 07:36 Glucose POC Glucose 84 OUTPATIENT ANTIDIABETIC REGIMEN: * Lantus 40 units daily * Trulicity * HbA1C = pending ASSESSMENT: 06/21 * 60 units SQ insulin given over last 24 hrs while patient had little PO intake despite having a diet ordered * Fasting BSG 73-84 this AM with 40 units of basal on board - will hold AM Lantus dose and change evening scale. Will reduce dose by 50% or greater. * Post prandial BSGs did begin to rise the second half of the day yesterday however still acceptable given changing stressors. Given lesser steroid dose today and dc of dextrose containing cont infusions, will decrease both correctional and prandial insulin doses too. 06/20 * 86 units insulin administered over last 24 hrs while NPO * BSGs have been improving as stressors have lessened: vasopressors have been weaned off, steroid dose is being tapered * Diet has been ordered this AM * Will taper down basal component slightly, but will continue Novolog CF/CR as currently ordered given diet is starting today. Additional BSG checks overnight may be beneficial for assessing changing insulin needs given events of last 24 hours. 06/19: * Patient received a total of 98 units of insulin yesterday, 50 of which were basal. * Despite continued NPO status BSG have remained in the 181-257 mg/dL range over the past 24 hours. This may be in part due to the initiation of hydrocortisone IV. * Discussed plan at ICU rounds. Will continue with basal bolus regimen for now as ancipitate BSGs to start to trend down. IF BSGs remain elevated tomorrow, will consider an insulin infusion. PLAN FOR INPATIENT GLYCEMIC CONTROL: * Basal insulin * No Lantus this AM, then dosing per scale this evenin units if BSG less than 140, 15 units if BSG 140-200, 20 units if BSG > 200 * Bolus insulin * NovoLog per scale ACHS * Goal Range: Low 110 mg/dL - High 140 mg/dL * Correction Factor: 20 mg/dL/unit * Nutritional / Prandial insulin per carb ratio of 1 unit per 7 grams CHO consumed
--- NOTE | 2022-06-21 14:09 | Communication Note ---
Date of Service: June 21, 2022 Case discussed by phone with Jesse Gacria of pharmacy in coverage of Dr Gomez who had rounded on the patient this am. Pt had been hypotensive and on pressors, which have been weaned with treatment including midodrine 10 mg PO TID. Pt with issues of atrial fibrillation and volume status reportedly markedly positive. Several medications changes made today to resume her home BP and AF medications, with SBP in the 150s most recently , however she remains on midodrine. Plan: Wean midodrine from 10 mg to 5 mg TID. Continue to hold Entresto. Metoprolol succinate, furosemide , and spironolactone resumed. -will plan to wean midodrine as tolerated and then add back Entresto.
[2022-06-21] MEDS: DICLOFENAC SOD 1% GEL 100 GM TUBE EXT SCH (17:03)
[2022-06-21] MEDS: MIDODRINE HCL 2.5 MG TAB PO SCH (17:04)
--- NOTE | 2022-06-21 17:41 | Hospitalist Progress Note ---
Date of Service June 21, 2022 Assessment & Plan (1) Atrial fibrillation with rapid ventricular response: (2) ANA (acute kidney injury): (3) Hypomagnesemia: (4) Syncope: (5) Acute hyperglycemia: Plan A fib with RVR Wide complex tachycardia -continue with amiodarone drip--now on amiodarone 400mg BID. Heparin drip (she was previously on Eliquis but placed on a heparin drip at the time of admission due to unclear source of sepsis, consider switching back to Eliquis if no plans for surgery) -Management per Cardiology -Will discontinue IV heparin drip and transition to Eliquis Septic shock -Unclear source. Possibly UTI. Patient reports diarrhea recently but none currently. C diff here negative -continue zosyn for now -RUQ u/s negative for acute cholecystitis. Transaminitis likely in setting of sepsis. CT A/P yesterday unrevealing -resolved Hypotensive BP has been stable Midodrine decreased from 10 to 5 mg Metoprolol, furosemide and spironolactone resume Entresto on hold for now Continue monitor BP ANA -Cr 1.5 from baseline of 1 -Creatinine 0.9 -Resolved Electrolyte imbalance Potassium, phosphorus stable Continue monitor electrolyte Poorly controlled DM with Hyperglycemia -AG 14, s/p 6 units IV insulin -Home regimen: lantus 40 units daily and trulicity -Lantus 20 units BID while here. Carb coverage scale -Pharmacy consult Hyponatremia Na 139 today Stable DVT ppx -already on heparin drip Disposition Will discharge once medically stable Admission and Anticipated Discharge Date Admission Date: June 16, 2022 Subjective Pt was seen and examined for follow up Lying in bed with no acute distress watching TV Patient said that her back is sore because she did too much during therapy Denies any chest pain, palpitation, dizziness and SOB Review of Systems Review of Systems: All systems reviewed & are unremarkable except as noted in Subjective Physical Exam Physical Exam: General- No acute distress Head- atraumatic Eyes- PERRL, EOMI, ENT- oropharynx clear Neck- supple, no JVD Lungs- clear to auscultation Heart- regular rhythm, +murmur Abdomen- normal bowel sounds, soft, nontender Extremities- no calf tenderness Neuro- alert, oriented x 3; PERRL, EOMI; no facial palsy; no dysarthria Skin- warm & dry Results & Data Results & Data ([facility]) Vital Signs (Past 12 Hours) Vital Signs Temp Pulse Pulse Resp BP Pulse Ox Pulse Ox 06/21/22 16:20 36.4 C L 62 20 151/58 H 97 06/21/22 15:52 64 06/21/22 14:03 99 06/21/22 12:00 36.4 C L 68 18 158/76 H 98 06/21/22 12:00 64 06/21/22 08:00 64 06/21/22 08:15 67 14 143/50 H 100 O2 Del Method O2 Flow Rate 06/21/22 16:20 Room Air 06/21/22 15:52 06/21/22 14:03 0 06/21/22 12:00 Room Air 06/21/22 12:00 06/21/22 08:00 06/21/22 08:15 Room Air (1) Syncope Syncope type: unspecified Qualified Code(s): R55 - Syncope and collapse
[2022-06-21] MEDS: LANTUS PER UNIT CHARGE SQ SCH (20:38)
[2022-06-21] MEDS: METOPROLOL SUCC 50MG EXT REL TAB PO SCH (20:43)
[2022-06-21] MEDS: ROSUVASTATIN CALCIUM 5 MG TAB PO SCH (20:43)
[2022-06-21] MEDS ORDERED: VALSARTAN/SACUBITRIL 26/24MG TAB PO SCH (21:00)
[2022-06-22] MEDS: PIPERACILLIN/TAZOBACTAM 3.375 GM in DEXTROSE 5% 100 ML IV SCH ×3 (04:24→20:10)
[2022-06-22 06:26] LABS: Hematocrit (blood only) 29.4 % (34.1-44.9); Hemoglobin 9.8 g/dl (12.0-16.0); Mean Corpuscular Hemoglobin 30.6 pg (25.0-34.0); Mean Corpuscular Hgb Conc 33.3 g/dL (32.0-36.0); Mean Corpuscular Volume 91.9 fL (80.0-100.0); Nucleated RBC # (auto) 0.04 K/uL (0-0); Nucleated RBC % (auto) 0.3 %; Platelet Count 292 K/uL (130-400); RDW Coefficient of Variation 14.7 % (11.5-14.5); RDW Standard Deviation 47.2 fL (36.4-46.3); White Blood Count 12.04 K/ul (4.8-10.8)
[2022-06-22 06:45] LABS: BUN Creatinine Ratio 18.3 (10-20); Calcium 8.3 mg/dl (8.5-10.1); Creatinine Clr Calc Pharmacy 50.6 ml/min; Est GFR (African American) 57.1 ml/min; Est GFR (Non-African American) 49.3 ml/min; Phosphorus 3.6 mg/dl (2.5-4.9); Potassium 3.1 mmol/L (3.5-5.1)
[2022-06-22] MEDS: HEPARIN SODIUM/DEXTROSE 25,000 UNITS/500 ML BAG IV SCH ×2 (08:01→08:05)
[2022-06-22] MEDS: MIDODRINE HCL 2.5 MG TAB PO SCH ×3 (08:17→15:30)
[2022-06-22] MEDS: AMIODARONE 200 MG TAB PO SCH ×2 (08:17→17:42)
[2022-06-22] MEDS: FUROSEMIDE 40 MG TAB PO SCH (08:18)
[2022-06-22] MEDS: PANTOprazole 40 MG TAB PO SCH (08:18)
[2022-06-22] MEDS: FLUTICASONE/VILANTEROL 100/25MCG 14 PUFFS/INHALER INH SCH (08:18)
[2022-06-22] MEDS: DICLOFENAC SOD 1% GEL 100 GM TUBE EXT SCH (08:19)
[2022-06-22] MEDS: METOPROLOL SUCC 50MG EXT REL TAB PO SCH ×2 (08:20→21:00)
[2022-06-22] MEDS: INSULIN ASPART PER UNIT SC SCH ×4 (09:00→21:58)
[2022-06-22] MEDS: APIXABAN 5 MG TABLET PO SCH ×2 (10:04→21:00)
[2022-06-22] MEDS: HYDROCORTISONE SOD 50 MG in SYRINGE 0 ML IV SCH (10:04)
[2022-06-22] MEDS ORDERED: POTASSIUM CHLORIDE CRTAB 20 MEQ TABCR PO STA (11:55)
--- NOTE | 2022-06-22 14:11 | Pharmacy Report ---
Pharmacy Glycemic Short Note 2 - Date of Service June 22, 2022 - Glycemic Short BSG Results (Last 24 hours): 06/21/22 06/21/22 06/22/22 16:26 20:06 06:09 Glucose 64 L POC Glucose 142 H 152 H 06/22/22 06/22/22 08:11 12:15 Glucose POC Glucose 81 120 H OUTPATIENT ANTIDIABETIC REGIMEN: * Lantus 40 units daily * Trulicity * HbA1C = pending ASSESSMENT: 06/22 * Patient received total of 21 units of insulin yesterday, of which 15 units were basal insulin * Fasting BSG lower 64 mg/dL, POC check 81 mg/dL - will scale back further on basal for HS tonight * PO intake poor at this time 06/21 * 60 units SQ insulin given over last 24 hrs while patient had little PO intake despite having a diet ordered * Fasting BSG 73-84 this AM with 40 units of basal on board - will hold AM Lantus dose and change evening scale. Will reduce dose by 50% or greater. * Post prandial BSGs did begin to rise the second half of the day yesterday however still acceptable given changing stressors. Given lesser steroid dose today and dc of dextrose containing cont infusions, will decrease both correctional and prandial insulin doses too. 06/20 * 86 units insulin administered over last 24 hrs while NPO * BSGs have been improving as stressors have lessened: vasopressors have been weaned off, steroid dose is being tapered * Diet has been ordered this AM * Will taper down basal component slightly, but will continue Novolog CF/CR as currently ordered given diet is starting today. Additional BSG checks overnight may be beneficial for assessing changing insulin needs given events of last 24 hours. 06/19: * Patient received a total of 98 units of insulin yesterday, 50 of which were basal. * Despite continued NPO status BSG have remained in the 181-257 mg/dL range over the past 24 hours. This may be in part due to the initiation of hydrocortisone IV. * Discussed plan at ICU rounds. Will continue with basal bolus regimen for now as ancipitate BSGs to start to trend down. IF BSGs remain elevated tomorrow, will consider an insulin infusion. PLAN FOR INPATIENT GLYCEMIC CONTROL: * Basal insulin * Lantus 0-8 units HS based upon scale * Bolus insulin * NovoLog per scale ACHS * Goal Range: Low 110 mg/dL - High 140 mg/dL * Correction Factor: 20 mg/dL/unit * Nutritional / Prandial insulin per carb ratio of 1 unit per 7 grams CHO consumed
--- NOTE | 2022-06-22 17:47 | Hospitalist Progress Note ---
Date of Service June 22, 2022 Assessment & Plan (1) Atrial fibrillation with rapid ventricular response: (2) ANA (acute kidney injury): (3) Hypomagnesemia: (4) Syncope: (5) Acute hyperglycemia: Plan A fib with RVR Wide complex tachycardia -continue with amiodarone drip--now on amiodarone 400mg BID. Heparin drip (she was previously on Eliquis but placed on a heparin drip at the time of admission due to unclear source of sepsis, consider switching back to Eliquis if no plans for surgery) -Management per Cardiology -Will discontinue IV heparin drip and transition to Eliquis Continue Eliquis Septic shock -Unclear source. Possibly UTI. Patient reports diarrhea recently but none currently. C diff here negative -continue zosyn for now -RUQ u/s negative for acute cholecystitis. Transaminitis likely in setting of sepsis. CT A/P yesterday unrevealing -resolved Hypotensive BP has been stable Case discussed with cardiology Dr. Mar that recommended to discontinue midodrine Metoprolol, furosemide and spironolactone resume If BP remains stable will resume Entresto in a.m. Continue monitor BP ANA -Cr 1.5 from baseline of 1 -Creatinine stable -Resolved Electrolyte imbalance Potassium 3.1 K replaced Continue monitor electrolyte Poorly controlled DM with Hyperglycemia -AG 14, s/p 6 units IV insulin -Home regimen: lantus 40 units daily and trulicity -Lantus 20 units BID while here. Carb coverage scale -Pharmacy consult Hyponatremia Sodium stable DVT ppx -already on heparin drip Disposition PT recommend inpatient rehab Admission and Anticipated Discharge Date Admission Date: June 16, 2022 Subjective Pt was seen and examined for follow up Lying in bed with no acute distress watching TV Patient said she had a good night last night and was able to sleep Denies any chest pain, palpitation, dizziness and SOB Review of Systems Review of Systems: All systems reviewed & are unremarkable except as noted in Subjective Physical Exam Physical Exam: General- No acute distress Head- atraumatic Eyes- PERRL, EOMI, ENT- oropharynx clear Neck- supple, no JVD Lungs- clear to auscultation Heart- regular rhythm, +murmur Abdomen- normal bowel sounds, soft, nontender Extremities- no calf tenderness Neuro- alert, oriented x 3; PERRL, EOMI; no facial palsy; no dysarthria Skin- warm & dry Results & Data Results & Data ([facility]) Vital Signs (Past 12 Hours) Vital Signs Temp Pulse Resp BP Pulse Ox O2 Del Method O2 Del Method 06/22/22 16:00 Room Air 06/22/22 16:13 36.7 C 60 18 150/76 H 96 Room Air 06/22/22 08:48 36.4 C L 63 18 144/75 H 96 Room Air 06/22/22 08:00 Room Air (1) Syncope Syncope type: unspecified Qualified Code(s): R55 - Syncope and collapse
[2022-06-22] MEDS: ROSUVASTATIN CALCIUM 5 MG TAB PO SCH (20:59)
[2022-06-22] MEDS: LANTUS PER UNIT CHARGE SQ SCH (21:59)
[2022-06-23] MEDS: PANTOprazole 40 MG TAB PO SCH (08:02)
[2022-06-23] MEDS: VALSARTAN/SACUBITRIL 26/24MG TAB PO SCH ×2 (08:02→18:10)
[2022-06-23] MEDS: DICLOFENAC SOD 1% GEL 100 GM TUBE EXT SCH (08:02)
[2022-06-23] MEDS: APIXABAN 5 MG TABLET PO SCH ×2 (08:02→20:37)
[2022-06-23] MEDS: METOPROLOL SUCC 50MG EXT REL TAB PO SCH ×2 (08:02→20:37)
[2022-06-23] MEDS: FLUTICASONE/VILANTEROL 100/25MCG 14 PUFFS/INHALER INH SCH (08:03)
[2022-06-23] MEDS: FUROSEMIDE 40 MG TAB PO SCH (08:03)
[2022-06-23] MEDS: AMIODARONE 200 MG TAB PO SCH ×2 (08:03→18:10)
[2022-06-23 08:18] LABS: Hematocrit (blood only) 28.9 % (34.1-44.9); Hemoglobin 9.7 g/dl (12.0-16.0); Mean Corpuscular Hemoglobin 29.9 pg (25.0-34.0); Mean Corpuscular Hgb Conc 33.6 g/dL (32.0-36.0); Mean Corpuscular Volume 89.2 fL (80.0-100.0); Mean Platelet Volume 9.3 fL (9.4-12.3); Nucleated RBC # (auto) 0.04 K/uL (0-0); Nucleated RBC % (auto) 0.4 %; Platelet Count 287 K/uL (130-400); RDW Coefficient of Variation 15.1 % (11.5-14.5); RDW Standard Deviation 47.8 fL (36.4-46.3); Red Blood Count 3.24 M/uL (3.93-5.22); White Blood Count 10.11 K/ul (4.8-10.8)
[2022-06-23 08:34] LABS: BUN Creatinine Ratio 15.1 (10-20); Creatinine Clr Calc Pharmacy 52.7 ml/min; Est GFR (African American) 59.1 ml/min; Potassium 3.1 mmol/L (3.5-5.1)
[2022-06-23] MEDS ORDERED: POTASSIUM CHLORIDE CRTAB 20 MEQ TABCR PO STA (09:34)
[2022-06-23] MEDS: INSULIN ASPART PER UNIT SC SCH ×4 (09:43→20:41)
--- NOTE | 2022-06-23 17:28 | Hospitalist Progress Note ---
Date of Service June 23, 2022 Assessment & Plan (1) Atrial fibrillation with rapid ventricular response: (2) ANA (acute kidney injury): (3) Hypomagnesemia: (4) Syncope: (5) Acute hyperglycemia: Plan A fib with RVR Wide complex tachycardia -continue with amiodarone drip--now on amiodarone 400mg BID. Heparin drip (she was previously on Eliquis but placed on a heparin drip at the time of admission due to unclear source of sepsis, consider switching back to Eliquis if no plans for surgery) -Management per Cardiology -Will discontinue IV heparin drip and transition to Eliquis Continue Eliquis Septic shock -Unclear source. Possibly UTI. Patient reports diarrhea recently but none currently. C diff here negative -continue zosyn for now -RUQ u/s negative for acute cholecystitis. Transaminitis likely in setting of sepsis. CT A/P yesterday unrevealing -resolved Hypotensive BP has been stable Case discussed with cardiology Dr. Mar that recommended to discontinue midodrine Metoprolol, furosemide and spironolactone resume Midodrine discontinued on 06/22 resumed Entresto today Continue monitor BP ANA -Cr 1.5 from baseline of 1 -Creatinine stable -Resolved Electrolyte imbalance Potassium 3.1 K replaced Continue monitor electrolyte Poorly controlled DM with Hyperglycemia -AG 14, s/p 6 units IV insulin -Home regimen: lantus 40 units daily and trulicity -Lantus 20 units BID while here. Carb coverage scale -Pharmacy consult Hyponatremia Sodium stable DVT ppx -already on heparin drip Disposition PT recommend inpatient rehab Admission and Anticipated Discharge Date Admission Date: June 16, 2022 Subjective Pt was seen and examined for follow up Lying in bed with no acute distress watching TV with at bedside She said that her strength is starting to improve Denies any chest pain, palpitation, dizziness and SOB Review of Systems Review of Systems: All systems reviewed & are unremarkable except as noted in Subjective Physical Exam Physical Exam: General- No acute distress Head- atraumatic Eyes- PERRL, EOMI, ENT- oropharynx clear Neck- supple, no JVD Lungs- clear to auscultation Heart- regular rhythm, +murmur Abdomen- normal bowel sounds, soft, nontender Extremities- no calf tenderness Neuro- alert, oriented x 3; PERRL, EOMI; no facial palsy; no dysarthria Skin- warm & dry Results & Data Results & Data ([facility]) Vital Signs (Past 12 Hours) Vital Signs Temp Pulse Pulse Resp BP BP Pulse Ox 06/23/22 16:00 60 06/23/22 15:27 36.8 C 62 19 145/53 H 98 06/23/22 12:27 152/77 H 06/23/22 10:50 36.6 C 67 17 160/73 H 99 06/23/22 07:09 36.7 C 63 18 154/65 H 98 O2 Del Method 06/23/22 16:00 06/23/22 15:27 Room Air 06/23/22 12:27 06/23/22 10:50 Room Air 06/23/22 07:09 Room Air (1) Syncope Syncope type: unspecified Qualified Code(s): R55 - Syncope and collapse
[2022-06-23] MEDS: POTASSIUM CHLORIDE CRTAB 20 MEQ TABCR PO STA ×2 (18:09→18:34)
[2022-06-23] MEDS: ROSUVASTATIN CALCIUM 5 MG TAB PO SCH (20:37)
[2022-06-24 06:29] LABS: BUN Creatinine Ratio 13.6 (10-20); Calcium 8.1 mg/dl (8.5-10.1); Creatinine Clr Calc Pharmacy 68.5 ml/min; Est GFR (African American) 81.8 ml/min; Est GFR (Non-African American) 70.5 ml/min; Phosphorus 2.6 mg/dl (2.5-4.9); Potassium 3.4 mmol/L (3.5-5.1)
[2022-06-24] MEDS: NYSTATIN SUSP 500,000 U/5 ML UDC PO SCH ×4 (06:39→20:52)
[2022-06-24] MEDS ORDERED: POTASSIUM CHLORIDE CRTAB 20 MEQ TABCR PO STA (08:38)
[2022-06-24] MEDS: VALSARTAN/SACUBITRIL 26/24MG TAB PO SCH ×2 (09:10→17:47)
[2022-06-24] MEDS: FUROSEMIDE 40 MG TAB PO SCH (09:10)
[2022-06-24] MEDS: PANTOprazole 40 MG TAB PO SCH (09:10)
[2022-06-24] MEDS: METOPROLOL SUCC 50MG EXT REL TAB PO SCH ×2 (09:10→20:53)
[2022-06-24] MEDS: AMIODARONE 200 MG TAB PO SCH ×2 (09:10→17:48)
[2022-06-24] MEDS: FLUTICASONE/VILANTEROL 100/25MCG 14 PUFFS/INHALER INH SCH (09:11)
[2022-06-24] MEDS: DICLOFENAC SOD 1% GEL 100 GM TUBE EXT SCH (09:11)
[2022-06-24] MEDS: APIXABAN 5 MG TABLET PO SCH ×2 (09:11→20:53)
[2022-06-24] MEDS: INSULIN ASPART PER UNIT SC SCH ×4 (09:18→21:20)
--- NOTE | 2022-06-24 15:21 | Pharmacy Report ---
Pharmacy Glycemic Short Note 2 - Date of Service June 24, 2022 - Glycemic Short BSG Results (Last 24 hours): 06/23/22 06/23/22 06/24/22 16:18 20:20 05:14 Glucose 103 H POC Glucose 116 H 81 06/24/22 06/24/22 07:44 12:07 Glucose POC Glucose 129 H 197 H OUTPATIENT ANTIDIABETIC REGIMEN: * Lantus 40 units daily * Trulicity * HbA1C = pending ASSESSMENT: 06/24: * On 06/22, patient did not receive any basal insulin and only 5 units of bolus. Fasting BSG yesterday was 64 mg/dl. Basal insulin was therefore discontinued yesterday. * Today, fasting BSG was 103 mg/dl. Patient received total of 8 units of insulin yesterday all of which was bolus. Hesitate to add basal insulin at this time although BSGs are trending up now. Pre-lunch BSG today= 197 mg/dl. Re-assess basal needs tomorrow. * Novolog parameters continued the same 06/22 * Patient received total of 21 units of insulin yesterday, of which 15 units were basal insulin * Fasting BSG lower 64 mg/dL, POC check 81 mg/dL - will scale back further on basal for HS tonight * PO intake poor at this time 06/21 * 60 units SQ insulin given over last 24 hrs while patient had little PO intake despite having a diet ordered * Fasting BSG 73-84 this AM with 40 units of basal on board - will hold AM Lantus dose and change evening scale. Will reduce dose by 50% or greater. * Post prandial BSGs did begin to rise the second half of the day yesterday however still acceptable given changing stressors. Given lesser steroid dose today and dc of dextrose containing cont infusions, will decrease both correctional and prandial insulin doses too. 06/20 * 86 units insulin administered over last 24 hrs while NPO * BSGs have been improving as stressors have lessened: vasopressors have been weaned off, steroid dose is being tapered * Diet has been ordered this AM * Will taper down basal component slightly, but will continue Novolog CF/CR as currently ordered given diet is starting today. Additional BSG checks overnight may be beneficial for assessing changing insulin needs given events of last 24 hours. 06/19: * Patient received a total of 98 units of insulin yesterday, 50 of which were basal. * Despite continued NPO status BSG have remained in the 181-257 mg/dL range over the past 24 hours. This may be in part due to the initiation of hydrocortisone IV. * Discussed plan at ICU rounds. Will continue with basal bolus regimen for now as ancipitate BSGs to start to trend down. IF BSGs remain elevated tomorrow, will consider an insulin infusion. PLAN FOR INPATIENT GLYCEMIC CONTROL: * Basal insulin * Hold * Bolus insulin * NovoLog per scale ACHS * Goal Range: Low 110 mg/dL - High 140 mg/dL * Correction Factor: 20 mg/dL/unit * Nutritional / Prandial insulin per carb ratio of 1 unit per 7 grams CHO consumed
[2022-06-24] MEDS: ROSUVASTATIN CALCIUM 5 MG TAB PO SCH (20:54)
--- NOTE | 2022-06-24 23:49 | Hospitalist Progress Note ---
Date of Service June 24, 2022 Assessment & Plan (1) Atrial fibrillation with rapid ventricular response: (2) ANA (acute kidney injury): (3) Hypomagnesemia: (4) Syncope: (5) Acute hyperglycemia: Plan A fib with RVR Wide complex tachycardia -continue with amiodarone drip--now on amiodarone 400mg BID. Heparin drip (she was previously on Eliquis but placed on a heparin drip at the time of admission due to unclear source of sepsis, consider switching back to Eliquis if no plans for surgery) -Management per Cardiology -Will discontinue IV heparin drip and transition to Eliquis Continue Eliquis Septic shock -Unclear source. Possibly UTI. Patient reports diarrhea recently but none currently. C diff here negative -continue zosyn for now -RUQ u/s negative for acute cholecystitis. Transaminitis likely in setting of sepsis. CT A/P yesterday unrevealing -resolved Hypotensive BP has been stable Case discussed with cardiology Dr. Mar that recommended to discontinue midodrine Metoprolol, furosemide and spironolactone resume Midodrine discontinued on 06/22 resumed Entresto today Continue monitor BP Resolved ANA -Cr 1.5 from baseline of 1 -Creatinine stable -Resolved Electrolyte imbalance Potassium 3.4 K replaced Continue monitor electrolyte Poorly controlled DM with Hyperglycemia -AG 14, s/p 6 units IV insulin -Home regimen: lantus 40 units daily and trulicity -Lantus 20 units BID while here. Carb coverage scale -Pharmacy consult Hyponatremia Sodium stable DVT ppx -already on heparin drip Disposition PT recommend inpatient rehab Waiting for placement Admission and Anticipated Discharge Date Admission Date: June 16, 2022 Subjective Pt was seen and examined for follow up Lying in bed with no acute distress watching TV with at bedside Staff said pt was tachy when working with therapy Denies any chest pain, palpitation, dizziness and SOB Review of Systems Review of Systems: All systems reviewed & are unremarkable except as noted in Subjective Physical Exam Physical Exam: General- No acute distress Head- atraumatic Eyes- PERRL, EOMI, ENT- oropharynx clear Neck- supple, no JVD Lungs- clear to auscultation Heart- regular rhythm, +murmur Abdomen- normal bowel sounds, soft, nontender Extremities- no calf tenderness Neuro- alert, oriented x 3; PERRL, EOMI; no facial palsy; no dysarthria Skin- warm & dry Results & Data Results & Data ([facility]) Vital Signs (Past 12 Hours) Vital Signs Temp Pulse Pulse Resp BP Pulse Ox O2 Del Method 06/24/22 22:44 36.8 C 103 H 18 122/75 98 Room Air 06/24/22 19:12 36.5 C 117 H 18 123/75 98 Room Air 06/24/22 17:00 118 H 06/24/22 15:33 36.8 C 114 H 20 118/76 97 Room Air (1) Syncope Syncope type: unspecified Qualified Code(s): R55 - Syncope and collapse
[2022-06-25] MEDS: INSULIN ASPART PER UNIT SC SCH ×4 (08:58→20:39)
[2022-06-25] MEDS: NYSTATIN SUSP 500,000 U/5 ML UDC PO SCH ×4 (08:58→20:38)
[2022-06-25] MEDS: FUROSEMIDE 40 MG TAB PO SCH (08:59)
[2022-06-25] MEDS: DICLOFENAC SOD 1% GEL 100 GM TUBE EXT SCH (08:59)
[2022-06-25] MEDS: AMIODARONE 200 MG TAB PO SCH ×2 (08:59→17:26)
[2022-06-25] MEDS: PANTOprazole 40 MG TAB PO SCH (08:59)
[2022-06-25] MEDS: VALSARTAN/SACUBITRIL 26/24MG TAB PO SCH ×2 (08:59→17:25)
[2022-06-25] MEDS: FLUTICASONE/VILANTEROL 100/25MCG 14 PUFFS/INHALER INH SCH (09:00)
[2022-06-25] MEDS ORDERED: LANTUS PER UNIT CHARGE SQ ONE (09:00)
[2022-06-25 09:23] LABS: BUN Creatinine Ratio 12.4 (10-20); Calcium 8.5 mg/dl (8.5-10.1); Creatinine Clr Calc Pharmacy 62.3 ml/min; Potassium 3.2 mmol/L (3.5-5.1)
[2022-06-25] MEDS: APIXABAN 5 MG TABLET PO SCH ×2 (09:50→20:38)
[2022-06-25] MEDS: METOPROLOL SUCC 50MG EXT REL TAB PO SCH ×2 (09:50→20:38)
[2022-06-25] MEDS ORDERED: POTASSIUM CHLORIDE CRTAB 20 MEQ TABCR PO STA (14:47)
[2022-06-25] MEDS: ROSUVASTATIN CALCIUM 5 MG TAB PO SCH (20:39)
--- NOTE | 2022-06-25 21:36 | Electrocardiogram Report ---
Test Reason : Blood Pressure : / mmHG Vent. Rate : 111 BPM Atrial Rate : 111 BPM P-R Int : 000 ms QRS Dur : 120 ms QT Int : 388 ms P-R-T Axes : 000 -61 113 degrees QTc Int : 527 ms Possible Atrial fibrillation with occasional ventricular-paced complexes Non-specific intra-ventricular conduction block Abnormal ECG When compared with ECG of 17-JUN-2022 02:46, Vent. rate has decreased BY 10 BPM Confirmed by Jaime Lizarraga ([id number]) on 06/25/2022 9:36:23 PM Referred By: REFERRED SELF Confirmed By:Jaime Lizarraga
--- NOTE | 2022-06-26 03:14 | Hospitalist Progress Note ---
Date of Service June 25, 2022 Assessment & Plan (1) Atrial fibrillation with rapid ventricular response: (2) ANA (acute kidney injury): (3) Hypomagnesemia: (4) Syncope: (5) Acute hyperglycemia: Plan A fib with RVR Wide complex tachycardia -continue with amiodarone drip--now on amiodarone 400mg BID. Heparin drip (she was previously on Eliquis but placed on a heparin drip at the time of admission due to unclear source of sepsis, consider switching back to Eliquis if no plans for surgery) -Management per Cardiology Discontinued IV heparin drip and transition to Eliquis Continue Eliquis Septic shock -Unclear source. Possibly UTI. Patient reports diarrhea recently but none currently. C diff here negative -continue zosyn for now -RUQ u/s negative for acute cholecystitis. Transaminitis likely in setting of sepsis. CT A/P yesterday unrevealing -resolved Hypotensive BP has been stable Case discussed with cardiology Dr. Mar that recommended to discontinue midodrine Metoprolol, furosemide and spironolactone resume Midodrine discontinued on 06/22 resumed Entresto today Continue monitor BP Resolved AAN -Cr 1.5 from baseline of 1 -Creatinine stable at 0.89 -Resolved Electrolyte imbalance Potassium 3.2 K replaced Continue monitor electrolyte Poorly controlled DM with Hyperglycemia -AG 14, s/p 6 units IV insulin -Home regimen: lantus 40 units daily and trulicity -Lantus 20 units BID while here. Carb coverage scale -Pharmacy consult Hyponatremia Sodium stable at 140 resolved DVT ppx On Eliquis 5mg BID Disposition PT recommend inpatient rehab Waiting for placement Admission and Anticipated Discharge Date Admission Date: June 16, 2022 Subjective Pt was seen and examined for follow up Lying in bed with no acute distress watching TV Patient said her energy/strength started to get a little better Denies any chest pain, palpitation, dizziness and SOB Review of Systems Review of Systems: All systems reviewed & are unremarkable except as noted in Subjective Physical Exam Physical Exam: General- No acute distress Head- atraumatic Eyes- PERRL, EOMI, ENT- oropharynx clear Neck- supple, no JVD Lungs- clear to auscultation Heart- regular rhythm, +murmur Abdomen- normal bowel sounds, soft, nontender Extremities- no calf tenderness Neuro- alert, oriented x 3; PERRL, EOMI; no facial palsy; no dysarthria Skin- warm & dry Results & Data Results & Data ([facility]) Vital Signs (Past 12 Hours) Vital Signs Temp Pulse Resp BP Pulse Ox O2 Del Method 06/25/22 23:25 68 16 135/76 98 Room Air 06/25/22 23:08 75 16 136/80 97 Room Air 06/25/22 22:55 75 18 149/54 H 97 Room Air 06/25/22 19:06 36.8 C 75 18 126/77 97 Room Air (1) Syncope Syncope type: unspecified Qualified Code(s): R55 - Syncope and collapse
[2022-06-26 05:35] LABS: BUN Creatinine Ratio 12.3 (10-20); Calcium 8.6 mg/dl (8.5-10.1); Creatinine Clr Calc Pharmacy 68.3 ml/min; Est GFR (African American) 81.8 ml/min; Est GFR (Non-African American) 70.5 ml/min; Potassium 3.2 mmol/L (3.5-5.1)
--- NOTE | 2022-06-26 05:47 | Electrocardiogram Report ---
Test Reason : Blood Pressure : / mmHG Vent. Rate : 072 BPM Atrial Rate : 072 BPM P-R Int : 170 ms QRS Dur : 098 ms QT Int : 478 ms P-R-T Axes : 024 -79 044 degrees QTc Int : 523 ms Atrial-sensed ventricular-paced rhythm Abnormal ECG When compared with ECG of 24-JUN-2022 17:26, Vent. rate has decreased BY 39 BPM Confirmed by Jaime Lizarraga ([id number]) on 06/26/2022 5:47:05 AM Referred By: REFERRED SELF Confirmed By:Jaime Lizarraga
--- NOTE | 2022-06-26 08:54 | Pharmacy Report ---
Pharmacy Glycemic Short Note 2 - Date of Service June 26, 2022 - Glycemic Short BSG Results (Last 24 hours): 06/25/22 06/25/22 06/25/22 08:35 11:38 16:19 Glucose 172 H POC Glucose 154 H 175 H 06/25/22 06/26/22 06/26/22 20:16 03:21 07:46 Glucose 129 H POC Glucose 159 H 144 H OUTPATIENT ANTIDIABETIC REGIMEN: * Lantus 40 units daily * [facility] 8.2% (06/07/22) ASSESSMENT: 06/26: * BSGs slightly elevated yesterday, ranging 154-175 mg/dL yesterday * Not unreasonable given no basal insulin had been administered from 06/22- 06/24, restarted basal yesterday * Received 26 units of insulin yesterday (10 units of basal and 16 units of prandial/correctional bolus) * Fasting BSG improved today to 144 mg/dL, will continue 10 units of basal given hypoglycemia with 15 units of Lantus earlier this admission * No other changes anticipated for today 06/24: * On 06/22, patient did not receive any basal insulin and only 5 units of bolus. Fasting BSG yesterday was 64 mg/dl. Basal insulin was therefore discontinued yesterday. * Today, fasting BSG was 103 mg/dl. Patient received total of 8 units of insulin yesterday all of which was bolus. Hesitate to add basal insulin at this time although BSGs are trending up now. Pre-lunch BSG today= 197 mg/dl. Re-assess basal needs tomorrow. * Novolog parameters continued the same 06/22 * Patient received total of 21 units of insulin yesterday, of which 15 units were basal insulin * Fasting BSG lower 64 mg/dL, POC check 81 mg/dL - will scale back further on basal for HS tonight * PO intake poor at this time 06/19: * Patient received a total of 98 units of insulin yesterday, 50 of which were basal. * Despite continued NPO status BSG have remained in the 181-257 mg/dL range over the past 24 hours. This may be in part due to the initiation of hydrocortisone IV. * Discussed plan at ICU rounds. Will continue with basal bolus regimen for now as ancipitate BSGs to start to trend down. IF BSGs remain elevated tomorrow, will consider an insulin infusion. PLAN FOR INPATIENT GLYCEMIC CONTROL: * Basal insulin * Lantus 10 units SC daily * Bolus insulin * NovoLog per scale ACHS * Goal Range: Low 110 mg/dL - High 140 mg/dL * Correction Factor: 20 mg/dL/unit * Nutritional / Prandial insulin per carb ratio of 1 unit per 7 grams CHO consumed
[2022-06-26] MEDS: APIXABAN 5 MG TABLET PO SCH ×2 (09:10→20:53)
[2022-06-26] MEDS: AMIODARONE 200 MG TAB PO SCH ×2 (09:11→17:18)
[2022-06-26] MEDS: PANTOprazole 40 MG TAB PO SCH (09:11)
[2022-06-26] MEDS: FUROSEMIDE 40 MG TAB PO SCH (09:11)
[2022-06-26] MEDS: VALSARTAN/SACUBITRIL 26/24MG TAB PO SCH ×2 (09:11→17:18)
[2022-06-26] MEDS: DICLOFENAC SOD 1% GEL 100 GM TUBE EXT SCH (09:11)
[2022-06-26] MEDS: METOPROLOL SUCC 50MG EXT REL TAB PO SCH ×2 (09:11→20:54)
[2022-06-26] MEDS: NYSTATIN SUSP 500,000 U/5 ML UDC PO SCH ×4 (09:12→20:55)
[2022-06-26] MEDS: FLUTICASONE/VILANTEROL 100/25MCG 14 PUFFS/INHALER INH SCH (09:12)
[2022-06-26] MEDS: INSULIN ASPART PER UNIT SC SCH ×4 (09:13→21:03)
[2022-06-26] MEDS ORDERED: POTASSIUM CHLORIDE CRTAB 20 MEQ TABCR PO STA (09:27)
[2022-06-26] MEDS: LANTUS PER UNIT CHARGE SQ SCH (12:32)
--- NOTE | 2022-06-26 18:51 | Hospitalist Progress Note ---
Date of Service June 26, 2022 Assessment & Plan (1) Atrial fibrillation with rapid ventricular response: (2) ANA (acute kidney injury): (3) Hypomagnesemia: (4) Syncope: (5) Acute hyperglycemia: Plan A fib with RVR Wide complex tachycardia -continue with amiodarone drip--now on amiodarone 400mg BID. Heparin drip (she was previously on Eliquis but placed on a heparin drip at the time of admission due to unclear source of sepsis, consider switching back to Eliquis if no plans for surgery) -Management per Cardiology Discontinued IV heparin drip and transition to Eliquis Continue Eliquis Septic shock -Unclear source. Possibly UTI. Patient reports diarrhea recently but none currently. C diff here negative -continue zosyn for now -RUQ u/s negative for acute cholecystitis. Transaminitis likely in setting of sepsis. CT A/P yesterday unrevealing -resolved Hypotensive BP has been stable Case discussed with cardiology Dr. Mar that recommended to discontinue midodrine Metoprolol, furosemide and spironolactone resume Midodrine discontinued on 06/22 resumed Entresto today Continue monitor BP Resolved ANA -Cr 1.5 from baseline of 1 -Creatinine stable at 0.89 -Resolved Electrolyte imbalance Potassium 3.2 Continue daily potassium supplement Continue monitor electrolyte Poorly controlled DM with Hyperglycemia -AG 14, s/p 6 units IV insulin -Home regimen: lantus 40 units daily and trulicity -Lantus 20 units BID while here. Carb coverage scale -Pharmacy consult Hyponatremia Sodium stable at 140 resolved DVT ppx On Eliquis 5mg BID Disposition PT recommend inpatient rehab Waiting for placement Admission and Anticipated Discharge Date Admission Date: June 16, 2022 Subjective Pt was seen and examined for follow up Sitting in chair with no acute distress with at bedside watching TV Patient said that she feels much better Denies any chest pain, palpitation, dizziness and SOB Review of Systems Review of Systems: All systems reviewed & are unremarkable except as noted in Subjective Physical Exam Physical Exam: General- No acute distress Head- atraumatic Eyes- PERRL, EOMI, ENT- oropharynx clear Neck- supple, no JVD Lungs- clear to auscultation Heart- regular rhythm, +murmur Abdomen- normal bowel sounds, soft, nontender Extremities- no calf tenderness Neuro- alert, oriented x 3; PERRL, EOMI; no facial palsy; no dysarthria Skin- warm & dry Results & Data Results & Data ([facility]) Vital Signs (Past 12 Hours) Vital Signs Temp Pulse Pulse Resp BP Pulse Ox O2 Del Method 06/26/22 15:24 36.5 C 73 19 122/73 96 Room Air 06/26/22 13:05 Room Air 06/26/22 11:37 36.8 C 80 17 110/72 98 Room Air 06/26/22 07:00 65 06/26/22 07:09 36.6 C 71 18 130/72 97 Room Air (1) Syncope Syncope type: unspecified Qualified Code(s): R55 - Syncope and collapse
[2022-06-26] MEDS: ROSUVASTATIN CALCIUM 5 MG TAB PO SCH (20:54)
[2022-06-27 07:21] LABS: Hematocrit (blood only) 31.2 % (34.1-44.9); Hemoglobin 10.3 g/dl (12.0-16.0); Mean Corpuscular Hemoglobin 30.9 pg (25.0-34.0); Mean Corpuscular Volume 93.7 fL (80.0-100.0); Mean Platelet Volume 9.5 fL (9.4-12.3); Platelet Count 166 K/uL (130-400); RDW Coefficient of Variation 15.9 % (11.5-14.5); Red Blood Count 3.33 M/uL (3.93-5.22); White Blood Count 6.75 K/ul (4.8-10.8)
[2022-06-27 08:08] LABS: Calcium 8.5 mg/dl (8.5-10.1); Potassium 3.5 mmol/L (3.5-5.1)
[2022-06-27 08:14] LABS: BUN Creatinine Ratio 10.7 (10-20); Creatinine Clr Calc Pharmacy 63.2 ml/min; Est GFR (African American) 78.2 ml/min; Est GFR (Non-African American) 67.5 ml/min
[2022-06-27] MEDS: APIXABAN 5 MG TABLET PO SCH (08:37)
[2022-06-27] MEDS: METOPROLOL SUCC 50MG EXT REL TAB PO SCH (08:37)
[2022-06-27] MEDS: PANTOprazole 40 MG TAB PO SCH (08:37)
[2022-06-27] MEDS: FUROSEMIDE 40 MG TAB PO SCH (08:37)
[2022-06-27] MEDS: AMIODARONE 200 MG TAB PO SCH (08:38)
[2022-06-27] MEDS: DICLOFENAC SOD 1% GEL 100 GM TUBE EXT SCH (08:38)
[2022-06-27] MEDS: NYSTATIN SUSP 500,000 U/5 ML UDC PO SCH ×2 (08:38→12:53)
[2022-06-27] MEDS: FLUTICASONE/VILANTEROL 100/25MCG 14 PUFFS/INHALER INH SCH (08:38)
[2022-06-27] MEDS: VALSARTAN/SACUBITRIL 26/24MG TAB PO SCH (08:38)
[2022-06-27] MEDS: INSULIN ASPART PER UNIT SC SCH ×2 (08:46→12:51)
[2022-06-27] MEDS: LANTUS PER UNIT CHARGE SQ SCH (08:47)
--- NOTE | 2022-06-27 12:56 | Pharmacy Report ---
Pharmacy Glycemic Short Note 2 - Date of Service June 27, 2022 - Glycemic Short BSG Results (Last 24 hours): 06/26/22 06/26/22 06/27/22 16:25 20:18 06:51 Glucose 165 H POC Glucose 147 H 104 H 06/27/22 06/27/22 07:50 11:36 Glucose POC Glucose 155 H 211 H OUTPATIENT ANTIDIABETIC REGIMEN: * Lantus 40 units daily * Trulicity HbA1C: 8.2% (06/07/22) ASSESSMENT: 06/27: * Patient received 36 units of insulin yesterday * Fasting 155 mg/dL- will increase to 12 units tomorrow morning if trend continues upward (>160 mg/dL) * Will continue current novolog parameters. 06/26: * BSGs slightly elevated yesterday, ranging 154-175 mg/dL yesterday * Not unreasonable given no basal insulin had been administered from 06/22- 06/24, restarted basal yesterday * Received 26 units of insulin yesterday (10 units of basal and 16 units of prandial/correctional bolus) * Fasting BSG improved today to 144 mg/dL, will continue 10 units of basal given hypoglycemia with 15 units of Lantus earlier this admission * No other changes anticipated for today 06/24: * On 06/22, patient did not receive any basal insulin and only 5 units of bolus. Fasting BSG yesterday was 64 mg/dl. Basal insulin was therefore discontinued y day. * Today, fasting BSG was 103 mg/dl. Patient received total of 8 units of insulin yesterday all of which was bolus. Hesitate to add basal insulin at this time although BSGs are trending up now. Pre-lunch BSG today= 197 mg/dl. Re-assess basal needs tomorrow. * Novolog parameters continued the same 06/22 * Patient received total of 21 units of insulin yesterday, of which 15 units were basal insulin * Fasting BSG lower 64 mg/dL, POC check 81 mg/dL - will scale back further on basal for HS tonight * PO intake poor at this time 06/19: * Patient received a total of 98 units of insulin yesterday, 50 of which were basal. * Despite continued NPO status BSG have remained in the 181-257 mg/dL range over the past 24 hours. This may be in part due to the initiation of hydrocortisone IV. * Discussed plan at ICU rounds. Will continue with basal bolus regimen for now as ancipitate BSGs to start to trend down. IF BSGs remain elevated tomorrow, will consider an insulin infusion. PLAN FOR INPATIENT GLYCEMIC CONTROL: * Basal insulin * Lantus 10 units SC daily --> scale 10/12 tomorrow AM * Bolus insulin * NovoLog per scale ACHS * Goal Range: Low 110 mg/dL - High 140 mg/dL * Correction Factor: 20 mg/dL/unit * Nutritional / Prandial insulin per carb ratio of 1 unit per 7 grams CHO consumed
--- NOTE | 2022-06-27 17:31 | Discharge Summary ---
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 fib on Eliquis, heart failure, hypertensive heart and kidney disease, CKD stage III, cardiac defibrillator, fibromyalgia, alopecia presents today with 2 episodes of syncope. Patient was recently admitted here from 06/07-06/11/2022 for hyperglycemia due to medication non compliance with ANA in the setting of recent illness with the flu. During that hospitalization, she was noted to have episode of non sustained V tach believed to be due to her metabolic derangements and her amiodarone was increased to 200mg BID. She returns today after two episodes of syncope. She is a poor historian but reports on Saturday she noted her ICD firing then she passed out. Her called 911 and eventually she came to, she was not taken to the hospital at that time. Today, again her ICD fired and she syncopized. This time she was brought to the hospital. In the field, EMS noted her to have a wide complex tachycardia. In the ER, her ICD was reportedly interrogated and confirmed that 2 shocks were recently delivered. She was started on an amiodarone drip. Upon further questioning, she reports feeling weak, tired and low energy since last saturday. With abdominal pain (RUQ) and nausea. No fever/chills, chest pain, shortness of breath. Reports loose stools Upon arrival here, labwork was notable for WBC of 20, Cr 1.5 (baseline 1), Na 128, Cl 95, HCO3- 95, ALP 118, T bili 1.4, High sensitivity trop 17. CXR negative for acute disease CT head neg for acute findings CT cervical spine neg for fracture Lumbar CT negative for fracture Pelvis X ray negative for fracture Foot and ankle X ray pending Admission Exam Per Admitting Provider Physical Exam:Appears tired, non toxic, no acute distressENMT:Normocephalic, atraumatic, mucous membrane dryRespiratory:breathing comfortably on room air, no wheezing/rhonchi/ralesCardiovascular:tachycardic (HR on monitor 100-110) currently, no murmurs/rubs/gallopsGastrointestinal (Abdomen):+RUQ tenderness, hypoactive BS, no rebound or guardingMusculoskeletal:No edema, no cyanosis or clubbingSkin:Pale, no rash, no ulcer noted on exposed skinNeurologic:awake, alert, spontaneously moving extremitiesPsychiatric:normal affect, speech linear, somewhat poor historian, speech is not pressured Principal Diagnosis Septic shock, unclear source. Possible UTI A. fib with RVR ANA Discharge Exam Constitutional: WD/WN, vitals as above, NAD, sitting up in bed, pleasant, conversing easily Respiratory: normal respiratory effort, lungs clear to auscultation, no wheeze, rales, rhonchi. Normal insp/exp effort, no accessory muscle use Cardiovascular: RRR, no murmur, no edema Vessels: no JVD or carotid bruit Chest: normal inspection of chest Abdomen: normal bowel sounds, soft, nontender, no hepatosplenomegaly Musculoskeletal: no cyanosis or clubbing, extremities motor strength 5/5 Skin: no rashes, warm and dry normal turgor Neurologic: PERRL, EOMI, accommodation nl, no face palsy, no dysarthria CN's II- XI intact bilaterally and moves all extremities Psychiatric: A+Ox3, euthymic affect Lymphatic: no cervical or axillary lymphadenopathy : deferred Discharge Data Allergies Allergy/AdvReac Type Severity Reaction Status Date / Time propoxyphene Allergy Intermediate Edema Verified 06/16/22 19:09 airway - DARVON erythromycin base Allergy Mild Nausea Verified 06/16/22 19:09 salicylates Allergy Mild Hives/nause Verified 06/16/22 19:09 a Penicillins AdvReac Intermediate Nausea and Verified 06/16/22 19:09 dizziness amitriptyline AdvReac Mild Dizziness Verified 06/16/22 19:09 azithromycin AdvReac Mild STOMACH Verified 06/16/22 19:09 PAINS/ACHES ALL OVER Bactrim AdvReac Mild GI upset, Verified 09/10/17 07:13 nausea, vomiting Corticosteroids AdvReac Mild Prednisone, Verified 06/16/22 19:09 (Glucocorticoids) rapid weight gain hydrocodone AdvReac Mild Nausea, Verified 06/16/22 19:09 vomiting latex AdvReac Mild Rash Verified 06/16/22 19:09 lisinopril AdvReac Mild COUGH Verified 06/16/22 19:09 morphine AdvReac Mild Nausea Verified 06/16/22 19:09 pseudoephedrine AdvReac Mild Dizziness Verified 06/16/22 19:09 sulfamethoxazole AdvReac Mild GI upset, Verified 06/16/22 19:09 nausea, vomiting thiopental AdvReac Mild Nausea, Verified 06/16/22 19:09 vomiting trimethoprim AdvReac Mild GI upset, Verified 06/16/22 19:09 nausea, vomiting Consultations 06/16/22 17:18 ED Decision to Admit Stat 06/16/22 20:46 Consult Cardiology Routine 06/17/22 06:55 Consult Cleaners Routine Ordered Studies 06/16/22 15:02 CT cervical spine wo con Stat CT head/brain wo con Stat CT lumbar spine wo con Stat 06/16/22 18:24 US abdomen [US liver] Urgent 06/17/22 08:02 US point of care ultrasound Urgent 06/18/22 10:21 CT abd pelvis IV con only Stat Hospital Course (1) Atrial fibrillation with rapid ventricular response: (2) ANA (acute kidney injury): (3) NICM (nonischemic cardiomyopathy): (4) Septic shock: Plan Patient was admitted to the hospital with 2 episode of syncope. She was managed for following condition during the hospitalization. Hypotension; likely septic shock (unclear source) -Was initially admitted to the floor; transferred to ICU due to hypotension. She was supported with vasopressor, IV antibiotic. Eventually hemodynamics improved and patient was restarted back on her home medication. She completed a course of antibiotic. -Her urine culture and blood culture were negative. Atrial fibrillation with RVR ICD discharge -Cardiology reviewed the device interrogation; likely cause for the ICD shocks for A. fib in 180s. -She converted to normal sinus rhythm. -Discharged on amiodarone 200 twice daily and Eliquis. Acute kidney injury; likely prerenal due to hypotension -Creatinine trended up to 1.5; down trended after improvement of hemodynamics. PT OT evaluation was done; initially recommended to go to rehab. However, patient continued to show improvement in her ADLs. She wanted to be discharged home. Patient was discharged home with home PT OT. Follow-up appointment was set up with her primary care doctor. Total Time Total Time Spent Total Time Spent (In Minutes): 40 Total Time Includes: Examination of the Patient, Discharge Planning, Medication Reconciliation, Communication With Other Providers and Other Discharge Plan Discharge Items Patient Disposition: Home - Home Health Services Reason For Visit: AFIB, NSVT Discharge Diagnosis: (1) Atrial fibrillation with rapid ventricular response: (2) ANA (acute kidney injury): (3) Hypomagnesemia: (4) Syncope: (5) Acute hyperglycemia: Activity: Resume your previous activity Non-emergency contact: Primary Care Provider Call non-emergency contact if: you have any medication questions and your symptoms worsen Follow-up/Referrals: Ema Ta DO [Primary Care Provider] - (Date & Time 07/03/2022 10:20 AM Provider Ema Ta DO Department [facility] ) Diet: Carb Consistent or DM2 Addtl Attending Provider Instructions: You were admitted here with atrial fibrillation with rapid ventricular response. Please continue to take your Eliquis. Please take amiodarone 200 mg twice daily. You were treated for septic shock likely due to urinary tract infection. You are treated with antibiotic during your hospitalization. Please continue to take your medication as prescribed before. Please follow-up with your primary care doctor as scheduled on July 03. Pending Studies at Discharge: No Stand-Alone Forms: My [facility] Cue, Smoking Cessation Medications and DC Order Prescriptions: New amiodarone 200 mg Tablet 200 mg PO BIDM Qty: 60 0RF Continued cholecalciferol (vitamin D3) [Vitamin D3] 1,000 unit Capsule 1,000 unit PO BID Systane Gel 0.3 % Gel 1 drp OPB HS calcium citrate-vitamin D3 [Citracal-D3 Petites] 200 mg calcium -250 unit Tablet 2 tab PO QAM furosemide [Lasix] 40 mg Tablet 40 mg PO QAM spironolactone 25 mg Tablet 12.5 mg PO 3XWK Rx Instructions: TAKE THIS MED ON SATURDAY/SATURDAY/SATURDAY rosuvastatin [Crestor] 5 mg Tablet 5 mg PO HS Eliquis 5 mg Tablet 5 mg PO BID Entresto 24-26 mg Tablet 1 tab PO BIDM Advair HFA 230-21 mcg/actuation HFA aerosol inhaler 2 puff INHALATION DAILY benzonatate 100 mg capsule 100 mg PO TID PRN (Reason: Cough) meclizine 12.5 mg tablet 12.5 mg PO TID PRN (Reason: Dizziness Or Vertigo) methylcellulose (laxative) Powder 2 g PO DAILY Trulicity 0.75 mg/0.5 mL pen injector 0.75 mg SUBCUT WK Rx Instructions: TAKE THIS MED EVERY SATURDAY metoprolol succinate 100 mg tablet extended release 24 hr 100 mg PO BID Rx Instructions: TAKE THIS MED WITH BREAKFAST AND EVENING MEAL. fluticasone furoate-vilanterol [Breo Ellipta] 100-25 mcg/dose blister with device 1 inh inhalation QAM insulin glargine [Basaglar KwikPen U-100 Insulin] 100 unit/mL (3 mL) insulin pen 40 unit SUBCUT QAM olopatadine [Pataday Once Daily Relief] 0.2 % Drops 1 drp OPR QAM multivitamin Tablet 1 tab PO DAILY Discontinued amiodarone 200 mg Tablet 200 mg PO UD Rx Instructions: 06/10/22 : TAKE THIS MED TWICE DAILY X 7 DAYS, THEN ONCE DAILY THEREAFTER. Discharge Orders: Discharge Order (Routine); Ordered 06/27/22 Ordered By: Eduardo Moreno Admission Data Admit Date/Time: 06/16/22 18:24 Attending Provider: Eduardo Moreno Admit Provider: Caro Huynh Primary Care Provider: Ema Ta Other Providers: Caro Huynh ; Jesse Gomez ; Ricardo Potter ; [facility] ; [place] ; [facility], Other Interventions: Discharge Summary Assessment (RN) Last Done: 06/27/22 13:31
[2022-06-28] MEDS ORDERED: LANTUS PER UNIT CHARGE SQ SCH (09:00)
== END 2022-06-27 14:37 | disposition home health service (06) | DRG 308 ==
LOC: ED 14:53 → EDINP 18:24 → SUATTDRO 18:24 → 2E 06-17 00:30 → 1E 06-17 06:45 → 4W 06-21 18:07

== ENCOUNTER 2025-05-28 17:42 | Inpatient (IN) ==
[2025-05-28 18:51] LABS: Hematocrit (blood only) 39.2 % (37.0-47.0); Hemoglobin 13.3 g/dL (12.0-16.0); Immature Granulocytes # (auto) 0.19 K/uL (0.01-0.20); Immature Granulocytes % (auto) 2.8 %; Mean Corpuscular Hemoglobin 31.3 pg (25.0-34.0); Mean Corpuscular Volume 92.2 fL (80.0-100.0); Platelet Count 304 K/uL (130-400); RDW Standard Deviation 43.8 fL (36.4-46.3); Red Blood Count 4.25 M/uL (4.20-5.40); White Blood Count 6.88 K/ul (4.8-10.8)
--- NOTE | 2025-05-28 18:51 | Emergency Department Note ---
Impression & Plan AICD discharge, Acute hyperglycemia, Cardiac dysrhythmia ED Provider Note NAME: CARLA LUNA AGE:80 SEX: Female : 1945 ARRIVES VIA: EMS INFORMANT: Patient ED PROVIDER(s): Marija Chong CHIEF COMPLAINT: device shocks HPI: 80-year-old female presents emergency room with complaints of being shocked by AICD. Patient was shocked 4 times, 4 related to V-fib with A-fib per device interrogation. Patient states she did not feel well this morning, and it went on throughout the day then she got shocked several times, then she called EMS to bring her in for an evaluation. Patient feels good now. Having no chest pain or shortness of breath at this time. PAST MEDICAL HISTORY:See Below PAST SURGICAL HISTORY:See Below FAMILY HISTORY:See Below SOCIAL HISTORY:See Below HOME MEDICATIONS:See Below ALLERGIES:See Below VITALS:See Below PHYSICAL EXAMINATION: GENERAL: alert, well appearing, well nourished, no distress, non-toxic NECK: supple, no nuchal rigidity, no adenopathy, non-tender LUNGS: Clear to auscultation. Normal chest wall mechanics, no w/r/r HEART: no murmurs, S1 normal and S2 normal ABDOMEN: abdomen soft, non-tender, normo-active bowel sounds, no masses, no rebound or guarding. BACK: Back is symmetrical on inspection and there is no deformity, no midline tenderness, no CVA tenderness. SKIN: no rashes, petechiae, orbruising UPPER EXTREMITIES: upper extremities are grossly normal. FROM, nml pulses b/l. LOWER EXTREMITIES: No pitting edema. FROM, nml pulses b/l. NEURO EXAM: Normal sensorium, nogross weakness of arms, no gross weakness of legs. Gross sensation intact. No ataxia. Vital Signs: reviewed and remarkable Differential Diagnosis: Cardiac ischemia, aortic dissection, pulmonary embolism, pneumothorax, pneumonia, pericarditis, myocarditis, esophageal rupture, GERD, cholecystitis, pancreatitis, musculoskeletal, as well as other pathologies. MEDICAL DECISION MAKIN-year-old female presents emergency room with complaints of multiple device shocks. Patient feeling improved in the emergency room. Spoke with her about results and plan for admission, she is agreeable. Consultation(s): hospitalist ER Treatment Provided: See below Diagnostics Interpreted By Me: -ECG: EKG shows paced at a rate of [address] changes. -Cardiac Monitoring: An order was placed for continuous cardiac monitoring. The monitor shows a rate of 96 with Paced rhythm. -Laboratory studies: As stated above and show below. -Imaging studies: CXR - no acute changes Triage Nursing Note Reviewed Prior/Outside Records Reviewed Past Med/Surg History Problem List Cardiac dysrhythmia (Acute) AICD discharge (Acute) Acute hyperglycemia (Acute) Septic shock ICD (implantable cardioverter-defibrillator) discharge Nausea & vomiting Shock circulatory Atrial fibrillation with rapid ventricular response (Acute) ANA (acute kidney injury) (Acute) Hypomagnesemia (Acute) Syncope (Acute) Acute hyperglycemia (Acute) Wide-complex tachycardia (Acute) NICM (nonischemic cardiomyopathy) NSVT (nonsustained ventricular tachycardia) Paroxysmal atrial fibrillation with RVR Noncompliance with medication regimen Anemia Acute kidney injury superimposed on chronic kidney disease UTI (urinary tract infection) Arrhythmia Obesity (BMI 30-39.9) Uncontrolled diabetes mellitus with hyperglycemia Hyperglycemia (Acute) ANA (acute kidney injury) (Acute) Acute respiratory failure with hypoxia Diabetes mellitus type 2, controlled (Chronic) Discharge planning issues DVT prophylaxis Left bundle branch block (Chronic) Paroxysmal atrial fibrillation (Chronic) Nonischemic cardiomyopathy (Chronic) Pulmonary edema Acute respiratory failure with hypoxia and hypercapnia (Acute) Flash pulmonary edema (Acute) Cardiomyopathy Acute systolic (congestive) heart failure New onset atrial fibrillation (Acute) Abdominal pain (Acute) Encounter for pre-operative examination Fibromyalgia (Chronic) Diabetes (Chronic) Dyslipidemia (Chronic) HTN (hypertension) (Chronic) Endometriosis (Chronic) H/O: hysterectomy (Chronic) S/P BSO (status post bilateral salpingo-oophorectomy) (Chronic) Medical History (Updated 05/28/25 @ 21:17 by Sangeeta Chong DO) Hypomagnesemia Sheehan's neuroma Endometriosis Sciatica Osteoarthritis Hepatitis C A CHILD Diabetes mellitus, type 2 Cancer SKIN CANCER Temporomandibular joint disorder Fibromyalgia Hot flashes Migraine Hypertension Hyperlipidemia Bronchitis Surgical History History of total hysterectomy with bilateral salpingo-oophorectomy (BSO) History of tooth extraction History of tonsillectomy History of cataract surgery RT/LEFT Family History Father Family history of diabetes mellitus Other Breast cancer Hemochromatosis Social History Smoking Status: Never smoker Second Hand Exposure: No; Do You Dip or Chew Tobacco: No; Hx Alcohol Use: No Hx Substance Use: No Preferred Language: [place] Communication Ability: Effective Can Top Setter Required: No Beliefs That Will Affect Care: None marital status: Current Living Situation: Spouse current occupation: Homemaker Feels Safe at Home: Yes Assistive Devices: Walker Allergies Allergies Allergy/AdvReac Type Severity Reaction Status Date / Time propoxyphene Allergy Intermediate Edema Verified 06/16/22 19:09 airway - DARVON erythromycin base Allergy Mild Nausea Verified 06/16/22 19:09 salicylates Allergy Mild Hives/nause Verified 06/16/22 19:09 a Penicillins AdvReac Intermediate Nausea and Verified 06/16/22 19:09 dizziness amitriptyline AdvReac Mild Dizziness Verified 06/16/22 19:09 azithromycin AdvReac Mild STOMACH Verified 06/16/22 19:09 PAINS/ACHES ALL OVER Bactrim AdvReac Mild GI upset, Verified 09/10/17 07:13 nausea, vomiting Corticosteroids AdvReac Mild Prednisone, Verified 06/16/22 19:09 (Glucocorticoids) rapid weight gain hydrocodone AdvReac Mild Nausea, Verified 06/16/22 19:09 vomiting latex AdvReac Mild Rash Verified 06/16/22 19:09 lisinopril AdvReac Mild COUGH Verified 06/16/22 19:09 morphine AdvReac Mild Nausea Verified 06/16/22 19:09 pseudoephedrine AdvReac Mild Dizziness Verified 06/16/22 19:09 sulfamethoxazole AdvReac Mild GI upset, Verified 06/16/22 19:09 nausea, vomiting thiopental AdvReac Mild Nausea, Verified 06/16/22 19:09 vomiting trimethoprim AdvReac Mild GI upset, Verified 06/16/22 19:09 nausea, vomiting Home Meds Home Medications Medication Instructions Recorded Confirmed artificial tears(hypromellose) 0.3 1 drp OPB HS 06/19/18 06/16/22 % eye gel (Systane Gel) calcium 200 mg (as 2 tab PO QAM 06/19/18 06/16/22 citrate)-vitamin D3 6.25 mcg (250 unit) tablet (Citracal-D3 Petites) cholecalciferol (vitamin D3) 25 1,000 unit PO BID 06/19/18 06/16/22 mcg (1,000 unit) capsule (Vitamin D3) apixaban 5 mg tablet (Eliquis) 5 mg PO BID 03/20/19 06/16/22 furosemide 40 mg tablet (Lasix) 40 mg PO QAM 03/20/19 06/16/22 rosuvastatin 5 mg tablet (Crestor) 5 mg PO HS 03/20/19 06/16/22 sacubitril 24 mg-valsartan 26 mg 1 tab PO BIDM 03/20/19 06/16/22 tablet (Entresto) spironolactone 25 mg tablet 12.5 mg PO 3XWK 03/20/19 06/16/22 benzonatate 100 mg capsule 100 mg PO TID PRN Cough 06/07/22 06/16/22 dulaglutide 0.75 mg/0.5 mL 0.75 mg subcut WK 06/07/22 06/16/22 subcutaneous pen injector (Trulicity) fluticasone furoate 100 1 inh inhalation QAM 06/07/22 06/16/22 mcg-vilanterol 25 mcg/dose inhalation powder (Breo Ellipta) insulin glargine 100 unit/mL (3 40 unit subcut QAM 06/07/22 06/16/22 mL) subcutaneous pen (Melyaglar Rosangela U-100 Insulin) meclizine 12.5 mg tablet 12.5 mg PO TID PRN Dizziness Or 06/07/22 06/16/22 Vertigo methylcellulose (laxative) 2 g PO DAILY 06/07/22 06/16/22 metoprolol succinate 100 mg 100 mg PO BID 06/07/22 06/16/22 tablet,extended release 24 hr multivitamin 1 tab PO DAILY 06/07/22 06/16/22 olopatadine 0.2 % eye drops 1 drp OPR QAM 06/07/22 06/16/22 (Pataday Once Daily Relief) fluticasone propionate 230 2 puff inhalation DAILY 06/16/22 06/16/22 mcg-salmeterol 21 mcg/actuation HFA inhaler (Advair HFA) Previous Rx's Medication Instructions Recorded amiodarone 200 mg tablet 200 mg PO BIDM #60 tabs 06/27/22 Results & Data (ED) Vital Signs Vital Signs - 24 hr 05/28/25 17:53 05/28/25 17:56 05/28/25 18:18 Temperature 36.4 C L Temperature Source Oral Pulse Rate 113 H 119 H 104 H Pulse Rate [Apical] Pulse Rhythm [Apical] Pulse Strength [Apical] Respiratory Rate 24 24 Respiratory Effort / Characteristics Non-Labored Spontaneous Respiratory Depth Normal Respiratory Pattern Regular Blood Pressure 143/93 H Blood Pressure [Left Arm] Blood Pressure Mean 109 Blood Pressure Mean [Left Arm] Pulse Oximetry 98 99 Oxygen Delivery Method Room Air Room Air Sepsis Recent Fever Within 48 Hours No Sepsis New/Unexplained Change in Mental Status No Sepsis Action Taken by Nursing No Action Required 05/28/25 18:42 05/28/25 20:10 Temperature Temperature Source Pulse Rate Pulse Rate [Apical] 99 H 135 H Pulse Rhythm [Apical] Regular Pulse Strength [Apical] Normal Respiratory Rate 23 29 H Respiratory Effort / Characteristics Non-Labored Spontaneous Respiratory Depth Normal Respiratory Pattern Blood Pressure Blood Pressure [Left Arm] 140/76 130/71 Blood Pressure Mean Blood Pressure Mean [Left Arm] 97 90 Pulse Oximetry 100 99 Oxygen Delivery Method Room Air Room Air Sepsis Recent Fever Within 48 Hours Sepsis New/Unexplained Change in Mental Status Sepsis Action Taken by Nursing Laboratory Data 05/28/25 18:35 05/28/25 18:35 Lab Results 05/28/25 05/28/25 Range/Units 18:35 21:15 WBC 6.88 (4.8-10.8) K/ul RBC 4.25 (4.20-5.40) M/uL Hgb 13.3 (12.0-16.0) g/dL Hct 39.2 (37.0-47.0) % MCV 92.2 (80.0-100.0) fL MCH 31.3 (25.0-34.0) pg MCHC 33.9 (32.0-36.0) g/dL RDW Std Deviation 43.8 (36.4-46.3) fL RDW Coeff of Hilda 13.2 (11.5-14.5) % Plt Count 304 (130-400) K/uL MPV 8.9 L (9.4-12.4) fL Immature Gran % (Auto) 2.8 % Neut % (Auto) 75.8 % Lymph % (Auto) 16.7 % [place] % (Auto) 3.9 % Eos % (Auto) 0.4 % Baso % (Auto) 0.4 % Neut # (Auto) 5.21 (1.40-6.50) K/uL Lymph # (Auto) 1.15 L (1.20-3.40) K/uL [place] # (Auto) 0.27 (0.11-0.59) K/uL Eos # (Auto) 0.03 (0.00-0.50) K/uL Baso # (Auto) 0.03 (0.00-0.20) K/uL Immature Gran # (Auto) 0.19 (0.01-0.20) K/uL PT 11.0 (9.0-12.0) Seconds INR 1.0 (0.9-1.1) APTT 25 (21-31) Seconds PTT Ratio 0.9 Sodium 133 L (136-145) mmol/L Potassium 4.7 (3.5-5.1) mmol/L Chloride 97 L (98-107) mmol/L Carbon Dioxide 26 (21-32) mmol/L Anion Gap 10 (3-11) BUN 16 (6-23) mg/dl Creatinine 1.07 (0.6-1.2) mg/dl Est Cr Clr Drug Dosing 51.1 ml/min eGFR 52.84 BUN/Creatinine Ratio 15.0 (10-20) Glucose 525 H* (70-99(Fasting)) mg/dl POC Glucose 485 H* (70-99) mg/dl Calcium 10.0 (8.6-10.3) mg/dl Phosphorus 1.9 L (2.5-4.9) mg/dl Magnesium 1.8 (1.7-2.4) mg/dl Total Bilirubin 0.6 (0.2-1.0) mg/dl AST 15 (13-39) U/L ALT 12 (7-52) U/L Alkaline Phosphatase 158 H (34-104) U/L Troponin I High Sens 42.3 H (0-14) pg/ml Total Protein 6.4 (6.0-8.3) gm/dl Albumin 3.4 (3.4-5.0) gm/dl Globulin 3.0 (2.5-4.0) gm/dl Albumin/Globulin Ratio 1.1 (0.9-2) Administered Medications Discontinued Medications Amiodarone HCl (Amiodarone 200 Mg Tab) 200 mg PO NOW ONE Stop: 05/28/25 20:23 Last Admin: 05/28/25 20:46 Dose: Not Given Documented By: JUAN Insulin Human Regular (Novolin-R Insulin Per Unit Charge) 10 units SC NOW STA Stop: 05/28/25 19:19 Last Admin: 05/28/25 19:34 Dose: 10 units Documented By: JUAN Co-signed By: liss Metoprolol Succinate (Metoprolol Succ 50mg Ext Rel Tab) 100 mg PO NOW STA Stop: 05/28/25 20:23 Last Admin: 05/28/25 20:44 Dose: 100 mg Documented By: JUAN Imaging Data Radiologist's Impression: Chest X-Ray 05/28/25 18:03 HISTORY: Chest pain TECHNIQUE: Portable AP radiograph of the chest. COMPARISON: Chest radiograph dated 06/17/2022. FINDINGS: Left subclavian approach biventricular pacer/AICD. No focal lung consolidation. No pneumothorax or effusion. Top normal heart size. Left-sided aortic arch containing atherosclerotic calcification. Midline trachea. No acute osseous abnormality. Included upper abdomen is unremarkable. IMPRESSION: No acute cardiopulmonary findings. Electronically signed by August Garces 05-28-2025 9:14 PM Discharge Plan Visit Data Chief Complaint: Cardiac Assessment Stated Complaint: CARDIAC ASSESSMENT ED Provider: Sangeeta Chong Discharge Problem: AICD discharge, Acute hyperglycemia, Cardiac dysrhythmia Patient Disposition: Admitted As Inpatient Condition: Fair Forms Stand Alone Forms: My [facility] Prescriptions Prescriptions: No Action cholecalciferol (vitamin D3) [Vitamin D3] 1,000 unit Capsule 1,000 unit PO BID Systane Gel 0.3 % Gel 1 drp OPB HS calcium citrate-vitamin D3 [Citracal-D3 Petites] 200 mg calcium -250 unit Tablet 2 tab PO QAM furosemide [Lasix] 40 mg Tablet 40 mg PO QAM spironolactone 25 mg Tablet 12.5 mg PO 3XWK Rx Instructions: TAKE THIS MED ON SATURDAY/SATURDAY/SATURDAY rosuvastatin [Crestor] 5 mg Tablet 5 mg PO HS Eliquis 5 mg Tablet 5 mg PO BID Entresto 24-26 mg Tablet 1 tab PO BIDM Advair HFA 230-21 mcg/actuation HFA aerosol inhaler 2 puff INHALATION DAILY amiodarone 200 mg Tablet 200 mg PO BIDM Qty: 60 0RF benzonatate 100 mg capsule 100 mg PO TID PRN (Reason: Cough) meclizine 12.5 mg tablet 12.5 mg PO TID PRN (Reason: Dizziness Or Vertigo) methylcellulose (laxative) Powder 2 g PO DAILY Trulicity 0.75 mg/0.5 mL pen injector 0.75 mg SUBCUT WK Rx Instructions: TAKE THIS MED EVERY SATURDAY metoprolol succinate 100 mg tablet extended release 24 hr 100 mg PO BID Rx Instructions: TAKE THIS MED WITH BREAKFAST AND EVENING MEAL. fluticasone furoate-vilanterol [Breo Ellipta] 100-25 mcg/dose blister with device 1 inh inhalation QAM insulin glargine [Basaglar KwikPen U-100 Insulin] 100 unit/mL (3 mL) insulin pen 40 unit SUBCUT QAM olopatadine [Pataday Once Daily Relief] 0.2 % Drops 1 drp OPR QAM multivitamin Tablet 1 tab PO DAILY Referrals Referrals: Paola Louie MD [Outside Practitioners] -
[2025-05-28 19:15] LABS: Alanine Aminotransferase 12.0 U/L (7-52); Albumin Globulin Ratio 1.1 (0.9-2); Albumin Level 3.4 gm/dl (3.4-5.0); Alkaline Phosphatase 158.0 U/L (34-104); Anion Gap 10.0 (3-11); Bilirubin,Total 0.6 mg/dl (0.2-1.0); Blood Urea Nitrogen 16.0 mg/dl (6-23); Calcium 10.0 mg/dl (8.6-10.3); Carbon Dioxide 26.0 mmol/L (21-32); Chloride 97.0 mmol/L (98-107); Creatinine Clr Calc Pharmacy 51.1 ml/min; Globulin 3.0 gm/dl (2.5-4.0); Glucose 525.0 mg/dl (70-99(Fasting)); Magnesium 1.8 mg/dl (1.7-2.4); Potassium 4.7 mmol/L (3.5-5.1); Sodium 133.0 mmol/L (136-145); Total Protein 6.4 gm/dl (6.0-8.3)
[2025-05-28 19:21] LABS: INR 1.0 (0.9-1.1); Partial Thromboplastin Time 25 Seconds (21-31); Prothrombin Time 11.0 Seconds (9.0-12.0)
[2025-05-28] MEDS: NovoLIN-R INSULIN PER UNIT CHARGE SC STA (19:34)
[2025-05-28] MEDS: METOPROLOL SUCC 50MG EXT REL TAB PO STA (20:44)
[2025-05-28] MEDS: AMIODARONE 200 MG TAB PO ONE (20:46)
--- NOTE | 2025-05-28 21:14 | XRay Report ---
HISTORY: Chest pain TECHNIQUE: Portable AP radiograph of the chest. COMPARISON: Chest radiograph dated 06/17/2022. FINDINGS: Left subclavian approach biventricular pacer/AICD. No focal lung consolidation. No pneumothorax or effusion. Top normal heart size. Left-sided aortic arch containing atherosclerotic calcification. Midline trachea. No acute osseous abnormality. Included upper abdomen is unremarkable. IMPRESSION: No acute cardiopulmonary findings. Electronically signed by August Garces 05-28-2025 9:14 PM
--- NOTE | 2025-05-28 21:19 | History & Physical Report ---
Date of Service May 28, 2025 Assessment & Plan (1) Ventricular fibrillation: (2) Elevated troponin: (3) Hyperglycemia due to type 2 diabetes mellitus: (4) Shingles: Plan Patient is a 80-year-old female with a past medical history of type II DM, cardiomyopathy, CHF, HTN, A-fib on Eliquis, CKD, ICD in place. Patient presented to the ED after her pacemaker shocked her 4 times today. Pacer interrogation reportedly showed 4 episodes of V-fib, official report pending. Throughout patient's ER stay, telemetry has shown paced rhythm, no arrhythmias noted. She does have magnesium 1.8, troponin 42.3, and glucose 525. She is being admitted for cardiac monitoring, electrolyte repletion, and to have cardiology eval for possible medication adjustment. #V-fibreportedly 4 episodes of V-fib at home shocked with ACID. In sinus paced rhythm in ED. Mag 1.8, otherwise electrolytes stable. - TSH ordered - 1 G IV mag ordered - official pacer interrogation pending - continue home metoprolol succinate 100 mg BID - was previously on amiodarone 200 mg twice daily however patient reports was discontinued over the summer - Patient clinically dry; IVF with 500 mL LR at 70 mL/hour, hold Lasix Echocardiogram ordered Cardiology consulted Monitor on telemetry Trend BMP and magnesium #elevated troponin - trop 42.3 -> 104.8. Likely 2/2 demand with above. - repeat EKG ordered - trend troponin every 6 hours Echocardiogram as above #hyperglycemia secondary to type II DMpatient reports not taking her daily insulin on 05/28. She is unsure of her home medication regimen however believes its NovoLog 42-40 3U every morning and Basaglar 50U with dinner. A1c with a.m. labs 10 U insulin human regular in ED followed by SSI novolog and reduced glargine to 35 u - anticipate glucose to improve with IVF - SSI with target BSG range 110-140mg/dL, CF 30 - reduced home lantus from 50 U hs to 35 U hs with tight diet control during hospitalization #shingles - in healing stage, no blisters noted - all crusted over. - standard precautions - patient reports being on medication at home for this that begins with a G; unable to verify medication list - possibly gabapentin? - reports medication not helping so defer ordering for now #Cardiomyopathy stable, no acute exacerbation.most recent echocardiogram on file from 2019 revealed EF 20 to 25% provide patient follows with [facility] cardiology. Repeating echocardiogram in a.m. Holding lasix as above - continue spironolactone on Thursday 05/31 Continue Entresto - Healthy low-sodium diet Daily weights Strict I's and O's - monitor for volume overload with gentle IVF as above #A-fibcontinue Eliquis and metoprolol #HLD - continue crestor VTE ppx: continue home Eliquis Dispo: PCU Admission and Anticipated Discharge Date Admission Date: 05/28/25 History of Present Illness Chief Complaint: cardiac assessment Primary Care Provider: Karsten Ovalle DO Patient is a 80-year-old female with a past medical history of type II DM, cardiomyopathy, CHF, HTN, A-fib on Eliquis, CKD, ICD in place. Patient presented to the ED after her pacemaker shocked her 4 times today. Pacer interrogation reportedly showed 4 episodes of V-fib. Throughout patient's ER stay, telemetry has shown paced rhythm, no arrhythmias noted. She does have magnesium 1.8, troponin 42.3, and glucose 525. She is being admitted for cardiac monitoring, electrolyte repletion, and to have cardiology eval for possible medication adjustment. Patient seen at bedside with her present. She stated she was walking to the bathroom this morning when she had the first shock, she then had a second shock when she got to the bathroom. When she was getting off of the toilet she had a third shock. And then when she was leaving the bathroom she had a fourth and called EMS. She stated she had chest pain and shortness of breath during the episode however currently denies any symptoms. She was feeling well this morning otherwise. Denies any recent dizziness, lightheadedness, chest pain, shortness of breath, abdominal pain, nausea, vomiting. She does endorse 2 episodes of diarrhea over the past week which is not typical for her, now resolved. She also endorses intermittent balance issues which is baseline for her and she uses a walker. She stated she was taken off amiodarone this summer and follows with Dr. Modi for cardiology. Patient also stated over the summer cardiology did something to her pacer and every evening at 5 PM it goes off for 1 to 2 minutes. She is unable to explain further detail however wants to discuss with cardiology. Patient mentioned that she has also been diagnosed with shingles during either the 2nd or 3rd week of May. She is on a medication that begins with the G to help with this. She is unsure of what the medication is. Tried to obtain current medication regimen however not within the EMR. Regarding patient's hyperglycemia, she stated her A1c has been poorly controlled as she has been trying to undergo knee surgery and needs to control it first. She is unsure of her home medication regimen for insulin however believes she takes NovoLog 42 to 43 units in the morning and Basaglar 50 units with dinner. She denies nicotine or alcohol use. She does not use oxygen at baseline. She is due for her evening medications. She wishes to be full code. Allergies Allergy/AdvReac Type Severity Reaction Status Date / Time propoxyphene Allergy Intermediate Edema Verified 06/16/22 19:09 airway - DARVON erythromycin base Allergy Mild Nausea Verified 06/16/22 19:09 salicylates Allergy Mild Hives/nause Verified 06/16/22 19:09 a Penicillins AdvReac Intermediate Nausea and Verified 06/16/22 19:09 dizziness amitriptyline AdvReac Mild Dizziness Verified 06/16/22 19:09 azithromycin AdvReac Mild STOMACH Verified 06/16/22 19:09 PAINS/ACHES ALL OVER Bactrim AdvReac Mild GI upset, Verified 09/10/17 07:13 nausea, vomiting Corticosteroids AdvReac Mild Prednisone, Verified 06/16/22 19:09 (Glucocorticoids) rapid weight gain hydrocodone AdvReac Mild Nausea, Verified 06/16/22 19:09 vomiting latex AdvReac Mild Rash Verified 06/16/22 19:09 lisinopril AdvReac Mild COUGH Verified 06/16/22 19:09 morphine AdvReac Mild Nausea Verified 06/16/22 19:09 pseudoephedrine AdvReac Mild Dizziness Verified 06/16/22 19:09 sulfamethoxazole AdvReac Mild GI upset, Verified 06/16/22 19:09 nausea, vomiting thiopental AdvReac Mild Nausea, Verified 06/16/22 19:09 vomiting trimethoprim AdvReac Mild GI upset, Verified 06/16/22 19:09 nausea, vomiting Home Medications Medication Instructions Recorded Confirmed Type artificial tears(hypromellose) 0.3 1 p OPB HS 06/19/18 06/16/22 History % eye gel (Systane Gel) calcium 200 mg (as 2 tab PO QAM 06/19/18 06/16/22 History citrate)-vitamin D3 6.25 mcg (250 unit) tablet (Citracal-D3 Petites) cholecalciferol (vitamin D3) 25 1,000 unit PO BID 06/19/18 06/16/22 History mcg (1,000 unit) capsule (Vitamin D3) apixaban 5 mg tablet (Eliquis) 5 mg PO BID 03/20/19 06/16/22 History furosemide 40 mg tablet (Lasix) 40 mg PO QAM 03/20/19 06/16/22 History rosuvastatin 5 mg tablet (Crestor) 5 mg PO HS 03/20/19 06/16/22 History sacubitril 24 mg-valsartan 26 mg 1 tab PO BIDM 03/20/19 06/16/22 History tablet (Entresto) spironolactone 25 mg tablet 12.5 mg PO 3XWK 03/20/19 06/16/22 History benzonatate 100 mg capsule 100 mg PO TID PRN Cough 06/07/22 06/16/22 History dulaglutide 0.75 mg/0.5 mL 0.75 mg subcut WK 06/07/22 06/16/22 History subcutaneous pen injector (Trulicity) fluticasone furoate 100 1 inh inhalation QAM 06/07/22 06/16/22 History mcg-vilanterol 25 mcg/dose inhalation powder (Breo Ellipta) insulin glargine 100 unit/mL (3 40 unit subcut QAM 06/07/22 06/16/22 History mL) subcutaneous pen (Basaglar KwikPen U-100 Insulin) meclizine 12.5 mg tablet 12.5 mg PO TID PRN Dizziness Or 06/07/22 06/16/22 History Vertigo methylcellulose (laxative) 2 g PO DAILY 06/07/22 06/16/22 History metoprolol succinate 100 mg 100 mg PO BID 06/07/22 06/16/22 History tablet,extended release 24 hr multivitamin 1 tab PO DAILY 06/07/22 06/16/22 History olopatadine 0.2 % eye drops 1 drp OPR QAM 06/07/22 06/16/22 History (Pataday Once Daily Relief) fluticasone propionate 230 2 puff inhalation DAILY 06/16/22 06/16/22 History mcg-salmeterol 21 mcg/actuation HFA inhaler (Advair HFA) amiodarone 200 mg tablet 200 mg PO BIDM #60 tabs 06/27/22 Rx Past Med/Surg History Problem List Shingles Hyperglycemia due to type 2 diabetes mellitus Elevated troponin Ventricular fibrillation Cardiac dysrhythmia (Acute) AICD discharge (Acute) Acute hyperglycemia (Acute) Septic shock ICD (implantable cardioverter-defibrillator) discharge Nausea & vomiting Shock circulatory Atrial fibrillation with rapid ventricular response (Acute) ANA (acute kidney injury) (Acute) Hypomagnesemia (Acute) Syncope (Acute) Acute hyperglycemia (Acute) Wide-complex tachycardia (Acute) NICM (nonischemic cardiomyopathy) NSVT (nonsustained ventricular tachycardia) Paroxysmal atrial fibrillation with RVR Noncompliance with medication regimen Anemia Acute kidney injury superimposed on chronic kidney disease UTI (urinary tract infection) Arrhythmia Obesity (BMI 30-39.9) Uncontrolled diabetes mellitus with hyperglycemia Hyperglycemia (Acute) ANA (acute kidney injury) (Acute) Acute respiratory failure with hypoxia Diabetes mellitus type 2, controlled (Chronic) Discharge planning issues DVT prophylaxis Left bundle branch block (Chronic) Paroxysmal atrial fibrillation (Chronic) Nonischemic cardiomyopathy (Chronic) Pulmonary edema Acute respiratory failure with hypoxia and hypercapnia (Acute) Flash pulmonary edema (Acute) Cardiomyopathy Acute systolic (congestive) heart failure New onset atrial fibrillation (Acute) Abdominal pain (Acute) Encounter for pre-operative examination Fibromyalgia (Chronic) Diabetes (Chronic) Dyslipidemia (Chronic) HTN (hypertension) (Chronic) Endometriosis (Chronic) H/O: hysterectomy (Chronic) S/P BSO (status post bilateral salpingo-oophorectomy) (Chronic) Medical History (Updated 05/29/25 @ 00:12 by Julianne Navas PA-C) Hypomagnesemia Sheehan's neuroma Endometriosis Sciatica Osteoarthritis Hepatitis C A CHILD Diabetes mellitus, type 2 Cancer SKIN CANCER Temporomandibular joint disorder Fibromyalgia Hot flashes Migraine Hypertension Hyperlipidemia Bronchitis Surgical History History of total hysterectomy with bilateral salpingo-oophorectomy (BSO) History of tooth extraction History of tonsillectomy History of cataract surgery RT/LEFT Family History Father Family history of diabetes mellitus Other Breast cancer Hemochromatosis Social History Smoking Status: Never smoker Second Hand Exposure: No; Do You Dip or Chew Tobacco: No; Hx Alcohol Use: No Hx Substance Use: No Preferred Language: Gabonese Communication Ability: Effective Cad Engineer Required: No Beliefs That Will Affect Care: None marital status: Current Living Situation: Spouse Current Living Situation Comment: with current occupation: Homemaker Other Information That Helps Us Care for You: No Feels Safe at Home: Yes Safety Concerns: Feels Safe At This Time Assistive Devices: Denture - Lower, Glasses and Walker Review of Systems Review of Systems: see HPI Physical Exam Physical Exam: The patient is awake, alert and oriented 3, well developed and well nourished, normocephalic and atraumatic, in no acute distress. Non-toxic appearing. HEENT- EOMI, mucous membranes dry. Hearing grossly intact. Heart-normal S1 and S2. No murmurs, rubs or gallops. Lungs-clear bilaterally, no respiratory distress, no accessory muscle use. Abdomen-normal bowel sounds and soft. No ascites noted. Non-tender. Extremities- no clubbing, cyanosis, or edema. Rheumatologic-normal range of motion. Psychiatric-normal affect. Skin: right lateral thoracic region with healing scabs, no open wounds or blistering noted Results & Data Results & Data Vital Signs (Past 12 Hours) Vital Signs Temp Pulse Pulse Resp BP BP Pulse Ox 05/28/25 20:10 135 H 29 H 130/71 99 05/28/25 18:42 99 H 23 140/76 100 05/28/25 18:18 104 H 24 99 05/28/25 17:56 119 H 05/28/25 17:53 36.4 C L 113 H 24 143/93 H 98 O2 Del Method 05/28/25 20:10 Room Air 05/28/25 18:42 Room Air 05/28/25 18:18 Room Air 05/28/25 17:56 05/28/25 17:53 Room Air Laboratory Results Reviewed CBC, PT/INR, CMP, troponin, mag, phosphorus Diagnostic Findings reviewed cxr Medications Administered ed - 10 U insulin novolin, metoprolol succinate 100 mg PO ECG Additional Comments: ordered Code Status & VTE Plan Code Status full code VTE Prophylaxis Plan VTE Prophylaxis will be ordered: Yes Supervising Physician Co-Signing Physician Notes Patient seen and examined, chart reviewed, case discussed with ARLENE Navas and I agree with the assessment and plan as above. Patient is a [facility] Cardiology patient, however, due to insurance is being admitted to [place]. No access to most recent Cardiology records at this time. Reportedly 4 episodes of VF at home s/p AICD shock x 4 No complaints at present No chest pain or SOB Assessment/plan -Gentle hydration -Magnesium repletion -Metoprolol given -Check 2D echo -Cardiology consultation -Remainder as above PG Care Time/CCT Total # of Minutes Spent Total Time Spent with Patient: Total time spent is greater than 50% in coordination of care (as documented) at patient's floor/unit and/or counseling patient: Coding Level of Care Code 19371 INT INP/OBS CARE 3/75MIN Diagnoses Ventricular fibrillation I49.01 Elevated troponin R79.89 Hyperglycemia due to type 2 diabetes mellitus E11.65 Shingles B02.9
[2025-05-28] MEDS: MAGNESIUM SULFATE / D5W 1 GM/100 ML BAG IV ONE (21:51)
[2025-05-28] MEDS: ROSUVASTATIN CALCIUM 5 MG TAB PO STA (21:52)
[2025-05-28] MEDS: APIXABAN 5 MG TABLET PO STA (21:52)
[2025-05-28] MEDS: INSULIN ASPART PER UNIT CHARGE SC STA (22:01)
[2025-05-28] MEDS: LANTUS PER UNIT CHARGE SQ STA (22:02)
[2025-05-28] MEDS ORDERED: MELATONIN 3 MG TAB PO PRN (22:57)
[2025-05-28] MEDS ORDERED: CARBOHYDRATES FOR HYPOGLYCEMIA PO PRN (22:57)
[2025-05-28] MEDS ORDERED: BENZONATATE 100 MG CAPSULE PO PRN (22:57)
[2025-05-28] MEDS ORDERED: MECLIZINE 12.5 MG TAB PO PRN (22:57)
[2025-05-28] MEDS ORDERED: GLUCOSE 10 TAB/TUBE PO PRN (22:57)
[2025-05-28] MEDS ORDERED: DEXTROSE 50% 50 ML SYRINGE IV PRN (22:57)
[2025-05-28] MEDS ORDERED: GLUCOSE 40% GEL 15 GM TUBE PO PRN (22:57)
[2025-05-28] MEDS ORDERED: ONDANSETRON INJ 2 MG/ML 2 ML VIAL IV PRN (22:57)
[2025-05-28] MEDS ORDERED: GLUCAGON FOR INJ 1 MG VIAL SQ PRN (22:57)
[2025-05-28] MEDS: LACTATED RINGER'S 500 ML IV SCH (23:01)
[2025-05-28] MEDS: INSULIN ASPART PER UNIT CHARGE SC SCH (23:45)
[2025-05-29 00:41] LABS: Thyroid Stimulating Hormone 1.28 uIu/ml (0.300-4.500)
[2025-05-29 02:33] LABS: Hematocrit (blood only) 36.3 % (37.0-47.0); Hemoglobin 12.3 g/dL (12.0-16.0); Immature Granulocytes # (auto) 0.25 K/uL (0.01-0.20); Immature Granulocytes % (auto) 2.1 %; Mean Corpuscular Hemoglobin 30.9 pg (25.0-34.0); Mean Corpuscular Volume 91.2 fL (80.0-100.0); Platelet Count 341 K/uL (130-400); RDW Standard Deviation 43.7 fL (36.4-46.3); Red Blood Count 3.98 M/uL (4.20-5.40); White Blood Count 11.66 K/ul (4.8-10.8)
[2025-05-29 03:10] LABS: Anion Gap 8.0 (3-11); Blood Urea Nitrogen 16.0 mg/dl (6-23); Calcium 9.9 mg/dl (8.6-10.3); Carbon Dioxide 27.0 mmol/L (21-32); Chloride 101.0 mmol/L (98-107); Creatinine Clr Calc Pharmacy 49.7 ml/min; Glucose 116.0 mg/dl (70-99(Fasting)); Magnesium 2.0 mg/dl (1.7-2.4); Potassium 3.4 mmol/L (3.5-5.1); Sodium 136.0 mmol/L (136-145)
[2025-05-29] MEDS: POTASSIUM CHLORIDE / WTR 10 MEQ/100 ML PLCT IV SCH (04:59)
[2025-05-29] MEDS: POTASSIUM CHLORIDE CRTAB 20 MEQ TABCR PO STA (05:54)
[2025-05-29 08:31] LABS: Hemoglobin A1C 11.2 % (4.5-5.6)
--- NOTE | 2025-05-29 08:42 | Cardiology Consultation ---
Date of Consultation May 29, 2025 Assessment & Plan (1) Cardiac dysrhythmia: (2) ICD (implantable cardioverter-defibrillator) discharge: (3) Atrial fibrillation: (4) Elevated troponin: (5) NICM (nonischemic cardiomyopathy): (6) Noncompliance with medication regimen: Plan Assessment: 80 year old medically complex female admitted after reports of ICD discharge. Review of chart suggestive of both A-fib with RVR rates in the 220's requiring ATP as well as V-fib resulting in shock. Awaiting device report to confirm. Cardiology consulted for further evaluation/recommendations. Plan: -patient with known medication non-compliance including this past 2 weeks. See HPI. -Awaiting device interrogation, although remote interrogation has also showing A-fib with RVR requiring ATP and evidence of V-fib with ICD discharge. -Obtain echocardiogram -urine abnormal, culture pending--continued management per primary team. -Continue Eliquis 5mg PO BID for oral anticoagulation in the setting of chronic Afib -Continue Toprol xl 100mg PO BID and Entresto (26/24mg) PO BID. Patient had not been taking these medications since 05/17/2025. -Discussed with patient prior use of amiodarone and patient self- discontinuation. Explained that we were going to review her echo as well as device interrogation and would then discuss with her medication therapy considerations. She verbalized understanding. Will further discuss with Dr. Rivera. -Continue Spironolactone (MWF dosing) -EKG with no acute ischemic change, troponin elevation in the setting of AICD discharge. Awaiting echocardigram. Case has been discussed with Dr. Rivera. Further recommendations regarding plan of care as per her assessment. I spent a total of 50 minutes on the date of service in preparation, delivery, documentation of the care provided to the patient excluding any time spent in the performance of separately billed services. MAULIK Shepherd [facility] Cardiology [facility] Supervising Physician Co-Signing Physician Notes I have reviewed the advanced practitioner's documentation on the date of service referenced in note, and I agree with, and take responsibility for the plan of care. I spent a total of [30] minutes coordinating, documenting, and providing care for this patient excluding time spent in the performance of separately billed services or time spent by another provider. 80-year-old with history of atrial fibrillation nonischemic cardiomyopathy and ICD presents with multiple ICD shocks. Recent shingles recovering Device was interrogated in the emergency room and reported to have ICD shocks for A-fib . Report not available in the chart to review Continues to be in A-fib with fast heart rates will optimize medical therapy Need to obtain pacemaker interrogation report for further review and management History of Present Illness Reason for Consultation: "v-fib with ICD", med recommendations Requesting Physician: Dr. Ho--[place] hospitalist Attending Physician: Raymundo Ho MD History of Present Illness HPI: Patient is a 80 year old female with PMHx as outlined below presents to the ER with acute complaints of her ICD firing 4 times on day of admission. Awaiting official report as preliminary suggest 4 episodes of V-fib. Patient was previously on Amiodarone, but had self discontinued due to concerns of "hair thinning" since that time she has had an overall increase in her A-fib burden and frequent PVC's Of note, Several attempts were made to the patient on 05/19/2025 after a remote ICD transmission on 05/18/25 showed patient having P. A-fib with RVR with rates up to 220bpm starting on 05/17/25. Patient had received ATP burst followed by a 35J shock from her ICD for VF detection due to RVR. Several attempts were made to contact patient. Per review of EPIC encounter device clinic RN spoke with patient and advised her that she needed to present to the ER, Patient refused to present reporting that she felt too ill with weakness, body aches and a cough. She admitted medication non-compliance reporting that she had not taken her Metoprolol, Eliquis and Entresto since Saturday (05/17/25) because she had leg pain. Upon seeing patient in examination today she is resting in bed. She is endorsing some mild back pain, but no chest pain. She is in isolation s/t to shingles. No changes in breathing, no lower extremity edema, no near syncope or syncope. Review of telemetry shows paced with underlying A-fib rates 100-110bpm. Rare burst into the 150's. Awaiting device interrogation. Cardiac Problem List: 1. NICM s/p ICD ([employer] 2019) 2. HFrEF 3. Left BBB 4. P. A-fib 5. Frequent PVCs 6. HTN 7. DM Type II EKG on admission A-sensed/V-paced Rate 118bpm, repeat EKG V-paced rate 106bpm Chest xray negative High sensitivity troponin 42.3/104.8/107/78.4 Allergies Allergy/AdvReac Type Severity Reaction Status Date / Time propoxyphene Allergy Intermediate Edema Verified 06/16/22 19:09 airway - DARVON erythromycin base Allergy Mild Nausea Verified 06/16/22 19:09 salicylates Allergy Mild Hives/nause Verified 06/16/22 19:09 a Penicillins AdvReac Intermediate Nausea and Verified 06/16/22 19:09 dizziness amitriptyline AdvReac Mild Dizziness Verified 06/16/22 19:09 azithromycin AdvReac Mild STOMACH Verified 06/16/22 19:09 PAINS/ACHES ALL OVER Bactrim AdvReac Mild GI upset, Verified 09/10/17 07:13 nausea, vomiting Corticosteroids AdvReac Mild Prednisone, Verified 06/16/22 19:09 (Glucocorticoids) rapid weight gain hydrocodone AdvReac Mild Nausea, Verified 06/16/22 19:09 vomiting latex AdvReac Mild Rash Verified 06/16/22 19:09 lisinopril AdvReac Mild COUGH Verified 06/16/22 19:09 morphine AdvReac Mild Nausea Verified 06/16/22 19:09 pseudoephedrine AdvReac Mild Dizziness Verified 06/16/22 19:09 sulfamethoxazole AdvReac Mild GI upset, Verified 06/16/22 19:09 nausea, vomiting thiopental AdvReac Mild Nausea, Verified 06/16/22 19:09 vomiting trimethoprim AdvReac Mild GI upset, Verified 06/16/22 19:09 nausea, vomiting Home Medications Medication Instructions Recorded Confirmed Type artificial tears(hypromellose) 0.3 1 drp OPB HS 06/19/18 06/16/22 History % eye gel (Systane Gel) calcium 200 mg (as 2 tab PO QAM 06/19/18 06/16/22 History citrate)-vitamin D3 6.25 mcg (250 unit) tablet (Citracal-D3 Petites) cholecalciferol (vitamin D3) 25 1,000 unit PO BID 06/19/18 06/16/22 History mcg (1,000 unit) capsule (Vitamin D3) apixaban 5 mg tablet (Eliquis) 5 mg PO BID 03/20/19 06/16/22 History furosemide 40 mg tablet (Lasix) 40 mg PO QAM 03/20/19 06/16/22 History rosuvastatin 5 mg tablet (Crestor) 5 mg PO HS 03/20/19 06/16/22 History sacubitril 24 mg-valsartan 26 mg 1 tab PO BIDM 03/20/19 06/16/22 History tablet (Entresto) spironolactone 25 mg tablet 12.5 mg PO 3XWK 03/20/19 06/16/22 History benzonatate 100 mg capsule 100 mg PO TID PRN Cough 06/07/22 06/16/22 History dulaglutide 0.75 mg/0.5 mL 0.75 mg subcut WK 06/07/22 06/16/22 History subcutaneous pen injector (Trulicity) fluticasone furoate 100 1 inh inhalation QAM 06/07/22 06/16/22 History mcg-vilanterol 25 mcg/dose inhalation powder (Breo Ellipta) insulin glargine 100 unit/mL (3 40 unit subcut QAM 06/07/22 06/16/22 History mL) subcutaneous pen (Basaglar KwikPen U-100 Insulin) meclizine 12.5 mg tablet 12.5 mg PO TID PRN Dizziness Or 06/07/22 06/16/22 History Vertigo methylcellulose (laxative) 2 g PO DAILY 06/07/22 06/16/22 History metoprolol succinate 100 mg 100 mg PO BID 06/07/22 06/16/22 History tablet,extended release 24 hr multivitamin 1 tab PO DAILY 06/07/22 06/16/22 History olopatadine 0.2 % eye drops 1 drp OPR QAM 06/07/22 06/16/22 History (Pataday Once Daily Relief) fluticasone propionate 230 2 puff inhalation DAILY 06/16/22 06/16/22 History mcg-salmeterol 21 mcg/actuation HFA inhaler (Advair HFA) amiodarone 200 mg tablet 200 mg PO BIDM #60 tabs 06/27/22 Rx Patient History Medical History (Updated 05/29/25 @ 09:49 by Raymundo Ho MD) Hypomagnesemia Sheehan's neuroma Endometriosis Sciatica Osteoarthritis Hepatitis C A CHILD Diabetes mellitus, type 2 Cancer SKIN CANCER Temporomandibular joint disorder Fibromyalgia Hot flashes Migraine Hypertension Hyperlipidemia Bronchitis Surgical History History of total hysterectomy with bilateral salpingo-oophorectomy (BSO) History of tooth extraction History of tonsillectomy History of cataract surgery RT/LEFT Family History Father Family history of diabetes mellitus Other Breast cancer Hemochromatosis Social History Smoking Status: Never smoker Second Hand Exposure: No; Do You Dip or Chew Tobacco: No; Hx Alcohol Use: No Hx Substance Use: No Preferred Language: Kenyan Communication Ability: Effective Pipelines Laborer Required: No Beliefs That Will Affect Care: None marital status: Current Living Situation: Spouse Current Living Situation Comment: with current occupation: Homemaker Other Information That Helps Us Care for You: No Feels Safe at Home: Yes Safety Concerns: Feels Safe At This Time Assistive Devices: Denture - Lower, Glasses and Walker Review of Systems Review of Systems: All systems reviewed & are unremarkable except as noted in HPI & below Physical Exam Constitutional: well developed, well nourished and + overweight; no acute distress Neck: normal visual inspection and trachea midline Respiratory: normal respiratory effort, lungs clear to auscultation no cough Auscultation: no crackles, no rales, no rhonchi and no wheezes Cardiovascular: Rate/Rhythm: + irregularly irregular (paced with underlying A- fib ) Heart Sounds: normal S1 and normal S2 Vessels: dorsalis pedis pulses present; no JVD Extremities: + edema (trace BLE) Skin: no rashes, warm and dry Psychiatric: A+Ox3, euthymic affect Results & Data Vital Signs (Past 12 Hours) Vital Signs Temp Pulse Pulse Resp BP BP Pulse Ox 05/29/25 05:03 36.5 C 106 H 24 100/70 99 05/28/25 23:53 36.5 C 127 H 20 122/78 96 05/28/25 23:12 05/28/25 23:01 121 H 05/28/25 22:29 118 H 20 106/84 95 05/28/25 22:14 117 H 20 106/84 97 05/28/25 21:48 164 H O2 Del Method 05/29/25 05:03 Room Air 05/28/25 23:53 Room Air 05/28/25 23:12 Room Air 05/28/25 23:01 05/28/25 22:29 Room Air 05/28/25 22:14 Room Air 05/28/25 21:48 Laboratory Results Cardiac Enzymes 05/28/25 05/28/25 05/29/25 Range/Units 18:35 20:14 02:15 AST 15 (13-39) U/L Troponin I High Sens 42.3 H 104.8 H* D 107.0 H* (0-14) pg/ml 05/29/25 Range/Units 07:47 AST (13-39) U/L Troponin I High Sens 78.4 H* D (0-14) pg/ml Coagulation 05/28/25 Range/Units 18:35 PT 11.0 (9.0-12.0) Seconds APTT 25 (21-31) Seconds CBC 05/28/25 05/29/25 Range/Units 18:35 02:15 WBC 6.88 11.66 H (4.8-10.8) K/ul RBC 4.25 3.98 L (4.20-5.40) M/uL Hgb 13.3 12.3 (12.0-16.0) g/dL Hct 39.2 36.3 L (37.0-47.0) % Plt Count 304 341 (130-400) K/uL Neut # (Auto) 5.21 7.86 H (1.40-6.50) K/uL Lymph # (Auto) 1.15 L 2.84 (1.20-3.40) K/uL Frontier # (Auto) 0.27 0.56 (0.11-0.59) K/uL Eos # (Auto) 0.03 0.09 (0.00-0.50) K/uL Baso # (Auto) 0.03 0.06 (0.00-0.20) K/uL Comprehensive Metabolic Panel 05/28/25 05/29/25 Range/Units 18:35 02:15 Sodium 133 L 136 (136-145) mmol/L Potassium 4.7 3.4 L D (3.5-5.1) mmol/L Chloride 97 L 101 (98-107) mmol/L Carbon Dioxide 26 27 (21-32) mmol/L BUN 16 16 (6-23) mg/dl Creatinine 1.07 1.10 (0.6-1.2) mg/dl Glucose 525 H* 116 H (70-99(Fasting)) mg/dl Calcium 10.0 9.9 (8.6-10.3) mg/dl AST 15 (13-39) U/L ALT 12 (7-52) U/L Alkaline Phosphatase 158 H (34-104) U/L Total Protein 6.4 (6.0-8.3) gm/dl Albumin 3.4 (3.4-5.0) gm/dl Intake and Output 05/28/25 05/29/25 05/29/25 22:59 06:59 14:59 Intake Total 1028.333 / 1028.333 Balance 1028.333 / 1028.333 Intake: IV 628.333 / 628.333 Lactated Ringer's 500 ml @ 70 500 / 500 mls/hr IV .Q7H9M BLAYNE Rx#: [id number] Magnesium Sulfate / D5w 1 gm In 100 / 100 100 ml @ 50 mls/hr IV ONE ONE Rx#:[id number] Potassium Chloride / Wtr 10 meq 28.333 / 28.333 In 100 ml @ 100 mls/hr IV Q1H BLAYNE Rx#:[id number] Oral 400 / 400 Other: # Unmeasured Voids 1 Weight 104.2 kg 99.36 kg Weight Measurement Method Built in [facility] Built in [facility] PG Care Time/CCT Total # of Minutes Spent Total Time Spent with Patient: Total time spent is greater than 50% in coordination of care (as documented) at patient's floor/unit and/or counseling patient: Coding Level of Care Code 82941 IN/OBS CONSULT LVL 5,80M Diagnoses Cardiac dysrhythmia I49.9 ICD (implantable cardioverter-defibrillator) discharge Z45.02 Atrial fibrillation I48.91 Elevated troponin R79.89 NICM (nonischemic cardiomyopathy) I42.8 Noncompliance with medication regimen Z91.14 Time Spent (min) 50
[2025-05-29] MEDS ORDERED: FLUTICASONE/VILANTEROL 100/25MCG 14 PUFFS/INHALER INH SCH (09:00)
[2025-05-29] MEDS: FLUTICASONE/VILANTEROL 200/25MCG 14 PUFFS/INHALER INH SCH (09:07)
[2025-05-29] MEDS: METOPROLOL SUCC 50MG EXT REL TAB PO SCH (09:08)
[2025-05-29] MEDS: VALSARTAN/SACUBITRIL 26/24MG TAB PO SCH (09:09)
[2025-05-29] MEDS: APIXABAN 5 MG TABLET PO SCH (09:09)
--- NOTE | 2025-05-29 09:43 | Electrocardiogram Report ---
Test Reason : Blood Pressure : */* mmHG Vent. Rate : 118 BPM Atrial Rate : 118 BPM P-R Int : 128 ms QRS Dur : 104 ms QT Int : 366 ms P-R-T Axes : 77 265 73 degrees QTcB Int : 513 ms Atrial-sensed ventricular-paced rhythm Abnormal ECG When compared with ECG of 25-Jun-2022 05:37, Vent. rate has increased by 46 bpm Confirmed by Zan Aleman ([id number]) on 05/29/2025 9:43:16 AM Referred By: REFERRED SELF Confirmed By: Zan Aleman
--- NOTE | 2025-05-29 09:45 | Hospitalist Progress Note ---
Date of Service May 29, 2025 Assessment & Plan (1) Ventricular fibrillation: Plan: - official pacer interrogation pending - continue home metoprolol succinate 100 mg BID - was previously on amiodarone 200 mg twice daily however patient reports was discontinued over the summer - Patient clinically dry; IVF with 500 mL LR at 70 mL/hour, hold Lasix Echocardiogram ordered (2) Atrial fibrillation: Plan: -continue Eliquis and metoprolol (3) Elevated troponin: Plan: -Likely 2/2 demand with above. - repeat EKG ordered - trend troponin every 6 hours Echocardiogram (4) Cardiomyopathy: Plan: Holding lasix as above - continue spironolactone on Thursday 05/31 Continue Entresto - Healthy low-sodium diet (5) Hyperglycemia due to type 2 diabetes mellitus: Plan: - SSI with target BSG range 110-140mg/dL (6) Shingles: Plan: - standard precautions Plan Patient is a 80-year-old female with a past medical history of type II DM, cardiomyopathy, CHF, HTN, A-fib on Eliquis, CKD, ICD in place. Patient presented to the ED after her pacemaker shocked her 4 times today. Pacer interrogation reportedly showed 4 episodes of V-fib, official report pending. Throughout patient's ER stay, telemetry has shown paced rhythm, no arrhythmias noted. She does have magnesium 1.8, troponin 42.3, and glucose 525. She is being admitted for cardiac monitoring, electrolyte repletion, and to have cardiology eval for possible medication adjustment. Dispo: PCU Admission and Anticipated Discharge Date Admission Date: May 28, 2025 Subjective No events overnight Review of Systems Review of Systems: CONST: Negative for fever, body aches and chills. HENT: Negative for neck pain/stiffness, headache, congestion, sore throat, swelling. EYES: Negative for discharge/pain or vision changes. RESP: Negative for cough/hemoptysis and shortness of breath. CV: Negative chest pain, difficulty breathing, palpitations. ABD: Negative pain, nausea, vomiting. : Negative increase frequency, dysuria, blood in urine or stool. MUSC: Negative for muscle aches, edema. SKIN: Negative rash, lesions/sores. NEURO: Negative headache, dizziness, weakness. Physical Exam Physical Exam: GENERAL APPEARANCE NAD, activity normal for age, well developed/ well nourished, no cyanosis, pallor, or diaphoresis. EYES lids/conjunctiva normal. EARS/NOSE/THROAT Mucous membranes moist, nares normal, lips/teeth normal uvula midline without oral pharyngeal erythema, exudate or swelling TMs normal bilaterally. No lymphangitis/lymphedema. HEAD/NECK normocephalic atraumatic, no facial trauma, neck is supple. RESPIRATORY respiratory effort normal, speaks in full sentences, no tripod position, no accessory muscle use. Lungs clear to auscultation without rhonchi, wheezes, rales CARDIAC Regular rate and rhythm, no edema. ABDOMINAL Soft, ND/NT. No evidence of fluid wave. No pulsatile masses on exam, rebound tenderness, Berumen sign or pain over Mcburney's point. MUSCLES/EXTREMITIES No abnormal range of motion, no swelling. SKIN Warm, pink and dry. No rashes, dermatoses, petechiae or lesions. NEUROLOGICAL Speech is clear and appropriate. Normal level of consciousness. Gait and coordination are normal. 5/5 strength in all extremities. PSYCH Normal mood and affect. Judgement/competence is appropriate Results & Data Results & Data Vital Signs (Past 12 Hours) Vital Signs Temp Pulse Pulse Resp BP BP Pulse Ox 05/29/25 09:13 36.0 C L 110 H 16 135/72 100 05/29/25 05:03 36.5 C 106 H 24 100/70 99 05/28/25 23:53 36.5 C 127 H 20 122/78 96 05/28/25 23:12 05/28/25 23:01 121 H 05/28/25 22:29 118 H 20 106/84 95 05/28/25 22:14 117 H 20 106/84 97 05/28/25 21:48 164 H O2 Del Method 05/29/25 09:13 Room Air 05/29/25 05:03 Room Air 05/28/25 23:53 Room Air 05/28/25 23:12 Room Air 05/28/25 23:01 05/28/25 22:29 Room Air 05/28/25 22:14 Room Air 05/28/25 21:48 PG Care Time/CCT Total # of Minutes Spent Total Time Spent with Patient: Total time spent is greater than 50% in coordination of care (as documented) at patient's floor/unit and/or counseling patient: Coding Level of Care Code 97006 SUB INP/OBS CARE MIN Diagnoses Ventricular fibrillation I49.01 Atrial fibrillation I48.91 Elevated troponin R79.89 Cardiomyopathy I42.9 Hyperglycemia due to type 2 diabetes mellitus E11.65 Shingles B02.9
[2025-05-29] MEDS: ACETAMINOPHEN 325 MG TAB PO PRN (11:35)
[2025-05-29] MEDS: POLYETHYLENE (MIRALAX) 17 GM PACK PO PRN (11:47)
[2025-05-29] MEDS: GABAPENTIN 100 MG CAP PO SCH (13:21)
--- NOTE | 2025-05-29 15:30 | XCELERA ---
[id number]
[2025-05-29] MEDS ORDERED: PHARMACY GLYCEMIC MGMT CONSULT PRN (16:37)
[2025-05-29] MEDS ORDERED: LANTUS PER UNIT CHARGE SQ SCH ×2 (21:00)
[2025-05-29] MEDS: ROSUVASTATIN CALCIUM 5 MG TAB PO SCH (21:20)
[2025-05-29] MEDS: LANTUS PER UNIT CHARGE SQ SCH (21:21)
[2025-05-29] MEDS: ARTIFICIAL TEARS OP SCH (21:22)
[2025-05-30] MEDS: INSULIN ASPART PER UNIT CHARGE SC SCH ×2 (00:22→23:41)
[2025-05-30] MEDS: LANTUS PER UNIT CHARGE SQ ONE (08:52)
--- NOTE | 2025-05-30 09:35 | Electrocardiogram Report ---
Test Reason : Blood Pressure : */* mmHG Vent. Rate : 106 BPM Atrial Rate : 88 BPM P-R Int : * ms QRS Dur : 136 ms QT Int : 460 ms P-R-T Axes : * 255 54 degrees QTcB Int : 611 ms Ventricular-paced rhythm Abnormal ECG When compared with ECG of 28-May-2025 17:48, Vent. rate has decreased by 12 bpm Confirmed by Zan Aleman ([id number]) on 05/30/2025 9:34:41 AM Referred By: REFERRED SELF Confirmed By: Zan Aleman
--- NOTE | 2025-05-30 10:07 | Hospitalist Progress Note ---
Date of Service May 30, 2025 Assessment & Plan (1) Ventricular fibrillation: Plan: - official pacer interrogation pending - continue home metoprolol succinate 100 mg BID - was previously on amiodarone 200 mg twice daily however patient reports was discontinued over the summer - Patient clinically dry; IVF with 500 mL LR at 70 mL/hour, hold Lasix Echocardiogram completed -cardiology consult appreciated -awaiting recommendations after pacer interrogation reviewed (2) Atrial fibrillation: Plan: -continue Eliquis and metoprolol (3) Elevated troponin: Plan: -Likely 2/2 demand with above. - repeat EKG ordered - trend troponin every 6 hours Echocardiogram (4) Cardiomyopathy: Plan: Holding lasix as above - continue spironolactone on Thursday 05/31 Continue Entresto - Healthy low-sodium diet (5) Hyperglycemia due to type 2 diabetes mellitus: Plan: - SSI with target BSG range 110-140mg/dL (6) Shingles: Plan: - standard precautions Plan Patient is a 80-year-old female with a past medical history of type II DM, cardiomyopathy, CHF, HTN, A-fib on Eliquis, CKD, ICD in place. Patient presented to the ED after her pacemaker shocked her 4 times today. Pacer interrogation reportedly showed 4 episodes of V-fib, official report pending. Throughout patient's ER stay, telemetry has shown paced rhythm, no arrhythmias noted. She does have magnesium 1.8, troponin 42.3, and glucose 525. She is being admitted for cardiac monitoring, electrolyte repletion, and to have cardiology eval for possible medication adjustment. Dispo: PCU Admission and Anticipated Discharge Date Admission Date: May 28, 2025 Subjective Pt complaining of back muscle pain. Had episode of afib with RVR yesterday evening. Was given cardizem IV and had improvement. Review of Systems Review of Systems: CONST: Negative for fever, body aches and chills. HENT: Negative for neck pain/stiffness, headache, congestion, sore throat, swelling. EYES: Negative for discharge/pain or vision changes. RESP: Negative for cough/hemoptysis and shortness of breath. CV: Negative chest pain, difficulty breathing, palpitations. ABD: Negative pain, nausea, vomiting. : Negative increase frequency, dysuria, blood in urine or stool. MUSC: Negative for muscle aches, edema. SKIN: Negative rash, lesions/sores. NEURO: Negative headache, dizziness, weakness. Physical Exam Physical Exam: GENERAL APPEARANCE NAD, activity normal for age, well developed/ well nourished, no cyanosis, pallor, or diaphoresis. EYES lids/conjunctiva normal. EARS/NOSE/THROAT Mucous membranes moist, nares normal, lips/teeth normal uvula midline without oral pharyngeal erythema, exudate or swelling TMs normal bilaterally. No lymphangitis/lymphedema. HEAD/NECK normocephalic atraumatic, no facial trauma, neck is supple. RESPIRATORY respiratory effort normal, speaks in full sentences, no tripod position, no accessory muscle use. Lungs clear to auscultation without rhonchi, wheezes, rales CARDIAC Regular rate and rhythm, no edema. ABDOMINAL Soft, ND/NT. No evidence of fluid wave. No pulsatile masses on exam, rebound tenderness, Berumen sign or pain over Mcburney's point. MUSCLES/EXTREMITIES No abnormal range of motion, no swelling. SKIN Warm, pink and dry. No rashes, dermatoses, petechiae or lesions. NEUROLOGICAL Speech is clear and appropriate. Normal level of consciousness. Gait and coordination are normal. 5/5 strength in all extremities. PSYCH Normal mood and affect. Judgement/competence is appropriate Results & Data Results & Data Vital Signs (Past 12 Hours) Vital Signs Temp Pulse Resp BP Pulse Ox O2 Del Method 05/30/25 09:02 120 H 16 102/65 100 Room Air 05/30/25 03:56 36.8 C 110 H 19 98/69 L 98 Room Air 05/29/25 23:11 36.8 C 113 H 18 105/68 98 Room Air PG Care Time/CCT Total # of Minutes Spent Total Time Spent with Patient: Total time spent is greater than 50% in coordination of care (as documented) at patient's floor/unit and/or counseling patient: Coding Level of Care Code 70674 SUB INP/OBS CARE 2/35MIN Diagnoses Ventricular fibrillation I49.01 Atrial fibrillation I48.91 Elevated troponin R79.89 Cardiomyopathy I42.9 Hyperglycemia due to type 2 diabetes mellitus E11.65 Shingles B02.9
--- NOTE | 2025-05-30 12:30 | Cardiology Progress Note ---
Date of Service May 30, 2025 Assessment & Plan (1) Cardiac dysrhythmia: (2) ICD (implantable cardioverter-defibrillator) discharge: (3) Atrial fibrillation: (4) Elevated troponin: (5) NICM (nonischemic cardiomyopathy): (6) Noncompliance with medication regimen: Plan Assessment: 80 year old medically complex female admitted after reports of ICD discharge. Review of chart suggestive of both A-fib with RVR rates in the 220's requiring ATP as well as V-fib resulting in shock. Awaiting device report to confirm. Cardiology consulted for further evaluation/recommendations. Plan 05/30/2025: -patient with known medication non-compliance including this past 2 weeks. See HPI. -Awaiting device interrogation, although remote interrogation has also showing A-fib with RVR requiring ATP and evidence of V-fib with ICD discharge. Requested report as online "report" only shows a cover sheet -Echocardiogram shows LVEF 50% moderate aortic sclerosis without stenosis, mild MR with moderate annular calcification. -urine abnormal, culture pending--continued management per primary team. -Continue Eliquis 5mg PO BID for oral anticoagulation in the setting of chronic Afib -Continue Toprol xl 100mg PO BID and Entresto (26/24mg) PO BID. Patient had not been taking these medications since 05/17/2025. -BP noted to be low at noon VS check. May need to consider reduction in entresto dosing--will discuss this with Dr. Rivera. May need to consider further rate control stategies with use of Amiodarone vs Digoxin pending bp tolerance. -Discussed with patient prior use of amiodarone and patient self- discontinuation. Explained that we were going to review her echo as well as device interrogation and would then discuss with her medication therapy considerations. She verbalized understanding. Will further discuss with Dr. Harlan funes. -Continue Spironolactone (MWF dosing) -EKG with no acute ischemic change, troponin elevation in the setting of AICD discharge. Case has been discussed with Dr. Rivera. Further recommendations regarding plan of care as per her assessment. I spent a total of 30 minutes on the date of service in preparation, delivery, documentation of the care provided to the patient excluding any time spent in the performance of separately billed services. MAULIK Shepherder Cardiology [facility] Admission and Anticipated Discharge Date Admission Date: May 28, 2025 Supervising Physician Co-Signing Physician Notes I have reviewed the advanced practitioner's documentation on the date of service referenced in note, and I agree with, and take responsibility for the plan of care. I spent a total of [20] minutes coordinating, documenting, and providing care for this patient excluding time spent in the performance of separately billed services or time spent by another provider. 80-year-old with nonischemic cardiomyopathy, ICD, atrial fibrillation presents with multiple ICD shocks. Recent shingles is recovering.noted to have ICD x 2 shocks on May 18 for afib for RVR, On SaturdayMay 28 pt reported to have ICD shocks - device interrogation done in ED report not available obtained verbal report from [employer] rep has been in afib with fast heart rates for many months On Saturday was shocked 6 times for AFib with RVR rate in 250- 270 bpm. Medication non compliance previously on amiodarone discontinued by patient secondary to concern of hair loss Plan Atrial fibrillation heart rates are still elevated. Increase metoprolol XL to 125 mg twice twice daily. Hold onto Entresto if blood pressure is elevated. 1 dose of IV digoxin to 250 mcg to help with rate control. Need to keep K more than 4 and mag more than 2 Subjective 05/30/2025: Patient seen and examined in follow up today. Feeling fair. Offers no acute cardiac concerns. Requested device interrogation report. Review of online record only shows a cover sheet. patient denies chest pain, pressure or palpitations, she denies shortness of breath, near syncope or syncope. She does endorse back pain--nursing staff has gotten her a heating pad. Labs, vitals, diagnostics, telemetry and documentation reviewed. Telemetry reviewed showing Atrial flutter rate 90-108bpm. Review of Systems Review of Systems: All systems reviewed & are unremarkable except as noted in HPI & below Physical Exam Constitutional: well developed, well nourished and + overweight; no acute distress Neck: normal visual inspection and trachea midline Respiratory: normal respiratory effort, lungs clear to auscultation no cough Auscultation: no crackles, no rales, no rhonchi and no wheezes Cardiovascular: Rate/Rhythm: + irregularly irregular (paced with underlying A- fib ) Heart Sounds: normal S1 and normal S2 Vessels: dorsalis pedis pulses present; no JVD Extremities: + edema (trace BLE) Skin: no rashes, warm and dry Psychiatric: A+Ox3, euthymic affect Results & Data Vital Signs (Past 12 Hours) Vital Signs Temp Pulse Resp BP Pulse Ox O2 Del Method 05/30/25 12:10 36.3 C L 108 H 16 86/52 L 97 Room Air 05/30/25 09:02 120 H 16 102/65 100 Room Air 05/30/25 03:56 36.8 C 110 H 19 98/69 L 98 Room Air Laboratory Results Cardiac Enzymes 05/29/25 05/29/25 05/30/25 Range/Units 14:28 19:43 02:23 Troponin I High Sens 44.6 H D 39.5 H 38.8 H (0-14) pg/ml 05/30/25 Range/Units 08:57 Troponin I High Sens 36.5 H (0-14) pg/ml Intake and Output 05/29/25 05/30/25 05/30/25 22:59 06:59 14:59 Intake Total 400 / 675 275 / 675 Balance 400 / 675 275 / 675 Intake: Oral 400 / 675 275 / 675 Other: # Unmeasured Voids 1 1 Weight 99.3 kg Weight Measurement Method Built in [facility] PG Care Time/CCT Total # of Minutes Spent Total Time Spent with Patient: Total time spent is greater than 50% in coordination of care (as documented) at patient's floor/unit and/or counseling patient: Coding Level of Care Code 29022 SUB INP/OBS CARE 3/50MIN Diagnoses Cardiac dysrhythmia I49.9 ICD (implantable cardioverter-defibrillator) discharge Z45.02 Atrial fibrillation I48.91 Elevated troponin R79.89 NICM (nonischemic cardiomyopathy) I42.8 Noncompliance with medication regimen Z91.14 Time Spent (min) 30
[2025-05-30] MEDS: SODIUM CHLORIDE 0.9% 500 ML IV ONE (12:36)
[2025-05-30] MEDS: INSULIN HUMAN REGULAR PER UNIT 8 UNITS in SYRINGE 7.92 ML IV ONE (12:37)
--- NOTE | 2025-05-30 13:44 | Pharmacy Report ---
Pharmacy Glycemic Short Note 2 - Date of Service May 30, 2025 - Glycemic Short BSG Results (Last 24 hours): 05/29/25 05/29/25 05/29/25 16:27 19:54 19:57 POC Glucose 353 H* 354 H* 347 H* 05/30/25 05/30/25 05/30/25 00:15 03:58 07:48 POC Glucose 278 H 245 H 250 H 05/30/25 11:31 POC Glucose 312 H* OUTPATIENT ANTIDIABETIC REGIMEN: * Basaglar 40 units SQ qAM * Dulaglutide 0.75 mg SQ weekly A1c = 11.2% ASSESSMENT: * Alejandrina is a 80 yo w/o history of T2DM, CHF, HTN, A.fib, and CKD with ICD. She presented to the ED due to concerns of cardiac arrhythmia. Pacer interrogation reportedly showed 4 episodes of ventricular fibrillation. * Severe hyperglycemia with BSG of 485 mg/dL on arrival. Continued hyperglycemia today; fasting of 250 mg/dL and lunch 312 mg/dL. * One time dose of 8 units IV regular insulin was ordered to be given with lunch coverage. * Tighten Novolog CF and CR to be ~weight/stress 3 * Additional 10 units of Lantus given this AM PLAN FOR INPATIENT GLYCEMIC CONTROL: * Hold outpatient oral diabetes medications * Basal insulin * Lantus 45 units SQ HS * Lantus 10 units SQ this AM x 1 * Bolus insulin * NovoLog per scale ACHS or Q6hrs while NPO * Goal Range: Low 110 mg/dL - High 140 mg/dL * Correction Factor: 15 mg/dL/unit * Nutritional / Prandial insulin per carb ratio of 1 unit per 6 grams CHO consumed
[2025-05-30] MEDS: POTASSIUM CHLORIDE CRTAB 20 MEQ TABCR PO STA (14:40)
[2025-05-30] MEDS: DOCUSATE SODIUM 100 MG CAP PO PRN (14:40)
[2025-05-30] MEDS ORDERED: INSULIN ASPART PER UNIT CHARGE SC SCH (16:30)
[2025-05-30] MEDS ORDERED: DIGOXIN 250 MCG in SYRINGE 9.5 ML IV STA (17:38)
[2025-05-30] MEDS: DIGOXIN 250 MCG in SYRINGE 9 ML IV STA (18:10)
[2025-05-31] MEDS: LANTUS PER UNIT CHARGE SC SCH (08:43)
[2025-05-31] MEDS: SPIRONOLACTONE 12.5 MG TAB PO SCH (08:52)
[2025-05-31] MEDS: METOPROLOL SUCC 50MG EXT REL TAB PO SCH (08:52)
--- NOTE | 2025-05-31 10:13 | Hospitalist Progress Note ---
Date of Service May 31, 2025 Assessment & Plan (1) Ventricular fibrillation: Plan: - official pacer interrogation pending - continue home metoprolol succinate 100 mg BID - was previously on amiodarone 200 mg twice daily however patient reports was discontinued over the summer - Patient clinically dry; IVF with 500 mL LR at 70 mL/hour, hold Lasix Echocardiogram completed -cardiology consult appreciated -awaiting recommendations after pacer interrogation reviewed (2) Atrial fibrillation: Plan: -continue Eliquis and metoprolol (3) Elevated troponin: Plan: -Likely 2/2 demand with above. - repeat EKG ordered - trend troponin every 6 hours Echocardiogram (4) Cardiomyopathy: Plan: Holding lasix as above - continue spironolactone on Thursday 05/31 Continue Entresto - Healthy low-sodium diet (5) Hyperglycemia due to type 2 diabetes mellitus: Plan: - SSI with target BSG range 110-140mg/dL (6) Shingles: Plan: - standard precautions Plan Patient is a 80-year-old female with a past medical history of type II DM, cardiomyopathy, CHF, HTN, A-fib on Eliquis, CKD, ICD in place. Patient presented to the ED after her pacemaker shocked her 4 times today. Pacer interrogation reportedly showed 4 episodes of V-fib, official report pending. Throughout patient's ER stay, telemetry has shown paced rhythm, no arrhythmias noted. She does have magnesium 1.8, troponin 42.3, and glucose 525. She is being admitted for cardiac monitoring, electrolyte repletion, and to have cardiology eval for possible medication adjustment. Dispo: PCU Admission and Anticipated Discharge Date Admission Date: May 28, 2025 Subjective No events overnight. Pt stating she is still having lower back pain. Review of Systems Review of Systems: CONST: Negative for fever, body aches and chills. HENT: Negative for neck pain/stiffness, headache, congestion, sore throat, swelling. EYES: Negative for discharge/pain or vision changes. RESP: Negative for cough/hemoptysis and shortness of breath. CV: Negative chest pain, difficulty breathing, palpitations. ABD: Negative pain, nausea, vomiting. : Negative increase frequency, dysuria, blood in urine or stool. MUSC: Negative for muscle aches, edema. SKIN: Negative rash, lesions/sores. NEURO: Negative headache, dizziness, weakness. Physical Exam Physical Exam: GENERAL APPEARANCE NAD, activity normal for age, well developed/ well nourished, no cyanosis, pallor, or diaphoresis. EYES lids/conjunctiva normal. EARS/NOSE/THROAT Mucous membranes moist, nares normal, lips/teeth normal uvula midline without oral pharyngeal erythema, exudate or swelling TMs normal bilaterally. No lymphangitis/lymphedema. HEAD/NECK normocephalic atraumatic, no facial trauma, neck is supple. RESPIRATORY respiratory effort normal, speaks in full sentences, no tripod position, no accessory muscle use. Lungs clear to auscultation without rhonchi, wheezes, rales CARDIAC Regular rate and rhythm, no edema. ABDOMINAL Soft, ND/NT. No evidence of fluid wave. No pulsatile masses on exam, rebound tenderness, Berumen sign or pain over Mcburney's point. MUSCLES/EXTREMITIES No abnormal range of motion, no swelling. SKIN Warm, pink and dry. No rashes, dermatoses, petechiae or lesions. NEUROLOGICAL Speech is clear and appropriate. Normal level of consciousness. Gait and coordination are normal. 5/5 strength in all extremities. PSYCH Normal mood and affect. Judgement/competence is appropriate Results & Data Results & Data Vital Signs (Past 12 Hours) Vital Signs Temp Pulse Pulse Resp BP Pulse Ox O2 Del Method 05/31/25 07:21 36.4 C L 91 H 22 103/66 99 Room Air 05/31/25 02:56 36.7 C 105 H 19 110/70 98 Room Air 05/30/25 23:12 36.6 C 115 H 22 113/71 99 Room Air PG Care Time/CCT Total # of Minutes Spent Total Time Spent with Patient: Total time spent is greater than 50% in coordination of care (as documented) at patient's floor/unit and/or counseling patient: Coding Level of Care Code 18854 SUB INP/OBS CARE 2/35MIN Diagnoses Ventricular fibrillation I49.01 Atrial fibrillation I48.91 Elevated troponin R79.89 Cardiomyopathy I42.9 Hyperglycemia due to type 2 diabetes mellitus E11.65 Shingles B02.9
[2025-05-31 10:53] LABS: Anion Gap 9.0 (3-11); Blood Urea Nitrogen 24.0 mg/dl (6-23); Calcium 9.5 mg/dl (8.6-10.3); Carbon Dioxide 21.0 mmol/L (21-32); Chloride 103.0 mmol/L (98-107); Creatinine Clr Calc Pharmacy 46.0 ml/min; Glucose 381.0 mg/dl (70-99(Fasting)); Magnesium 1.8 mg/dl (1.7-2.4); Potassium 4.0 mmol/L (3.5-5.1); Sodium 133.0 mmol/L (136-145)
[2025-05-31 12:31] LABS: Hematocrit (blood only) 37.0 % (37.0-47.0); Hemoglobin 13.0 g/dL (12.0-16.0); Mean Corpuscular Hemoglobin 33.3 pg (25.0-34.0); Mean Corpuscular Volume 94.9 fL (80.0-100.0); Platelet Count 312 K/uL (130-400); RDW Standard Deviation 45.4 fL (36.4-46.3); Red Blood Count 3.90 M/uL (4.20-5.40); White Blood Count 11.34 K/ul (4.8-10.8)
--- NOTE | 2025-05-31 13:42 | Pharmacy Report ---
Pharmacy Glycemic Short Note 2 - Date of Service May 31, 2025 - Glycemic Short BSG Results (Last 24 hours): 05/30/25 05/30/25 05/30/25 16:54 20:04 23:17 Glucose POC Glucose 246 H 248 H 188 H 05/31/25 05/31/25 05/31/25 03:58 07:24 09:41 Glucose 381 H* POC Glucose 109 H 191 H 05/31/25 11:05 Glucose POC Glucose 394 H* OUTPATIENT ANTIDIABETIC REGIMEN: * Basaglar 40 units SQ qAM * Dulaglutide 0.75 mg SQ weekly A1c = 11.2% ASSESSMENT: 05/31: * BSGs elevated the last 24h: [phone]/dL. Received 55 units of basal and 64 units of bolus insulin yesterday (+ 8 units IV). * Tolerating diet. * Given elevated fasting BSG, AM Lantus increased to 15 units. Novolog tightened given persistently elevated prandial BSGs. 05/30: * Alejandrina is a 80 yo w/o history of T2DM, CHF, HTN, A.fib, and CKD with ICD. She presented to the ED due to concerns of cardiac arrhythmia. Pacer interrogation reportedly showed 4 episodes of ventricular fibrillation. * Severe hyperglycemia with BSG of 485 mg/dL on arrival. Continued hyperglycemia today; fasting of 250 mg/dL and lunch 312 mg/dL. * One time dose of 8 units IV regular insulin was ordered to be given with lunch coverage. * Tighten Novolog CF and CR to be ~weight/stress 3 * Additional 10 units of Lantus given this AM PLAN FOR INPATIENT GLYCEMIC CONTROL: * Hold outpatient oral diabetes medications * Basal insulin * Lantus 45 units SQ HS + 15 units SQ qAM * Bolus insulin * NovoLog per scale ACHS or Q6hrs while NPO * Goal Range: Low 110 mg/dL - High 140 mg/dL * Correction Factor: 12 mg/dL/unit * Nutritional / Prandial insulin per carb ratio of 1 unit per 4 grams CHO consumed
[2025-05-31] MEDS: INSULIN ASPART PER UNIT CHARGE SC ONE (14:04)
--- NOTE | 2025-05-31 14:07 | Cardiology Progress Note ---
Date of Service May 31, 2025 Assessment & Plan (1) Cardiac dysrhythmia: (2) ICD (implantable cardioverter-defibrillator) discharge: (3) Atrial fibrillation: (4) Elevated troponin: (5) NICM (nonischemic cardiomyopathy): (6) Noncompliance with medication regimen: Plan Assessment: 80 year old medically complex female admitted after reports of ICD discharge. Review of chart suggestive of both A-fib with RVR rates in the 220's requiring ATP as well as V-fib resulting in shock. Awaiting device report to confirm. Cardiology consulted for further evaluation/recommendations. Atrial Fib with RVR ICD discharge for AFib with RVR with no definitive episodes of VF Shingles Severe NICM ABN Troponin - s/p ICD discharge Noncompliance Recommendations: correct and f/u electrolytes f/u renal function DC Aldactone to avoid hypovolemia for now to give room in BP to uptitrate rate control meds start IV Amiodarone as per protocol continue anticoagulation GDMT for HFrEF limited due low BP adjust rate control meds keeping HR less than 100 BPM and systolic BP between 100-140 mmHg adjust anti-HTN meds keeping systolic BP between 100-140 mmHg avoid hypovolemia keep patient euvolemic keep LE elevated when sitting strict I&Os salt restriction Admission and Anticipated Discharge Date Admission Date: May 28, 2025 Supervising Physician Co-Signing Physician Notes Plan Atrial fibrillation heart rates are still elevated. Increase metoprolol XL to 125 mg twice twice daily. Hold onto Entresto if blood pressure is elevated. 1 dose of IV digoxin to 250 mcg to help with rate control. Need to keep K more than 4 and mag more than 2 Subjective Patient on exam is sitting in chair in NAD; no c/o cp, sob, palpitations, dizziness, LOC, cough, fever, nausea, vomiting, abdominal pain, urinary or bowel problem problems; has Shingles Review of Systems Review of Systems: as per HPI Physical Exam Neck: supple, NT Cardiovascular: Rate/Rhythm: + irregularly irregular (paced with underlying A- fib ) Gastrointestinal (Abdomen): soft, NT, BS+, no HSM Skin: no rashes, warm and dry Psychiatric: A+Ox3, euthymic affect Results & Data Vital Signs (Past 12 Hours) Vital Signs Vital Signs Temp 36.4 C L 05/31/25 11:08 Pulse 118 H 05/31/25 11:08 Resp 22 05/31/25 11:08 BP 104/72 05/31/25 11:08 Pulse Ox 100 05/31/25 11:08 O2 Del Method Room Air 05/31/25 11:08 Intake & Output 05/30/25 05/31/25 05/31/25 18:59 06:59 18:59 Intake Total 500 / 980 480 / 980 Balance 500 / 980 480 / 980 Weight 99.836 kg 97 kg Intake: IV 500 / 500 Sodium Chloride 0.9% 500 ml @ 500 / 500 999 mls/hr IV .Q31M ONE Rx#: [id number] Oral 480 / 480 Other: # Unmeasured Voids 1 Weight Measurement Method Built in [facility] Temp Pulse Pulse Resp BP Pulse Ox O2 Del Method 05/31/25 11:08 36.4 C L 118 H 22 104/72 100 Room Air 05/31/25 07:30 Room Air 05/31/25 07:21 36.4 C L 91 H 22 103/66 99 Room Air 05/31/25 02:56 36.7 C 105 H 19 110/70 98 Room Air Laboratory Results Laboratory Results WBC 11.34 K/ul (4.8-10.8) H 05/31/25 09:41 RBC 3.90 M/uL (4.20-5.40) L 05/31/25 09:41 Hgb 13.0 g/dL (12.0-16.0) 05/31/25 09:41 Hct 37.0 % (37.0-47.0) 05/31/25 09:41 MCV 94.9 fL (80.0-100.0) 05/31/25 09:41 MCH 33.3 pg (25.0-34.0) 05/31/25 09:41 MCHC 35.1 g/dL (32.0-36.0) 05/31/25 09:41 RDW Std Deviation 45.4 fL (36.4-46.3) 05/31/25 09:41 RDW Coeff of Hilda 13.6 % (11.5-14.5) 05/31/25 09:41 Plt Count 312 K/uL (130-400) 05/31/25 09:41 MPV 9.6 fL (9.4-12.4) 05/31/25 09:41 Immature Gran % (Auto) 2.1 % 05/29/25 02:15 Neut % (Auto) 67.4 % 05/29/25 02:15 Lymph % (Auto) 24.4 % 05/29/25 02:15 Garden % (Auto) 4.8 % 05/29/25 02:15 Eos % (Auto) 0.8 % 05/29/25 02:15 Baso % (Auto) 0.5 % 05/29/25 02:15 Neut # (Auto) 7.86 K/uL (1.40-6.50) H 05/29/25 02:15 Lymph # (Auto) 2.84 K/uL (1.20-3.40) 05/29/25 02:15 Garden # (Auto) 0.56 K/uL (0.11-0.59) 05/29/25 02:15 Eos # (Auto) 0.09 K/uL (0.00-0.50) 05/29/25 02:15 Baso # (Auto) 0.06 K/uL (0.00-0.20) 05/29/25 02:15 Immature Gran # (Auto) 0.25 K/uL (0.01-0.20) H 05/29/25 02:15 PT 11.0 Seconds (9.0-12.0) 05/28/25 18:35 INR 1.0 (0.9-1.1) 05/28/25 18:35 APTT 25 Seconds (21-31) 05/28/25 18:35 PTT Ratio 0.9 05/28/25 18:35 Sodium 133 mmol/L (136-145) L 05/31/25 09:41 Potassium 4.0 mmol/L (3.5-5.1) 05/31/25 09:41 Chloride 103 mmol/L (98-107) 05/31/25 09:41 Carbon Dioxide 21 mmol/L (21-32) 05/31/25 09:41 Anion Gap 9 (3-11) 05/31/25 09:41 BUN 24 mg/dl (6-23) H 05/31/25 09:41 Creatinine 1.16 mg/dl (0.6-1.2) 05/31/25 09:41 Est Cr Clr Drug Dosing 46.0 ml/min 05/31/25 09:41 eGFR 47.96 05/31/25 09:41 BUN/Creatinine Ratio 20.7 (10-20) H 05/31/25 09:41 Glucose 381 mg/dl (70-99(Fasting)) H* 05/31/25 09:41 POC Glucose 394 mg/dl (70-99) H* 05/31/25 11:05 Estimat Average Glucose 275 mg/dl 05/29/25 02:15 Hemoglobin A1c 11.2 % (4.5-5.6) H 05/29/25 02:15 Calcium 9.5 mg/dl (8.6-10.3) 05/31/25 09:41 Phosphorus 2.0 mg/dl (2.5-4.9) L 05/29/25 02:15 Magnesium 1.8 mg/dl (1.7-2.4) 05/31/25 09:41 Total Bilirubin 0.6 mg/dl (0.2-1.0) 05/28/25 18:35 AST 15 U/L (13-39) 05/28/25 18:35 ALT 12 U/L (7-52) 05/28/25 18:35 Alkaline Phosphatase 158 U/L (34-104) H 05/28/25 18:35 Troponin I High Sens 36.5 pg/ml (0-14) H 05/30/25 08:57 Total Protein 6.4 gm/dl (6.0-8.3) 05/28/25 18:35 Albumin 3.4 gm/dl (3.4-5.0) 05/28/25 18:35 Globulin 3.0 gm/dl (2.5-4.0) 05/28/25 18:35 Albumin/Globulin Ratio 1.1 (0.9-2) 05/28/25 18:35 TSH 1.280 uIu/ml (0.300-4.500) 05/28/25 20:14 Impressions Chest X-Ray 05/28/25 18:03 HISTORY: Chest pain TECHNIQUE: Portable AP radiograph of the chest. COMPARISON: Chest radiograph dated 06/17/2022. FINDINGS: Left subclavian approach biventricular pacer/AICD. No focal lung consolidation. No pneumothorax or effusion. Top normal heart size. Left-sided aortic arch containing atherosclerotic calcification. Midline trachea. No acute osseous abnormality. Included upper abdomen is unremarkable. IMPRESSION: No acute cardiopulmonary findings. Electronically signed by August Garces 05-28-2025 9:14 PM Diagnostic Findings CBC 05/31/25 Range/Units 09:41 WBC 11.34 H (4.8-10.8) K/ul RBC 3.90 L (4.20-5.40) M/uL Hgb 13.0 (12.0-16.0) g/dL Hct 37.0 (37.0-47.0) % Plt Count 312 (130-400) K/uL Comprehensive Metabolic Panel 05/31/25 Range/Units 09:41 Sodium 133 L (136-145) mmol/L Potassium 4.0 (3.5-5.1) mmol/L Chloride 103 (98-107) mmol/L Carbon Dioxide 21 (21-32) mmol/L BUN 24 H (6-23) mg/dl Creatinine 1.16 (0.6-1.2) mg/dl Glucose 381 H* (70-99(Fasting)) mg/dl Calcium 9.5 (8.6-10.3) mg/dl Intake and Output 05/30/25 05/31/25 05/31/25 22:59 06:59 14:59 Intake Total 240 / 980 240 / 980 Balance 240 / 980 240 / 980 Intake: Oral 240 / 480 240 / 480 Other: # Unmeasured Voids 2 1 Weight 99.836 kg 97 kg Weight Measurement Method Built in [facility] Patient Weight 06/01/25 06:59 Weight 97 kg Medications Administered Home Medications Medication Instructions Recorded Confirmed Last Taken artificial tears(hypromellose) 0.3 1 drp OPB HS 06/19/18 06/16/22 03/18/19 % eye gel (Systane Gel) calcium 200 mg (as 2 tab PO QAM 06/19/18 06/16/22 03/19/19 citrate)-vitamin D3 6.25 mcg (250 unit) tablet (Citracal-D3 Petites) cholecalciferol (vitamin D3) 25 1,000 unit PO BID 06/19/18 06/16/22 03/19/19 mcg (1,000 unit) capsule (Vitamin D3) apixaban 5 mg tablet (Eliquis) 5 mg PO BID 03/20/19 06/16/22 03/19/19 furosemide 40 mg tablet (Lasix) 40 mg PO QAM 03/20/19 06/16/22 03/19/19 rosuvastatin 5 mg tablet (Crestor) 5 mg PO HS 03/20/19 06/16/22 03/19/19 sacubitril 24 mg-valsartan 26 mg 1 tab PO BIDM 03/20/19 06/16/22 03/19/19 tablet (Entresto) spironolactone 25 mg tablet 12.5 mg PO 3XWK 03/20/19 06/16/22 03/18/19 benzonatate 100 mg capsule 100 mg PO TID PRN Cough 06/07/22 06/16/22 Unknown dulaglutide 0.75 mg/0.5 mL 0.75 mg subcut WK 06/07/22 06/16/22 06/03/22 subcutaneous pen injector (Trulicity) fluticasone furoate 100 1 inh inhalation QAM 06/07/22 06/16/22 Unknown mcg-vilanterol 25 mcg/dose inhalation powder (Breo Ellipta) insulin glargine 100 unit/mL (3 40 unit subcut QAM 06/07/22 06/16/22 Unknown mL) subcutaneous pen (Taiwo Adames U-100 Insulin) meclizine 12.5 mg tablet 12.5 mg PO TID PRN Dizziness Or 06/07/22 06/16/22 Unknown Vertigo methylcellulose (laxative) 2 g PO DAILY 06/07/22 06/16/22 Unknown metoprolol succinate 100 mg 100 mg PO BID 06/07/22 06/16/22 Unknown tablet,extended release 24 hr multivitamin 1 tab PO DAILY 06/07/22 06/16/22 Unknown olopatadine 0.2 % eye drops 1 drp OPR QAM 06/07/22 06/16/22 Unknown (Pataday Once Daily Relief) fluticasone propionate 230 2 puff inhalation DAILY 06/16/22 06/16/22 Unknown mcg-salmeterol 21 mcg/actuation HFA inhaler (Advair HFA) amiodarone 200 mg tablet 200 mg PO BIDM #60 tabs 06/27/22 Unknown Active Medications Generic Name Dose Route Start Last Admin Trade Name Freq PRN Reason Stop Dose Admin Acetaminophen 650 mg 05/28/25 22:57 05/29/25 11:35 Acetaminophen 325 Mg Tab PO 06/27/25 22:56 650 mg Q4H PRN Administration Pain or Fever Apixaban 5 mg 05/29/25 09:00 05/31/25 08:54 Apixaban 5 Mg Tablet PO 06/28/25 08:59 5 mg BID BLAYNE Administration Artificial Tears 1 drops 05/29/25 21:00 05/30/25 21:41 Artificial Tears OP 06/28/25 20:59 Not Given HS BLAYNE Docusate Sodium 100 mg 05/28/25 22:57 05/30/25 14:40 Docusate Sodium 100 Mg Cap PO 06/27/25 22:56 100 mg BID PRN Administration Constipation Fluticasone/Vilanterol 1 puffs 05/29/25 09:00 05/31/25 08:51 Fluticasone/Vilanterol 200/25mcg 14 Puffs/Inhaler INH 06/28/25 08:59 Not Given DAILY BLAYNE Gabapentin 100 mg 05/29/25 14:00 05/31/25 08:54 Gabapentin 100 Mg Cap PO 06/28/25 13:59 100 mg TID BLAYNE Administration Insulin Aspart 0 units 05/29/25 00:00 05/31/25 12:01 Insulin Aspart Per Unit Charge SC 06/28/25 00:00 32 units ACHS BLAYNE Administration Insulin Glargine 45 units 05/29/25 21:00 05/30/25 21:38 Lantus Per Unit Charge SQ 06/28/25 20:59 45 units HS BLAYNE Administration Insulin Glargine 15 units 05/31/25 09:00 05/31/25 08:43 Lantus Per Unit Charge SC 06/30/25 08:59 15 units QAM BLAYNE Administration Metoprolol Succinate 125 mg 05/31/25 08:00 05/31/25 08:52 Metoprolol Succ 50mg Ext Rel Tab PO 06/30/25 07:59 125 mg BIDM BLAYNE Administration Miscellaneous 1 each 05/29/25 08:00 05/31/25 08:43 Olopatadine [Pataday]: Order Awaiting Action N/A 06/28/25 07:59 Not Given QS BLAYNE Polyethylene Glycol 17 gm 05/28/25 22:57 05/31/25 10:44 Polyethylene (Miralax) 17 Gm Pack PO 06/27/25 22:56 17 gm DAILY PRN Administration Constipation Rosuvastatin Calcium 5 mg 05/29/25 21:00 05/30/25 21:38 Rosuvastatin Calcium 5 Mg Tab PO 06/28/25 20:59 5 mg HS BLAYNE Administration Sacubitril/Valsartan 1 tab 05/29/25 08:00 05/30/25 10:22 Valsartan/Sacubitril 26/24mg Tab PO 06/28/25 07:59 1 tab BIDM BLAYNE Administration Spironolactone 12.5 mg 05/31/25 09:00 05/31/25 08:52 Spironolactone 12.5 Mg Tab PO 06/30/25 08:59 12.5 mg [id number] BLAYNE Administration Valacyclovir HCl 1,000 mg 05/29/25 14:00 05/31/25 08:54 Valacyclovir Hcl 500 Mg Tablet PO 06/05/25 13:59 1,000 mg TID BLAYNE Administration PG Care Time/CCT Total # of Minutes Spent Total Time Spent with Patient: Total time spent is greater than 50% in coordination of care (as documented) at patient's floor/unit and/or counseling patient: Coding Level of Care Code 45913 SUB INP/OBS CARE 3/50MIN Diagnoses Cardiac dysrhythmia I49.9 ICD (implantable cardioverter-defibrillator) discharge Z45.02 Atrial fibrillation I48.91 Elevated troponin R79.89 NICM (nonischemic cardiomyopathy) I42.8 Noncompliance with medication regimen Z91.14
[2025-05-31] MEDS ORDERED: AMIODARONE IV BOLUS & DRIP IV STA (14:22)
[2025-05-31] MEDS ORDERED: 0.2 MICRON FILTER SET 1 EACH IV STA (14:22)
[2025-05-31] MEDS: AMIODARONE / D5W 150 MG/100 ML BAG IV STA (14:41)
[2025-05-31] MEDS: STAT IV Infusion **Titration per Protocol STA (14:41)
[2025-05-31] MEDS: AMIODARONE / D5W 360 MG/200 ML BAG IV ONE (14:56)
[2025-05-31] MEDS: AMIODARONE / D5W 360 MG/200 ML BAG IV SCH (20:15)
[2025-06-01] MEDS: INSULIN ASPART PER UNIT CHARGE SC SCH (00:22)
--- NOTE | 2025-06-01 09:53 | Hospitalist Progress Note ---
Date of Service June 01, 2025 Assessment & Plan (1) Ventricular fibrillation: Plan: - official pacer interrogation pending - continue home metoprolol succinate 100 mg BID - was previously on amiodarone 200 mg twice daily however patient reports was discontinued over the summer - Patient clinically dry; IVF with 500 mL LR at 70 mL/hour, hold Lasix Echocardiogram completed -cardiology consult appreciated -started on amiodarone IV (2) Atrial fibrillation: Plan: -continue Eliquis and metoprolol (3) Elevated troponin: Plan: -Likely 2/2 demand with above. - repeat EKG ordered - trend troponin every 6 hours Echocardiogram (4) Cardiomyopathy: Plan: Holding lasix as above - continue spironolactone on Thursday 05/31 Continue Entresto - Healthy low-sodium diet (5) Hyperglycemia due to type 2 diabetes mellitus: Plan: - SSI with target BSG range 110-140mg/dL (6) Shingles: Plan: - standard precautions Plan Patient is a 80-year-old female with a past medical history of type II DM, cardiomyopathy, CHF, HTN, A-fib on Eliquis, CKD, ICD in place. Patient presented to the ED after her pacemaker shocked her 4 times today. Pacer interrogation reportedly showed 4 episodes of V-fib, official report pending. Throughout patient's ER stay, telemetry has shown paced rhythm, no arrhythmias noted. She does have magnesium 1.8, troponin 42.3, and glucose 525. She is being admitted for cardiac monitoring, electrolyte repletion, and to have cardiology eval for possible medication adjustment. Dispo: Awaiting placement at [facility] Admission and Anticipated Discharge Date Admission Date: May 28, 2025 Subjective No events overnight. Pt resting in chair. Review of Systems Review of Systems: CONST: Negative for fever, body aches and chills. HENT: Negative for neck pain/stiffness, headache, congestion, sore throat, swelling. EYES: Negative for discharge/pain or vision changes. RESP: Negative for cough/hemoptysis and shortness of breath. CV: Negative chest pain, difficulty breathing, palpitations. ABD: Negative pain, nausea, vomiting. : Negative increase frequency, dysuria, blood in urine or stool. MUSC: Negative for muscle aches, edema. SKIN: Negative rash, lesions/sores. NEURO: Negative headache, dizziness, weakness. Physical Exam Physical Exam: GENERAL APPEARANCE NAD, activity normal for age, well developed/ well nourished, no cyanosis, pallor, or diaphoresis. EYES lids/conjunctiva normal. EARS/NOSE/THROAT Mucous membranes moist, nares normal, lips/teeth normal uvula midline without oral pharyngeal erythema, exudate or swelling TMs normal bilaterally. No lymphangitis/lymphedema. HEAD/NECK normocephalic atraumatic, no facial trauma, neck is supple. RESPIRATORY respiratory effort normal, speaks in full sentences, no tripod position, no accessory muscle use. Lungs clear to auscultation without rhonchi, wheezes, rales CARDIAC Regular rate and rhythm, no edema. ABDOMINAL Soft, ND/NT. No evidence of fluid wave. No pulsatile masses on exam, rebound tenderness, Berumen sign or pain over Mcburney's point. MUSCLES/EXTREMITIES No abnormal range of motion, no swelling. SKIN Warm, pink and dry. No rashes, dermatoses, petechiae or lesions. NEUROLOGICAL Speech is clear and appropriate. Normal level of consciousness. Gait and coordination are normal. 5/5 strength in all extremities. PSYCH Normal mood and affect. Judgement/competence is appropriate Results & Data Results & Data Vital Signs (Past 12 Hours) Vital Signs Temp Pulse Resp BP Pulse Ox O2 Del Method 06/01/25 07:30 Room Air 06/01/25 07:21 36.4 C L 92 H 18 107/67 97 Room Air 06/01/25 04:00 36.6 C 85 17 105/66 95 Room Air 06/01/25 00:15 36.8 C 110 H 19 101/61 98 Room Air PG Care Time/CCT Total # of Minutes Spent Total Time Spent with Patient: Total time spent is greater than 50% in coordination of care (as documented) at patient's floor/unit and/or counseling patient: Coding Level of Care Code 55689 SUB INP/OBS CARE 2/35MIN Diagnoses Ventricular fibrillation I49.01 Atrial fibrillation I48.91 Elevated troponin R79.89 Cardiomyopathy I42.9 Hyperglycemia due to type 2 diabetes mellitus E11.65 Shingles B02.9
--- NOTE | 2025-06-01 12:58 | Pharmacy Report ---
Pharmacy Glycemic Short Note 2 - Date of Service June 01, 2025 - Glycemic Short BSG Results (Last 24 hours): 05/31/25 05/31/25 05/31/25 14:03 16:27 19:56 POC Glucose 294 H 239 H 212 H 06/01/25 06/01/25 06/01/25 00:17 03:58 07:32 POC Glucose 90 128 H 169 H 06/01/25 11:37 POC Glucose 308 H* OUTPATIENT ANTIDIABETIC REGIMEN: * Basaglar 40 units SQ qAM * Dulaglutide 0.75 mg SQ weekly A1c = 11.2% ASSESSMENT: 06/01: * BSGs [id number]/dl the last 24h. Received 60 units of basal and 92 units of bolus insulin yesterday. * Tolerating diet. * Continue Lantus 15 units qAM/45 units HS. Novolog correction loosened last evening as BSGs trend down at night. Continue for now - further tightened carb ratio today. 05/31: * BSGs elevated the last 24h: [phone]/dL. Received 55 units of basal and 64 units of bolus insulin yesterday (+ 8 units IV). * Tolerating diet. * Given elevated fasting BSG, AM Lantus increased to 15 units. Novolog tightened given persistently elevated prandial BSGs. 05/30: * Alejandrina is a 80 yo w/o history of T2DM, CHF, HTN, A.fib, and CKD with ICD. She presented to the ED due to concerns of cardiac arrhythmia. Pacer interrogation reportedly showed 4 episodes of ventricular fibrillation. * Severe hyperglycemia with BSG of 485 mg/dL on arrival. Continued hyperglycemia today; fasting of 250 mg/dL and lunch 312 mg/dL. * One time dose of 8 units IV regular insulin was ordered to be given with lunch coverage. * Tighten Novolog CF and CR to be ~weight/stress 3 * Additional 10 units of Lantus given this AM PLAN FOR INPATIENT GLYCEMIC CONTROL: * Hold outpatient oral diabetes medications * Basal insulin * Lantus 45 units SQ HS + 15 units SQ qAM * Bolus insulin * NovoLog per scale ACHS or Q6hrs while NPO * Goal Range: Low 110 mg/dL - High 140 mg/dL * Correction Factor: 15 mg/dL/unit * Nutritional / Prandial insulin per carb ratio of 1 unit per 3.5 grams CHO consumed
--- NOTE | 2025-06-01 15:18 | Cardiology Progress Note ---
Date of Service June 01, 2025 Assessment & Plan (1) Cardiac dysrhythmia: (2) ICD (implantable cardioverter-defibrillator) discharge: (3) Atrial fibrillation: (4) Elevated troponin: (5) NICM (nonischemic cardiomyopathy): (6) Noncompliance with medication regimen: Plan Assessment: 80 year old medically complex female admitted after reports of ICD discharge. Review of chart suggestive of both A-fib with RVR rates in the 220's requiring ATP as well as V-fib resulting in shock. Awaiting device report to confirm. Cardiology consulted for further evaluation/recommendations. Atrial Fib with RVR -> sinus rhythm ICD discharge for AFib with RVR with no definitive episodes of VF Shingles Severe NICM ABN Troponin - s/p ICD discharge Noncompliance Recommendations: correct and f/u electrolytes f/u renal function IV Amiodarone -> transition to PO amiodarone continue anticoagulation - Eliquis GDMT for HFrEF as tolerated Restart Entresto adjust anti-HTN meds keeping systolic BP between 100-140 mmHg avoid hypovolemia keep patient euvolemic keep LE elevated when sitting strict I&Os salt restriction Admission and Anticipated Discharge Date Admission Date: May 28, 2025 Subjective Patient on exam is sitting in chair in NAD; no c/o cp, sob, palpitations, dizziness, LOC, cough, fever, nausea, vomiting, abdominal pain, urinary or bowel problem problems; feels better; at bedside Review of Systems Review of Systems: as per HPI Physical Exam Eyes: anicteric sclerae, pink conjunctiva Neck: supple, NT Respiratory: BLBS, no rales, no wheezing Cardiovascular: Rate/Rhythm: + irregularly irregular (S1 S2; systolic murmur) Skin: no rashes, warm and dry Neurologic: a, o x 3 Psychiatric: A+Ox3, euthymic affect Results & Data Vital Signs (Past 12 Hours) Vital Signs Temp Pulse Pulse Resp BP Pulse Ox O2 Del Method 06/01/25 14:47 76 06/01/25 11:39 36.4 C L 84 20 126/79 99 Room Air 06/01/25 07:30 Room Air 06/01/25 07:21 36.4 C L 92 H 18 107/67 97 Room Air 06/01/25 04:00 36.6 C 85 17 105/66 95 Room Air Laboratory Results Laboratory Results WBC 11.34 K/ul (4.8-10.8) H 05/31/25 09:41 RBC 3.90 M/uL (4.20-5.40) L 05/31/25 09:41 Hgb 13.0 g/dL (12.0-16.0) 05/31/25 09:41 Hct 37.0 % (37.0-47.0) 05/31/25 09:41 MCV 94.9 fL (80.0-100.0) 05/31/25 09:41 MCH 33.3 pg (25.0-34.0) 05/31/25 09:41 MCHC 35.1 g/dL (32.0-36.0) 05/31/25 09:41 RDW Std Deviation 45.4 fL (36.4-46.3) 05/31/25 09:41 RDW Coeff of Hilda 13.6 % (11.5-14.5) 05/31/25 09:41 Plt Count 312 K/uL (130-400) 05/31/25 09:41 MPV 9.6 fL (9.4-12.4) 05/31/25 09:41 Immature Gran % (Auto) 2.1 % 05/29/25 02:15 Neut % (Auto) 67.4 % 05/29/25 02:15 Lymph % (Auto) 24.4 % 05/29/25 02:15 [place] % (Auto) 4.8 % 05/29/25 02:15 Eos % (Auto) 0.8 % 05/29/25 02:15 Baso % (Auto) 0.5 % 05/29/25 02:15 Neut # (Auto) 7.86 K/uL (1.40-6.50) H 05/29/25 02:15 Lymph # (Auto) 2.84 K/uL (1.20-3.40) 05/29/25 02:15 [place] # (Auto) 0.56 K/uL (0.11-0.59) 05/29/25 02:15 Eos # (Auto) 0.09 K/uL (0.00-0.50) 05/29/25 02:15 Baso # (Auto) 0.06 K/uL (0.00-0.20) 05/29/25 02:15 Immature Gran # (Auto) 0.25 K/uL (0.01-0.20) H 05/29/25 02:15 PT 11.0 Seconds (9.0-12.0) 05/28/25 18:35 INR 1.0 (0.9-1.1) 05/28/25 18:35 APTT 25 Seconds (21-31) 05/28/25 18:35 PTT Ratio 0.9 05/28/25 18:35 Sodium 133 mmol/L (136-145) L 05/31/25 09:41 Potassium 4.0 mmol/L (3.5-5.1) 05/31/25 09:41 Chloride 103 mmol/L (98-107) 05/31/25 09:41 Carbon Dioxide 21 mmol/L (21-32) 05/31/25 09:41 Anion Gap 9 (3-11) 05/31/25 09:41 BUN 24 mg/dl (6-23) H 05/31/25 09:41 Creatinine 1.16 mg/dl (0.6-1.2) 05/31/25 09:41 Est Cr Clr Drug Dosing 46.0 ml/min 05/31/25 09:41 eGFR 47.96 05/31/25 09:41 BUN/Creatinine Ratio 20.7 (10-20) H 05/31/25 09:41 Glucose 381 mg/dl (70-99(Fasting)) H* 05/31/25 09:41 POC Glucose 308 mg/dl (70-99) H* 06/01/25 11:37 Estimat Average Glucose 275 mg/dl 05/29/25 02:15 Hemoglobin A1c 11.2 % (4.5-5.6) H 05/29/25 02:15 Calcium 9.5 mg/dl (8.6-10.3) 05/31/25 09:41 Phosphorus 2.0 mg/dl (2.5-4.9) L 05/29/25 02:15 Magnesium 1.8 mg/dl (1.7-2.4) 05/31/25 09:41 Total Bilirubin 0.6 mg/dl (0.2-1.0) 05/28/25 18:35 AST 15 U/L (13-39) 05/28/25 18:35 ALT 12 U/L (7-52) 05/28/25 18:35 Alkaline Phosphatase 158 U/L (34-104) H 05/28/25 18:35 Troponin I High Sens 36.5 pg/ml (0-14) H 05/30/25 08:57 Total Protein 6.4 gm/dl (6.0-8.3) 05/28/25 18:35 Albumin 3.4 gm/dl (3.4-5.0) 05/28/25 18:35 Globulin 3.0 gm/dl (2.5-4.0) 05/28/25 18:35 Albumin/Globulin Ratio 1.1 (0.9-2) 05/28/25 18:35 TSH 1.280 uIu/ml (0.300-4.500) 05/28/25 20:14 Impressions Chest X-Ray 05/28/25 18:03 HISTORY: Chest pain TECHNIQUE: Portable AP radiograph of the chest. COMPARISON: Chest radiograph dated 06/17/2022. FINDINGS: Left subclavian approach biventricular pacer/AICD. No focal lung consolidation. No pneumothorax or effusion. Top normal heart size. Left-sided aortic arch containing atherosclerotic calcification. Midline trachea. No acute osseous abnormality. Included upper abdomen is unremarkable. IMPRESSION: No acute cardiopulmonary findings. Electronically signed by August Garces 05-28-2025 9:14 PM Diagnostic Findings Intake and Output 06/01/25 06/01/25 06/01/25 06:59 14:59 22:59 Intake Total 369.783 / 2024.783 550 / 550 Balance 369.783 / 2024.783 550 / 550 Intake: IV 169.783 / 469.783 Amiodarone / D5w 360 mg In 200 169.783 / 169.783 ml @ 0.5 MG/MIN 16.667 mls/hr IV .Q12H [facility] Rx#:[id number] Oral 200 / 1555 550 / 550 Other: # Unmeasured Voids 1 2 Weight 97.2 kg Weight Measurement Method Built in [facility] Medications Administered Home Medications Medication Instructions Recorded Confirmed Last Taken artificial tears(hypromellose) 0.3 1 drp OPB HS 06/19/18 06/16/22 03/18/19 % eye gel (Systane Gel) calcium 200 mg (as 2 tab PO QAM 06/19/18 06/16/22 03/19/19 citrate)-vitamin D3 6.25 mcg (250 unit) tablet (Citracal-D3 Petites) cholecalciferol (vitamin D3) 25 1,000 unit PO BID 06/19/18 06/16/22 03/19/19 mcg (1,000 unit) capsule (Vitamin D3) apixaban 5 mg tablet (Eliquis) 5 mg PO BID 03/20/19 06/16/22 03/19/19 furosemide 40 mg tablet (Lasix) 40 mg PO QAM 03/20/19 06/16/22 03/19/19 rosuvastatin 5 mg tablet (Crestor) 5 mg PO HS 03/20/19 06/16/22 03/19/19 sacubitril 24 mg-valsartan 26 mg 1 tab PO BIDM 03/20/19 06/16/22 03/19/19 tablet (Entresto) spironolactone 25 mg tablet 12.5 mg PO 3XWK 03/20/19 06/16/22 03/18/19 benzonatate 100 mg capsule 100 mg PO TID PRN Cough 06/07/22 06/16/22 Unknown dulaglutide 0.75 mg/0.5 mL 0.75 mg subcut WK 06/07/22 06/16/22 06/03/22 subcutaneous pen injector (Trulicity) fluticasone furoate 100 1 inh inhalation QAM 06/07/22 06/16/22 Unknown mcg-vilanterol 25 mcg/dose inhalation powder (Breo Ellipta) insulin glargine 100 unit/mL (3 40 unit subcut QAM 06/07/22 06/16/22 Unknown mL) subcutaneous pen (Basaglar Rosangela U-100 Insulin) meclizine 12.5 mg tablet 12.5 mg PO TID PRN Dizziness Or 06/07/22 06/16/22 Unknown Vertigo methylcellulose (laxative) 2 g PO DAILY 06/07/22 06/16/22 Unknown metoprolol succinate 100 mg 100 mg PO BID 06/07/22 06/16/22 Unknown tablet,extended release 24 hr multivitamin 1 tab PO DAILY 06/07/22 06/16/22 Unknown olopatadine 0.2 % eye drops 1 drp OPR QAM 06/07/22 06/16/22 Unknown (Pataday Once Daily Relief) fluticasone propionate 230 2 puff inhalation DAILY 06/16/22 06/16/22 Unknown mcg-salmeterol 21 mcg/actuation HFA inhaler (Advair HFA) amiodarone 200 mg tablet 200 mg PO BIDM #60 tabs 06/27/22 Unknown Active Medications Generic Name Dose Route Start Last Admin Trade Name Freq PRN Reason Stop Dose Admin Acetaminophen 650 mg 05/28/25 22:57 05/29/25 11:35 Acetaminophen 325 Mg Tab PO 06/27/25 22:56 650 mg Q4H PRN Administration Pain or Fever Apixaban 5 mg 05/29/25 09:00 06/01/25 08:51 Apixaban 5 Mg Tablet PO 06/28/25 08:59 5 mg BID BLAYNE Administration Artificial Tears 1 drops 05/29/25 21:00 05/31/25 19:50 Artificial Tears OP 06/28/25 20:59 Not Given HS BLAYNE Docusate Sodium 100 mg 05/28/25 22:57 06/01/25 08:55 Docusate Sodium 100 Mg Cap PO 06/27/25 22:56 100 mg BID PRN Administration Constipation Fluticasone/Vilanterol 1 puffs 05/29/25 09:00 06/01/25 08:52 Fluticasone/Vilanterol 200/25mcg 14 Puffs/Inhaler INH 06/28/25 08:59 1 puffs DAILY BLAYNE Administration Gabapentin 100 mg 05/29/25 14:00 06/01/25 13:25 Gabapentin 100 Mg Cap PO 06/28/25 13:59 100 mg TID BLAYNE Administration Amiodarone HCl/Dextrose 360 mg in 200 mls @ 16.667 mls/hr 05/31/25 20:30 06/01/25 06:25 Nexterone / D5w IV 06/30/25 20:29 0.5 mg/min .Q12H BLAYNE 16.7 mls/hr Administration 0.5 MG/MIN Insulin Aspart 0 units 05/29/25 00:00 06/01/25 12:28 Insulin Aspart Per Unit Charge SC 06/28/25 00:00 28 units ACHS BLAYNE Administration Insulin Glargine 45 units 05/29/25 21:00 05/31/25 20:00 Lantus Per Unit Charge SQ 06/28/25 20:59 45 units HS BLAYNE Administration Insulin Glargine 15 units 05/31/25 09:00 06/01/25 08:53 Lantus Per Unit Charge SC 06/30/25 08:59 15 units QAM BLAYNE Administration Metoprolol Succinate 125 mg 05/31/25 08:00 06/01/25 08:51 Metoprolol Succ 50mg Ext Rel Tab PO 06/30/25 07:59 125 mg BIDM BLAYNE Administration Miscellaneous 1 each 05/29/25 08:00 06/01/25 08:53 Olopatadine [Pataday]: Order Awaiting Action N/A 06/28/25 07:59 Not Given QS BLAYNE Polyethylene Glycol 17 gm 05/28/25 22:57 06/01/25 08:55 Polyethylene (Miralax) 17 Gm Pack PO 06/27/25 22:56 17 gm DAILY PRN Administration Constipation Rosuvastatin Calcium 5 mg 05/29/25 21:00 05/31/25 19:51 Rosuvastatin Calcium 5 Mg Tab PO 06/28/25 20:59 5 mg HS BLAYNE Administration Sacubitril/Valsartan 1 tab 05/29/25 08:00 05/30/25 10:22 Valsartan/Sacubitril 26/24mg Tab PO 06/28/25 07:59 1 tab BIDM BLAYNE Administration Valacyclovir HCl 1,000 mg 05/29/25 14:00 06/01/25 13:25 Valacyclovir Hcl 500 Mg Tablet PO 06/05/25 13:59 1,000 mg TID BLAYNE Administration PG Care Time/CCT Total # of Minutes Spent Total Time Spent with Patient: Total time spent is greater than 50% in coordination of care (as documented) at patient's floor/unit and/or counseling patient: Coding Level of Care Code 08062 SUB INP/OBS CARE 3/50MIN Diagnoses Cardiac dysrhythmia I49.9 ICD (implantable cardioverter-defibrillator) discharge Z45.02 Atrial fibrillation I48.91 Elevated troponin R79.89 NICM (nonischemic cardiomyopathy) I42.8 Noncompliance with medication regimen Z91.14
[2025-06-01] MEDS: AMIODARONE 200 MG TAB PO SCH (20:47)
[2025-06-01 23:45] VITALS: RESP 18
[2025-06-02 07:13] VITALS: O2SAT 99
[2025-06-02] MEDS: LANTUS PER UNIT CHARGE SC SCH (08:49)
--- NOTE | 2025-06-02 09:06 | Hospitalist Progress Note ---
Date of Service June 02, 2025 Assessment & Plan (1) Ventricular fibrillation: Plan: - official pacer interrogation pending - continue home metoprolol succinate 100 mg BID - was previously on amiodarone 200 mg twice daily however patient reports was discontinued over the summer - Patient clinically dry; IVF with 500 mL LR at 70 mL/hour, hold Lasix Echocardiogram completed -cardiology consult appreciated -started on amiodarone changed to po -entresto restarted (2) Atrial fibrillation: Plan: -continue Eliquis and metoprolol (3) Elevated troponin: Plan: -Likely 2/2 demand with above. - repeat EKG ordered - trend troponin every 6 hours Echocardiogram (4) Cardiomyopathy: Plan: Holding lasix as above Continue Entresto - Healthy low-sodium diet (5) Hyperglycemia due to type 2 diabetes mellitus: Plan: - SSI with target BSG range 110-140mg/dL (6) Shingles: Plan: - standard precautions Plan Patient is a 80-year-old female with a past medical history of type II DM, cardiomyopathy, CHF, HTN, A-fib on Eliquis, CKD, ICD in place. Patient presente d to the ED after her pacemaker shocked her 4 times today. Pacer interrogation reportedly showed 4 episodes of V-fib, official report pending. Throughout patient's ER stay, telemetry has shown paced rhythm, no arrhythmias noted. She does have magnesium 1.8, troponin 42.3, and glucose 525. She is being admitted for cardiac monitoring, electrolyte repletion, and to have cardiology eval for possible medication adjustment. Dispo: Awaiting placement at [facility] Admission and Anticipated Discharge Date Admission Date: May 28, 2025 Subjective No events overnight. Pt resting comfortably in bed. Review of Systems Review of Systems: CONST: Negative for fever, body aches and chills. HENT: Negative for neck pain/stiffness, headache, congestion, sore throat, swelling. EYES: Negative for discharge/pain or vision changes. RESP: Negative for cough/hemoptysis and shortness of breath. CV: Negative chest pain, difficulty breathing, palpitations. ABD: Negative pain, nausea, vomiting. : Negative increase frequency, dysuria, blood in urine or stool. MUSC: Negative for muscle aches, edema. SKIN: Negative rash, lesions/sores. NEURO: Negative headache, dizziness, weakness. Physical Exam Physical Exam: GENERAL APPEARANCE NAD, activity normal for age, well developed/ well nourished, no cyanosis, pallor, or diaphoresis. EYES lids/conjunctiva normal. EARS/NOSE/THROAT Mucous membranes moist, nares normal, lips/teeth normal uvula midline without oral pharyngeal erythema, exudate or swelling TMs normal bilaterally. No lymphangitis/lymphedema. HEAD/NECK normocephalic atraumatic, no facial trauma, neck is supple. RESPIRATORY respiratory effort normal, speaks in full sentences, no tripod position, no accessory muscle use. Lungs clear to auscultation without rhonchi, wheezes, rales CARDIAC Regular rate and rhythm, no edema. ABDOMINAL Soft, ND/NT. No evidence of fluid wave. No pulsatile masses on exam, rebound tenderness, Berumen sign or pain over Mcburney's point. MUSCLES/EXTREMITIES No abnormal range of motion, no swelling. SKIN Warm, pink and dry. No rashes, dermatoses, petechiae or lesions. NEUROLOGICAL Speech is clear and appropriate. Normal level of consciousness. Gait and coordination are normal. 5/5 strength in all extremities. PSYCH Normal mood and affect. Judgement/competence is appropriate Results & Data Results & Data Vital Signs (Past 12 Hours) Vital Signs Temp Pulse Pulse Resp BP Pulse Ox O2 Del Method 06/02/25 07:12 36.9 C 74 18 136/64 99 Room Air 06/02/25 02:53 36.7 C 71 18 120/75 97 Room Air 06/01/25 23:21 36.7 C 73 18 123/70 97 Room Air 06/01/25 21:53 75 PG Care Time/CCT Total # of Minutes Spent Total Time Spent with Patient: Total time spent is greater than 50% in coordination of care (as documented) at patient's floor/unit and/or counseling patient: Coding Level of Care Code 50802 SUB INP/OBS CARE 2/35MIN Diagnoses Ventricular fibrillation I49.01 Atrial fibrillation I48.91 Elevated troponin R79.89 Cardiomyopathy I42.9 Hyperglycemia due to type 2 diabetes mellitus E11.65 Shingles B02.9
[2025-06-02 11:12] VITALS: BP 121/70; TEMP 98.6
--- NOTE | 2025-06-02 11:15 | Pharmacy Report ---
Pharmacy Glycemic Short Note 2 - Date of Service June 02, 2025 - Glycemic Short BSG Results (Last 24 hours): 06/01/25 06/01/25 06/01/25 11:37 16:24 20:24 POC Glucose 308 H* 210 H 145 H 06/02/25 06/02/25 06/02/25 00:03 05:52 07:24 POC Glucose 119 H 130 H 143 H OUTPATIENT ANTIDIABETIC REGIMEN: * Basaglar 40 units SQ qAM * Dulaglutide 0.75 mg SQ weekly A1c = 11.2% ASSESSMENT: 06/02: * Stressors stable * AM fasting BSG slightly above goal, but has been trending down. Will re- distribute Lantus from higher dose at night to higher dose in the AM over the next 24-48 hours to help with eventual transition back to home regimen (see above) * Post-prandial BSG's yesterday after the change noted at lunch were trending down appropriately and close to goal by HS. Will continue same for now. 06/01: * BSGs [id number]/dl the last 24h. Received 60 units of basal and 92 units of bolus insulin yesterday. * Tolerating diet. * Continue Lantus 15 units qAM/45 units HS. Novolog correction loosened last evening as BSGs trend down at night. Continue for now - further tightened carb ratio today. 05/31: * BSGs elevated the last 24h: [phone]/dL. Received 55 units of basal and 64 units of bolus insulin yesterday (+ 8 units IV). * Tolerating diet. * Given elevated fasting BSG, AM Lantus increased to 15 units. Novolog tightened given persistently elevated prandial BSGs. 05/30: * Alejandrina is a 80 yo w/o history of T2DM, CHF, HTN, A.fib, and CKD with ICD. She presented to the ED due to concerns of cardiac arrhythmia. Pacer interrogation reportedly showed 4 episodes of ventricular fibrillation. * Severe hyperglycemia with BSG of 485 mg/dL on arrival. Continued hyperglycemia today; fasting of 250 mg/dL and lunch 312 mg/dL. * One time dose of 8 units IV regular insulin was ordered to be given with lunch coverage. * Tighten Novolog CF and CR to be ~weight/stress 3 * Additional 10 units of Lantus given this AM PLAN FOR INPATIENT GLYCEMIC CONTROL: * Hold outpatient oral diabetes medications * Basal insulin * Lantus 30 units SQ 12/24 AM, 15 units SQ 24 PM, then 40 units qAM ongoing (with possible lower PM dose starting 06/03 PM as well) * Bolus insulin * NovoLog per scale ACHS or Q6hrs while NPO * Goal Range: Low 110 mg/dL - High 140 mg/dL * Correction Factor: 15 mg/dL/unit * Nutritional / Prandial insulin per carb ratio of 1 unit per 3.5 grams CHO consumed
--- NOTE | 2025-06-02 14:19 | Discharge Summary ---
Discharge Summary Date of Service June 02, 2025 Principal Dx & Hospital Course #1 = Principal Diagnosis (1) Ventricular fibrillation: - official pacer interrogation pending - continue home metoprolol succinate 100 mg BID - was previously on amiodarone 200 mg twice daily however patient reports was discontinued over the summer - Patient clinically dry; IVF with 500 mL LR at 70 mL/hour, hold Lasix Echocardiogram completed -cardiology consult appreciated -started on amiodarone changed to po -entresto restarted (2) Atrial fibrillation: -continue Eliquis and metoprolol (3) Elevated troponin: -Likely 2/2 demand with above. - repeat EKG ordered - trend troponin every 6 hours Echocardiogram (4) Cardiomyopathy: Holding lasix as above Continue Entresto - Healthy low-sodium diet (5) Hyperglycemia due to type 2 diabetes mellitus: - SSI with target BSG range 110-140mg/dL (6) Shingles: - standard precautions Plan Patient is a 80-year-old female with a past medical history of type II DM, cardiomyopathy, CHF, HTN, A-fib on Eliquis, CKD, ICD in place. Patient presented to the ED after her pacemaker shocked her 4 times today. Pacer interrogation reportedly showed 4 episodes of V-fib, official report pending. Throughout patient's ER stay, telemetry has shown paced rhythm, no arrhythmias noted. She does have magnesium 1.8, troponin 42.3, and glucose 525. She is being admitted for cardiac monitoring, electrolyte repletion, and to have cardiology eval for possible medication adjustment. Dispo: D/C home with home health Admission HPI Per Admitting Provider Patient is a 80-year-old female with a past medical history of type II DM, cardiomyopathy, CHF, HTN, A-fib on Eliquis, CKD, ICD in place. Patient presented to the ED after her pacemaker shocked her 4 times today. Pacer interrogation reportedly showed 4 episodes of V-fib. Throughout patient's ER stay, telemetry has shown paced rhythm, no arrhythmias noted. She does have magnesium 1.8, troponin 42.3, and glucose 525. She is being admitted for cardiac monitoring, electrolyte repletion, and to have cardiology eval for possible medication adjustment. Patient seen at bedside with her present. She stated she was walking to the bathroom this morning when she had the first shock, she then had a second shock when she got to the bathroom. When she was getting off of the toilet she had a third shock. And then when she was leaving the bathroom she had a fourth and called EMS. She stated she had chest pain and shortness of breath during the episode however currently denies any symptoms. She was feeling well this morning otherwise. Denies any recent dizziness, lightheadedness, chest pain, shortness of breath, abdominal pain, nausea, vomiting. She does endorse 2 episodes of diarrhea over the past week which is not typical for her, now resolved. She also endorses intermittent balance issues which is baseline for her and she uses a walker. She stated she was taken off amiodarone this summer and follows with Dr. Modi for cardiology. Patient also stated over the summer cardiology did something to her pacer and every evening at 5 PM it goes off for 1 to 2 minutes. She is unable to explain further detail however wants to discuss with cardiology. Patient mentioned that she has also been diagnosed with shingles during either the or 3rd week of May. She is on a medication that begins with the G to help with this. She is unsure of what the medication is. Tried to obtain current medication regimen however not within the EMR. Regarding patient's hyperglycemia, she stated her A1c has been poorly controlled as she has been trying to undergo knee surgery and needs to control it first. She is unsure of her home medication regimen for insulin however believes she takes NovoLog 42 to 43 units in the morning and Basaglar 50 units with dinner. She denies nicotine or alcohol use. She does not use oxygen at baseline. She is due for her evening medications. She wishes to be full code. Discharge Exam GENERAL APPEARANCE NAD, activity normal for age, well developed/ well nourished, no cyanosis, pallor, or diaphoresis. EYES lids/conjunctiva normal. EARS/NOSE/THROAT Mucous membranes moist, nares normal, lips/teeth normal uvula midline without oral pharyngeal erythema, exudate or swelling TMs normal bilaterally. No lymphangitis/lymphedema. HEAD/NECK normocephalic atraumatic, no facial trauma, neck is supple. RESPIRATORY respiratory effort normal, speaks in full sentences, no tripod position, no accessory muscle use. Lungs clear to auscultation without rhonchi, wheezes, rales CARDIAC Regular rate and rhythm, no edema. ABDOMINAL Soft, ND/NT. No evidence of fluid wave. No pulsatile masses on exam, rebound tenderness, Berumen sign or pain over Mcburney's point. MUSCLES/EXTREMITIES No abnormal range of motion, no swelling. SKIN Warm, pink and dry. No rashes, dermatoses, petechiae or lesions. NEUROLOGICAL Speech is clear and appropriate. Normal level of consciousness. Gait and coordination are normal. 5/5 strength in all extremities. PSYCH Normal mood and affect. Judgement/competence is appropriate Discharge Plan Discharge Items Patient Disposition: Home - Self-Care Reason For Visit: V FIB, HYPERGLYCEMIA Discharge Diagnosis: vfib Condition on Discharge: Fair Activity: Resume your previous activity Non-emergency contact: Primary Care Provider Call non-emergency contact if: you have any medication questions Follow-up/Referrals: Karsten Ovalle, [Primary Care Provider] - Diet: Carb Consistent or DM2 Addtl Attending Provider Instructions: Follow up with Cardiology in 1 week Addtl Conductor Pullman Provider Instructions: DIABETES RECOMMENDATIONS AT DISCHARGE: 1.) A1c 11.2%- pt was not using insulin pen correctly at home. Need to start from scratch with insulin dosing at discharge to prevent hypoglycemia with the intention pt is going to start using correctly. * Basaglar 1x/day in AM- while hospitalized 60 units seems to work well. * Novolog (set dose) with breakfast and supper meals- will hospitalized- 15-20 units seemed to work well. 2.) Use logsheet provided to record insulin dosing and BG values. 3.) Restart FreeStyle Libre2+ sensor for 24/7 glucose monitoring to help guide diet/diabetes medication adjustments. Pending Studies at Discharge: No Stand-Alone Forms: [employer], Smoking Cessation Medications and DC Order Prescriptions: New amiodarone 200 mg Tablet 200 mg PO BIDM Qty: 60 0RF Continued cholecalciferol (vitamin D3) [Vitamin D3] 1,000 unit Capsule 1,000 unit PO BID Systane Gel 0.3 % Gel 1 drp OPB HS calcium citrate-vitamin D3 [Citracal-D3 Petites] 200 mg calcium -250 unit Tablet 2 tab PO QAM furosemide [Lasix] 40 mg Tablet 40 mg PO QAM spironolactone 25 mg Tablet 12.5 mg PO 3XWK Rx Instructions: TAKE THIS MED ON SATURDAY/SATURDAY/SATURDAY rosuvastatin [Crestor] 5 mg Tablet 5 mg PO HS Eliquis 5 mg Tablet 5 mg PO BID Entresto 24-26 mg Tablet 1 tab PO BIDM fluticasone propion-salmeterol [Advair HFA] 230-21 mcg/actuation HFA aerosol inhaler 2 puff INHALATION DAILY amiodarone 200 mg Tablet 200 mg PO BIDM Qty: 60 0RF benzonatate 100 mg capsule 100 mg PO TID PRN (Reason: Cough) meclizine 12.5 mg tablet 12.5 mg PO TID PRN (Reason: Dizziness Or Vertigo) methylcellulose (laxative) Powder 2 g PO DAILY Trulicity 0.75 mg/0.5 mL pen injector 0.75 mg SUBCUT WK Rx Instructions: Is not taking- stopped several years ago. metoprolol succinate 100 mg tablet extended release 24 hr 100 mg PO BID Rx Instructions: TAKE THIS MED WITH BREAKFAST AND EVENING MEAL. fluticasone furoate-vilanterol [Breo Ellipta] 100-25 mcg/dose blister with device 1 inh inhalation QAM insulin glargine [Basaglar KwikPen U-100 Insulin] 100 unit/mL (3 mL) insulin pen 65 unit SUBCUT QAM Rx Instructions: Pt reports taking 50 units. olopatadine [Pataday Once Daily Relief] 0.2 % Drops 1 drp OPR QAM multivitamin Tablet 1 tab PO DAILY insulin aspart U-100 [Novolog FlexPen U-100 Insulin] 100 unit/mL (3 mL) Insulin Pen See Rx Instructions .ROUTE .COMPLEX Rx Instructions: 56 units with breakfast and 52 units with supper; however, pt has been using insulin pen incorrectly- most likely not receiving much insulin. Rybelsus 7 mg DAILY Discharge Orders: Discharge Order (Routine); Ordered 06/02/25 Ordered By: Raymundo Nogueira/Other Patient Handouts: High Blood Sugar (Hyperglycemia), Managing Type 2 Diabetes Admission Data Admit Date/Time: 05/28/25 21:38 Attending Provider: Raymundo Ho Admit Provider: Peg Tucker Primary Care Provider: Karsten Ovalle Other Providers: Aleshia Rivera; Renu Zimmerman [facility]; [facility] Stay Data Consultations 05/28/25 22:57 Consult Cardiology Routine Pending Results Patient Have Any Pending Studies at Discharge: No Discharge Instructions Given to Patient (Per Discharging Provider) Follow up with Cardiology in 1 week Total Time Total Time Spent Total Time Spent (In Minutes): 50 Coding Level of Care Code 61105 INP/OBS DISCH >30 MIN Diagnoses Ventricular fibrillation I49.01 Atrial fibrillation I48.91 Elevated troponin R79.89 Cardiomyopathy I42.9 Hyperglycemia due to type 2 diabetes mellitus E11.65 Shingles B02.9
[2025-06-02 14:24] VITALS: PULSE 105
--- NOTE | 2025-06-02 18:23 | Cardiology Progress Note ---
Date of Service June 02, 2025 Assessment & Plan (1) Cardiac dysrhythmia: (2) ICD (implantable cardioverter-defibrillator) discharge: (3) Atrial fibrillation: (4) Elevated troponin: (5) NICM (nonischemic cardiomyopathy): (6) Noncompliance with medication regimen: Plan Assessment: 80 year old medically complex female admitted after reports of ICD discharge. Review of chart suggestive of both A-fib with RVR rates in the 220's requiring ATP as well as V-fib resulting in shock. Awaiting device report to confirm. Cardiology consulted for further evaluation/recommendations. Atrial Fib with RVR -> sinus rhythm ICD discharge for AFib with RVR with no definitive episodes of VF Shingles Severe NICM ABN Troponin - s/p ICD discharge Noncompliance Recommendations: PO amiodarone continue anticoagulation - Eliquis GDMT for HFrEF as tolerated Restarted Entresto avoid hypovolemia keep patient euvolemic keep LE elevated when sitting strict I&Os salt restriction f/u with cardiology as OP post discharge Admission and Anticipated Discharge Date Admission Date: May 28, 2025 Subjective Patient on exam is lying in bed in NAD; no c/o cp, sob, palpitations, dizziness, LOC, cough, fever, nausea, vomiting, abdominal pain, urinary or bowel problem problems feels good; pt seen earlier today Review of Systems Review of Systems: as per HPI Physical Exam Eyes: anicteric sclerae, pink conjunctiva Neck: supple, NT Cardiovascular: Rate/Rhythm: + irregularly irregular (S1 S2; systolic murmur) Gastrointestinal (Abdomen): soft, BS+, obese Skin: no rashes, warm and dry Psychiatric: A+Ox3, euthymic affect Results & Data Vital Signs (Past 12 Hours) Vital Signs Temp 37.0 C 06/02/25 14:23 Pulse 105 H 06/02/25 14:23 Resp 18 06/02/25 14:23 BP 121/70 06/02/25 14:23 Pulse Ox 99 06/02/25 14:23 O2 Del Method Room Air 06/02/25 11:11 Intake & Output 06/01/25 06/02/25 06/02/25 18:59 06:59 18:59 Intake Total 745.39 / 945.39 200 / 945.39 345 / 345 Balance 745.39 / 945.39 200 / 945.39 345 / 345 Weight 97.2 kg 97.2 kg Intake: IV 195.39 / 395.39 200 / 395.39 Amiodarone / D5w 360 mg In 200 195.39 / 395.39 200 / 395.39 ml @ 0.5 MG/MIN 16.667 mls/hr IV .Q12H BLAYNE Rx#:[id number] Oral 550 / 550 345 / 345 Other: # Unmeasured Voids 2 1 Weight Measurement Method Built in [facility] Vital Signs Temp Pulse Pulse Pulse Resp BP Pulse Ox 06/02/25 14:23 37.0 C 105 H 75 18 121/70 99 06/02/25 14:21 73 06/02/25 11:11 37.0 C 75 18 121/70 99 06/02/25 09:27 74 06/02/25 07:12 36.9 C 74 18 136/64 99 O2 Del Method 06/02/25 14:23 06/02/25 14:21 06/02/25 11:11 Room Air 06/02/25 09:27 06/02/25 07:12 Room Air Laboratory Results Laboratory Results WBC 11.34 K/ul (4.8-10.8) H 05/31/25 09:41 RBC 3.90 M/uL (4.20-5.40) L 05/31/25 09:41 Hgb 13.0 g/dL (12.0-16.0) 05/31/25 09:41 Hct 37.0 % (37.0-47.0) 05/31/25 09:41 MCV 94.9 fL (80.0-100.0) 05/31/25 09:41 MCH 33.3 pg (25.0-34.0) 05/31/25 09:41 MCHC 35.1 g/dL (32.0-36.0) 05/31/25 09:41 RDW Std Deviation 45.4 fL (36.4-46.3) 05/31/25 09:41 RDW Coeff of Hilda 13.6 % (11.5-14.5) 05/31/25 09:41 Plt Count 312 K/uL (130-400) 05/31/25 09:41 MPV 9.6 fL (9.4-12.4) 05/31/25 09:41 Immature Gran % (Auto) 2.1 % 05/29/25 02:15 Neut % (Auto) 67.4 % 05/29/25 02:15 Lymph % (Auto) 24.4 % 05/29/25 02:15 [place] % (Auto) 4.8 % 05/29/25 02:15 Eos % (Auto) 0.8 % 05/29/25 02:15 Baso % (Auto) 0.5 % 05/29/25 02:15 Neut # (Auto) 7.86 K/uL (1.40-6.50) H 05/29/25 02:15 Lymph # (Auto) 2.84 K/uL (1.20-3.40) 05/29/25 02:15 [place] # (Auto) 0.56 K/uL (0.11-0.59) 05/29/25 02:15 Eos # (Auto) 0.09 K/uL (0.00-0.50) 05/29/25 02:15 Baso # (Auto) 0.06 K/uL (0.00-0.20) 05/29/25 02:15 Immature Gran # (Auto) 0.25 K/uL (0.01-0.20) H 05/29/25 02:15 PT 11.0 Seconds (9.0-12.0) 05/28/25 18:35 INR 1.0 (0.9-1.1) 05/28/25 18:35 APTT 25 Seconds (21-31) 05/28/25 18:35 PTT Ratio 0.9 05/28/25 18:35 Sodium 133 mmol/L (136-145) L 05/31/25 09:41 Potassium 4.0 mmol/L (3.5-5.1) 05/31/25 09:41 Chloride 103 mmol/L (98-107) 05/31/25 09:41 Carbon Dioxide 21 mmol/L (21-32) 05/31/25 09:41 Anion Gap 9 (3-11) 05/31/25 09:41 BUN 24 mg/dl (6-23) H 05/31/25 09:41 Creatinine 1.16 mg/dl (0.6-1.2) 05/31/25 09:41 Est Cr Clr Drug Dosing 46.0 ml/min 05/31/25 09:41 eGFR 47.96 05/31/25 09:41 BUN/Creatinine Ratio 20.7 (10-20) H 05/31/25 09:41 Glucose 381 mg/dl (70-99(Fasting)) H* 05/31/25 09:41 POC Glucose 227 mg/dl (70-99) H 06/02/25 11:26 Estimat Average Glucose 275 mg/dl 05/29/25 02:15 Hemoglobin A1c 11.2 % (4.5-5.6) H 05/29/25 02:15 Calcium 9.5 mg/dl (8.6-10.3) 05/31/25 09:41 Phosphorus 2.0 mg/dl (2.5-4.9) L 05/29/25 02:15 Magnesium 1.8 mg/dl (1.7-2.4) 05/31/25 09:41 Total Bilirubin 0.6 mg/dl (0.2-1.0) 05/28/25 18:35 AST 15 U/L (13-39) 05/28/25 18:35 ALT 12 U/L (7-52) 05/28/25 18:35 Alkaline Phosphatase 158 U/L (34-104) H 05/28/25 18:35 Troponin I High Sens 36.5 pg/ml (0-14) H 05/30/25 08:57 Total Protein 6.4 gm/dl (6.0-8.3) 05/28/25 18:35 Albumin 3.4 gm/dl (3.4-5.0) 05/28/25 18:35 Globulin 3.0 gm/dl (2.5-4.0) 05/28/25 18:35 Albumin/Globulin Ratio 1.1 (0.9-2) 05/28/25 18:35 TSH 1.280 uIu/ml (0.300-4.500) 05/28/25 20:14 Impressions Chest X-Ray 05/28/25 18:03 HISTORY: Chest pain TECHNIQUE: Portable AP radiograph of the chest. COMPARISON: Chest radiograph dated 06/17/2022. FINDINGS: Left subclavian approach biventricular pacer/AICD. No focal lung consolidation. No pneumothorax or effusion. Top normal heart size. Left-sided aortic arch containing atherosclerotic calcification. Midline trachea. No acute osseous abnormality. Included upper abdomen is unremarkable. IMPRESSION: No acute cardiopulmonary findings. Electronically signed by August Garces 05-28-2025 9:14 PM Diagnostic Findings Intake and Output 06/02/25 06/02/25 06/02/25 06:59 14:59 22:59 Intake Total 345 / 345 Balance 345 / 345 Intake: Oral 345 / 345 Other: # Unmeasured Voids 1 Weight 97.2 kg 97.2 kg Weight Measurement Method Built in [facility] Patient Weight 06/03/25 06:59 Weight 97.2 kg Medications Administered Home Medications Medication Instructions Recorded Confirmed Last Taken artificial tears(hypromellose) 0.3 1 drp OPB HS 06/19/18 06/16/22 03/18/19 % eye gel (Systane Gel) calcium 200 mg (as 2 tab PO QAM 06/19/18 06/16/22 03/19/19 citrate)-vitamin D3 6.25 mcg (250 unit) tablet (Citracal-D3 Petites) cholecalciferol (vitamin D3) 25 1,000 unit PO BID 06/19/18 06/16/22 03/19/19 mcg (1,000 unit) capsule (Vitamin D3) apixaban 5 mg tablet (Eliquis) 5 mg PO BID 03/20/19 06/16/22 03/19/19 furosemide 40 mg tablet (Lasix) 40 mg PO QAM 03/20/19 06/16/22 03/19/19 rosuvastatin 5 mg tablet (Crestor) 5 mg PO HS 03/20/19 06/16/22 03/19/19 sacubitril 24 mg-valsartan 26 mg 1 tab PO BIDM 03/20/19 06/16/22 03/19/19 tablet (Entresto) spironolactone 25 mg tablet 12.5 mg PO 3XWK 03/20/19 06/16/22 03/18/19 benzonatate 100 mg capsule 100 mg PO TID PRN Cough 06/07/22 06/16/22 Unknown dulaglutide 0.75 mg/0.5 mL 0.75 mg subcut WK 06/07/22 06/16/22 06/03/22 subcutaneous pen injector (Trulicity) fluticasone furoate 100 1 inh inhalation QAM 06/07/22 06/16/22 Unknown mcg-vilanterol 25 mcg/dose inhalation powder (Breo Ellipta) insulin glargine 100 unit/mL (3 65 unit subcut QAM 06/07/22 06/01/25 Unknown mL) subcutaneous pen (Basaglar KwikPen U-100 Insulin) meclizine 12.5 mg tablet 12.5 mg PO TID PRN Dizziness Or 06/07/22 06/16/22 Unknown Vertigo methylcellulose (laxative) 2 g PO DAILY 06/07/22 06/16/22 Unknown metoprolol succinate 100 mg 100 mg PO BID 06/07/22 06/16/22 Unknown tablet,extended release 24 hr multivitamin 1 tab PO DAILY 06/07/22 06/16/22 Unknown olopatadine 0.2 % eye drops 1 drp OPR QAM 06/07/22 06/16/22 Unknown (Pataday Once Daily Relief) fluticasone propionate 230 2 puff inhalation DAILY 06/16/22 06/16/22 Unknown mcg-salmeterol 21 mcg/actuation HFA inhaler (Advair HFA) amiodarone 200 mg tablet 200 mg PO BIDM #60 tabs 06/27/22 Unknown Rybelsus 7 mg DAILY 06/01/25 06/01/25 Unknown insulin aspart U-100 100 unit/mL See Rx Instructions .Route .COMPLEX 06/01/25 06/01/25 Unknown (3 mL) subcutaneous pen (Novolog FlexPen U-100 Insulin aspart) amiodarone 200 mg tablet 200 mg PO BIDM #60 tabs 06/02/25 Unknown PG Care Time/CCT Total # of Minutes Spent Total Time Spent with Patient: Total time spent is greater than 50% in coordination of care (as documented) at patient's floor/unit and/or counseling patient: Coding Level of Care Code 17950 SUB INP/OBS CARE 3/50MIN Diagnoses Cardiac dysrhythmia I49.9 ICD (implantable cardioverter-defibrillator) discharge Z45.02 Atrial fibrillation I48.91 Elevated troponin R79.89 NICM (nonischemic cardiomyopathy) I42.8 Noncompliance with medication regimen Z91.14
[2025-06-02] MEDS ORDERED: LANTUS PER UNIT CHARGE SC ONE (21:00)
[2025-06-03] MEDS ORDERED: LANTUS PER UNIT CHARGE SC SCH (09:00)
== END 2025-06-02 15:10 | disposition home or self-care (01) | DRG 309 ==
LOC: ED 17:42 → SUATTDRO 21:38 → 2S 21:38